=== PATIENT | female | born 1935 | race Caucasian/White ===

== ENCOUNTER 2018-10-04 07:49 | Inpatient (IN) | payer MEDICARE, BC ==
[2018-10-04] MEDS ORDERED: IPRATROPIUM-ALBUTEROL 3 ML NEB INHALATION STA (08:14)
[2018-10-04] MEDS ORDERED: ALBUTEROL NEBULIZED 2.5 MG/3 ML INHALATION STA (08:15)
--- NOTE | 2018-10-04 08:30 | ED ---
General Adult HPI - General Chief complaint: Shortness of Breath Stated complaint: AWAIS Time Seen by Provider: 10/04/18 07:50 Source: patient, RN notes reviewed Mode of arrival: EMS Limitations: no limitations - History of Present Illness Initial comments: This is an 83-year-old female who presents emergency Department complaining of difficult breathing over the last week. Patient states his been getting progressively worse. Patient denies any fever chills. Patient states she has dry cough. Patient denies any chest pain or palpitations. Patient denies headache patient denies numbness weakness. Patient denies abdominal pain patient denies nausea vomiting diarrhea. Patient denies any swelling to the legs or calf tenderness. Patient states she's on to half liters of oxygen home but it doesn't appear to be enough. Patient was in the low 80s on 2 and half liters when EMS arrived. - Related Data Home Medications Medication Instructions Recorded Confirmed Aspirin EC [Ecotrin Low Dose] 81 mg PO DAILY 10/04/18 10/04/18 Atorvastatin [Lipitor] 20 mg PO DAILY 10/04/18 10/04/18 Calcitriol [Rocaltrol] 0.25 mcg PO Q48H 10/04/18 10/04/18 Calcium Carbonate/Vitamin D3 1 tab PO DAILY 10/04/18 10/04/18 [Calcium 600-Vit D3 200 Tablet] Clopidogrel [Plavix] 75 mg PO DAILY 10/04/18 10/04/18 Cyanocobalamin (Vitamin B-12) 1,000 mcg PO DAILY 10/04/18 10/04/18 [Vitamin B-12] Ezetimibe [Zetia] 10 mg PO DAILY 10/04/18 10/04/18 Gabapentin [Neurontin] 400 mg PO TID 10/04/18 10/04/18 Isosorbide Mononitrate ER [Imdur] 30 mg PO DAILY 10/04/18 10/04/18 Levothyroxine Sodium [Synthroid] 50 mcg PO DAILY 10/04/18 10/04/18 Metoprolol Tartrate [Lopressor] 25 mg PO BID 10/04/18 10/04/18 amLODIPine [Norvasc] 10 mg PO DAILY 10/04/18 10/04/18 hydrALAZINE HCL [Apresoline] 50 mg PO TID 10/04/18 10/04/18 traMADol HCL [Ultram] 50 mg PO DAILY PRN 10/04/18 10/04/18 Allergies Allergy/AdvReac Type Severity Reaction Status Date / Time No Known Allergies Allergy Verified 10/04/18 07:59 Review of Systems ROS Statement: Those systems with pertinent positive or pertinent negative responses have been documented in the HPI. ROS Other: All systems not noted in ROS Statement are negative. Past Medical History Past Medical History: COPD, Hyperlipidemia, Hypertension History of Any Multi-Drug Resistant Organisms: None Reported Past Surgical History: Orthopedic Surgery Past Psychological History: No Psychological Hx Reported Smoking Status: Former smoker Past Alcohol Use History: None Reported Past Drug Use History: None Reported - Past Family History Father Family Medical History: Cancer, Coronary Artery Disease (CAD), Myocardial Infarction ([place]) Additional Family Medical History / Comment(s): Father had lymphoma. He lived to be 72 yrs old. Mother Family Medical History: Diabetes Mellitus Additional Family Medical History / Comment(s): Mother lived to be 82 yrs old. General Exam - General Exam Comments Initial Comments: GENERAL: Patient is well-developed and well-nourished. Patient is nontoxic and well- hydrated and is in mild distress. ENT: Neck is soft and supple. No significant lymphadenopathy is noted. Oropharynx is clear. Moist mucous membranes. Neck has full range of motion without eliciting any pain. EYES: The sclera were anicteric and conjunctiva were pink and moist. Extraocular movements were intact and pupils were equal round and reactive to light. Eyelids were unremarkable. PULMONARY: Expiratory wheezing CARDIOVASCULAR: There is a regular rate and rhythm without any murmurs gallops or rubs. ABDOMEN: Soft and nontender with normal bowel sounds. No palpable organomegaly was noted. There is no palpable pulsatile mass. SKIN: Skin is clear with no lesions or rashes and otherwise unremarkable. NEUROLOGIC: Patient is alert and oriented x3. Cranial nerves II through XII are grossly intact. Motor and sensory are also intact. Normal speech, volume and content. Symmetrical smile. MUSCULOSKELETAL: Normal extremities with adequate strength and full range of motion. No lower extremity swelling or edema. No calf tenderness. LYMPHATICS: No significant lymphadenopathy is noted PSYCHIATRIC: Normal psychiatric evaluation. Limitations: no limitations Course Vital Signs 10/04/18 10/04/18 10/04/18 07:49 07:54 07:58 Temperature 99.4 F Pulse Rate 120 H Respiratory 28 H 28 H Rate Blood Pressure 134/92 O2 Sat by Pulse 76 L 88 L Oximetry 10/04/18 10/04/18 10/04/18 08:00 08:06 08:21 Temperature Pulse Rate 118 H 116 H 122 H Respiratory 40 H 20 20 Rate Blood Pressure 134/92 O2 Sat by Pulse 88 L Oximetry 10/04/18 10/04/18 10/04/18 08:33 08:50 09:00 Temperature Pulse Rate 118 H 124 H Respiratory 18 18 Rate Blood Pressure 134/92 O2 Sat by Pulse 93 L 92 L Oximetry 10/04/18 10/04/18 10/04/18 09:30 10:00 11:00 Temperature Pulse Rate 122 H 118 H 120 H Respiratory 24 25 H 25 H Rate Blood Pressure 112/51 116/43 127/49 O2 Sat by Pulse 96 96 97 Oximetry Medical Decision Making - Medical Decision Making EKG shows sinus tachycardia at 123 bpm AR interval is on a 44 QRS is 80 QT interval is 266 QTC is 380. Patient's EKG shows ST segment depression in leads [address] segment depression in leads V2 V3 45 and 6. Patient does have some slight ST segment elevation in aVR. When patient initially arrived she was having wheezing so she received some breathing treatments and steroids. It only slightly improved her breathing and pulse ox. Chest x-ray shows severe scoliosis pulmonary edema and possible right lower lobe infiltrate. I started the patient on Rocephin. I started the patient heparin for the elevated troponin. I spoke with Dr. Stanton he wanted the patient admitted and wanted the patient in ICU. Patient is on BiPAP because she was only satting in the high 80s with [address] Uribe he agreed to accept the patient ICU admitted to the ICU. - Lab Data Result diagrams: 10/04/18 08:20 10/04/18 08:20 Lab Results 10/04/18 10/04/18 10/04/18 Range/Units 08:20 08:20 08:20 WBC 20.3 H (3.8-10.6) k/uL RBC 4.73 (3.80-5.40) m/uL Hgb 13.6 (11.4-16.0) gm/dL Hct 44.6 (34.0-46.0) % MCV 94.3 (80.0-100.0) fL MCH 28.7 (25.0-35.0) pg MCHC 30.5 L (31.0-37.0) g/dL RDW 14.6 (11.5-15.5) % Plt Count 287 (150-450) k/uL Neutrophils % 83 % Lymphocytes % 8 % Monocytes % 7 % Eosinophils % 1 % Basophils % 0 % Neutrophils # 16.9 H (1.3-7.7) k/uL Lymphocytes # 1.6 (1.0-4.8) k/uL Monocytes # 1.3 H (0-1.0) k/uL Eosinophils # 0.2 (0-0.7) k/uL Basophils # 0.1 (0-0.2) k/uL PT 9.8 (9.0-12.0) sec INR 0.9 (<1.2) APTT 22.1 (22.0-30.0) sec Sodium 139 (137-145) mmol/L Potassium 3.9 (3.5-5.1) mmol/L Chloride 103 (98-107) mmol/L Carbon Dioxide 26 (22-30) mmol/L Anion Gap 10 mmol/L BUN 25 H (7-17) mg/dL Creatinine 1.18 H (0.52-1.04) mg/dL Est GFR (CKD-EPI)AfAm 49 (>60 ml/min/1.73 sqM) Est GFR (CKD-EPI)NonAf 43 (>60 ml/min/1.73 sqM) Glucose 126 H (74-99) mg/dL Plasma Lactic Acid Gulshan (0.7-2.0) mmol/L Calcium 9.4 (8.4-10.2) mg/dL Total Bilirubin 2.2 H (0.2-1.3) mg/dL AST 20 (14-36) U/L ALT 17 (9-52) U/L Alkaline Phosphatase 117 (38-126) U/L Troponin I (0.000-0.034) ng/mL NT-Pro-B Natriuret Pep pg/mL Total Protein 6.7 (6.3-8.2) g/dL Albumin 3.7 (3.5-5.0) g/dL Influenza Type A RNA (Not Detectd) Influenza Type B (PCR) (Not Detectd) 10/04/18 10/04/18 10/04/18 Range/Units 08:20 08:20 08:20 WBC (3.8-10.6) k/uL RBC (3.80-5.40) m/uL Hgb (11.4-16.0) gm/dL Hct (34.0-46.0) % MCV (80.0-100.0) fL MCH (25.0-35.0) pg MCHC (31.0-37.0) g/dL RDW (11.5-15.5) % Plt Count (150-450) k/uL Neutrophils % % Lymphocytes % % Monocytes % % Eosinophils % % Basophils % % Neutrophils # (1.3-7.7) k/uL Lymphocytes # (1.0-4.8) k/uL Monocytes # (0-1.0) k/uL Eosinophils # (0-0.7) k/uL Basophils # (0-0.2) k/uL PT (9.0-12.0) sec INR (<1.2) APTT (22.0-30.0) sec Sodium (137-145) mmol/L Potassium (3.5-5.1) mmol/L Chloride (98-107) mmol/L Carbon Dioxide (22-30) mmol/L Anion Gap mmol/L BUN (7-17) mg/dL Creatinine (0.52-1.04) mg/dL Est GFR (CKD-EPI)AfAm (>60 ml/min/1.73 sqM) Est GFR (CKD-EPI)NonAf (>60 ml/min/1.73 sqM) Glucose (74-99) mg/dL Plasma Lactic Acid Gulshan 3.2 H* (0.7-2.0) mmol/L Calcium (8.4-10.2) mg/dL Total Bilirubin (0.2-1.3) mg/dL AST (14-36) U/L ALT (9-52) U/L Alkaline Phosphatase (38-126) U/L Troponin I 0.119 H* (0.000-0.034) ng/mL NT-Pro-B Natriuret Pep pg/mL Total Protein (6.3-8.2) g/dL Albumin (3.5-5.0) g/dL Influenza Type A RNA Not Detected (Not Detectd) Influenza Type B (PCR) Not Detected (Not Detectd) 10/04/18 Range/Units 08:20 WBC (3.8-10.6) k/uL RBC (3.80-5.40) m/uL Hgb (11.4-16.0) gm/dL Hct (34.0-46.0) % MCV (80.0-100.0) fL MCH (25.0-35.0) pg MCHC (31.0-37.0) g/dL RDW (11.5-15.5) % Plt Count (150-450) k/uL Neutrophils % % Lymphocytes % % Monocytes % % Eosinophils % % Basophils % % Neutrophils # (1.3-7.7) k/uL Lymphocytes # (1.0-4.8) k/uL Monocytes # (0-1.0) k/uL Eosinophils # (0-0.7) k/uL Basophils # (0-0.2) k/uL PT (9.0-12.0) sec INR (<1.2) APTT (22.0-30.0) sec Sodium (137-145) mmol/L Potassium (3.5-5.1) mmol/L Chloride (98-107) mmol/L Carbon Dioxide (22-30) mmol/L Anion Gap mmol/L BUN (7-17) mg/dL Creatinine (0.52-1.04) mg/dL Est GFR (CKD-EPI)AfAm (>60 ml/min/1.73 sqM) Est GFR (CKD-EPI)NonAf (>60 ml/min/1.73 sqM) Glucose (74-99) mg/dL Plasma Lactic Acid Gulshan (0.7-2.0) mmol/L Calcium (8.4-10.2) mg/dL Total Bilirubin (0.2-1.3) mg/dL AST (14-36) U/L ALT (9-52) U/L Alkaline Phosphatase (38-126) U/L Troponin I (0.000-0.034) ng/mL NT-Pro-B Natriuret Pep 8230 pg/mL Total Protein (6.3-8.2) g/dL Albumin (3.5-5.0) g/dL Influenza Type A RNA (Not Detectd) Influenza Type B (PCR) (Not Detectd) Critical Care Time Critical Care Time: Yes Total Critical Care Time: 35 Disposition Clinical Impression: Non-STEMI (non-ST elevated myocardial infarction), Pneumonia, Acute pulmonary edema, Acute exacerbation of chronic obstructive airways disease, Sepsis Disposition: ADMITTED IP TO THIS HOSP Time of Disposition: 10:33
[2018-10-04] MEDS ORDERED: methylPREDNISolone SOD SUCCI 125 MG/2 ML VIAL IV STA (08:34)
[2018-10-04 09:03] LABS: Basophils # (A) 0.1 k/uL (0-0.2); Basophils % (A) 0 %; Eosinophils # (A) 0.2 k/uL (0-0.7); Eosinophils % (A) 1 %; HCT 44.6 % (34.0-46.0); HGB 13.6 gm/dL (11.4-16.0); Lymphocytes # (A) 1.6 k/uL (1.0-4.8); Lymphocytes % (A) 8 %; MCH 28.7 pg (25.0-35.0); MCHC 30.5 g/dL (31.0-37.0); MCV 94.3 fL (80.0-100.0); Mean Platelet Volume 8.2; Monocytes # (A) 1.3 k/uL (0-1.0); Monocytes % (A) 7 %; Neutrophils # (A) 16.9 k/uL (1.3-7.7); Neutrophils % (A) 83 %; Platelet Count 287 k/uL (150-450); RBC 4.73 m/uL (3.80-5.40); RDW 14.6 % (11.5-15.5); WBC 20.3 k/uL (3.8-10.6)
[2018-10-04 09:11] LABS: Albumin 3.7 g/dL (3.5-5.0); Calcium 9.4 mg/dL (8.4-10.2); Potassium 3.9 mmol/L (3.5-5.1); Total Bilirubin 2.2 mg/dL (0.2-1.3); Total Protein 6.7 g/dL (6.3-8.2)
--- NOTE | 2018-10-04 09:31 | XR ---
EXAMINATION TYPE: XR chest 1V DATE OF EXAM: 10/04/2018 COMPARISON: NONE HISTORY: Difficulty breathing TECHNIQUE: Single frontal view of the chest is obtained. FINDINGS: Heart is enlarged. Interstitium is increased. Aorta is dense. Patient is rotated, suspect spinal curvature. No pneumothorax. Question right pleural effusion. There are cardiac leads. IMPRESSION: There is underlying scoliosis, rotation. Correlate for congestive heart failure. Follow- up recommended.
[2018-10-04 09:42] LABS: INR 0.9 (<1.2)
[2018-10-04 09:43] LABS: Partial Thromboplastin Time 22.1 sec (22.0-30.0); Prothrombin Time 9.8 sec (9.0-12.0)
[2018-10-04] MEDS ORDERED: HEPARIN SODIUM,PORCINE 5,000 UNIT/ML 1 ML VIAL IV ONE (09:48)
[2018-10-04] MEDS ORDERED: FUROSEMIDE 10 MG/ML 4 ML VIAL IV STA ×2 (10:00→14:04)
[2018-10-04] MEDS: HEPARIN SOD,PORK IN 0.45% NACL 25,000 UNIT in 0.45% NACL 1 250ML.BAG IV SCH (10:14)
[2018-10-04] MEDS ORDERED: NALOXONE 0.4 MG/ML 1 ML VIAL IV PRN (10:56)
--- NOTE | 2018-10-04 11:01 | ECHOF ---
Referral Reason:chest pain MEASUREMENTS -------- HEIGHT: 152.4 cm WEIGHT: 56.2 kg BP: 116/43 RVIDd: 2.6 cm (< 3.3) IVSd: 1.2 cm (0.6 - 1.1) LVIDd: 3.9 cm (3.9 - 5.3) LVPWd: 1.1 cm (0.6 - 1.1) IVSs: 1.3 cm LVIDs: 2.3 cm LVPWs: 1.4 cm LAESV Index (A-L): 53.61 ml/m Ao Diam: 2.7 cm (2.0 - 3.7) AV Cusp: 1.5 cm (1.5 - 2.6) MV E Clyde: 1.53 m/s MV DecT: 217 ms MV A Clyde: 1.12 m/s MV E/A Ratio: 1.36 AV maxP.83 mmHg AV meanP.64 mmHg RAP: 15.00 mmHg RVSP: 81.57 mmHg FINDINGS -------- Sinus rhythm. Resting tachycardia (HR>100bpm). This was a technically adequate study. The left ventricular size is normal. There is mild concentric left ventricular hypertrophy. Overa ll left ventricular systolic function is normal with, an EF between 60 - 65 %. The right ventricle is normal in size. LA is severely dilated >40 ml/m2 RA appears enlarged. There is mild aortic valve sclerosis. There is no evidence of aortic regurgitation. There is no e vidence of aortic stenosis. Mild mitral annular calcification present. Bibv-bv-yivqscql mitral regurgitation is present. The peak and mean MV gradients are 13.85mmHg 5.61mmHg as measured by doppler. Mild mitral stenosis. Vanq-ps-hqurgmrz tricuspid regurgitation present. There is severe pulmonary hypertension. The rig ht ventricular systolic pressure, as measured by Doppler, is 81.57mmHg. The pulmonic valve was not well visualized. Trace/mild (physiologic) pulmonic regurgitation. The aortic root size is normal. The inferior vena cava is dilated with poor inspiratory collapse which is consistent with estimated r ight atrial pressure of 20 mmHg. There is no pericardial effusion. CONCLUSIONS -------- 1. Sinus rhythm. 2. Resting tachycardia (HR>100bpm). 3. This was a technically adequate study. 4. The left ventricular size is normal. 5. There is mild concentric left ventricular hypertrophy. 6. Overall left ventricular systolic function is normal with, an EF between 60 - 65 %. 7. LA is severely dilated >40 ml/m2 8. RA appears enlarged. 9. There is mild aortic valve sclerosis. 10. Mild mitral annular calcification present. 11. Ywtt-zh-ysjzvokd mitral regurgitation is present. 12. The peak and mean MV gradients are 13.85mmHg 5.61mmHg as measured by doppler. 13. Mild mitral stenosis. 14. Pcoq-gi-fhjrhvdd tricuspid regurgitation present. 15. There is severe pulmonary hypertension. 16. Trace/mild (physiologic) pulmonic regurgitation. 17. The aortic root size is normal. 18. The inferior vena cava is dilated with poor inspiratory collapse which is consistent with estimat ed right atrial pressure of 20 mmHg. 19. There is no pericardial effusion. PROGRESS DEVELOPER: Darnell Trejo RDCS
[2018-10-04] MEDS ORDERED: AZITHROMYCIN 500 MG in SODIUM CHLORIDE 0.9% 250 ML IVPB STA (11:02)
--- NOTE | 2018-10-04 11:55 | P.CRDCN ---
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 Patient is brought in by her daughter with complaints of increasing shortness of breath and some cough. Apparently had an oxygen saturation were low on admission and patient was wheezing. Patient was given some updraft treatment. EKGs taken showed sinus tachycardia with a diffuse ST-T changes and ST depressions suggestive of possible ischemia. Patient denied any chest pain. Were called to see the patient because of abnormal EKG. At the time of my examination, patient was relatively comfortable. P-wave is on BiPAP. Lungs show some scattered rhonchi and wheezing. Chest x-ray is rotated. There is questionable CHF findings and possible pneumonia. Her blood work showed 20,000 white count. Her lactic acid is elevated. It appears that patient has possible sepsis. Bedside echo Cardigan showed normal LV function without any segmental wall motion defects. Her proBNP is elevated. She may have an element of diastolic CHF. Continue with IV diuretics, antibiotics and inhalers along with steroids. Patient is being admitted to intensive care unit. 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 History of Any Multi-Drug Resistant Organisms: None Reported Past Surgical History: Breast Surgery Additional Past Surgical History / Comment(s): R caratid endartectomy, L breast lumpectomy, bilateral cataract removals with lens implants, colonoscopy. Past Anesthesia/Blood Transfusion Reactions: No Reported Reaction Smoking Status: Former smoker - Past Family History Father Family Medical History: Cancer, Coronary Artery Disease (CAD), Myocardial Infarction ([place]) Additional Family Medical History / Comment(s): Father had lymphoma. He lived to be 72 yrs old. Mother Family Medical History: Diabetes Mellitus Additional Family Medical History / Comment(s): Mother lived to be 82 yrs old. Medications and Allergies Home Medications Medication Instructions Recorded Confirmed Type Aspirin EC [Ecotrin Low Dose] 81 mg PO DAILY 10/04/18 10/04/18 History Atorvastatin [Lipitor] 20 mg PO DAILY 10/04/18 10/04/18 History Calcitriol [Rocaltrol] 0.25 mcg PO Q48H 10/04/18 10/04/18 History Calcium Carbonate/Vitamin D3 1 tab PO DAILY 10/04/18 10/04/18 History [Calcium 600-Vit D3 200 Tablet] Clopidogrel [Plavix] 75 mg PO DAILY 10/04/18 10/04/18 History Cyanocobalamin (Vitamin B-12) 1,000 mcg PO DAILY 10/04/18 10/04/18 History [Vitamin B-12] Ezetimibe [Zetia] 10 mg PO DAILY 10/04/18 10/04/18 History Gabapentin [Neurontin] 400 mg PO TID 10/04/18 10/04/18 History Isosorbide Mononitrate ER [Imdur] 30 mg PO DAILY 10/04/18 10/04/18 History Levothyroxine Sodium [Synthroid] 50 mcg PO DAILY 10/04/18 10/04/18 History Metoprolol Tartrate [Lopressor] 25 mg PO BID 10/04/18 10/04/18 History amLODIPine [Norvasc] 10 mg PO DAILY 10/04/18 10/04/18 History hydrALAZINE HCL [Apresoline] 50 mg PO TID 10/04/18 10/04/18 History traMADol HCL [Ultram] 50 mg PO DAILY PRN 10/04/18 10/04/18 History Allergies Allergy/AdvReac Type Severity Reaction Status Date / Time No Known Allergies Allergy Verified 10/04/18 07:59 Physical Exam Vitals: Vital Signs Temp Pulse Resp BP Pulse Ox 10/04/18 11:00 120 H 25 H 127/49 97 10/04/18 10:00 118 H 25 H 116/43 96 10/04/18 09:30 122 H 24 112/51 96 10/04/18 09:00 124 H 18 134/92 92 L 10/04/18 08:50 93 L 10/04/18 08:33 118 H 18 10/04/18 08:21 122 H 20 10/04/18 08:06 116 H 20 10/04/18 08:00 118 H 40 H 134/92 88 L 10/04/18 07:58 28 H 10/04/18 07:54 88 L 10/04/18 07:49 99.4 F 120 H 28 H 134/92 76 L Intake and Output 10/03/18 10/04/18 10/04/18 22:59 06:59 14:59 Other: Weight 56.245 kg GENERAL EXAM: Patient is alert and oriented and doesn't appear to be in any acute distress HEENT: Normocephalic. Normal reaction of pupils, equal size, normal range of extraocular motion. No erythema or exudates in the throat. NECK: No masses, no nuchal rigidity. CHEST: No chest wall deformity. LUNGS: Expiratory wheezes and rhonchi HEART: S1 and S2 normal . Distant heart sounds ABDOMEN: Soft SKIN: No rashes CENTRAL NERVOUS SYSTEM: No focal deficits. EXTREMITIES: No cyanosis, clubbing or edema. Results 10/04/18 08:20 10/04/18 08:20 Cardiac Enzymes 10/04/18 10/04/18 Range/Units 08:20 08:20 AST 20 (14-36) U/L Troponin I 0.119 H* (0.000-0.034) ng/mL Coagulation 10/04/18 Range/Units 08:20 PT 9.8 (9.0-12.0) sec APTT 22.1 (22.0-30.0) sec CBC 10/04/18 Range/Units 08:20 WBC 20.3 H (3.8-10.6) k/uL RBC 4.73 (3.80-5.40) m/uL Hgb 13.6 (11.4-16.0) gm/dL Hct 44.6 (34.0-46.0) % Plt Count 287 (150-450) k/uL Comprehensive Metabolic Panel 10/04/18 Range/Units 08:20 Sodium 139 (137-145) mmol/L Potassium 3.9 (3.5-5.1) mmol/L Chloride 103 (98-107) mmol/L Carbon Dioxide 26 (22-30) mmol/L BUN 25 H (7-17) mg/dL Creatinine 1.18 H (0.52-1.04) mg/dL Glucose 126 H (74-99) mg/dL Calcium 9.4 (8.4-10.2) mg/dL AST 20 (14-36) U/L ALT 17 (9-52) U/L Alkaline Phosphatase 117 (38-126) U/L Total Protein 6.7 (6.3-8.2) g/dL Albumin 3.7 (3.5-5.0) g/dL Current Medications Generic Name Dose Route Start Last Admin Trade Name Freq PRN Reason Stop Dose Admin Clopidogrel Bisulfate 75 mg 10/05/18 09:00 Plavix PO DAILY MOLLY Furosemide 40 mg 10/04/18 21:00 Lasix IV Q12HR MOLLY Heparin Sodium/Sodium Chloride 250 mls @ 6.749 mls/hr 10/04/18 10:00 10/04/18 10:14 25,000 unit/ Sodium Chloride IV 12 units/kg/hr .Q24H MOLLY 6.749 mls/hr Administration Protocol 12 UNITS/KG/HR Azithromycin 500 mg/ Sodium 250 mls @ 250 mls/hr 10/04/18 11:02 Chloride IVPB 10/04/18 12:01 ONCE STA Azithromycin 500 mg/ Sodium 250 mls @ 250 mls/hr 10/05/18 09:00 Chloride IVPB DAILY [facility] Ceftriaxone Sodium 1 gm/ 50 mls @ 100 mls/hr 10/05/18 09:00 Sodium Chloride IVPB Q24HR [facility] Naloxone HCl 0.2 mg 10/04/18 10:56 Narcan IV Q2M PRN Opioid Reversal Intake and Output 10/03/18 10/04/18 10/04/18 22:59 06:59 14:59 Other: Weight 56.245 kg Patient Weight 10/05/18 06:59 Weight 56.245 kg 10/04/18 08:20 10/04/18 08:20 EKG Interpretations (text) Sinus rhythm with a diffuse ST-T changes and ST depressions Assessment and Plan (1) Diastolic CHF Current Visit: Yes Status: Acute Code(s): I50.30 - UNSPECIFIED DIASTOLIC (CONGESTIVE) HEART FAILURE SNOMED Code(s): 548347791 (2) Acute exacerbation of chronic obstructive airways disease Current Visit: Yes Status: Acute Code(s): J44.1 - CHRONIC OBSTRUCTIVE PULMONARY DISEASE W (ACUTE) EXACERBATION SNOMED Code(s): 207525747 (3) Pneumonia Current Visit: Yes Status: Acute Code(s): J18.9 - PNEUMONIA, UNSPECIFIED ORGANISM SNOMED Code(s): 250225121 (4) Sepsis Current Visit: Yes Status: Acute Code(s): A41.9 - SEPSIS, UNSPECIFIED ORGANISM SNOMED Code(s): 21509087 Plan: Continue current management. Follow troponins and also electoral lites closely. Further examination depend upon clinical course. Prognosis is guarded
[2018-10-04 13:36] LABS: Glucose,Whole Blood 220 mg/dL (75-99)
[2018-10-04] MEDS ORDERED: METOPROLOL TARTRATE 5 MG/5 ML VIAL IVP STA (13:48)
[2018-10-04] MEDS ORDERED: ACETAMINOPHEN TAB 500 MG TAB PO STA (13:51)
[2018-10-04] MEDS ORDERED: DEXTROSE 5% IN WATER 250 ML with AMIODARONE 300 MG IV ONE (15:00)
--- NOTE | 2018-10-04 15:10 | CONS ---
CONSULTATION PULMONARY/CRITICAL CARE CONSULTATION: DATE OF SERVICE: 10/04/2018 A very pleasant 83-year-old female who comes into the emergency room complaining of weakness, shortness of breath and pain in her chest and back. She apparently was evaluated in the emergency room. She states that she had not been feeling well for a couple days prior to admission. It has been getting progressively worse. Last night when she got out of bed, she felt very short of breath and her arms and legs felt very fatigued. In addition, she had chest and back tightness and pain. She denied any fever or chills. She was not coughing. Not producing any pain. Not producing any phlegm. She had no urinary complaints. She had no GI complaints including nausea, vomiting or diarrhea. She apparently was admitted in the emergency department and seen there by Dr. Kruse. He called me on the phone. He was concerned that she had a lot issues going on and wanted to know if she would be more appropriately managed in the intensive care unit. She was admitted here. While I was evaluating her, she developed a very rapid regular rhythm. It looks like sinus tachycardia, although could be atrial fibrillation. Anyway, the patient was not complaining of anything in particular that time. We tried a carotid massage that did not slow rate down. We will do a stat EKG. We will also put give her some metoprolol 5 mg IV. The patient denies other complaints. She did get some Solu-Medrol in the emergency room. We also gave her breathing treatment in the emergency room. She is thus she was a previous smoker. She smoked for about 40 years about a pack a day. She quit many years back. She has no known history of any lung disease. . HOME MEDICATIONS: Include aspirin, atorvastatin, Rocaltrol, calcium, Plavix, vitamin B12, Zetia, Neurontin, Imdur, Synthroid, Lopressor, Norvasc, Apresoline, and Ultram. ALLERGIES: Denied. MEDICAL HISTORY: Includes primarily hyperlipidemia and hypertension. She also has a history of hypothyroidism. She also has a history of vitamin D deficiency. SURGICAL HISTORY: Includes some orthopedic procedures. SOCIAL HISTORY: Is negative for tobacco or alcohol. She was a heavy smoker as mentioned. Does not smoke currently. FAMILY AND OCCUPATIONAL HISTORY: Noncontributory. REVIEW OF SYSTEMS: CONSTITUTIONAL: Weakness. NEUROLOGIC: Negative. HEENT: Negative. CARDIOVASCULAR: Chest pain and back pain and tightness/ PULMONARY: Shortness of breath particularly with exertion. GI: Negative. : Negative. RHEUMATOLOGIC: Negative. IMMUNOLOGIC: Negative. ENDOCRINOLOGIC: Negative. Current vital signs are reviewed her temperature is 99.4, heart rate is about 175 to 183 beats per minute, respiratory rate about 20, blood pressure 127/49 mean 75. Saturations are excellent at 97% on a partial rebreather. She appears in no acute distress. She does not appear to be in any respiratory distress. There is no audible wheezing or use of accessory muscles. There is no conversational dyspnea. She was also asymptomatic with her tachycardia. HEENT examination is grossly unremarkable. A partial rebreather mask in place. Neck is supple. Full range of motion. No adenopathy or thyromegaly. Neck veins are flat. Cardiovascular examination reveals regular rhythm and rate. Her rate about 175 to 180 beats per minute. No murmur noted. Lungs are relatively clear, breath sounds equal. Abdomen is soft. Bowel sounds are heard. Extremities are intact. No cyanosis, clubbing, or edema. Skin without rash. Neurologic examination is brief but nonfocal. LABORATORY STUDIES: White count 20.3, hemoglobin 13.6, hematocrit 44.6, platelet count 287,000. PT, INR, PTT normal. Sodium 139, potassium 3.9, chloride is 103, CO2 is 26, BUN and creatinine were 25 and 1.18. Anion gap is 10. Her lactic acid 3.2. Total bilirubin 2.2. Troponin 0.119. N terminal proBNP 8,230. Influenza studies were negative. Chest x-ray shows some kyphoscoliosis. In addition, chest x-ray is consistent with some fluid overload. There is bilateral pleural effusions. There is cephalization. EKG showed sinus tachycardia with some ST-T wave changes. ASSESSMENT: 1. Rule out acute myocardial ischemia with congestive heart failure and severe sinus tachycardia. 2. Mild lactic acidemia, likely related to fluid overload and poor peripheral tissue perfusion. 3. History of hypertension. 4. History of hypothyroidism. 5. History of hyperlipidemia. 6. Previous history of significant tobacco use, rule out chronic obstructive pulmonary disease. 7. Mild renal injury. 8. Possible pneumonia PLAN: Cardiology will be consulted. The patient is here in the ICU. It is okay for her to be off the BiPAP right now. Will continue with the partial rebreather. Will give her some metoprolol to slow her heart rate down. The patient will get an EKG. Additional recommendations and suggestions are forthcoming. Prognosis is guarded. Will hold off any updrafts for now as the short-acting beta agonist may actually worsen her tachycardia. Will follow closely. Prognosis is guarded. NEGAR / IJN: [id number] / MTDD
[2018-10-04] MEDS ORDERED: AMIODARONE 360 MG in DEXTROSE 5% IN WATER 200 ML IV ONE ×2 (17:00)
[2018-10-04 17:52] LABS: Glucose,Whole Blood 185 mg/dL (75-99)
[2018-10-04] MEDS: LEVOFLOXACIN 250 MG TAB PO SCH (18:30)
[2018-10-04] MEDS: FUROSEMIDE 10 MG/ML 4 ML VIAL IV SCH (20:53)
[2018-10-04] MEDS: INSULIN ASPART (NovoLOG) 100 UNIT/ML VIAL SQ SCH (21:00)
[2018-10-04] MEDS ORDERED: Potassium Replacement Protocol 1 EACH MISC MISCELLANE PRN (21:07)
[2018-10-04 21:11] LABS: Glucose,Whole Blood 160 mg/dL (75-99)
[2018-10-04] MEDS ORDERED: POTASSIUM CHLORIDE ER 20 MEQ TAB.ER PO SCH (22:00)
[2018-10-04] MEDS ORDERED: AMIODARONE 300 MG in DEXTROSE 5% IN WATER 250 ML IV SCH ×2 (23:00)
[2018-10-05 06:09] LABS: Basophils % (A) 0 %; Eosinophils % (A) 0 %; HCT 40.2 % (34.0-46.0); HGB 12.8 gm/dL (11.4-16.0); Lymphocytes # (A) 0.6 k/uL (1.0-4.8); Lymphocytes % (A) 3 %; MCH 29.4 pg (25.0-35.0); MCHC 31.8 g/dL (31.0-37.0); MCV 92.5 fL (80.0-100.0); Mean Platelet Volume 7.5; Monocytes # (A) 0.6 k/uL (0-1.0); Monocytes % (A) 4 %; Neutrophils # (A) 15.5 k/uL (1.3-7.7); Neutrophils % (A) 92 %; Platelet Count 207 k/uL (150-450); RBC 4.35 m/uL (3.80-5.40); RDW 14.3 % (11.5-15.5); WBC 16.8 k/uL (3.8-10.6)
[2018-10-05 06:30] LABS: Calcium 9.1 mg/dL (8.4-10.2); Potassium 4.1 mmol/L (3.5-5.1)
[2018-10-05] MEDS: INSULIN ASPART (NovoLOG) 100 UNIT/ML VIAL SQ SCH ×2 (07:03→12:29)
[2018-10-05 07:33] LABS: Glucose,Whole Blood 106 mg/dL (75-99)
[2018-10-05] MEDS: ATORVASTATIN 20 MG TAB PO SCH (08:27)
[2018-10-05] MEDS: METOPROLOL TARTRATE 25 MG TAB PO SCH ×2 (08:27→20:58)
[2018-10-05] MEDS: CLOPIDOGREL 75 MG TAB PO SCH (08:27)
[2018-10-05] MEDS ORDERED: AZITHROMYCIN 500 MG in SODIUM CHLORIDE 0.9% 250 ML IVPB SCH (09:00)
[2018-10-05] MEDS ORDERED: FUROSEMIDE 40 MG TAB PO SCH (10:00)
[2018-10-05] MEDS: FUROSEMIDE 10 MG/ML 4 ML VIAL IV SCH (11:39)
--- NOTE | 2018-10-05 11:59 | PN ---
PROGRESS NOTE DATE OF SERVICE: 10/05/2018 This is a very pleasant 83-year-old female that we saw yesterday in consultation. She came in with possible myocardial ischemia with heart failure and severe sinus tachycardia and eventual atrial fibrillation. The patient is doing much better now. She was seen by Cardiology yesterday and treated with amiodarone. That has been turned off. She also had mild lactic acidemia, thought to be related primarily to hypoperfusion of the peripheral tissues as opposed to actual infection. She does have a history of benign essential hypertension, hypothyroidism, hyperlipidemia, previous history of significant tobacco use and possible underlying COPD, mild renal injury, and possible pneumonia. I did leave her on Levaquin. Anyway, the patient is doing much better. She was sitting next to the bed. She was upright. She was not complaining of anything at all. She had a pretty uneventful night. The patient's heart rhythm settled down very, very nicely. Her N-terminal proBNP was 8,230. Her troponin was 0.119. Influenza studies were negative. Her chest x-ray is improved. Today, she does not complain of any pain or discomfort. No shortness of breath, cough. No wheezing. No phlegm production. No fever. No chills. No nausea, vomiting or diarrhea. Current vital signs are reviewed temperature is 98, heart rate 71, respiratory rate about 18, blood pressure 119/64 mean 82 and on 6 L nasal O2, her saturations are 94%- 96%. Appears in no acute distress. HEENT examination is grossly unremarkable. Nasal O2 noted. Neck is supple. Full range of motion. No adenopathy or thyromegaly. Neck veins are flat. Cardiovascular examination reveals regular rhythm and rate. Heart rate 71. No murmur noted. A few extra systoles or premature beats noted. S1, S2 normal. Lungs reveal mostly clear breath sounds. A few scattered rhonchi. No wheezes or crackles. Breath sounds equal. Abdomen is soft. Bowel sounds are heard. Extremities are intact. No cyanosis, clubbing, or edema. Skin without rash. Neurologic examination is nonfocal. She is on O2 at 6 L. She is getting IV heparin via weight based protocol and 0.9 IV at 20 mL an hour. She is a DNR. LABS: Reviewed. White count 16.8, hemoglobin 12.8, hematocrit 40.2, platelet count 207,000. PTT is 59.1. Sodium 137, potassium 4.1, chloride is 100, CO2 is 24, anion gap 13. BUN 34, creatinine 1.28. Troponin was 0.118 today. No chest x-rays to review. Medications are reviewed. ASSESSMENT: 1. Diastolic acute congestive heart failure, complicated by atrial fibrillation/sinus tachycardia. 2. Mild lactic acidemia, likely related to poor peripheral tissue perfusion as opposed to sepsis. 3. Possible underlying pneumonia. 4. Possible chronic obstructive pulmonary disease. 5. History of hypertension. 6. Hypothyroidism. 7. History of hyperlipidemia. 8. Previous history of tobacco use. 9. Mild renal injury. 10.Rule out acute coronary syndrome. PLAN: The patient seems to be doing a lot better. She remains on a 0.9 IV at KVO and heparin via weight-based protocol. Her oxygen has been weaned on the 6 L by nasal cannula. She is a DNR. Her rhythm is more stable. Blood pressure is more stable. Her respiratory status is doing well. She did not admit to any complaints including shortness of breath, chest tightness, wheezing, or cough. Never produce any phlegm. Her chest x-ray was reviewed from yesterday. Her microbiologic studies are negative. She remains on Levaquin as an antibiotic. Will continue to follow. Prognosis is guarded. The patient will likely move out of the unit. Additional recommendations and suggestions are forthcoming. MMODL / IJN: [id number] /
[2018-10-05 13:08] VITALS: BMI 24.0
[2018-10-05] MEDS: LEVOFLOXACIN 250 MG TAB PO SCH (14:54)
[2018-10-05] MEDS: HEPARIN SOD,PORK IN 0.45% NACL 25,000 UNIT in 0.45% NACL 1 250ML.BAG IV SCH (14:54)
--- NOTE | 2018-10-05 16:33 | P.HPIM ---
History of Present Illness H&P Date: 10/05/18 Chief Complaint: Shortness of breath Patient is a 83-year-old female with a known history of COPD on home oxygen, chronic hypoxic respiratory failure, hypertension, hyperlipidemia, history of TIA, left carotid stenosis, history of right carotid endarterectomy, left breast lumpectomy and radiation, hypothyroidism and chronic back pain and resistance smoking came to ER with the complaints of worsening shortness of breath for the past 1 week. Patient otherwise denied any fever or chills. Patient does have dry cough without sputum production. Denied any chest pain. No nausea vomiting or abdominal pain. Denied any leg swelling. Patient was hypoxic on admission with saturation low 80s on admission. Patient was on 2 and half liters of oxygen with another cannula. Patient was brought to the hospital where EMS. Patient was wheezing on admission. Patient was tachycardic and tachypneic. EKG showed sinus tachycardia with ST depression Chest x-ray showed there is underlying scoliosis, rotation. Correlate for CHF findings. Follow-up recommended. WBC 20,000 BN 23 and creatinine 1.18 Lactic acid 3.2 Troponin 0.118, BNP 8230 Influenza negative 2-D echocardiogram showed ejection fraction 60-65%, LVH is severely dilated and mild to moderate tricuspid regurgitation, [id number] mitral regurgitation, severe pulmonary hypertension. Review of Systems Constitutional: Patient denies any fever or chills . No generalized weakness or weight loss. Abdomen: Patient denied nausea vomiting and diarrhea and abdominal pain. Cardiovascular: Patient denies any chest pain or short of breath no palpitations. Respiratory: Patient does have cough without sputum production. Patient has shortness of breath Neurologic: Patient denied any numbness or tingling headache. Musculoskeletal: Patient denies any complaints of joint swelling or deformity. Skin: Negative Psychiatric: Negative Endocrine: No heat or cold intolerance. No recent weight gain. Genitourinary: No dysuria or hematuria. All other 14 point ROS negative except the above Past Medical History Past Medical History: COPD, Hyperlipidemia, Hypertension Additional Past Medical History / Comment(s): Chronic respiratory failure with home O2 at 2.5L/NC ATC, one kidney nonfunctioning and "they are watching my other kidney", TIA, 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 History of Any Multi-Drug Resistant Organisms: None Reported Past Surgical History: Orthopedic Surgery Additional Past Surgical History / Comment(s): R caratid endartectomy, L breast lumpectomy, bilateral cataract removals with lens implants, colonoscopy. Past Anesthesia/Blood Transfusion Reactions: No Reported Reaction Past Psychological History: No Psychological Hx Reported Smoking Status: Former smoker Past Alcohol Use History: None Reported Past Drug Use History: None Reported - Past Family History Father Family Medical History: Cancer, Coronary Artery Disease (CAD), Myocardial Infarction (PR) Additional Family Medical History / Comment(s): Father had lymphoma. He lived to be 72 yrs old. Mother Family Medical History: Diabetes Mellitus Additional Family Medical History / Comment(s): Mother lived to be 82 yrs old. Medications and Allergies Home Medications Medication Instructions Recorded Confirmed Type Aspirin EC [Ecotrin Low Dose] 81 mg PO DAILY 10/04/18 10/04/18 History Atorvastatin [Lipitor] 20 mg PO DAILY 10/04/18 10/04/18 History Calcitriol [Rocaltrol] 0.25 mcg PO Q48H 10/04/18 10/04/18 History Calcium Carbonate/Vitamin D3 1 tab PO DAILY 10/04/18 10/04/18 History [Calcium 600-Vit D3 200 Tablet] Clopidogrel [Plavix] 75 mg PO DAILY 10/04/18 10/04/18 History Cyanocobalamin (Vitamin B-12) 1,000 mcg PO DAILY 10/04/18 10/04/18 History [Vitamin B-12] Ezetimibe [Zetia] 10 mg PO DAILY 10/04/18 10/04/18 History Gabapentin [Neurontin] 400 mg PO TID 10/04/18 10/04/18 History Isosorbide Mononitrate ER [Imdur] 30 mg PO DAILY 10/04/18 10/04/18 History Levothyroxine Sodium [Synthroid] 50 mcg PO DAILY 10/04/18 10/04/18 History Metoprolol Tartrate [Lopressor] 25 mg PO BID 10/04/18 10/04/18 History amLODIPine [Norvasc] 10 mg PO DAILY 10/04/18 10/04/18 History hydrALAZINE HCL [Apresoline] 50 mg PO TID 10/04/18 10/04/18 History traMADol HCL [Ultram] 50 mg PO DAILY PRN 10/04/18 10/04/18 History Allergies Allergy/AdvReac Type Severity Reaction Status Date / Time No Known Allergies Allergy Verified 10/04/18 07:59 Physical Exam Vitals: Vital Signs Temp Pulse Resp BP Pulse Ox 10/05/18 10:00 71 22 119/64 94 L 10/05/18 09:30 69 24 145/60 96 10/05/18 09:00 73 14 140/85 99 10/05/18 08:30 87 17 140/64 97 10/05/18 08:00 98.0 F 84 12 136/63 96 10/05/18 07:30 82 21 144/65 90 L 10/05/18 07:05 95 10/05/18 07:00 85 10 L 142/63 95 10/05/18 06:30 80 25 H 137/64 96 10/05/18 06:00 75 9 L 146/73 98 10/05/18 05:30 82 21 143/64 87 L 10/05/18 05:00 80 22 127/64 95 10/05/18 04:30 80 18 125/52 94 L 10/05/18 04:00 98.2 F 79 19 147/59 97 10/05/18 03:30 86 15 134/54 10/05/18 03:00 76 131/70 98 10/05/18 02:30 82 22 145/62 94 L 10/05/18 02:00 79 0 L 135/63 97 10/05/18 01:30 79 18 145/66 96 10/05/18 01:00 81 15 144/63 95 10/05/18 00:30 78 4 L 129/62 96 10/05/18 00:17 82 15 129/62 95 10/05/18 00:00 98 F 78 12 132/60 97 10/04/18 23:30 78 27 H 136/65 99 10/04/18 23:00 81 12 116/59 99 10/04/18 22:30 78 18 126/55 100 10/04/18 22:00 80 29 H 111/59 96 10/04/18 21:30 78 23 123/59 97 10/04/18 21:00 81 22 122/62 91 L 10/04/18 20:30 79 19 117/58 97 10/04/18 20:00 98.2 F 78 19 118/54 93 L 10/04/18 19:30 82 19 119/63 91 L 10/04/18 19:00 79 16 138/63 96 10/04/18 18:30 81 15 119/56 90 L 10/04/18 18:00 81 23 124/56 92 L 10/04/18 17:30 81 17 121/51 96 10/04/18 17:00 80 20 113/59 97 10/04/18 16:30 80 24 100/59 99 10/04/18 16:00 98.3 F 84 19 109/60 99 10/04/18 15:30 137 H 21 91/55 97 10/04/18 15:00 144 H 15 92/60 94 L 10/04/18 14:30 156 H 28 H 98/54 92 L 10/04/18 14:00 100.1 F H 149 H 24 91/54 86 L 10/04/18 13:30 99.7 F H 109 H 26 H 132/84 92 L Intake and Output 10/04/18 10/05/18 10/05/18 22:59 06:59 14:59 Intake Total 270 180 60 Output Total 880 1520 385 Balance -610 1340 325 Intake: IV 120 180 60 .9 ns 120 180 60 Oral 150 Output: Urine 880 1520 385 Other: Voiding Method Indwelling Catheter Indwelling Catheter Indwelling Catheter Weight 56 kg PHYSICAL EXAMINATION: Patient is lying in the bed comfortably, no acute distress, awake alert and oriented.. HEENT: Normocephalic. Neck is supple. Pupils reactive. Nostrils clear. Oral cavity is moist. Ears reveal no drainage. Neck reveals no JVD, carotid bruits, or thyromegaly. CHEST EXAMINATION: Trachea is central. Symmetrical expansion. Scattered rhonchi. No wheezing nonlabored breathing. CARDIAC: Normal S1, S2 with no gallops. No murmurs ABDOMEN: Soft. Bowel sounds normal. No organomegaly. No abdominal bruits. Extremities: reveal no edema. No clubbing or cyanosis Neurologically awake, alert, oriented x3 with well-coordinated movements. No focal deficits noted Skin: No rash or skin lesions. Psychiatric: Coperative. Nonsuicidal Musculoskeletal: No joint swelling or deformity. Normal range of motion. Scoliosis. Results CBC & Chem 7: 10/05/18 05:00 10/05/18 05:00 Labs: Abnormal Lab Results - Last 24 Hours (Table) 10/04/18 10/04/18 10/04/18 Range/Units 13:00 13:21 17:50 WBC (3.8-10.6) k/uL Neutrophils # (1.3-7.7) k/uL Lymphocytes # (1.0-4.8) k/uL APTT (22.0-30.0) sec BUN (7-17) mg/dL Creatinine (0.52-1.04) mg/dL Glucose (74-99) mg/dL POC Glucose (mg/dL) 220 H 185 H (75-99) mg/dL Plasma Lactic Acid Gulshan 3.7 H* (0.7-2.0) mmol/L Troponin I (0.000-0.034) ng/mL 10/04/18 10/04/18 10/05/18 Range/Units 17:54 20:56 05:00 WBC 16.8 H (3.8-10.6) k/uL Neutrophils # 15.5 H (1.3-7.7) k/uL Lymphocytes # 0.6 L (1.0-4.8) k/uL APTT 67.3 H (22.0-30.0) sec BUN (7-17) mg/dL Creatinine (0.52-1.04) mg/dL Glucose (74-99) mg/dL POC Glucose (mg/dL) 160 H (75-99) mg/dL Plasma Lactic Acid Gulshan (0.7-2.0) mmol/L Troponin I (0.000-0.034) ng/mL 10/05/18 10/05/18 10/05/18 Range/Units 05:00 05:00 05:00 WBC (3.8-10.6) k/uL Neutrophils # (1.3-7.7) k/uL Lymphocytes # (1.0-4.8) k/uL APTT 59.1 H (22.0-30.0) sec BUN 34 H (7-17) mg/dL Creatinine 1.28 H (0.52-1.04) mg/dL Glucose 115 H (74-99) mg/dL POC Glucose (mg/dL) (75-99) mg/dL Plasma Lactic Acid Gulshan (0.7-2.0) mmol/L Troponin I 0.118 H* (0.000-0.034) ng/mL 10/05/18 Range/Units 07:07 WBC (3.8-10.6) k/uL Neutrophils # (1.3-7.7) k/uL Lymphocytes # (1.0-4.8) k/uL APTT (22.0-30.0) sec BUN (7-17) mg/dL Creatinine (0.52-1.04) mg/dL Glucose (74-99) mg/dL POC Glucose (mg/dL) 106 H (75-99) mg/dL Plasma Lactic Acid Gulshan (0.7-2.0) mmol/L Troponin I (0.000-0.034) ng/mL Thrombosis Risk Factor Assmnt - DVT/VTE Prophylaxis DVT/VTE Prophylaxis: Pharmacologic Prophylaxis ordered - Choose All That Apply Any of the Below Risk Factors Present?: Yes Each Factor Represents 1 point: Abnormal pulmonary function (COPD), Acute PR, Sepsis (< 1month), Serious lung disease incl. pneumonia (< 1month) Other Risk Factors: Yes Each Risk Factor Represents 3 Points: Age 75 years or older Other congenital or acquired thrombophilia - If yes, enter type in comment: No Thrombosis Risk Factor Assessment Total Risk Factor Score: 7 Thrombosis Risk Factor Assessment Level: High Risk Assessment and Plan Assessment: Shortness of breath likely secondary to acute CHF with diastolic dysfunction with valvular heart disease and possible pneumonia. Acute on chronic hypoxic respiratory failure. COPD on home oxygen with mild exacerbation. Lactic acidosis on admission likely to decreased tissue perfusion and volume depletion. Improved. Elevated troponin level. Likely due to demand ischemia. Mild to moderate mitral and tricuspid regurgitation Severe pulmonary hypertension Hypertension Hyperlipidemia History of TIA Left carotid artery stenosis and history of right carotid endarterectomy Left breast cancer with lumpectomy and radiation Hypothyroidism Chronic back pain and bilateral shoulder pain Bilateral feet neuropathy. Nondiabetic Osteopenia Previous history of smoking Scoliosis DVT prophylaxis Plan: Continue with Lasix by mouth and heparin drip currently. Patient was was given IV Lasix. Continue with Plavix, metoprolol and atorvastatin. Continue with antibiotics in the form of levofloxacin and breathing treatments. Pulmonary and cardiology is on board. Further recommendations based on the clinical course. Prognosis is guarded. Time with Patient: Greater than 30
--- NOTE | 2018-10-05 18:29 | PN ---
PROGRESS NOTE This is an 83-year-old lady who has been evaluated by Dr. Vazquez yesterday. She was in what seems to be SVT yesterday. I was called about her tachycardia, but on reviewing the rhythm strips and EKG, it appears that this was a SVT. However, she was initiated on a amiodarone drip and then she converted to sinus rhythm. This morning she is in sinus, resting comfortably. She has sepsis. Some diastolic heart failure and episodes of SVT. However, I have initiated her on metoprolol tartrate 25 mg b.i.d. She is resting comfortably today. She is not in any major distress. Her white count is elevated. There is a question of some sepsis as well. From a cardiac standpoint, she appears to be more stable today. She also has a history of hypertension and hyperlipidemia as well. I will initiate her on Lipitor 20 mg daily, which she was taking before and metoprolol tartrate 25 mg b.i.d. We will increase activity and she can possibly be moved to telemetry unit. Vital signs are stable. Blood pressure is 118/70, pulse rate is 70 per minute, sinus. HEENT: Unremarkable. Fundus was not examined by me. Neck is supple. There is JVD of 1 cm. No carotid bruit. S1-S2 heard normally. Short systolic murmur noted. Lungs are clear. Abdomen and lower extremity exam unchanged. Plan is to add a beta luann, Lipitor, increase activity and move her to telemetry. MMODL / IJN: [id number] /
[2018-10-06] MEDS: HEPARIN SODIUM,PORCINE 5,000 UNIT/ML 1 ML VIAL SQ SCH ×2 (09:09→22:23)
[2018-10-06] MEDS: METOPROLOL TARTRATE 25 MG TAB PO SCH ×2 (09:11→22:23)
[2018-10-06] MEDS: ATORVASTATIN 20 MG TAB PO SCH (09:11)
[2018-10-06] MEDS: CLOPIDOGREL 75 MG TAB PO SCH (09:11)
--- NOTE | 2018-10-06 11:30 | PN ---
PROGRESS NOTE This lady has COPD, past history of smoking. She came into the hospital with what seems to be some form of sepsis and infection. She had a SVT which has resolved. She is actually doing better. I am going to switch her from IV to subcu heparin. Resume her Synthroid. DC IV Lasix and initiate her on Norvasc for blood pressure control. We will continue beta blockers and Norvasc. Her vital signs are stable. S1-S2 heard normally. Short systolic murmur noted. Lungs are clear. Abdomen and lower extremity exam is unchanged. MMODL / IJN: [id number] /
[2018-10-06 13:07] LABS: Basophils % (A) 0 %; Eosinophils # (A) 0.1 k/uL (0-0.7); Eosinophils % (A) 1 %; HCT 41.4 % (34.0-46.0); Lymphocytes # (A) 0.8 k/uL (1.0-4.8); Lymphocytes % (A) 6 %; MCH 29.1 pg (25.0-35.0); MCHC 31.4 g/dL (31.0-37.0); MCV 92.5 fL (80.0-100.0); Mean Platelet Volume 9.5; Monocytes # (A) 0.8 k/uL (0-1.0); Monocytes % (A) 5 %; Neutrophils # (A) 12.4 k/uL (1.3-7.7); Neutrophils % (A) 87 %; Platelet Count 255 k/uL (150-450); RBC 4.48 m/uL (3.80-5.40); RDW 14.6 % (11.5-15.5); WBC 14.2 k/uL (3.8-10.6)
[2018-10-06 13:13] LABS: Calcium 9.2 mg/dL (8.4-10.2); Potassium 4.1 mmol/L (3.5-5.1)
[2018-10-06] MEDS: LEVOFLOXACIN 250 MG TAB PO SCH (15:06)
[2018-10-06] MEDS ORDERED: amLODIPine 5 MG TAB PO SCH (21:00)
[2018-10-07] MEDS ORDERED: LEVOTHYROXINE 50 MCG TAB PO SCH (06:30)
[2018-10-07 06:38] LABS: Basophils % (A) 0 %; Eosinophils # (A) 0.1 k/uL (0-0.7); Eosinophils % (A) 1 %; HGB 13.2 gm/dL (11.4-16.0); Lymphocytes # (A) 0.8 k/uL (1.0-4.8); Lymphocytes % (A) 9 %; MCHC 32.2 g/dL (31.0-37.0); MCV 90.1 fL (80.0-100.0); Mean Platelet Volume 8.2; Monocytes # (A) 0.7 k/uL (0-1.0); Monocytes % (A) 8 %; Neutrophils # (A) 6.8 k/uL (1.3-7.7); Neutrophils % (A) 81 %; Platelet Count 267 k/uL (150-450); RBC 4.54 m/uL (3.80-5.40); RDW 14.6 % (11.5-15.5); WBC 8.4 k/uL (3.8-10.6)
[2018-10-07 06:49] LABS: Calcium 9.4 mg/dL (8.4-10.2); Potassium 4.4 mmol/L (3.5-5.1)
[2018-10-07] MEDS: HEPARIN SODIUM,PORCINE 5,000 UNIT/ML 1 ML VIAL SQ SCH (09:24)
[2018-10-07] MEDS: ATORVASTATIN 20 MG TAB PO SCH (09:24)
[2018-10-07] MEDS: CLOPIDOGREL 75 MG TAB PO SCH (09:24)
[2018-10-07] MEDS: METOPROLOL TARTRATE 25 MG TAB PO SCH (09:24)
[2018-10-07] MEDS ORDERED: ASPIRIN 81 MG PO SCH (10:30)
[2018-10-07 11:51] VITALS: RESP 16
--- NOTE | 2018-10-07 12:46 | PN ---
PROGRESS NOTE Gerda Lara is a lady with a history of hypertension, also came in with paroxysmal SVT. She is on home oxygen, has significant pulmonary hypertension. She is in sinus rhythm, resting comfortably. Room air oxygen saturation is lower and on 2 L, which is her baseline and she has 2 L at home. Her oxygen saturation is 95%. Her blood pressure and heart rate are good today. She is in sinus rhythm. She is on Plavix for unclear reasons. I will switch her to aspirin 81 mg daily. Vital signs are stable. S1, S2 heard normally. Lungs reveal improved air entry. Abdomen and lower extremity exam unchanged. Plan is to increase activity and she can be discharged on the current medications which include verapamil and also on aspirin 81 mg daily and stop Plavix. Discussed my thoughts in detail with the patient. MMODL / IJN: [id number] /
[2018-10-07] MEDS: LEVOFLOXACIN 250 MG TAB PO SCH (14:37)
[2018-10-07 15:18] VITALS: BP 139/71; PULSE 62; TEMP 98.2
== END 2018-10-07 17:13 | disposition home or self-care (01) | DRG 291 ==
LOC: EC 07:49 → 2SICU 10:56 → 3SCARD 10-05 11:23
PROVIDERS: ADMIT Internal Medicine; ATTEND Internal Medicine
PROC: 5A09357 Assistance with Respiratory Ventilation, Less than 24 Consecutive Hours, Continuous Positive Airway Pressure (ICD-10-PCS; principal; 2018-10-04)
DX: I11.0 Hypertensive heart disease with heart failure (principal); J96.21 Acute and chronic respiratory failure with hypoxia; I50.31 Acute diastolic (congestive) heart failure; J18.9 Pneumonia, unspecified organism; J44.1 Chronic obstructive pulmonary disease with (acute) exacerbation; E87.2 Acidosis; I47.1 Supraventricular tachycardia; J44.0 Chronic obstructive pulmonary disease with (acute) lower respiratory infection; I24.8 Other forms of acute ischemic heart disease; Z66 Do not resuscitate; E86.9 Volume depletion, unspecified; G62.9 Polyneuropathy, unspecified; I08.1 Rheumatic disorders of both mitral and tricuspid valves; M41.9 Scoliosis, unspecified; I27.20 Pulmonary hypertension, unspecified; K21.9 Gastro-esophageal reflux disease without esophagitis; N28.9 Disorder of kidney and ureter, unspecified; M54.9 Dorsalgia, unspecified; G89.29 Other chronic pain; E03.9 Hypothyroidism, unspecified; E78.5 Hyperlipidemia, unspecified; M19.90 Unspecified osteoarthritis, unspecified site; E55.9 Vitamin D deficiency, unspecified; M25.511 Pain in right shoulder; M25.512 Pain in left shoulder; M85.80 Other specified disorders of bone density and structure, unspecified site; Z99.81 Dependence on supplemental oxygen; Z79.82 Long term (current) use of aspirin; Z79.02 Long term (current) use of antithrombotics/antiplatelets; Z79.890 Hormone replacement therapy; Z79.899 Other long term (current) drug therapy; Z87.891 Personal history of nicotine dependence; Z86.73 Personal history of transient ischemic attack (TIA), and cerebral infarction without residual deficits; Z86.79 Personal history of other diseases of the circulatory system; Z85.3 Personal history of malignant neoplasm of breast; Z92.3 Personal history of irradiation; Z98.42 Cataract extraction status, left eye; Z98.41 Cataract extraction status, right eye; Z96.1 Presence of intraocular lens; Z82.49 Family history of ischemic heart disease and other diseases of the circulatory system; Z80.7 Family history of other malignant neoplasms of lymphoid, hematopoietic and related tissues; Z83.3 Family history of diabetes mellitus
CPT/HCPCS: 36415; 71045; 80048; 80053; 83605; 83880; 84484; 85025; 85610; 85730; 87040; 87502; 93005; 93306; 94640; 94660; 94760; 96365; 96366; 96367; 96368; 96375; 96376; 99291

== ENCOUNTER 2021-01-07 10:55 | Observation (INO) | payer MEDICARE, BC ==
[2021-01-07 11:33] LABS: Basophils % (A) 0 %; Eosinophils # (A) 0.2 k/uL (0-0.7); Eosinophils % (A) 2 %; HCT 45.4 % (34.0-46.0); HGB 14.4 gm/dL (11.4-16.0); Lymphocytes # (A) 1.2 k/uL (1.0-4.8); Lymphocytes % (A) 15 %; MCH 29.3 pg (25.0-35.0); MCHC 31.6 g/dL (31.0-37.0); MCV 92.6 fL (80.0-100.0); Mean Platelet Volume 8.5; Monocytes # (A) 0.5 k/uL (0-1.0); Monocytes % (A) 7 %; Neutrophils % (A) 75 %; Platelet Count 281 k/uL (150-450); RDW 13.9 % (11.5-15.5)
[2021-01-07] MEDS ORDERED: hydrALAZINE HCL 20 MG/ML 1 ML VIAL IVP STA (11:38)
[2021-01-07 11:42] LABS: Albumin 4.3 g/dL (3.5-5.0); Calcium 10.1 mg/dL (8.4-10.2); Magnesium 1.8 mg/dL (1.6-2.3); Potassium 4.5 mmol/L (3.5-5.1); Total Bilirubin 0.9 mg/dL (0.2-1.3); Total Protein 7.5 g/dL (6.3-8.2)
--- NOTE | 2021-01-07 11:42 | XR ---
EXAMINATION TYPE: XR chest 2V DATE OF EXAM: 01/07/2021 COMPARISON: 10/04/2018 HISTORY: Chest pain TECHNIQUE: Frontal and lateral views of the chest are obtained. FINDINGS: The lungs are hyperinflated. There has been interval improvement in patchy airspace disease bilateral ly. Cardiac silhouette is unchanged in size. Scoliosis is again noted. IMPRESSION: Interval improvement in patchy airspace disease bilaterally.
[2021-01-07 11:44] LABS: INR 0.9 (<1.2); Partial Thromboplastin Time 25.6 sec (22.0-30.0); Prothrombin Time 10.2 sec (9.0-12.0)
--- NOTE | 2021-01-07 11:45 | ED ---
General Adult HPI - General Chief complaint: Chest Pain Stated complaint: Abnormal EKG Time Seen by Provider: 01/07/21 10:57 Source: patient, RN notes reviewed, old records reviewed Mode of arrival: ambulatory Limitations: no limitations - History of Present Illness Initial comments: 85-year-old female presenting for evaluation of abnormal EKG. Patient was seen at urgent care and instructed to present to the emergency department for evaluation of abnormal EKG and 3 days of chest discomfort. Patient has no previous history of coronary artery disease. She does have history of COPD and history of scoliosis. She states she has had some back pain for the past several years. Her chest discomfort is anterior chest, no associated diaphoresis, no vomiting, no fevers. No cough or dyspnea. No lower extremity pain or swelling. - Related Data Home Medications Medication Instructions Recorded Confirmed Aspirin EC [Ecotrin Low Dose] 81 mg PO DAILY 10/04/18 01/07/21 calcitrioL [Rocaltrol] 0.25 mcg PO DAILY 10/04/18 01/07/21 traMADol HCL [Ultram] 25 mg PO HS 10/04/18 01/07/21 Levothyroxine Sodium [Levoxyl] 50 mg PO DAILY 01/07/21 01/07/21 Metoprolol Succinate [Toprol XL] 25 mg PO DAILY 01/07/21 01/07/21 hydroCHLOROthiazide 25 mg PO DAILY 01/07/21 01/07/21 lisinopriL [Zestril] 5 mg PO DAILY 01/07/21 01/07/21 Allergies Allergy/AdvReac Type Severity Reaction Status Date / Time No Known Allergies Allergy Verified 01/07/21 11:53 Review of Systems ROS Statement: Those systems with pertinent positive or pertinent negative responses have been documented in the HPI. ROS Other: All systems not noted in ROS Statement are negative. 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 History of Any Multi-Drug Resistant Organisms: None Reported Past Surgical History: Orthopedic Surgery Additional Past Surgical History / Comment(s): R caratid endartectomy, L breast lumpectomy, bilateral cataract removals with lens implants, colonoscopy. Past Anesthesia/Blood Transfusion Reactions: No Reported Reaction Past Psychological History: No Psychological Hx Reported Smoking Status: Former smoker Past Alcohol Use History: None Reported Past Drug Use History: None Reported - Past Family History Father Family Medical History: Cancer, Coronary Artery Disease (CAD), Myocardial Infarction ([place]) Additional Family Medical History / Comment(s): Father had lymphoma. He lived to be 72 yrs old. Mother Family Medical History: Diabetes Mellitus Additional Family Medical History / Comment(s): Mother lived to be 82 yrs old. General Exam Limitations: no limitations General appearance: alert, in no apparent distress Head exam: Present: atraumatic, normocephalic Eye exam: Present: normal appearance, PERRL ENT exam: Present: normal exam Neck exam: Present: normal inspection. Absent: tenderness, meningismus Respiratory exam: Present: normal lung sounds bilaterally. Absent: respiratory distress Cardiovascular Exam: Present: regular rate, normal rhythm GI/Abdominal exam: Present: soft. Absent: distended, tenderness, guarding, rebound Extremities exam: Present: normal capillary refill. Absent: pedal edema Back exam: Present: other (Scoliosis) Neurological exam: Present: alert, oriented X3, CN II-XII intact. Absent: motor sensory deficit Psychiatric exam: Present: normal affect, normal mood Course Vital Signs 01/07/21 01/07/21 01/07/21 10:59 11:32 12:00 Temperature 97.6 F Pulse Rate 65 56 L Respiratory 20 18 Rate Blood Pressure 127/84 214/76 204/90 O2 Sat by Pulse 99 Oximetry EKG Findings - EKG Comments: EKG Findings:: EKG: Sinus bradycardia, T-wave inversion both inferiorly and in the precordial leads no ST segment elevation, rate of 59, OH interval 148, QRS duration 74, QTC 425 Medical Decision Making - Medical Decision Making 85-year-old female with chest discomfort for the past 3 days abnormal EKG. EKG does show T-wave inversion, this was seen on previous EKG. Patient has no associated symptoms. She denies a previous history of coronary artery disease. EKG is showing some scoliosis, no other acute findings. Normal CBC, normal CMP, negative initial troponin. She will be kept in observation for serial cardiac enzymes, telemetry, cardiology consultation. Case discussed with Dr. Helms who will admit. - Lab Data Result diagrams: 01/07/21 11:28 01/07/21 11:28 Lab Results 01/07/21 01/07/21 01/07/21 Range/Units 11:28 11:28 11:28 WBC 8.0 (3.8-10.6) k/uL RBC 4.90 (3.80-5.40) m/uL Hgb 14.4 (11.4-16.0) gm/dL Hct 45.4 (34.0-46.0) % MCV 92.6 (80.0-100.0) fL MCH 29.3 (25.0-35.0) pg MCHC 31.6 (31.0-37.0) g/dL RDW 13.9 (11.5-15.5) % Plt Count 281 (150-450) k/uL MPV 8.5 Neutrophils % 75 % Lymphocytes % 15 % Monocytes % 7 % Eosinophils % 2 % Basophils % 0 % Neutrophils # 6.0 (1.3-7.7) k/uL Lymphocytes # 1.2 (1.0-4.8) k/uL Monocytes # 0.5 (0-1.0) k/uL Eosinophils # 0.2 (0-0.7) k/uL Basophils # 0.0 (0-0.2) k/uL PT 10.2 (9.0-12.0) sec INR 0.9 (<1.2) APTT 25.6 (22.0-30.0) sec Sodium 137 (137-145) mmol/L Potassium 4.5 (3.5-5.1) mmol/L Chloride 100 (98-107) mmol/L Carbon Dioxide 28 (22-30) mmol/L Anion Gap 9 mmol/L BUN 21 H (7-17) mg/dL Creatinine 1.39 H (0.52-1.04) mg/dL Est GFR (CKD-EPI)AfAm 40 (>60 ml/min/1.73 sqM) Est GFR (CKD-EPI)NonAf 35 (>60 ml/min/1.73 sqM) Glucose 95 (74-99) mg/dL Calcium 10.1 (8.4-10.2) mg/dL Magnesium 1.8 (1.6-2.3) mg/dL Total Bilirubin 0.9 (0.2-1.3) mg/dL AST 24 (14-36) U/L ALT 11 (4-34) U/L Alkaline Phosphatase 119 (38-126) U/L Troponin I (0.000-0.034) ng/mL Total Protein 7.5 (6.3-8.2) g/dL Albumin 4.3 (3.5-5.0) g/dL Lipase 283 (23-300) U/L 01/07/21 Range/Units 11:28 WBC (3.8-10.6) k/uL RBC (3.80-5.40) m/uL Hgb (11.4-16.0) gm/dL Hct (34.0-46.0) % MCV (80.0-100.0) fL MCH (25.0-35.0) pg MCHC (31.0-37.0) g/dL RDW (11.5-15.5) % Plt Count (150-450) k/uL MPV Neutrophils % % Lymphocytes % % Monocytes % % Eosinophils % % Basophils % % Neutrophils # (1.3-7.7) k/uL Lymphocytes # (1.0-4.8) k/uL Monocytes # (0-1.0) k/uL Eosinophils # (0-0.7) k/uL Basophils # (0-0.2) k/uL PT (9.0-12.0) sec INR (<1.2) APTT (22.0-30.0) sec Sodium (137-145) mmol/L Potassium (3.5-5.1) mmol/L Chloride (98-107) mmol/L Carbon Dioxide (22-30) mmol/L Anion Gap mmol/L BUN (7-17) mg/dL Creatinine (0.52-1.04) mg/dL Est GFR (CKD-EPI)AfAm (>60 ml/min/1.73 sqM) Est GFR (CKD-EPI)NonAf (>60 ml/min/1.73 sqM) Glucose (74-99) mg/dL Calcium (8.4-10.2) mg/dL Magnesium (1.6-2.3) mg/dL Total Bilirubin (0.2-1.3) mg/dL AST (14-36) U/L ALT (4-34) U/L Alkaline Phosphatase (38-126) U/L Troponin I <0.012 (0.000-0.034) ng/mL Total Protein (6.3-8.2) g/dL Albumin (3.5-5.0) g/dL Lipase (23-300) U/L Disposition Clinical Impression: Chest pain Disposition: ADMITTED IP TO THIS HOSP Condition: Stable Is patient prescribed a controlled substance at d/c from ED?: No Referrals: Nikko Helms MD [Primary Care Provider] - 1-2 days Decision to Admit Reason: Admit from EC Decision Date: 01/07/21 Decision Time: 13:21
[2021-01-07] MEDS ORDERED: MORPHINE SULFATE 4 MG/ML SYRINGE IV PRN (13:18)
[2021-01-07] MEDS ORDERED: ACETAMINOPHEN TAB 325 MG TAB PO PRN (13:18)
[2021-01-07] MEDS ORDERED: NALOXONE 0.4 MG/ML 1 ML VIAL IV PRN (13:18)
--- NOTE | 2021-01-07 14:30 | P.CRDCN ---
History of Present Illness Consult date: 01/07/21 History of present illness: HISTORY OF PRESENT ILLNESS: This is a 85-year-old female with a past medical history significant for hypertension, hyperlipidemia, SVT, mitral regurgitation, pulmonary hypertension, and COPD with home oxygen use. Patient follows in the office with Dr. Vazquez. We have been asked to see the patient in consultation for chest pain. Patient examined at the bedside. Patient states she has been having chest pain for the past 3-4 days. Patient describes the pain as a heaviness. She states it has gotten worse over the past day. She denies any radiation of the pain. She denies nausea or vomiting. She states she has some occasional dizziness which is normal for her. She denies pain with chest wall palpation. She states that pain is worse when she takes a deep breath and states "it feels really tight when I deep breath". Patient also reports pain in between her shoulder blades. Patient states she has a large "hump" in her back which has been there for years and never caused her any pain. She states over the past couple years however she has been having some discomfort in that area. Patient went to urgent care and was sent to the ER after obtaining an abnormal EKG. EKG reveals sinus mechanism with T-wave inversions in inferior and anterior leads. EKG from 2019 reveals T-wave inversions in inferior leads and ST depression in precordial leads. Chest xray interval improvement in patchy airspace disease bilaterally Laboratory data: WBC 8.0. Hemoglobin 14.4. Platelet count 281. Sodium 137. Potassium 4.5. BUN 21. Creatinine 1.39. Magnesium 1.8. Troponin negative 1 Current home cardiac medications include lisinopril 5mg daily, hydrochlorothiazide 25 mg daily, metoprolol succinate 25 mg daily, and aspirin 81 mg daily Most recent echocardiogram obtained in 2019 revealed ejection fraction 60-65%, [id number] mitral regurgitation, and severe pulmonary hypertension REVIEW OF SYSTEMS: At the time of my exam: CONSTITUTIONAL: Denies fever or chills. HEENT: Denies blurred vision, vision changes, or eye pain. Denies hemoptysis CARDIOVASCULAR: + chest pain. Denies orthopnea. Denies PND. Denies palpitations RESPIRATORY: + shortness of breath. GASTROINTESTINAL: Denies abdominal pain. Denies nausea or vomiting. HEMATOLOGIC: Denies bleeding disorders. GENITOURINARY: Denies any blood in urine. SKIN: Denies pruitis. Denies rash. PHYSICAL EXAM: VITAL SIGNS: Reviewed. GENERAL: Well-developed in no acute distress. HEENT: Head is normocephalic. Pupils are equal, round. Sclerae anicteric. Mucous membranes of the mouth are moist. Neck supple. No JVD or thyromegaly LUNGS: Respirations even and unlabored. Lungs diminished bilaterally. HEART: Regular rate and rhythm. S1 and S2 heard. Systolic murmur. ABDOMEN: Soft. Nondistended. Nontender. EXTREMITIES: Normal range of motion. No clubbing or cyanosis. Peripheral pu lses intact. No lower extremity edema NEUROLOGIC: Awake and alert. Oriented x 3. 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 Increase lisinopril to 10mg daily. Continue to monitor kidney function. Further recommendations pending patient course Nurse practitioner note has been reviewed by physician. Signing provider agrees with the documented findings, assessment, and plan of care. 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 History of Any Multi-Drug Resistant Organisms: None Reported Past Surgical History: Orthopedic Surgery Additional Past Surgical History / Comment(s): R caratid endartectomy, L breast lumpectomy, bilateral cataract removals with lens implants, colonoscopy. Past Anesthesia/Blood Transfusion Reactions: No Reported Reaction Past Psychological History: No Psychological Hx Reported Smoking Status: Former smoker Past Alcohol Use History: None Reported Past Drug Use History: None Reported - Past Family History Father Family Medical History: Cancer, Coronary Artery Disease (CAD), Myocardial Infarction ([place]) Additional Family Medical History / Comment(s): Father had lymphoma. He lived to be 72 yrs old. Mother Family Medical History: Diabetes Mellitus Additional Family Medical History / Comment(s): Mother lived to be 82 yrs old. Medications and Allergies Home Medications Medication Instructions Recorded Confirmed Type Aspirin EC [Ecotrin Low Dose] 81 mg PO DAILY 10/04/18 01/07/21 History calcitrioL [Rocaltrol] 0.25 mcg PO DAILY 10/04/18 01/07/21 History traMADol HCL [Ultram] 25 mg PO HS 10/04/18 01/07/21 History Levothyroxine Sodium [Levoxyl] 50 mg PO DAILY 01/07/21 01/07/21 History Metoprolol Succinate [Toprol XL] 25 mg PO DAILY 01/07/21 01/07/21 History hydroCHLOROthiazide 25 mg PO DAILY 01/07/21 01/07/21 History lisinopriL [Zestril] 5 mg PO DAILY 01/07/21 01/07/21 History Allergies Allergy/AdvReac Type Severity Reaction Status Date / Time No Known Allergies Allergy Verified 01/07/21 11:53 Physical Exam Vitals: Vital Signs Temp Pulse Resp BP Pulse Ox 01/07/21 12:00 56 L 18 204/90 01/07/21 11:32 214/76 01/07/21 10:59 97.6 F 65 20 127/84 99 Intake and Output 01/06/21 01/07/21 01/07/21 22:59 06:59 14:59 Other: Weight 48.988 kg Results 01/07/21 11:28 01/07/21 11:28 Cardiac Enzymes 01/07/21 01/07/21 Range/Units 11:28 11:28 AST 24 (14-36) U/L Troponin I <0.012 (0.000-0.034) ng/mL Coagulation 01/07/21 Range/Units 11:28 PT 10.2 (9.0-12.0) sec APTT 25.6 (22.0-30.0) sec CBC 01/07/21 Range/Units 11:28 WBC 8.0 (3.8-10.6) k/uL RBC 4.90 (3.80-5.40) m/uL Hgb 14.4 (11.4-16.0) gm/dL Hct 45.4 (34.0-46.0) % Plt Count 281 (150-450) k/uL Comprehensive Metabolic Panel 01/07/21 Range/Units 11:28 Sodium 137 (137-145) mmol/L Potassium 4.5 (3.5-5.1) mmol/L Chloride 100 (98-107) mmol/L Carbon Dioxide 28 (22-30) mmol/L BUN 21 H (7-17) mg/dL Creatinine 1.39 H (0.52-1.04) mg/dL Glucose 95 (74-99) mg/dL Calcium 10.1 (8.4-10.2) mg/dL AST 24 (14-36) U/L ALT 11 (4-34) U/L Alkaline Phosphatase 119 (38-126) U/L Total Protein 7.5 (6.3-8.2) g/dL Albumin 4.3 (3.5-5.0) g/dL Current Medications Generic Name Dose Route Start Last Admin Trade Name Freq PRN Reason Stop Dose Admin Acetaminophen 650 mg 01/07/21 13:18 Acetaminophen Tab 325 Mg Tab PO Q6HR PRN Mild Pain or Fever > 100.5 Aspirin 81 mg 01/08/21 09:00 Aspirin 81 Mg PO DAILY [facility] Hydrochlorothiazide 25 mg 01/08/21 09:00 Hydrochlorothiazide 25 Mg Tab PO DAILY [facility] Levothyroxine Sodium 50 mcg 01/08/21 06:30 Levothyroxine 50 Mcg Tab PO DAILY@0630 [facility] Lisinopril 5 mg 01/08/21 09:00 Lisinopril 5 Mg Tab PO DAILY [facility] Metoprolol Succinate 25 mg 01/08/21 09:00 Metoprolol Succinate (Er) 25 Mg Tab.Er.24h PO DAILY [facility] Morphine Sulfate 4 mg 01/07/21 13:18 Morphine Sulfate 4 Mg/Ml Syringe IV Q4HR PRN Severe Pain Naloxone HCl 0.2 mg 01/07/21 13:18 Naloxone 0.4 Mg/Ml 1 Ml Vial IV Q2M PRN Opioid Reversal Intake and Output 01/06/21 01/07/21 01/07/21 22:59 06:59 14:59 Other: Weight 48.988 kg Patient Weight 01/08/21 06:59 Weight 48.988 kg 01/07/21 11:28 01/07/21 11:28
[2021-01-07] MEDS: lisinopriL 10 MG TAB PO SCH (20:04)
[2021-01-07 22:19] LABS: Chol/HDL Ratio 3.67; LDL Cholesterol,Calculated 165.8 mg/dL (0.0-131.0); VLDL Calculation 21.2 mg/dL (5.00-40.00)
[2021-01-08] MEDS ORDERED: LEVOTHYROXINE 50 MCG TAB PO SCH (06:30)
[2021-01-08 07:00] LABS: African American GFR (CKD) 44 (>60 ml/min/1.73 sqM); Anion Gap 4 mmol/L; Blood Urea Nitrogen 21 mg/dL (7-17); Calcium 9.6 mg/dL (8.4-10.2); Carbon Dioxide 31 mmol/L (22-30); Chloride 103 mmol/L (98-107); Glucose 83 mg/dL (74-99); Non-African American GFR(CKD) 38 (>60 ml/min/1.73 sqM); Sodium 138 mmol/L (137-145)
[2021-01-08 07:02] LABS: Potassium 5.1 mmol/L (3.5-5.1)
[2021-01-08 08:24] VITALS: RESP 14
[2021-01-08] MEDS ORDERED: lisinopriL 5 MG TAB PO SCH (09:00)
[2021-01-08] MEDS ORDERED: METOPROLOL SUCCINATE (ER) 25 MG TAB.ER.24H PO SCH (09:00)
[2021-01-08] MEDS ORDERED: hydroCHLOROthiazide 25 MG TAB PO SCH (09:00)
[2021-01-08] MEDS ORDERED: lisinopriL 10 MG TAB PO SCH (09:00)
[2021-01-08] MEDS ORDERED: ASPIRIN 81 MG PO SCH (09:00)
[2021-01-08] MEDS: lisinopriL 10 MG TAB PO SCH (10:44)
--- NOTE | 2021-01-08 15:12 | HP ---
HISTORY AND PHYSICAL ADMITTING CHIEF COMPLAINT: Chest pain. HISTORY OF PRESENT ILLNESS: This is the first known admission for this 85-year-old white female who has been having atypical pain in the right anterior chest for about a week. It started in the right sternal area and then moved to the left. It hurts a little bit when she takes a deep breath. There is no history of trauma. She has had no fever, chills, cough, hemoptysis, purulent sputum production, etc. She has felt a little bit of pain in her back but she has had no aching in the jaw, discomfort in either arm, diaphoresis, shortness of breath, etc. She has no history of heart disease. Troponin was normal in the emergency room and her EKG is slightly abnormal, but unchanged. REVIEW OF SYSTEMS: Otherwise unremarkable. She has had no headaches, neurologic problems, abdominal pain, indigestion, nausea, vomiting, hematemesis, melena, hematochezia, jaundice, hematuria, frequency, urgency, dysuria, incontinence, nocturia, renal failure, diabetes, etc. Past medical history, family history, and personal and social histories are all otherwise unremarkable except for a history of hypertension. MEDICATIONS: Include thyroid, metoprolol, lisinopril, hydrochlorothiazide, tramadol, and aspirin. She is not allergic to any medication. Surgically she has had a T and A, and a lumpectomy as well as bilateral shoulder procedures. She does not smoke or drink. PHYSICAL EXAMINATION: Blood pressure is 122/73 with a pulse of 69, respirations of 22, and she is afebrile. In general, she appeared to be well developed, well nourished, in no acute distress. Skin color is normal. Skin is warm, dry. Lymph nodes are not enlarged. Head, ears, eyes, nose, mouth and throat were normal. Neck veins are not distended. Carotids normal. She has a marked kyphosis with scoliosis. Chest is clear and cardiac exam demonstrates normal sinus rhythm with no murmurs or extra sounds. Abdomen is soft and nontender without any visceromegaly or masses. Bowel sounds present. Extremities are normal and neurologically she is intact. She is admitted to the hospital diagnoses: 1. Atypical chest pain. 2. History of hypertension. 3. Anxiety and stress related to issues with the daughter. PLAN: 1. Bedrest. 2. IV fluids. 3. Serial EKGs and enzymes. 4. Cardiology evaluation. NEGAR / KENNETH: [id number] /
--- NOTE | 2021-01-08 16:03 | DS ---
DISCHARGE SUMMARY CHIEF COMPLAINT: Chest pain. HISTORY OF PRESENT ILLNESS AND PHYSICAL EXAMINATION: Details of this lady's history and physical can be found in the initial workup. LABORATORY STUDIES: While she was in a hospital she had laboratory studies, details of which can be found in the laboratory section of her chart. COURSE IN THE HOSPITAL: After admission she was placed on bedrest and started on intravenous fluids. She had serial EKGs and troponins, which were negative. She was seen by Cardiology. They felt it was not necessary to do any further testing and that she could be discharged. She will go home on usual activity, diet and medication and she will have the addition of Pravachol because her LDL is quite high. She will be seen in the office in several days. FINAL DIAGNOSIS: 1. Atypical chest pain. 2. Hypertension. 3. Hypercholesterolemia. 4. Anxiety. OPERATIONS: None. CONSULTATIONS: Cardiology. She is improved. MMMARIAMA / KENNETH: [id number] /
--- NOTE | 2021-01-08 16:14 | P.PN ---
Subjective Progress Note Date: 01/08/21 This 85-year-old female with history of COPD and pulmonary hypertension was admitted to the hospital with chest pain and tightness with atypical features. Cardiac enzymes are negative. Echo Cardigan showed normal wall motion and function. Patient still complaining of chest discomfort on inspiration. We'll going to get d-dimer value. If that is elevated. We'll make consider computed tomography scan or VQ scan primary consult also to be constricted. The patient has severe scoliosis and kyphosis that could be causing some of the problem. Lungs appeared to be clear. Heart is regular. If the tests are normal. Patient could be discharged home Objective - Vital Signs Vital signs: Vital Signs Temp 98.4 F 01/08/21 08:23 Pulse 70 01/08/21 08:23 Resp 14 01/08/21 08:23 BP 107/73 01/08/21 08:23 Pulse Ox 98 01/08/21 08:23 Intake & Output 01/07/21 01/08/21 01/08/21 18:59 06:59 18:59 Weight 48.988 kg Other: # Voids 1 2 1 - Exam GENERAL EXAM: Patient is alert and oriented and doesn't appear to be in any acute distress HEENT: Normocephalic. Normal reaction of pupils, equal size, normal range of extraocular motion. No erythema or exudates in the throat. NECK: No masses, no nuchal rigidity. CHEST: No chest wall deformity. LUNGS: Equal air entry with no crackles or wheeze. HEART: S1 and S2 normal with no audible mumurs or gallops. Regular rhythm, f emorals equal on both sides.. ABDOMEN: No hepatosplenomegaly, normal bowel sounds, no guarding or rigidity. SKIN: No rashes CENTRAL NERVOUS SYSTEM: No focal deficits. EXTREMITIES: No cyanosis, clubbing or edema. - Labs CBC & Chem 7: 01/07/21 11:28 01/08/21 05:44 Labs: Abnormal Lab Results - Last 24 Hours (Table) 01/07/21 01/08/21 01/08/21 Range/Units 11:28 05:44 10:13 D-Dimer 0.89 H (<0.60) mg/L FEU Carbon Dioxide 31 H (22-30) mmol/L BUN 21 H (7-17) mg/dL Creatinine 1.28 H (0.52-1.04) mg/dL Cholesterol 257 H (0-200) mg/dL LDL Cholesterol, Calc 165.8 H (0.0-131.0) mg/dL HDL Cholesterol 70.0 H (40.0-60.0) mg/dL Assessment and Plan (1) Pulmonary hypertension Current Visit: Yes Status: Acute Code(s): I27.20 - PULMONARY HYPERTENSION, UNSPECIFIED SNOMED Code(s): 44442868 (2) Chest pain Current Visit: Yes Status: Acute Code(s): R07.9 - CHEST PAIN, UNSPECIFIED SNOMED Code(s): 34616260 (3) Acute exacerbation of chronic obstructive airways disease Current Visit: No Status: Acute Code(s): J44.1 - CHRONIC OBSTRUCTIVE PULMONARY DISEASE W (ACUTE) EXACERBATION SNOMED Code(s): 736559318 Plan: D-dimer value. If it is abnormal, consider VQ scan. A computed tomography scan. Consider pulmonary consult.
[2021-01-08 16:51] VITALS: BP 155/77; PULSE 77; TEMP 97.6
--- NOTE | 2021-01-08 18:04 | NM ---
EXAMINATION TYPE: NM pul vent and perfuse DATE OF EXAM: 01/08/2021 COMPARISON: Radiographs 01/07/2021. HISTORY: Shortness of breath and elevated d-dimer. TECHNIQUE: Utilizing inhalation of 67.7 mCi Tc 99m DTPA aerosol and intravenous injection of 5 mCi o f Tc 99m MAA, ventilation and perfusion images are acquired post injection in multiple projections. FINDINGS: Mild heterogeneous radiotracer distribution in the right lung and fairly homogenous in the left lung. There is no evidence of mismatched defects. IMPRESSION: Low probability for PE.
[2021-01-08] MEDS ORDERED: ATORVASTATIN 20 MG TAB PO SCH (21:00)
[2021-01-09] MEDS ORDERED: PRAVASTATIN SODIUM 20 MG TAB PO SCH (09:00)
== END 2021-01-08 18:23 | disposition home or self-care (01) ==
LOC: EC 10:55 → 6NMEDSUR 13:24
PROVIDERS: ADMIT Family Medicine; ATTEND Family Medicine
DX: R07.89 Other chest pain (principal); J44.1 Chronic obstructive pulmonary disease with (acute) exacerbation; J96.10 Chronic respiratory failure, unspecified whether with hypoxia or hypercapnia; I13.0 Hypertensive heart and chronic kidney disease with heart failure and stage 1 through stage 4 chronic kidney disease, or unspecified chronic kidney disease; N18.9 Chronic kidney disease, unspecified; I50.32 Chronic diastolic (congestive) heart failure; I34.0 Nonrheumatic mitral (valve) insufficiency; I47.1 Supraventricular tachycardia; I27.20 Pulmonary hypertension, unspecified; E03.9 Hypothyroidism, unspecified; M41.9 Scoliosis, unspecified; E78.5 Hyperlipidemia, unspecified; G62.9 Polyneuropathy, unspecified; G89.29 Other chronic pain; M54.9 Dorsalgia, unspecified; M25.511 Pain in right shoulder; M25.512 Pain in left shoulder; M85.80 Other specified disorders of bone density and structure, unspecified site; E78.00 Pure hypercholesterolemia, unspecified; F41.9 Anxiety disorder, unspecified; Z79.82 Long term (current) use of aspirin; Z79.891 Long term (current) use of opiate analgesic; Z79.899 Other long term (current) drug therapy; Z63.8 Other specified problems related to primary support group; Z87.891 Personal history of nicotine dependence; Z85.3 Personal history of malignant neoplasm of breast; Z86.73 Personal history of transient ischemic attack (TIA), and cerebral infarction without residual deficits; Z86.79 Personal history of other diseases of the circulatory system; Z98.42 Cataract extraction status, left eye; Z98.41 Cataract extraction status, right eye; Z96.1 Presence of intraocular lens; Z98.890 Other specified postprocedural states; Z82.49 Family history of ischemic heart disease and other diseases of the circulatory system; Z80.7 Family history of other malignant neoplasms of lymphoid, hematopoietic and related tissues; Z83.3 Family history of diabetes mellitus
CPT/HCPCS: 93005 ×2; 96374; 99285; 36415; 93306; 85379; 80061; 80053; 80048; 83690; 83735; 84484; 85025; 85610; 85730; 87635; 71046; 78582; G0378 ×2; A9540; A9567; J0360

== ENCOUNTER → 2021-03-16 | Outpatient (CLI) | payer MEDICARE, BC ==
--- NOTE | 2021-03-16 10:59 | XR ---
EXAMINATION TYPE: XR chest 2V DATE OF EXAM: 03/16/2021 COMPARISON: 01/07/21 HISTORY: Shortness of breath TECHNIQUE: Frontal and lateral views of the chest are obtained. FINDINGS: Scattered senescent parenchymal changes noted. Hyperinflation compatible with COPD. No evidence for infiltrate. No evidence for atelectasis. Heart size is stable. Mediastinal structures are stable and grossly unremarkable. No evidence for hilar prominence. Degenerative changes dorsal spine. IMPRESSION: 1. No evidence for acute pulmonary disease.
== END | disposition home or self-care (01) ==
LOC: RADXRMAIN 10:24
PROVIDERS: ATTEND Family Medicine
DX: R06.02 Shortness of breath (principal)
CPT/HCPCS: 71046

== ENCOUNTER → 2021-10-05 | Outpatient (CLI) | payer MEDICARE, BC ==
--- NOTE | 2021-10-05 12:46 | XR ---
EXAMINATION TYPE: XR cervical spine limited DATE OF EXAM: 10/05/2021 CLINICAL HISTORY: pain TECHNIQUE: 3 views of the cervical spine are submitted. COMPARISON: None. FINDINGS: There is satisfactory in alignment without evidence of acute fracture or dislocation. The pre-vertebral soft tissue appears within normal limits. Severe degenerative narrowing at C4-5. Mild narrowing at the remaining levels. Mild ventral and dorsal spondylosis. Degenerative changes of the c ervical apophyseal joints. The C1-C2 articulation is unremarkable on the open mouth view. IMPRESSION: No acute fracture or dislocation is seen in the cervical spine.
== END | disposition home or self-care (01) ==
LOC: RADXRMAIN 10:27
PROVIDERS: ATTEND Family Medicine
DX: M54.2 Cervicalgia (principal)
CPT/HCPCS: 72040

== ENCOUNTER → 2022-07-20 | Outpatient (CLI) | payer MEDICARE ==
--- NOTE | 2022-07-20 16:23 | XR ---
EXAMINATION TYPE: XR thoracic spine 2V DATE OF EXAM: 07/20/2022 COMPARISON: None HISTORY: Neck pain and upper back pain for couple of weeks TECHNIQUE: Upright AP and lateral views of the thoracic spine were obtained. FINDINGS: There is severe scoliosis present. The convexities to the right centered at approximately T 10. Degenerative disc changes are noted. Spondylosis within the lower thoracic spine. There is exagge ration of the upper thoracic kyphosis. IMPRESSION: 1. Scoliosis with convexity to the right. 2. Chronic scoliosis changes. No acute osseous abnormality is radiographically evident.
--- NOTE | 2022-07-20 16:26 | XR ---
EXAMINATION TYPE: XR cervical spine limited DATE OF EXAM: 07/20/2022 COMPARISON: 09/07/2021 HISTORY: Postural kyphosis, neck pain TECHNIQUE: 3 views cervical spine FINDINGS: Note is made of dense calcification through the right carotid bifurcation region. Facet degenerative changes are within the cervical spine. There is exaggeration of the thoracic kypho sis causing compensatory cervical lordosis. There is loss of disc height C4-5. Posterior spinal lamel lar line is intact. Vertebral body heights are preserved. Disc heights are otherwise preserved. Findi ngs are stable from 10/05/2021. IMPRESSION: 1. Degenerative disc changes C4-5
== END | disposition home or self-care (01) ==
LOC: RADXRMAIN 12:47
PROVIDERS: ATTEND Nurse Practitioner Family
DX: M50.321 Other cervical disc degeneration at C4-C5 level (principal); M40.03 Postural kyphosis, cervicothoracic region
CPT/HCPCS: 72040; 72070

== ENCOUNTER → 2023-03-23 | Outpatient (CLI) | payer MEDICARE, BC ==
--- NOTE | 2023-03-23 09:04 | US ---
EXAMINATION TYPE: US pelvic complete DATE OF EXAM: 03/23/2023 COMPARISON: NONE CLINICAL INDICATION: Female, 87 years old with history of R10.2 pelvic pain; Patient states she has n o idea why she is having this exam done. TECHNIQUE: . Transabdominal sonographic images of the pelvis were acquired. Transvaginal sonographi c images were medically necessary to better assess the following anatomy: uterus and ovaries Date of LMP: 30+ years ago EXAM MEASUREMENTS: Uterus: 4.5 x 2.3 x 3.0 cm Endometrial Stripe: 0.3 cm Right Ovary: not seen Left Ovary: not seen 1. Uterus: anteverted, heterogeneous with calcifications 2. Endometrium: appears wnl 3. Right Ovary: not seen 4. Left Ovary: not seen 5. Bilateral Adnexa: wnl 6. Posterior cul-de-sac: wnl Heterogenous anteverted uterus with multiple dystrophic calcifications. Nabothian cysts identified. E ndometrium is within normal limits. Both ovaries are not visualized due to overlying bowel gas. No fr ee fluid. IMPRESSION: 1. Heterogenous uterus with multiple calcifications consistent with fibroid changes. 2. Endometrium is within normal limits. 3. Both ovaries not visualized due to overlying bowel gas.
== END | disposition home or self-care (01) ==
LOC: RADUSWWP 06:55
PROVIDERS: ATTEND Family Medicine
DX: N85.8 Other specified noninflammatory disorders of uterus (principal)
CPT/HCPCS: 76830; 76856

== ENCOUNTER 2023-04-23 18:53 | Emergency (ER) | payer MEDICARE, BC ==
[2023-04-23 19:36] VITALS: RESP 18; TEMP 98
--- NOTE | 2023-04-23 19:48 | ED ---
General Adult HPI <Chaitanya Pope - Last Filed: 04/24/23 00:41> - General Source: patient, RN notes reviewed Mode of arrival: ambulatory Limitations: no limitations <Kelly Hutchinson - Last Filed: 04/25/23 16:43> <Chetna Beck - Last Filed: 04/26/23 07:49> - General Chief complaint: Nausea/Vomiting/Diarrhea Stated complaint: abd pain,diarrhea Time Seen by Provider: 04/23/23 19:45 - History of Present Illness Initial comments: 88-year-old female presenting with chief complaint of diarrhea. Patient states that she finished a course of ciprofloxacin last week for diarrhea which was prescribed by her PCP. States that today she started having diarrhea again. She admits to cramping abdominal pain. Recurrent diarrhea has been an issue for her over the last several weeks. No nausea, vomiting, fever, chills, chest pain, difficulty breathing, dysuria, hematuria, hematochezia, melena. (Chaitanya Pope) Patient is an 88 year old female who presents to the emergency department for abdominal pain and diarrhea. Patient finished ciprofloxacin last week for diarrhea prescribed by her primary care provider. States her symptoms improved until today she has had increased diarrhea. Currently patient has little abdominal pain. She denies fever, chills, nausea, vomiting. Denies history of C. diff. (Kelly Hutchinson) - Related Data Home Medications Medication Instructions Recorded Confirmed Aspirin EC [Ecotrin Low Dose] 81 mg PO DAILY 10/04/18 01/07/21 calcitrioL [Rocaltrol] 0.25 mcg PO DAILY 10/04/18 01/07/21 traMADol HCL [Ultram] 25 mg PO HS 10/04/18 01/07/21 Levothyroxine Sodium [Levoxyl] 50 mg PO DAILY 01/07/21 01/07/21 Metoprolol Succinate [Toprol XL] 25 mg PO DAILY 01/07/21 01/07/21 hydroCHLOROthiazide 25 mg PO DAILY 01/07/21 01/07/21 lisinopriL [Zestril] 5 mg PO DAILY 01/07/21 01/07/21 Previous Rx's Medication Instructions Recorded Pravastatin Sodium [Pravachol] 20 mg PO DAILY #30 tab 01/08/21 Allergies Allergy/AdvReac Type Severity Reaction Status Date / Time No Known Allergies Allergy Verified 04/23/23 19:27 Review of Systems ROS Other: All systems not noted in ROS Statement are negative. <Chaitanya Pope - Last Filed: 04/24/23 00:41> ROS Other: All systems not noted in ROS Statement are negative. <Kelly Hutchinson - Last Filed: 04/25/23 16:43> ROS Other: All systems not noted in ROS Statement are negative. <Chetna Beck - Last Filed: 04/26/23 07:49> ROS Statement: Those systems with pertinent positive or pertinent negative responses have been documented in the HPI. 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 History of Any Multi-Drug Resistant Organisms: None Reported Past Surgical History: Orthopedic Surgery Additional Past Surgical History / Comment(s): R caratid endartectomy, L breast lumpectomy, bilateral cataract removals with lens implants, colonoscopy. Past Anesthesia/Blood Transfusion Reactions: No Reported Reaction Past Psychological History: No Psychological Hx Reported Smoking Status: Former smoker Past Alcohol Use History: None Reported Past Drug Use History: None Reported - Past Family History Father Family Medical History: Cancer, Coronary Artery Disease (CAD), Myocardial Infa rction (AR) Additional Family Medical History / Comment(s): Father had lymphoma. He lived to be 72 yrs old. Mother Family Medical History: Diabetes Mellitus Additional Family Medical History / Comment(s): Mother lived to be 82 yrs old. <Kelly Hutchinson - Last Filed: 04/25/23 16:43> General Exam Limitations: no limitations General appearance: alert, in no apparent distress Head exam: Present: atraumatic, normocephalic, normal inspection Eye exam: Present: normal appearance, EOMI Neck exam: Present: normal inspection, full ROM Respiratory exam: Present: normal lung sounds bilaterally. Absent: respiratory distress, wheezes, rales, rhonchi, stridor Cardiovascular Exam: Present: regular rate, normal rhythm, normal heart sounds. Absent: systolic murmur, diastolic murmur, rubs, gallop, clicks GI/Abdominal exam: Present: soft, tenderness. Absent: distended, guarding, kerry ound, rigid Neurological exam: Present: alert, oriented X3 Psychiatric exam: Present: normal affect, normal mood Skin exam: Present: warm, dry, intact, normal color. Absent: rash <Chaitanya Pope - Last Filed: 04/24/23 00:41> Limitations: no limitations <Kelly Hutchinson - Last Filed: 04/25/23 16:43> - General Exam Comments Initial Comments: Visual Physical Exam Vital signs reviewed General: Well-appearing, nontoxic, no acute distress. Head: Normocephalic, atraumatic Eyes: PERRLA, EOMI ENT: Airway patent Chest: Nonlabored breathing Skin: No visual rash, normal skin tone Neuro: Alert and oriented 3 Musculoskeletal: No gross abnormalities (Kelly Hutchinson) Course Vital Signs 04/23/23 04/24/23 04/24/23 19:24 02:24 03:47 Temperature 98 F Pulse Rate 73 72 73 Respiratory 18 18 18 Rate Blood Pressure 99/54 212/72 202/87 O2 Sat by Pulse 94 L 89 L 93 L Oximetry 04/24/23 04/24/23 04:32 05:30 Temperature Pulse Rate 62 60 Respiratory 18 18 Rate Blood Pressure 217/86 152/60 O2 Sat by Pulse 90 L Oximetry Medical Decision Making - Lab Data Result diagrams: 04/23/23 21:48 04/23/23 21:48 <Chaitanya Pope - Last Filed: 04/24/23 00:41> - Lab Data Result diagrams: 04/23/23 21:48 04/23/23 21:48 <Kelly Hutchinson - Last Filed: 04/25/23 16:43> - Lab Data Result diagrams: 04/23/23 21:48 04/23/23 21:48 <Chetna Beck - Last Filed: 04/26/23 07:49> - Medical Decision Making Was pt. sent in by a medical professional or institution (, PA, ENROBING MACHINE OPERATOR, urgent care, hospital, or detention...) When possible be specific @ -No Did you speak to anyone other than the patient for history (EMS, parent, family, police, friend...)? What history was obtained from this source @ -Patient's daughter at bedside supplemented history Did you review nursing and triage notes (agree or disagree)? Why? @ -I reviewed and agree with nursing and triage notes Were old charts reviewed (outside hosp., previous admission, EMS record, old EKG, old radiological studies, urgent care reports/EKG's, detention records)? Report findings @ -No old charts were reviewed Differential Diagnosis (chest pain, altered mental status, abdominal pain women, abdominal pain men, vaginal bleeding, weakness, fever, dyspnea, syncope, headache, dizziness, GI bleed, back pain, seizure, CVA, palpatations, mental health, musculoskeletal)? @ -MDM Differential Abdominal Pain Women: Appendicitis, Cholecystitis, diverticulosis, ischemic bowel, pancreatitis, hepatitis, UTI, gastroenteritis, AAA, incarcerated hernia, bowel obstruction, constipation, inflammatory bowel, hepatitis, peptic ulcer disease, splenic infarction, perforated viscus, vulvitis, ovarian torsion, PID, kidney stone, placenta abruption... This is not meant to be an all-inclusive list EKG interpreted by me (3pts min.). @ -As above X-rays interpreted by me (1pt min.). @ -None done CT interpreted by me (1pt min.). @ -Report is pending U/S interpreted by me (1pt. min.). @ -None done What testing was considered but not performed or refused? (CT, X-rays, U/S, labs)? Why? @ -None What meds were considered but not given or refused? Why? @ -None Did you discuss the management of the patient with other professionals (professionals i.e. ., PA, ENROBING MACHINE OPERATOR, lab, RT, psych nurse, social worker aide, seamstress fitter, teacher, loans officer, business case analyst)? Give summary @ -No Was smoking cessation discussed for >3mins.? @ -No Was critical care preformed (if so, how long)? @ -No Were there social determinants of health that impacted care today? How? (Homelessness, low income, unemployed, alcoholism, drug addiction, transportation, low edu. Level, literacy, decrease access to med. care, halfway, rehab)? @ -No Was there de-escalation of care discussed even if they declined (Discuss DNR or withdrawal of care, Hospice)? DNR status @ -No What co-morbidities impacted this encounter? (DM, HTN, Smoking, COPD, CAD, Cancer, CVA, ARF, Chemo, Hep., AIDS, mental health diagnosis, sleep apnea, mor bid obesity)? @ -None Was patient admitted / discharged? Hospital course, mention meds given and route, prescriptions, significant lab abnormalities, going to OR and other pertinent info. @ -88-year-old female presenting with chief complaint of diarrhea and cramping abdominal pain. Physical examination was conducted. Lab work shows no ana maria kocytosis or anemia. BUN 28 and creatinine 1.56, slightly improved from patient's baseline. Lipase 549, patient is having no upper abdominal pain or vomiting. Computed tomography scan was ordered and report is still pending at this time. Patient signed out to Kelly Hutchinson PA-C (Chaitanya Pope) I performed the QuickNote portion of this chart - Kelly Hutchinson PA-C Patient was signed out to me. Patient resting comfortably. CT results did not come back patient requesting to leave. Blood pressure is elevated at 202/87. Patient does not have headache, chest pain, shortness of breath. She has history of hypertension. IV metoprolol given. Patient care given to Dr. Beck at 4:00. (Kelly Hutchinson) Was patient admitted / discharged? Hospital course, mention meds given and route, prescriptions, significant lab abnormalities, going to OR and other pertinent info. @ -Patient care was signed out to me. Computed tomography scan was pending the results with no acute findings. Patient's vital signs normalized patient was comfortable with plan for discharge home Undiagnosed new problem with uncertain prognosis? @ -No Drug Therapy requiring intensive monitoring for toxicity (Heparin, Nitro, Insulin, Cardizem)? @ -No Were any procedures done? @ -No Diagnosis/symptom? @ -Abdominal pain Acute, or Chronic, or Acute on Chronic? @ -Acute Uncomplicated (without systemic symptoms) or Complicated (systemic symptoms)? @ -default Side effects of treatment? @ -No Exacerbation, Progression, or Severe Exacerbation? @ -No Poses a threat to life or bodily function? How? (Chest pain, USA, AR, pneumonia, PE, COPD, DKA, ARF, appy, cholecystitis, CVA, Diverticulitis, Homicidal, Suicidal, threat to staff... and all critical care pts) @ -No (Chetna Beck) - Lab Data Lab Results 04/23/23 04/23/23 04/23/23 Range/Units 21:48 21:48 21:48 WBC 7.8 (3.8-10.6) k/uL RBC 4.46 (3.80-5.40) m/uL Hgb 13.8 (11.4-16.0) gm/dL Hct 42.7 (34.0-46.0) % MCV 95.7 (80.0-100.0) fL MCH 31.1 (25.0-35.0) pg MCHC 32.5 (31.0-37.0) g/dL RDW 13.0 (11.5-15.5) % Plt Count 181 (150-450) k/uL MPV 8.5 Neutrophils % 70 % Lymphocytes % 16 % Monocytes % 9 % Eosinophils % 3 % Basophils % 0 % Neutrophils # 5.4 (1.3-7.7) k/uL Lymphocytes # 1.2 (1.0-4.8) k/uL Monocytes # 0.7 (0-1.0) k/uL Eosinophils # 0.3 (0-0.7) k/uL Basophils # 0.0 (0-0.2) k/uL Sodium 138 (137-145) mmol/L Potassium 4.8 (3.5-5.1) mmol/L Chloride 104 (98-107) mmol/L Carbon Dioxide 26 (22-30) mmol/L Anion Gap 8 mmol/L BUN 28 H (7-17) mg/dL Creatinine 1.56 H (0.52-1.04) mg/dL Est GFR (CKD-EPI)AfAm 34 (>60 ml/min/1.73 sqM) Est GFR (CKD-EPI)NonAf 30 (>60 ml/min/1.73 sqM) Glucose 93 (74-99) mg/dL Plasma Lactic Acid Gulshan 0.8 (0.7-2.0) mmol/L Calcium 9.1 (8.4-10.2) mg/dL Magnesium 2.0 (1.6-2.3) mg/dL Total Bilirubin 0.7 (0.2-1.3) mg/dL AST 28 (14-36) U/L ALT 15 (4-34) U/L Alkaline Phosphatase 96 (38-126) U/L Total Protein 6.5 (6.3-8.2) g/dL Albumin 3.5 (3.5-5.0) g/dL Lipase 549 H (23-300) U/L Urine Color Urine Appearance (Clear) Urine pH (5.0-8.0) Ur Specific [place] (1.001-1.035) Urine Protein (Negative) Urine Glucose (UA) (Negative) Urine Ketones (Negative) Urine Blood (Negative) Urine Nitrite (Negative) Urine Bilirubin (Negative) Urine Urobilinogen (<2.0) mg/dL Ur Leukocyte Esterase (Negative) Urine WBC (0-5) /hpf Urine Bacteria (None) /hpf 04/24/23 Range/Units 00:08 WBC (3.8-10.6) k/uL RBC (3.80-5.40) m/uL Hgb (11.4-16.0) gm/dL Hct (34.0-46.0) % MCV (80.0-100.0) fL MCH (25.0-35.0) pg MCHC (31.0-37.0) g/dL RDW (11.5-15.5) % Plt Count (150-450) k/uL MPV Neutrophils % % Lymphocytes % % Monocytes % % Eosinophils % % Basophils % % Neutrophils # (1.3-7.7) k/uL Lymphocytes # (1.0-4.8) k/uL Monocytes # (0-1.0) k/uL Eosinophils # (0-0.7) k/uL Basophils # (0-0.2) k/uL Sodium (137-145) mmol/L Potassium (3.5-5.1) mmol/L Chloride (98-107) mmol/L Carbon Dioxide (22-30) mmol/L Anion Gap mmol/L BUN (7-17) mg/dL Creatinine (0.52-1.04) mg/dL Est GFR (CKD-EPI)AfAm (>60 ml/min/1.73 sqM) Est GFR (CKD-EPI)NonAf (>60 ml/min/1.73 sqM) Glucose (74-99) mg/dL Plasma Lactic Acid Gulsh[place] (0.7-2.0) mmol/L Calcium (8.4-10.2) mg/dL Magnesium (1.6-2.3) mg/dL Total Bilirubin (0.2-1.3) mg/dL AST (14-36) U/L ALT (4-34) U/L Alkaline Phosphatase (38-126) U/L Total Protein (6.3-8.2) g/dL Albumin (3.5-5.0) g/dL Lipase (23-300) U/L Urine Color Colorless Urine Appearance Clear (Clear) Urine pH 6.0 (5.0-8.0) Ur Specific [place] 1.011 (1.001-1.035) Urine Protein Negative (Negative) Urine Glucose (UA) Negative (Negative) Urine Ketones Negative (Negative) Urine Blood Negative (Negative) Urine Nitrite Negative (Negative) Urine Bilirubin Negative (Negative) Urine Urobilinogen <2.0 (<2.0) mg/dL Ur Leukocyte Esterase Large H (Negative) Urine WBC 7 H (0-5) /hpf Urine Bacteria Rare H (None) /hpf Disposition <Chaitanya Pope - Last Filed: 04/24/23 00:41> Is patient prescribed a controlled substance at d/c from ED?: No <Kelly Hutchinson - Last Filed: 04/25/23 16:43> Is patient prescribed a controlled substance at d/c from ED?: No <Chetna Beck - Last Filed: 04/26/23 07:49> Clinical Impression: Abdominal pain, Hypertensive urgency Disposition: HOME SELF-CARE Condition: Good Referrals: Richi Perez DO [Primary Care Provider] - 1-2 days
[2023-04-23] MEDS ORDERED: SODIUM CHLORIDE 0.9% 1,000 ML IV ONE (21:38)
[2023-04-23 22:07] LABS: Basophils % (A) 0 %; Eosinophils # (A) 0.3 k/uL (0-0.7); Eosinophils % (A) 3 %; HCT 42.7 % (34.0-46.0); HGB 13.8 gm/dL (11.4-16.0); Lymphocytes # (A) 1.2 k/uL (1.0-4.8); Lymphocytes % (A) 16 %; MCH 31.1 pg (25.0-35.0); MCHC 32.5 g/dL (31.0-37.0); MCV 95.7 fL (80.0-100.0); Mean Platelet Volume 8.5; Monocytes # (A) 0.7 k/uL (0-1.0); Monocytes % (A) 9 %; Neutrophils # (A) 5.4 k/uL (1.3-7.7); Neutrophils % (A) 70 %; Platelet Count 181 k/uL (150-450); RBC 4.46 m/uL (3.80-5.40); WBC 7.8 k/uL (3.8-10.6)
[2023-04-23 22:21] LABS: ALT 15 U/L (4-34); AST 28 U/L (14-36); African American GFR (CKD) 34 (>60 ml/min/1.73 sqM); Albumin 3.5 g/dL (3.5-5.0); Alkaline Phosphatase 96 U/L (38-126); Anion Gap 8 mmol/L; Blood Urea Nitrogen 28 mg/dL (7-17); Calcium 9.1 mg/dL (8.4-10.2); Carbon Dioxide 26 mmol/L (22-30); Chloride 104 mmol/L (98-107); Glucose 93 mg/dL (74-99); Lipase 549 U/L (23-300); Non-African American GFR(CKD) 30 (>60 ml/min/1.73 sqM); Potassium 4.8 mmol/L (3.5-5.1); Sodium 138 mmol/L (137-145); Total Bilirubin 0.7 mg/dL (0.2-1.3); Total Protein 6.5 g/dL (6.3-8.2)
[2023-04-24 01:04] LABS: Appearance,Urine Clear (Clear); Bacteria,Urine Rare /hpf; Bilirubin,Urine Negative (Negative); Blood,Urine Negative (Negative); Color,Urine Colorless; Glucose,Urine (UA) Negative (Negative); Ketones,Urine Negative (Negative); Leukocyte Esterase,Urine Large (Negative); Nitrite,Urine Negative (Negative); Protein,Urine Negative (Negative); Specific Gravity,Urine 1.011 (1.001-1.035); Urobilinogen,Urine <2.0 mg/dL (<2.0); WBC,Urine 7 /hpf (0-5)
[2023-04-24] MEDS ORDERED: METOPROLOL TARTRATE 5 MG/5 ML VIAL IVP STA (03:52)
--- NOTE | 2023-04-24 03:58 | CT ---
EXAM: CT Abdomen and Pelvis Without Intravenous Contrast CLINICAL HISTORY: ITS.REASON CT Reason: cramping lower abd pain and diarrhea TECHNIQUE: Axial computed tomography images of the abdomen and pelvis without intravenous contrast. CTDI is 5.50 mGy and DLP is 245.80 mGy-cm. This CT exam was performed using one or more of the following dose reduction techniques: automated exposure control, adjustment of the mA and/or kV according to patient size, and/or use of iterative reconstruction technique. COMPARISON: None FINDINGS: Lung bases: Lower lung atelectasis and chronic interstitial lung disease. Heart: Coronary artery, aortic valve, and mitral annular calcifications. Mild cardiomegaly. ABDOMEN: Liver: Unremarkable. Gallbladder and bile ducts: Unremarkable. No calcified stones. No ductal dilation. Pancreas: Mild atrophy of the pancreas. No ductal dilation. Spleen: Small splenule. Adrenals: Unremarkable. No mass. Kidneys and ureters: Atrophic right kidney. No hydronephrosis or stone. Stomach and bowel: Evaluation of the stomach is limited by underdistention. Diverticulosis without evidence of diverticulitis. No small bowel obstruction. PELVIS: Appendix: No findings to suggest acute appendicitis. Bladder: Unremarkable. No stones. Reproductive: Unremarkable as visualized. ABDOMEN and PELVIS: Intraperitoneal space: Unremarkable. No free air. No significant fluid collection. Bones/joints: Scoliosis. Degenerative changes of the spine. No acute fracture. No dislocation. Soft tissues: Moderate fat-containing umbilical hernia. Vasculature: Prominent atherosclerotic changes of the vasculature. No abdominal aortic aneurysm. Lymph nodes: Unremarkable. No enlarged lymph nodes. IMPRESSION: Moderate fat-containing umbilical hernia. Prominent colonic diverticulosis. No acute abnormality.
[2023-04-24] MEDS ORDERED: cloNIDine HCL 0.1 MG TAB PO STA (04:36)
[2023-04-24 05:38] VITALS: BP 152/60; PULSE 60
== END 2023-04-24 05:55 | disposition home or self-care (01) ==
LOC: EC 18:53
DX: R10.9 Unspecified abdominal pain (principal); I16.0 Hypertensive urgency; I10 Essential (primary) hypertension; J44.9 Chronic obstructive pulmonary disease, unspecified; E03.9 Hypothyroidism, unspecified; Z79.890 Hormone replacement therapy; Z79.899 Other long term (current) drug therapy; Z87.891 Personal history of nicotine dependence; Z86.73 Personal history of transient ischemic attack (TIA), and cerebral infarction without residual deficits
CPT/HCPCS: 36415; 74176; 80053; 81001; 83605; 83690; 83735; 85025; 96361; 96374; 99284

== ENCOUNTER 2023-10-12 09:33 | Emergency (ER) | payer MEDICARE, BC ==
[2023-10-12 10:08] VITALS: RESP 18
--- NOTE | 2023-10-12 10:12 | ED ---
Neck Injury/Pain HPI - General Chief Complaint: Neck Pain/Injury Stated Complaint: Neck Pain Time Seen by Provider: 10/12/23 09:55 Source: patient, family, RN notes reviewed Mode of arrival: ambulatory Limitations: no limitations - History of Present Illness Initial Comments: Patient is an 88-year-old female presented to the ER with a chief complaint of back pain. She states for the past 3 days she has been having increase in neck pain. She states he has been taking [id number] IcyHot without relief. She describes it as a tight feeling and increases with turning her neck to the left. She states she woke up this morning and was having difficulty getting out of bed due to the pain. Patient does have a past medical history significant of scoliosis. Denies any known injuries or traumas. Denies any double/blurry vision, headaches, weakness, paresthesias, chest pain, shortness of breath. - Related Data Home Medications Medication Instructions Recorded Confirmed Aspirin EC [Ecotrin Low Dose] 81 mg PO DAILY 10/04/18 01/07/21 calcitrioL [Rocaltrol] 0.25 mcg PO DAILY 10/04/18 01/07/21 traMADol HCL [Ultram] 25 mg PO HS 10/04/18 01/07/21 Levothyroxine Sodium [Levoxyl] 50 mg PO DAILY 01/07/21 01/07/21 Metoprolol Succinate [Toprol XL] 25 mg PO DAILY 01/07/21 01/07/21 hydroCHLOROthiazide 25 mg PO DAILY 01/07/21 01/07/21 lisinopriL [Zestril] 5 mg PO DAILY 01/07/21 01/07/21 Previous Rx's Medication Instructions Recorded Pravastatin Sodium [Pravachol] 20 mg PO DAILY #30 tab 01/08/21 Cyclobenzaprine [Flexeril] 5 mg PO BID 5 Days #10 tablet 10/12/23 Allergies Allergy/AdvReac Type Severity Reaction Status Date / Time No Known Allergies Allergy Verified 10/12/23 09:53 Review of Systems ROS Statement: Those systems with pertinent positive or pertinent negative responses have been documented in the HPI. ROS Other: All systems not noted in ROS Statement are negative. 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 History of Any Multi-Drug Resistant Organisms: None Reported Past Surgical History: Orthopedic Surgery Additional Past Surgical History / Comment(s): R caratid endartectomy, L breast lumpectomy, bilateral cataract removals with lens implants, colonoscopy. Past Anesthesia/Blood Transfusion Reactions: No Reported Reaction Past Psychological History: No Psychological Hx Reported Smoking Status: Former smoker Past Alcohol Use History: None Reported Past Drug Use History: None Reported - Past Family History Father Family Medical History: Cancer, Coronary Artery Disease (CAD), Myocardial Infarction ([place]) Additional Family Medical History / Comment(s): Father had lymphoma. He lived to be 72 yrs old. Mother Family Medical History: Diabetes Mellitus Additional Family Medical History / Comment(s): Mother lived to be 82 yrs old. General Exam General appearance: alert, in no apparent distress Head exam: Present: atraumatic, normocephalic, normal inspection Eye exam: Present: normal appearance, PERRL, EOMI. Absent: scleral icterus, conjunctival injection, periorbital swelling Pupils: Present: normal accommodation ENT exam: Present: normal exam, normal oropharynx, mucous membranes moist Neck exam: Present: normal inspection, tenderness (left trapezius. no focal bony tenderness). Absent: meningismus, lymphadenopathy Respiratory exam: Present: normal lung sounds bilaterally. Absent: respiratory distress, wheezes, rales, rhonchi, stridor Cardiovascular Exam: Present: regular rate, normal rhythm, normal heart sounds. Absent: systolic murmur, diastolic murmur, rubs, gallop, clicks Extremities exam: Present: normal inspection, full ROM, normal capillary refill, other (bilateral UE 2+ radial pulse. senasation intact. equaly UE strengths bilaterlly). Absent: tenderness, pedal edema, joint swelling, calf tenderness Back exam: Present: normal inspection Neurological exam: Present: alert, oriented X3, CN II-XII intact Psychiatric exam: Present: normal affect, normal mood Skin exam: Present: warm, dry, intact, normal color. Absent: rash Course Vital Signs 10/12/23 10/12/23 09:48 11:56 Temperature 97.6 F 97.9 F Pulse Rate 53 L 65 Respiratory 18 18 Rate Blood Pressure 152/66 150/76 O2 Sat by Pulse 95 99 Oximetry Medical Decision Making - Medical Decision Making Was pt. sent in by a medical professional or institution (ROYCE Murphy, [employer], urgent care, hospital, or retirement...) When possible be specific @ -No Did you speak to anyone other than the patient for history (EMS, parent, family, police, friend...)? What history was obtained from this source @ -Family, at bedside, aiding in PMHx. Did you review nursing and triage notes (agree or disagree)? Why? @ -I reviewed and agree with nursing and triage notes Were old charts reviewed (outside hosp., previous admission, EMS record, old EKG, old radiological studies, urgent care reports/EKG's, retirement records)? Report findings @ -No old charts were reviewed Differential Diagnosis (chest pain, altered mental status, abdominal pain women, abdominal pain men, vaginal bleeding, weakness, fever, dyspnea, syncope, headache, dizziness, GI bleed, back pain, seizure, CVA, palpatations, mental health, musculoskeletal)? @ -Differential Musculoskeletal: Muscular strain, contusion, ligament sprain, fracture, arthritis, septic arthritis, bursitis, cellulitis, muscle spasm, nerve compression, DVT, arterial occlusion, herpes zoster, electrolyte abnormality, tumor.... This is not meant to be in all inclusive list EKG interpreted by me (3pts min.). @ -None X-rays interpreted by me (1pt min.). @ -Cervical spine x-ray negative for acute fractures or dislocations. Moderate degenerative disc disease changes at cervical spine at C4-C5. CT interpreted by me (1pt min.). @ -None done U/S interpreted by me (1pt. min.). @ -None done What testing was considered but not performed or refused? (CT, X-rays, U/S, labs)? Why? @ -None What meds were considered but not given or refused? Why? @ -Analgesic medication refused Did you discuss the management of the patient with other professionals (professionals i.e. ROYCE Murphy, [employer]ING [employer] MACHINE TENDER, lab, RT, psych nurse, manager social services, dry folder cloth, teacher, privacy officer, pillowcase turner)? Give summary @ -No Was smoking cessation discussed for >3mins.? @ -No Was critical care preformed (if so, how long)? @ -No Were there social determinants of health that impacted care today? How? (Homelessness, low income, unemployed, alcoholism, drug addiction, transportation, low edu. Level, literacy, decrease access to med. care, retirement, rehab)? @ -No Was there de-escalation of care discussed even if they declined (Discuss DNR or withdrawal of care, Hospice)? DNR status @ -No What co-morbidities impacted this encounter? (DM, HTN, Smoking, COPD, CAD, Cancer, CVA, ARF, Chemo, Hep., AIDS, mental health diagnosis, sleep apnea, morbid obesity)? @ -Advanced age Was patient admitted / discharged? Hospital course, mention meds given and route, prescriptions, significant lab abnormalities, going to OR and other pertinent info. @ -Discharge. Patient is an 88-year-old female presenting to the ER with a chief complaint of neck pain. History and physical exam completed. Vitals stable. Patient in no signs of acute distress and nontoxic-appearing. No acute neurological findings on exam. No focal bony tenderness. Tenderness to left trapezius muscle. Pative had active ROM of neck with pain to left side. Patient refused analgesic medication. Imaging obtained negative for acute process. Results discussed with patient, all questions answered. Flexeril prescribed. Conservative measures discussed. Return parameters discussed. Patient discharged stable condition with follow-up to PCP. Patient verbally expressed understanding and agreement with care plan. Case discussed with ED attending, Dr. Murphy. Undiagnosed new problem with uncertain prognosis? @ -No Drug Therapy requiring intensive monitoring for toxicity (Heparin, Nitro, Insulin, Cardizem)? @ -No Were any procedures done? @ -No Diagnosis/symptom? @ -Muscle spasm Acute, or Chronic, or Acute on Chronic? @ -Acute Uncomplicated (without systemic symptoms) or Complicated (systemic symptoms)? @ -Uncomplicated Side effects of treatment? @ -No Exacerbation, Progression, or Severe Exacerbation? @ -No Poses a threat to life or bodily function? How? (Chest pain, [place], [place], pneumonia, PE, COPD, DKA, ARF, appy, cholecystitis, CVA, Diverticulitis, Homicidal, Suicidal, threat to staff... and all critical care pts) @ -No - Radiology Data Radiology results: report reviewed, image reviewed Disposition Clinical Impression: Muscle spasm, Disc degeneration Disposition: HOME SELF-CARE Condition: Stable Instructions (If sedation given, give patient instructions): Muscle Spasm (ED), Acute Neck Pain (ED) Additional Instructions: You may take Flexeril up to 2 times daily. Be aware this medication may make you feel drowsy or tired. Continue with Tylenol and IcyHot. Massage may also help. Follow-up with PCP. Return to the ER for any new or worsening concerns. Prescriptions: Cyclobenzaprine [Flexeril] 5 mg PO BID 5 Days #10 tablet Is patient prescribed a controlled substance at d/c from ED?: No Referrals: Richi Perez DO [Primary Care Provider] - 1-2 days Time of Disposition: 11:51
--- NOTE | 2023-10-12 11:41 | XR ---
EXAMINATION TYPE: XR cervical spine comp DATE OF EXAM: 10/12/2023 10:41 AM CLINICAL INDICATION:Female, 88 years old with history of left sided neck pain; [facility] COMPARISON: 07/20/2022 TECHNIQUE: The cervical spine was imaged in frontal, lateral, odontoid and bilateral oblique. FINDINGS: The osseous structures show normal alignment without evidence of an acute fracture. There are osteoph ytes noted throughout the cervical spine on the anterior and lateral aspects of the vertebral bodies. The intervertebral disk spaces are narrowed at multiple levels worse at C4-C5. Pedicles are intact. Soft tissues are within normal limits. The odontoid appears intact. IMPRESSION: 1. No fracture or dislocation. 2. Moderate degenerative disc disease changes of the cervical spine at C4-C5.
[2023-10-12 12:31] VITALS: BP 150/76; PULSE 65; TEMP 97.9
== END 2023-10-12 11:57 | disposition home or self-care (01) ==
LOC: EC 09:33
DX: M51.36 Other intervertebral disc degeneration, lumbar region (principal); Z87.891 Personal history of nicotine dependence; Z86.73 Personal history of transient ischemic attack (TIA), and cerebral infarction without residual deficits
CPT/HCPCS: 72050; 99283

== ENCOUNTER → 2024-01-10 | Outpatient (CLI) | payer MEDICARE, BC ==
--- NOTE | 2024-01-10 14:37 | US ---
EXAMINATION TYPE: US kidneys/renal and bladder DATE OF EXAM: 01/10/2024 COMPARISON: CT 04/23/2023 CLINICAL INDICATION: Female, 88 years old with history of CKD N18.32; CKD Stage 3B. Atrophic right ki dney seen on CT. EXAM MEASUREMENTS: Right Kidney: 5.9 x 2.9 x 2.3 cm Left Kidney: 10.2 x 4.3 x 4.8 cm Right Kidney: Appears small in size. Cortex appears thin. Left Kidney: Renal pelvis appears dilated. Multiple small hyperechoic foci seen within without shad owing. Largest measures 0.4 x 0.4 x 0.2 cm. Bladder: Anechoic. Bilateral Jets seen: No, only left jet was seen. IMPRESSION: 1. Markedly atrophic right kidney. 2. No left hydronephrosis, calcification or solid renal mass.
== END | disposition home or self-care (01) ==
LOC: RADUSWWP 13:21
PROVIDERS: ATTEND Internal Medicine Nephrology
DX: N18.32 Chronic kidney disease, stage 3b (principal); N26.1 Atrophy of kidney (terminal)
CPT/HCPCS: 76770

== ENCOUNTER 2024-02-27 10:45 | Emergency (ER) | payer MEDICARE, BC ==
[2024-02-27] MEDS ORDERED: KETOROLAC 15 MG/ML 1 ML VIAL ONE (11:32)
[2024-02-27] MEDS ORDERED: MORPHINE SULFATE 2 MG/ML SYRINGE ONE (11:32)
--- NOTE | 2024-04-03 18:18 | XR ---
Patient Gerda Lara ID [id number] Order # EXAMINATION TYPE: XR hand complete RT DATE OF EXAM: 03/09/2024 COMPARISON: No comparison available on downtime PACS. HISTORY: Right hand swelling TECHNIQUE: 3 view right hand FINDINGS: No acute displaced fractures evident. There is currently advanced degenerative joint change s of proximal and distal interphalangeal joint spaces. Some degenerative changes of the first metacar pal carpal junction. Follow-up exams can be performed 710 days from acute trauma and pain. IMPRESSION: 1. 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 Consider psoriatic arthritis in addition to osteoarthritis.
== END 2024-02-27 14:04 | disposition home or self-care (01) ==
LOC: EC 10:45
DX: L03.113 Cellulitis of right upper limb (principal)
CPT/HCPCS: 36415; 80053; 85652; 83605; 84550; 85025; 73130; 99283; 96372 ×2; J2270; J1885

== ENCOUNTER 2024-05-26 11:15 | Emergency (ER) | payer MEDICARE, BC ==
[2024-05-26 11:23] VITALS: TEMP 97.5
--- NOTE | 2024-05-26 13:19 | ED ---
Chest Pain HPI - General Chief Complaint: Chest Pain Stated Complaint: chest,back pain Time Seen by Provider: 05/26/24 12:51 Source: patient, RN notes reviewed, old records reviewed Mode of arrival: ambulatory Limitations: no limitations - History of Present Illness Initial Comments: 89-year-old female presenting with cough, congestion, sore throat. Patient had reported to urgent care that she had some chest discomfort and was sent to the emergency department for laboratory testing. Her symptoms are predominantly infectious in nature. No radiating chest pain. No diaphoresis. - Related Data Home Medications Medication Instructions Recorded Confirmed Aspirin EC [Ecotrin Low Dose] 81 mg PO DAILY 10/04/18 05/26/24 traMADol HCL [Ultram] 25 mg PO BID 10/04/18 05/26/24 Metoprolol Succinate [Toprol XL] 25 mg PO DAILY 01/07/21 05/26/24 hydroCHLOROthiazide 25 mg PO DAILY 01/07/21 05/26/24 lisinopriL [Zestril] 5 mg PO DAILY 01/07/21 05/26/24 Calcium Acetate [Phoslo] 667 mg PO DAILY 05/26/24 05/26/24 Cholecalciferol (Vitamin D3) 50 mcg PO DAILY 05/26/24 05/26/24 [Vitamin D3 (50 Mcg = 2000 Iu)] Donepezil [Aricept] 5 mg PO HS 05/26/24 05/26/24 Gabapentin [Neurontin] 400 mg PO BID 05/26/24 05/26/24 Levothyroxine Sodium [Levoxyl] 75 mcg PO DAILY 05/26/24 05/26/24 Multivit-Min/Folic Acid/Biotin 133.3 mcg PO DAILY 05/26/24 05/26/24 [Hair, Skin and Nails Softgel] Pravastatin Sodium [Pravachol] 40 mg PO HS 05/26/24 05/26/24 amLODIPine [Norvasc] 5 mg PO DAILY 05/26/24 05/26/24 hydrALAZINE HCL [Apresoline] 25 mg PO DAILY 05/26/24 05/26/24 Previous Rx's Medication Instructions Recorded Azithromycin [Zithromax Z Pack] 1 tab PO DIRECTED #6 tab 05/26/24 Allergies Allergy/AdvReac Type Severity Reaction Status Date / Time No Known Allergies Allergy Verified 05/26/24 13:26 Review of Systems ROS Statement: Those systems with pertinent positive or pertinent negative responses have been documented in the HPI. ROS Other: All systems not noted in ROS Statement are negative. 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 History of Any Multi-Drug Resistant Organisms: None Reported Past Surgical History: Orthopedic Surgery Additional Past Surgical History / Comment(s): R caratid endartectomy, L breast lumpectomy, bilateral cataract removals with lens implants, colonoscopy. Past Anesthesia/Blood Transfusion Reactions: No Reported Reaction Past Psychological History: No Psychological Hx Reported Smoking Status: Former smoker Past Alcohol Use History: None Reported Past Drug Use History: None Reported - Past Family History Father Family Medical History: Cancer, Coronary Artery Disease (CAD), Myocardial Infa rction ([place]) Additional Family Medical History / Comment(s): Father had lymphoma. He lived to be 72 yrs old. Mother Family Medical History: Diabetes Mellitus Additional Family Medical History / Comment(s): Mother lived to be 82 yrs old. General Exam Limitations: no limitations General appearance: alert, in no apparent distress Head exam: Present: atraumatic, normocephalic Eye exam: Present: normal appearance, PERRL ENT exam: Present: normal exam Neck exam: Present: normal inspection. Absent: tenderness, meningismus Respiratory exam: Present: normal lung sounds bilaterally. Absent: respiratory distress, wheezes Cardiovascular Exam: Present: regular rate, normal rhythm GI/Abdominal exam: Present: soft. Absent: distended, tenderness, guarding Extremities exam: Present: normal inspection, normal capillary refill. Absent: pedal edema Course Vital Signs 05/26/24 05/26/24 11:18 14:46 Temperature 97.5 F L Pulse Rate 74 67 Respiratory 18 16 Rate Blood Pressure 161/77 99/77 O2 Sat by Pulse 92 L 95 Oximetry Chest Pain MDM - MDM Was pt. sent in by a medical professional or institution (, [place], [employer]ICAL MALPR[employer], urgent care, hospital, or skilled nursing...) When possible be specific @ -No Did you speak to anyone other than the patient for history (EMS, parent, family, police, friend...)? What history was obtained from this source @ -No Did you review nursing and triage notes (agree or disagree)? Why? @ -I reviewed and agree with nursing and triage notes Were old charts reviewed (outside hosp., previous admission, EMS record, old EKG, old radiological studies, urgent care reports/EKG's, skilled nursing records)? Report findings @ -No old charts were reviewed Differential Dyspnea: Coronary syndrome, arrhythmia, tamponade, asthma, COPD, pulmonary embolism, pneumonia, pneumothorax, pulmonary effusion, anaphylaxis, diabetic ketoacidosis, flailed chest, pulmonary contusion, diaphragmatic rupture, anemia, neuromuscular, this is not meant to be an all-inclusive list. EKG interpreted by me (3pts min.). @ -Sinus rhythm rate of 69, IA interval 161, QRS duration 81, QTc 422 T wave inversion in V3 and ST segment depression with T wave inversion in lead III and aVF. X-rays interpreted by me (1pt min.). @Chest x-ray shows significant scoliosis without definitive acute cardiopulmonary findings, no pneumothorax or consolidative pneumonia. CT interpreted by me (1pt min.). @ -None done U/S interpreted by me (1pt. min.). @ -None done What testing was considered but not performed or refused? (CT, X-rays, U/S, labs)? Why? @ -None What meds were considered but not given or refused? Why? @ -None Did you discuss the management of the patient with other professionals (professionals i.e. , PA, MEDICAL MALPR[employer]ICE [employer], lab, RT, psych nurse, social media sr strategy manager, woodworker helper, teacher, signals officer, case operator)? Give summary @ -No Was smoking cessation discussed for >3mins.? @ -No Was critical care preformed (if so, how long)? @ -No Were there social determinants of health that impacted care today? How? (Homelessness, low income, unemployed, alcoholism, drug addiction, transportation, low edu. Level, literacy, decrease access to med. care, detention, rehab)? @ -No Was there de-escalation of care discussed even if they declined (Discuss DNR or withdrawal of care, Hospice)? DNR status @ -No What co-morbidities impacted this encounter? (DM, HTN, Smoking, COPD, CAD, Cancer, CVA, ARF, Chemo, Hep., AIDS, mental health diagnosis, sleep apnea, morbid obesity)? @ -None Was patient admitted / discharged? Hospital course, mention meds given and route, prescriptions, significant lab abnormalities, going to OR and other pertinent info. @ -89-year-old female presents from urgent care with cough, upper respiratory symptoms including sore throat and congestion. Patient well-appearing with stable vitals. EKG does show nonspecific T wave inversion. Chest x-ray is clear although difficult to interpret secondary to significant scoliosis. She has a mild leukocytosis, stable hemoglobin, normal electrolytes, viral testing is negative, troponin is negative. She has a mild elevation in BUN and creatinine. Patient very eager for discharge. Likely viral infection. Given the patient's age we did discuss antibiotics and patient states that she has been dealing with chronic diarrhea and would prefer to avoid antibiotics at this time. She will monitor her symptoms closely and has been prescribed azithromycin if her symptoms were to worsen. She will follow closely with her primary care provider. Undiagnosed new problem with uncertain prognosis? @ -No Drug Therapy requiring intensive monitoring for toxicity (Heparin, Nitro, Insulin, Cardizem)? @ -No Were any procedures done? @ -No Diagnosis/symptom? @ -[Upper respiratory infection Acute, or Chronic, or Acute on Chronic? @ -Acute Uncomplicated (without systemic symptoms) or Complicated (systemic symptoms)? @ -Default Side effects of treatment? @ -No Exacerbation, Progression, or Severe Exacerbation? @ -No Poses a threat to life or bodily function? How? (Chest pain, [place], [place], pneumonia, PE, COPD, DKA, ARF, appy, cholecystitis, CVA, Diverticulitis, Homicidal, Suicidal, threat to staff... and all critical care pts) @ -Low risk at this time Disposition Clinical Impression: Upper respiratory infection, Acute exacerbation of chronic obstructive airways disease Disposition: HOME SELF-CARE Condition: Fair Instructions (If sedation given, give patient instructions): Upper Respiratory Infection (ED) Prescriptions: Azithromycin [Zithromax Z Pack] 1 tab PO DIRECTED #6 tab Is patient prescribed a controlled substance at d/c from ED?: No Referrals: Richi Perez DO [Primary Care Provider] - 1-2 days Time of Disposition: 14:39
--- NOTE | 2024-05-26 13:20 | XR ---
EXAMINATION TYPE: XR chest 2V DATE OF EXAM: 05/26/2024 12:56 PM COMPARISON: 03/16/2021 CLINICAL INDICATION: Female, 89 years old with history of Chest Pain, TECHNIQUE: XR chest 2V view(s) obtained. FINDINGS: The heart size is prominent. The pulmonary vasculature is somewhat prominent. The lungs are clear. There is an increased AP diameter and some flattening of the diaphragms. Correl ate for senile emphysematous changes IMPRESSION: 1. No acute pulmonary process. 2. Correlate for senile emphysematous change. [facility], , 05/26/2024 1:18 PM
[2024-05-26 13:47] LABS: Basophils % (A) 0 %; Eosinophils # (A) 0.2 k/uL (0-0.7); Eosinophils % (A) 1 %; HCT 47.1 % (34.0-46.0); Lymphocytes # (A) 1.3 k/uL (1.0-4.8); Lymphocytes % (A) 10 %; MCH 29.8 pg (25.0-35.0); MCHC 31.8 g/dL (31.0-37.0); MCV 93.8 fL (80.0-100.0); Mean Platelet Volume 8.8; Monocytes # (A) 0.8 k/uL (0-1.0); Monocytes % (A) 6 %; Neutrophils % (A) 81 %; Platelet Count 268 k/uL (150-450); RBC 5.02 m/uL (3.80-5.40); RDW 13.1 % (11.5-15.5); WBC 12.4 k/uL (3.8-10.6)
[2024-05-26 13:57] LABS: ALT 17 U/L (4-34); AST 29 U/L (14-36); African American GFR (CKD) 38 (>60 ml/min/1.73 sqM); Albumin 4.3 g/dL (3.5-5.0); Alkaline Phosphatase 180 U/L (38-126); Anion Gap 9 mmol/L; Blood Urea Nitrogen 27 mg/dL (7-17); Calcium 9.6 mg/dL (8.4-10.2); Carbon Dioxide 30 mmol/L (22-30); Chloride 96 mmol/L (98-107); Glucose 95 mg/dL (74-99); INR 0.9 (<1.2); Magnesium 1.8 mg/dL (1.6-2.3); Non-African American GFR(CKD) 33 (>60 ml/min/1.73 sqM); Partial Thromboplastin Time 29.8 sec (22.0-30.0); Potassium 4.2 mmol/L (3.5-5.1); Prothrombin Time 10.4 sec (10.0-12.5); Sodium 135 mmol/L (137-145); Total Bilirubin 1.1 mg/dL (0.2-1.3); Total Protein 8.1 g/dL (6.3-8.2)
[2024-05-26 14:55] VITALS: BP 99/77; PULSE 67; RESP 16
== END 2024-05-26 14:55 | disposition home or self-care (01) ==
LOC: EC 11:15
DX: J06.9 Acute upper respiratory infection, unspecified (principal); J44.1 Chronic obstructive pulmonary disease with (acute) exacerbation; Z87.891 Personal history of nicotine dependence; Z86.73 Personal history of transient ischemic attack (TIA), and cerebral infarction without residual deficits
CPT/HCPCS: 36415; 71046; 80053; 83735; 84484; 85025; 85610; 85730; 87636; 93005; 99285

== ENCOUNTER 2024-07-06 10:03 | Inpatient (IN) | payer MEDICARE, BC ==
--- NOTE | 2024-07-06 11:03 | ED ---
General Adult HPI - General Chief complaint: Shortness of Breath Stated complaint: leaky valve Time Seen by Provider: 07/06/24 10:09 Source: patient, EMS Mode of arrival: EMS Limitations: no limitations - History of Present Illness Initial comments: Dictation was produced using [employer] dictation software. please excuse any grammatical, word or spelling errors. Chief Complaint: 89-year-old female with history of COPD presents with shortness of breath since yesterday History of Present Illness: Patient is 89-year-old female she has history of COPD dyslipidemia hypertension. She is prescribed home O2 however only uses it as needed. States that yesterday she started to feel short of breath and has been using her oxygen. Denies any cough. She did have a mild sore throat. Denies any fever, chills or night sweats. Patient feels like this is her COPD acting up. Patient has severe kyphoscoliosis. Patient denies any history of DVT or PE. Does not take any anticoagulation medications. The ROS documented in this emergency department record has been reviewed and confirmed by me. Those systems with pertinent positive or negative responses have been documented in the HPI. All other systems are other negative and/or noncontributory. - Related Data Home Medications Medication Instructions Recorded Confirmed Aspirin EC [Ecotrin Low Dose] 81 mg PO DAILY 10/04/18 05/26/24 traMADol HCL [Ultram] 25 mg PO BID 10/04/18 05/26/24 Metoprolol Succinate [Toprol XL] 25 mg PO DAILY 01/07/21 05/26/24 hydroCHLOROthiazide 25 mg PO DAILY 01/07/21 05/26/24 lisinopriL [Zestril] 5 mg PO DAILY 01/07/21 05/26/24 Calcium Acetate [Phoslo] 667 mg PO DAILY 05/26/24 05/26/24 Cholecalciferol (Vitamin D3) 50 mcg PO DAILY 05/26/24 05/26/24 [Vitamin D3 (50 Mcg = 2000 Iu)] Donepezil [Aricept] 5 mg PO HS 05/26/24 05/26/24 Gabapentin [Neurontin] 400 mg PO BID 05/26/24 05/26/24 Levothyroxine Sodium [Levoxyl] 75 mcg PO DAILY 05/26/24 05/26/24 Multivit-Min/Folic Acid/Biotin 133.3 mcg PO DAILY 05/26/24 05/26/24 [Hair, Skin and Nails Softgel] Pravastatin Sodium [Pravachol] 40 mg PO HS 05/26/24 05/26/24 amLODIPine [Norvasc] 5 mg PO DAILY 05/26/24 05/26/24 hydrALAZINE HCL [Apresoline] 25 mg PO DAILY 05/26/24 05/26/24 Allergies Allergy/AdvReac Type Severity Reaction Status Date / Time No Known Allergies Allergy Verified 07/06/24 13:40 Review of Systems ROS Statement: Those systems with pertinent positive or pertinent negative responses have been documented in the HPI. ROS Other: All systems not noted in ROS Statement are negative. 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 History of Any Multi-Drug Resistant Organisms: None Reported Past Surgical History: Orthopedic Surgery Additional Past Surgical History / Comment(s): R caratid endartectomy, L breast lumpectomy, bilateral cataract removals with lens implants, colonoscopy. Past Anesthesia/Blood Transfusion Reactions: No Reported Reaction Past Psychological History: No Psychological Hx Reported Smoking Status: Former smoker Past Alcohol Use History: None Reported Past Drug Use History: None Reported - Past Family History Father Family Medical History: Cancer, Coronary Artery Disease (CAD), Myocardial Infarction (OR) Additional Family Medical History / Comment(s): Father had lymphoma. He lived to be 72 yrs old. Mother Family Medical History: Diabetes Mellitus Additional Family Medical History / Comment(s): Mother lived to be 82 yrs old. General Exam - General Exam Comments Initial Comments: PHYSICAL EXAM: General Impression: Alert and oriented x3, not in acute distress HEENT: Normocephalic atraumatic, extra-ocular movements intact, pupils equal and reactive to light bilaterally, mucous membranes moist. Cardiovascular: Heart regular rate and rhythm Chest: Able to complete full sentences, clear to auscultation bilaterally Abdomen: abdomen soft, non-tender, non-distended, no organomegaly Musculoskeletal: Pulses present and equal in all extremities, no peripheral edema, severe kyphoscoliosis Motor: no focal deficits noted Neurological: CN II-XII grossly intact, no focal motor or sensory deficits noted Skin: Intact with no visualized rashes Psych: Normal affect and mood Limitations: no limitations Course Vital Signs 07/06/24 07/06/24 07/06/24 10:11 11:21 12:54 Temperature 98.6 F Pulse Rate 86 86 93 Respiratory 22 21 20 Rate Blood Pressure 178/81 167/81 178/108 O2 Sat by Pulse 90 L 94 L 93 L Oximetry EKG Findings - EKG Comments: EKG Findings:: My EKG interpretation: Ventricular rate 91, A-fib, QRS 90, QTc 322. Compared to EKG from May 26, 2024 showing new onset A-fib Medical Decision Making - Medical Decision Making Was pt. sent in by a medical professional or institution (, PA, HOSPITAL ADMITTING CLERK, urgent care, hospital, or retirement...) When possible be specific @ -No Did you speak to anyone other than the patient for history (EMS, parent, family, police, friend...)? What history was obtained from this source @ -No Did you review nursing and triage notes (agree or disagree)? Why? @ -I reviewed and agree with nursing and triage notes Were old charts reviewed (outside hosp., previous admission, EMS record, old EKG, old radiological studies, urgent care reports/EKG's, retirement records)? Report findings @ -No old charts were reviewed Differential Diagnosis (chest pain, altered mental status, abdominal pain women, abdominal pain men, vaginal bleeding, musculoskeletal, weakness, fever, dyspnea, syncope, headache, dizziness, GI bleed, back pain, seizure, CVA, palpatations, mental health)? @ -Differential Dyspnea: Coronary syndrome, arrhythmia, tamponade, asthma, COPD, pulmonary embolism, pneumonia, pneumothorax, pulmonary effusion, anaphylaxis, diabetic ketoacidosis, flailed chest, pulmonary contusion, diaphragmatic rupture, anemia, neuromuscular, this is not meant to be an all-inclusive list. EKG interpreted by me (3pts min.). @ -See above X-rays interpreted by me (1pt min.). @ -Chest x-ray shows heart failure CT interpreted by me (1pt min.). @ -CT angiography shows no pulmonary embolism U/S interpreted by me (1pt. min.). @ -None done What testing was considered but not performed or refused? (CT, X-rays, U/S, labs)? Why? @ -None What meds were considered but not given or refused? Why? @ -None Was smoking cessation discussed for >3mins.? @ -No Were there social determinants of health that impacted care today? How? (Homelessness, low income, unemployed, alcoholism, drug addiction, transportation, low edu. Level, literacy, decrease access to med. care, long-term, rehab)? @ -No Was there de-escalation of care discussed even if they declined (Discuss DNR or withdrawal of care, Hospice)? DNR status @ -No What co-morbidities impacted this encounter? (DM, HTN, Smoking, COPD, CAD, Cancer, CVA, ARF, Chemo, Hep., AIDS, mental health diagnosis, sleep apnea, morbid obesity)? @ -Kyphoscoliosis Was patient admitted / discharged? Hospital course, mention meds given and route, prescriptions, significant lab abnormalities, going to OR and other pertinent info. @ -89-year-old female presents emergency department dyspnea. Patient has multiple comorbidities. Hypoxic at the bedside 90% on 3 L nasal cannula. Patient would go as low as mid 80s without any supplemental O2. States at home she uses O2 as needed. Laboratory evaluation obtained. CBC unremarkable. Metabolic panel shows findings within acceptable limits. D-dimer is 2.3. CT angiography shows no blood clot. Troponin 0.027 with a BNP of 9000. Patient has history of elevated troponin. C imaging studies shows heart failure. Patient Juan will be admitted consultation cardiology. Did you discuss the management of the patient with other professionals (professionals i.e. , PA, HOSPITAL ADMITTING CLERK, lab, RT, psych nurse, social science analyst, business process engineer, teacher, senior loan officer, human services case manager)? Give summary @ -Case discussed with hospitalist for admission Was critical care preformed (if so, how long)? @ -No Undiagnosed new problem with uncertain prognosis? @ -No Drug Therapy requiring intensive monitoring for toxicity (Heparin, Nitro, Insulin, Cardizem)? @ -No Were any procedures done? @ -No Diagnosis/symptom? Acute, or Chronic, or Acute on Chronic? Uncomplicated (without systemic symptoms) or Complicated (systemic symptoms)? @ -Heart failure, complicated by hypoxic respiratory failure Side effects of treatment? @ -No Exacerbation, Progression, or Severe Exacerbation? @ -No Poses a threat to life or bodily function? How? (Chest pain, USA, OR, pneumonia, PE, COPD, DKA, ARF, appy, cholecystitis, CVA, Diverticulitis, Homicidal, Suicidal, threat to staff... and all critical care pts) @ -yes - Lab Data Result diagrams: 07/06/24 10:58 07/06/24 10:58 Lab Results 07/06/24 07/06/24 07/06/24 Range/Units 10:58 10:58 10:58 WBC 11.4 H (3.8-10.6) k/uL RBC 4.72 (3.80-5.40) m/uL Hgb 14.0 (11.4-16.0) gm/dL Hct 44.6 (34.0-46.0) % MCV 94.4 (80.0-100.0) fL MCH 29.7 (25.0-35.0) pg MCHC 31.4 (31.0-37.0) g/dL RDW 13.7 (11.5-15.5) % Plt Count 255 (150-450) k/uL MPV 8.6 Neutrophils % 85 % Lymphocytes % 6 % Monocytes % 6 % Eosinophils % 1 % Basophils % 0 % Neutrophils # 9.7 H (1.3-7.7) k/uL Lymphocytes # 0.7 L (1.0-4.8) k/uL Monocytes # 0.7 (0-1.0) k/uL Eosinophils # 0.1 (0-0.7) k/uL Basophils # 0.0 (0-0.2) k/uL Hypochromasia Slight PT (10.0-12.5) sec INR (<1.2) APTT (22.0-30.0) sec D-Dimer (<0.60) mg/L FEU Sodium 137 (137-145) mmol/L Potassium 3.6 (3.5-5.1) mmol/L Chloride 99 (98-107) mmol/L Carbon Dioxide 31 H (22-30) mmol/L Anion Gap 7 mmol/L BUN 36 H (7-17) mg/dL Creatinine 1.31 H (0.52-1.04) mg/dL Est GFR (CKD-EPI)AfAm 42 (>60 ml/min/1.73 sqM) Est GFR (CKD-EPI)NonAf 36 (>60 ml/min/1.73 sqM) Glucose 101 H (74-99) mg/dL Plasma Lactic Acid Gulshan (0.7-2.0) mmol/L Calcium 9.3 (8.4-10.2) mg/dL Magnesium 1.9 (1.6-2.3) mg/dL Total Bilirubin 1.3 (0.2-1.3) mg/dL AST 29 (14-36) U/L ALT 17 (4-34) U/L Alkaline Phosphatase 201 H (38-126) U/L Troponin I (0.000-0.034) ng/mL NT-Pro-B Natriuret Pep 9110 pg/mL Total Protein 6.7 (6.3-8.2) g/dL Albumin 3.4 L (3.5-5.0) g/dL Influenza Type A (PCR) Not Detected (Not Detectd) Influenza Type B (PCR) Not Detected (Not Detectd) RSV (PCR) Not Detected (Not Detectd) SARS-CoV-2 (PCR) Not Detected (Not Detectd) 07/06/24 07/06/24 07/06/24 Range/Units 10:58 10:58 10:58 WBC (3.8-10.6) k/uL RBC (3.80-5.40) m/uL Hgb (11.4-16.0) gm/dL Hct (34.0-46.0) % MCV (80.0-100.0) fL MCH (25.0-35.0) pg MCHC (31.0-37.0) g/dL RDW (11.5-15.5) % Plt Count (150-450) k/uL MPV Neutrophils % % Lymphocytes % % Monocytes % % Eosinophils % % Basophils % % Neutrophils # (1.3-7.7) k/uL Lymphocytes # (1.0-4.8) k/uL Monocytes # (0-1.0) k/uL Eosinophils # (0-0.7) k/uL Basophils # (0-0.2) k/uL Hypochromasia PT 10.9 (10.0-12.5) sec INR 1.0 (<1.2) APTT 21.3 L (22.0-30.0) sec D-Dimer 2.30 H (<0.60) mg/L FEU Sodium (137-145) mmol/L Potassium (3.5-5.1) mmol/L Chloride (98-107) mmol/L Carbon Dioxide (22-30) mmol/L Anion Gap mmol/L BUN (7-17) mg/dL Creatinine (0.52-1.04) mg/dL Est GFR (CKD-EPI)AfAm (>60 ml/min/1.73 sqM) Est GFR (CKD-EPI)NonAf (>60 ml/min/1.73 sqM) Glucose (74-99) mg/dL Plasma Lactic Acid [place] 1.8 (0.7-2.0) mmol/L Calcium (8.4-10.2) mg/dL Magnesium (1.6-2.3) mg/dL Total Bilirubin (0.2-1.3) mg/dL AST (14-36) U/L ALT (4-34) U/L Alkaline Phosphatase (38-126) U/L Troponin I 0.027 (0.000-0.034) ng/mL NT-Pro-B Natriuret Pep pg/mL Total Protein (6.3-8.2) g/dL Albumin (3.5-5.0) g/dL Influenza Type A (PCR) (Not Detectd) Influenza Type B (PCR) (Not Detectd) RSV (PCR) (Not Detectd) SARS-CoV-2 (PCR) (Not Detectd) Disposition Clinical Impression: Heart failure Disposition: ADMITTED IP TO THIS HOSP Condition: Fair Referrals: Richi Perez DO [Primary Care Provider] - 1-2 days Decision Time: 13:45
[2024-07-06 11:19] LABS: Basophils % (A) 0 %; Eosinophils # (A) 0.1 k/uL (0-0.7); Eosinophils % (A) 1 %; HCT 44.6 % (34.0-46.0); Hypochromasia Slight; Lymphocytes # (A) 0.7 k/uL (1.0-4.8); Lymphocytes % (A) 6 %; MCH 29.7 pg (25.0-35.0); MCHC 31.4 g/dL (31.0-37.0); MCV 94.4 fL (80.0-100.0); Mean Platelet Volume 8.6; Monocytes # (A) 0.7 k/uL (0-1.0); Monocytes % (A) 6 %; Neutrophils # (A) 9.7 k/uL (1.3-7.7); Neutrophils % (A) 85 %; Platelet Count 255 k/uL (150-450); RBC 4.72 m/uL (3.80-5.40); RDW 13.7 % (11.5-15.5); WBC 11.4 k/uL (3.8-10.6)
[2024-07-06 11:30] LABS: ALT 17 U/L (4-34); AST 29 U/L (14-36); African American GFR (CKD) 42 (>60 ml/min/1.73 sqM); Albumin 3.4 g/dL (3.5-5.0); Alkaline Phosphatase 201 U/L (38-126); Anion Gap 7 mmol/L; Blood Urea Nitrogen 36 mg/dL (7-17); Calcium 9.3 mg/dL (8.4-10.2); Carbon Dioxide 31 mmol/L (22-30); Chloride 99 mmol/L (98-107); Glucose 101 mg/dL (74-99); Magnesium 1.9 mg/dL (1.6-2.3); Non-African American GFR(CKD) 36 (>60 ml/min/1.73 sqM); Potassium 3.6 mmol/L (3.5-5.1); Sodium 137 mmol/L (137-145); Total Bilirubin 1.3 mg/dL (0.2-1.3); Total Protein 6.7 g/dL (6.3-8.2)
--- NOTE | 2024-07-06 11:33 | XR ---
EXAMINATION TYPE: XR chest 2V DATE OF EXAM: 07/06/2024 11:17 AM COMPARISON: Chest radiographs from 05/26/2024. CLINICAL INDICATION: Female, 89 years old with history of dyspnea; TECHNIQUE: XR chest 2V Frontal and lateral views of the chest. FINDINGS: Lungs/Pleura: Prominent interstitial lung markings are seen scattered throughout the lungs with karol ening of the diaphragm and increased lucency of the lung apices. No evidence of focal consolidation, pneumothorax or pleural effusion. Pulmonary vascularity: Pulmonary vascular congestion. Heart/mediastinum: Cardiomediastinal silhouette is enlarged and stable. Musculoskeletal: No acute osseous pathology. IMPRESSION: Cardiomegaly, pulmonary vascular congestion and bilateral pleural effusions. Correlate with BNP for c ongestive heart failure. [facility], , 07/06/2024 11:31 AM
[2024-07-06 11:38] LABS: NT-Pro-B-Type Natriuretic Pept 9110 pg/mL
[2024-07-06 11:57] LABS: Partial Thromboplastin Time 21.3 sec (22.0-30.0); Prothrombin Time 10.9 sec (10.0-12.5)
--- NOTE | 2024-07-06 13:00 | CT ---
EXAMINATION TYPE: CT angio chest DATE OF EXAM: 07/06/2024 12:37 PM COMPARISON: None CLINICAL INDICATION: Female, 89 years old with history of positive D-dimer; AWAIS/COPD TECHNIQUE/CONTRAST: CTA scan of the thorax is performed with IV Contrast, patient injected with 80ML mL of Isovue 370, AL P images are created and reviewed these are created on a separate workstation.. CT DLP: 214 mGycm, Automated exposure control for dose reduction was used. FINDINGS: Lungs/Pleura: No evidence of focal consolidation, pleural effusion or pneumothorax. Atelectasis reynolds es bilaterally secondary to moderate pleural effusions. Anterior lobular septal thickening with apica l scarring. Scattered centrilobular and paraseptal emphysema. Airway: Large airways are patent. Heart: The heart is mildly enlarged for size. Atherosclerosis of the arterial vasculature. 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 There is no evidence for a filling defect within the pulmonary vasculature to suggest acute pulmonary embolism. The pulmonary artery is of normal size. Mediastinum: No gross evidence of adenopathy. Musculoskeletal: Moderate degenerative disc disease changes are present throughout the thoracolumbar spine. Scoliosis changes of the spine. Severe degeneration changes of the shoulders with joint space narrowing and osteophyte formation. Soft Tissues/lymph nodes: Unremarkable. Lower neck: No significant findings. Upper Abdomen: Scattered colonic diverticula. IMPRESSION: 1. No evidence of pulmonary embolism. 2. 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 3. Cardiomegaly with pulmonary vascular congestion Moderate bilateral pleural effusions with associat ed atelectasis. Correlate with serum BNP for congestive heart failure. Follow up recommendations for incidental pulmonary nodules, if there are any, are per [employer] [employer] or [place] [employer]. https://radiopaedia.org/articles/emfvsxuwbo-akufpoz-vpdsqhzcw-bhqrfw-[email or web address]-[email or web address]?lang=us [facility], , 07/06/2024 12:57 PM
[2024-07-06] MEDS: FUROSEMIDE 10 MG/ML 4 ML VIAL IV STA (13:46)
[2024-07-06] MEDS: METOPROLOL SUCCINATE (ER) 25 MG TAB.ER.24H PO SCH (18:21)
[2024-07-06] MEDS: amLODIPine 5 MG TAB PO STA (18:22)
[2024-07-06] MEDS: GABAPENTIN 400 MG CAP PO SCH (20:46)
[2024-07-06] MEDS: PRAVASTATIN SODIUM 40 MG TAB PO SCH (20:47)
[2024-07-06] MEDS: traMADol 50 MG TAB PO SCH (20:47)
[2024-07-06] MEDS: DONEPEZIL 5 MG TAB PO SCH (20:48)
[2024-07-07] MEDS: FUROSEMIDE 10 MG/ML 4 ML VIAL IV SCH (01:17)
[2024-07-07] MEDS: CALCIUM ACETATE 667 MG TAB PO SCH (07:34)
[2024-07-07] MEDS: LEVOTHYROXINE 75 MCG TAB PO SCH (07:34)
[2024-07-07] MEDS ORDERED: HEPARIN SODIUM 1,000 UN/ML (10ML VL) IV PRN (08:38)
[2024-07-07 09:04] LABS: Basophils % (A) 0 %; Eosinophils # (A) 0.2 k/uL (0-0.7); Eosinophils % (A) 2 %; HCT 44.2 % (34.0-46.0); HGB 13.9 gm/dL (11.4-16.0); Hypochromasia Slight; Lymphocytes # (A) 0.7 k/uL (1.0-4.8); Lymphocytes % (A) 6 %; MCH 29.7 pg (25.0-35.0); MCHC 31.5 g/dL (31.0-37.0); MCV 94.2 fL (80.0-100.0); Mean Platelet Volume 7.7; Monocytes # (A) 0.7 k/uL (0-1.0); Monocytes % (A) 6 %; Neutrophils # (A) 10.2 k/uL (1.3-7.7); Neutrophils % (A) 86 %; Platelet Count 289 k/uL (150-450); RBC 4.69 m/uL (3.80-5.40); RDW 13.5 % (11.5-15.5); WBC 11.8 k/uL (3.8-10.6)
[2024-07-07 09:27] LABS: INR 1.1 (<1.2); Partial Thromboplastin Time 25.8 sec (22.0-30.0); Prothrombin Time 12.2 sec (10.0-12.5)
[2024-07-07] MEDS: ASPIRIN 81 MG PO SCH (10:09)
[2024-07-07] MEDS: hydrALAZINE HCL 25 MG TAB PO SCH (10:10)
[2024-07-07] MEDS: lisinopriL 5 MG TAB PO SCH (10:11)
[2024-07-07] MEDS: amLODIPine 5 MG TAB PO SCH (10:12)
[2024-07-07] MEDS: hydroCHLOROthiazide 25 MG TAB PO SCH (10:12)
[2024-07-07] MEDS: CHOLECALCIFEROL 25 MCG (1000 IU) TABLET PO SCH (10:12)
[2024-07-07] MEDS: HEPARIN SODIUM 1,000 UN/ML (10ML VL) IV ONE (10:23)
[2024-07-07] MEDS: HEPARIN SOD,PORK IN 0.45% NACL 25,000 UNIT in 0.45% NACL 1 250ML.BAG IV SCH (10:24)
--- NOTE | 2024-07-07 10:57 | P.CRDCN ---
History of Present Illness Consult date: 07/07/24 Consult reason: congestive heart failure History of present illness: This is an 89-year-old female patient of Dr. Upton with past medical history of hypertension, SVT, chronic kidney disease stage V, moderate mitral regurgitation, severe right ICA disease. We have been asked to evaluate the patient for heart failure. Patient gives history that for the past 3 to 4 days she was having trouble getting to the bathroom due to significant shortness of breath. She states he is had a little bit of edema in her lower extremities. She denies any weight gain. She does have chest pain with exertion. She states she is always full of phlegm. She denies any previous cardiac history. Patient does not have history of atrial fibrillation. Blood pressure 145/71, heart rate in the 60s, pulse ox 98% on high flow nasal cannula 10 L. Patient has been started on IV Lasix 40 mg every 12 hours. Patient is seen today in the emergency center waiting for a bed on the cardiac stepdown unit. -EKG: Atrial fibrillation with ventricular rate of 91. -Chest x-ray: Cardiomegaly, pulmonary vascular congestion and bilateral pleural effusions -CTA of the chest revealed no evidence of pulmonary embolism. 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 Cardiomegaly with pulmonary vascular congestion and moderate bilateral pleural effusions with associated atelectasis. -Laboratory studies: WBC 11.4, hemoglobin 14, D-dimer 2.3. Sodium 137, potassium 3.6, BUN 36 and creatinine 1.31, magnesium 1.9. Troponin negative x 1. proBNP 9110. Influenza A, influenza B, RSV, COVID-19 not detected. -Home cardiac medications: Amlodipine 5 mg daily, aspirin 81 mg daily, hydralazine 25 mg daily, hydrochlorothiazide 25 mg daily, lisinopril 5 mg daily, metoprolol succinate 25 mg daily, pravastatin 40 mg at bedtime, also on levothyroxine. -Echocardiogram performed 05/03/2023 in the office revealed EF 60%, grade 2 diastolic dysfunction, mild concentric LVH. Mild mitral regurgitation, trace tricuspid regurgitation. -Event monitor 30 days performed 02/2023 revealed no atrial fibrillation, NSVT Review Of Systems: At the time of my exam: CONSTITUTIONAL: Denies fever or chills. HEENT: Denies blurred vision, vision changes, or eye pain. Denies hemoptysis CARDIOVASCULAR: Denies chest pain. Denies orthopnea. Denies PND. Denies palpitations RESPIRATORY: Denies shortness of breath. Reports chest pain with exertion GASTROINTESTINAL: Denies abdominal pain. Denies nausea or vomiting. HEMATOLOGIC: Denies bleeding disorders. GENITOURINARY: Denies any blood in urine. SKIN: Denies puritis. Denies rash. Physical examination: Gen: This is an 89-year-old female appears to be in no acute distress VS: reviewed HEENT: Head is atraumatic, normocephalic. Pupils equal, round. Sclerae is anicteric. NECK: Supple. No JVD. LUNGS: Clear to auscultation. No wheezes or rhonchi. No intercostal retract ions. HEART: Irregular rate and rhythm. Systolic murmur. ABDOMEN: Soft No tenderness. EXTREMITIES: 1+ pedal edema. No calf tenderness. NEUROLOGICAL: Patient is awake, alert and oriented x3. Assessment: New onset A-fib with controlled rate, paroxysmal Acute diastolic heart failure Hypertension History of SVT Chronic kidney disease Moderate mitral regurgitation Severe right ICA disease Plan: Resume patient's home cardiac medications Start patient on heparin drip Continue IV Lasix 40 mg every 12 hours Monitor VÍCTOR, daily weights, electrolytes and renal function Obtain 2-D echocardiogram and Doppler study to assess cardiac structure and function Further recommendations to follow based upon clinical course Thank you kindly for this consultation. Nurse practitioner note has been reviewed, I agree with documented findings and plan of care. Patient was seen and examined. 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 History of Any Multi-Drug Resistant Organisms: None Reported Past Surgical History: Orthopedic Surgery Additional Past Surgical History / Comment(s): R caratid endartectomy, L breast lumpectomy, bilateral cataract removals with lens implants, colonoscopy. Past Anesthesia/Blood Transfusion Reactions: No Reported Reaction Past Psychological History: No Psychological Hx Reported Smoking Status: Former smoker Past Alcohol Use History: None Reported Past Drug Use History: None Reported - Past Family History Father Family Medical History: Cancer, Coronary Artery Disease (CAD), Myocardial Infarction ([place]) Additional Family Medical History / Comment(s): Father had lymphoma. He lived to be 72 yrs old. Mother Family Medical History: Diabetes Mellitus Additional Family Medical History / Comment(s): Mother lived to be 82 yrs old. Medications and Allergies Home Medications Medication Instructions Recorded Confirmed Type Aspirin EC [Ecotrin Low Dose] 81 mg PO DAILY 10/04/18 07/06/24 History traMADol HCL [Ultram] 25 mg PO BID 10/04/18 07/06/24 History Metoprolol Succinate [Toprol XL] 25 mg PO DAILY 01/07/21 07/06/24 History hydroCHLOROthiazide 25 mg PO DAILY 01/07/21 07/06/24 History lisinopriL [Zestril] 5 mg PO DAILY 01/07/21 07/06/24 History Calcium Acetate [Phoslo] 667 mg PO DAILY 05/26/24 07/06/24 History Cholecalciferol (Vitamin D3) 50 mcg PO DAILY 05/26/24 07/06/24 History [Vitamin D3 (50 Mcg = 2000 Iu)] Donepezil [Aricept] 5 mg PO HS 05/26/24 07/06/24 History Gabapentin [Neurontin] 400 mg PO BID 05/26/24 07/06/24 History Levothyroxine Sodium [Levoxyl] 75 mcg PO DAILY 05/26/24 07/06/24 History Multivit-Min/Folic Acid/Biotin 133.3 mcg PO DAILY 05/26/24 07/06/24 History [Hair, Skin and Nails Softgel] Pravastatin Sodium [Pravachol] 40 mg PO HS 05/26/24 07/06/24 History amLODIPine [Norvasc] 5 mg PO DAILY 05/26/24 07/06/24 History hydrALAZINE HCL [Apresoline] 25 mg PO DAILY 05/26/24 07/06/24 History Allergies Allergy/AdvReac Type Severity Reaction Status Date / Time No Known Allergies Allergy Verified 07/06/24 13:40 Physical Exam Vitals: Vital Signs Temp Pulse Resp BP Pulse Ox 07/07/24 03:00 64 16 145/71 98 07/07/24 02:00 65 18 158/71 98 07/07/24 01:00 65 16 164/71 97 07/07/24 00:17 74 18 163/72 98 07/07/24 00:00 76 16 159/72 97 07/06/24 23:00 74 18 145/62 96 07/06/24 22:00 76 18 155/61 97 07/06/24 20:30 76 18 163/64 95 07/06/24 18:35 96 18 179/82 96 07/06/24 18:00 88 20 181/77 96 07/06/24 17:00 82 15 182/99 98 07/06/24 16:00 23 168/76 90 L 07/06/24 15:00 89 28 H 186/79 90 L 07/06/24 14:11 96 07/06/24 14:00 168/84 86 L 07/06/24 13:00 90 19 178/108 89 L 07/06/24 12:54 93 20 178/108 93 L 07/06/24 12:00 82 20 186/80 95 07/06/24 11:21 86 21 167/81 94 L 07/06/24 11:00 87 19 168/79 92 L 07/06/24 10:11 98.6 F 86 22 178/81 90 L 07/06/24 10:07 82 L Results 07/07/24 08:53 07/06/24 10:58 Cardiac Enzymes 07/06/24 07/06/24 Range/Units 10:58 10:58 AST 29 (14-36) U/L Troponin I 0.027 (0.000-0.034) ng/mL Coagulation 07/06/24 Range/Units 10:58 PT 10.9 (10.0-12.5) sec APTT 21.3 L (22.0-30.0) sec CBC 07/06/24 Range/Units 10:58 WBC 11.4 H (3.8-10.6) k/uL RBC 4.72 (3.80-5.40) m/uL Hgb 14.0 (11.4-16.0) gm/dL Hct 44.6 (34.0-46.0) % Plt Count 255 (150-450) k/uL Comprehensive Metabolic Panel 07/06/24 Range/Units 10:58 Sodium 137 (137-145) mmol/L Potassium 3.6 (3.5-5.1) mmol/L Chloride 99 (98-107) mmol/L Carbon Dioxide 31 H (22-30) mmol/L BUN 36 H (7-17) mg/dL Creatinine 1.31 H (0.52-1.04) mg/dL Glucose 101 H (74-99) mg/dL Calcium 9.3 (8.4-10.2) mg/dL AST 29 (14-36) U/L ALT 17 (4-34) U/L Alkaline Phosphatase 201 H (38-126) U/L Total Protein 6.7 (6.3-8.2) g/dL Albumin 3.4 L (3.5-5.0) g/dL Current Medications Generic Name Dose Route Start Last Admin Trade Name Freq PRN Reason Stop Dose Admin Amlodipine Besylate 5 mg 07/07/24 09:00 Amlodipine 5 Mg Tab PO DAILY [facility] Aspirin 81 mg 07/07/24 09:00 Aspirin 81 Mg PO DAILY [facility] Calcium Acetate 667 mg 07/07/24 07:30 07/07/24 07:34 Calcium Acetate 667 Mg Tab PO 667 mg [id number] [facility] Administration Cholecalciferol 50 mcg 07/07/24 09:00 Cholecalciferol 25 Mcg (1000 Iu) Tablet PO DAILY [facility] Donepezil HCl 5 mg 07/06/24 21:00 07/06/24 20:48 Donepezil 5 Mg Tab PO 5 mg HS [facility] Administration Furosemide 40 mg 07/07/24 01:00 07/07/24 01:17 Furosemide 10 Mg/Ml 4 Ml Vial IV 40 mg Q12H [facility] Administration Gabapentin 400 mg 07/06/24 21:00 07/06/24 20:46 Gabapentin 400 Mg Cap PO 400 mg BID [facility] Administration Hydralazine HCl 25 mg 07/07/24 09:00 Hydralazine Hcl 25 Mg Tab PO DAILY [facility] Hydrochlorothiazide 25 mg 07/07/24 09:00 Hydrochlorothiazide 25 Mg Tab PO DAILY [facility] Levothyroxine Sodium 75 mcg 07/07/24 06:30 07/07/24 07:34 Levothyroxine 75 Mcg Tab PO 75 mcg DAILY@0630 [facility] Administration Lisinopril 5 mg 07/07/24 09:00 Lisinopril 5 Mg Tab PO DAILY [facility] Metoprolol Succinate 25 mg 07/06/24 17:15 07/06/24 18:21 Metoprolol Succinate (Er) 25 Mg Tab.Er.24h PO 25 mg DAILY [facility] Administration Pravastatin Sodium 40 mg 07/06/24 21:00 07/06/24 20:47 Pravastatin Sodium 40 Mg Tab PO 40 mg HS [facility] Administration Tramadol HCl 25 mg 07/06/24 21:00 07/06/24 20:47 Tramadol 50 Mg Tab PO 25 mg BID [facility] Administration 07/06/24 10:58 07/06/24 10:58
[2024-07-07] MEDS: ACETAMINOPHEN TAB 500 MG TAB PO PRN (16:09)
[2024-07-07] MEDS: ONDANSETRON 4 MG/2 ML VIAL IVP PRN (16:10)
[2024-07-08 07:09] LABS: Partial Thromboplastin Time 40.2 sec (22.0-30.0); Prothrombin Time 11.4 sec (10.0-12.5)
[2024-07-08 07:16] LABS: African American GFR (CKD) 18 (>60 ml/min/1.73 sqM); Anion Gap 10 mmol/L; Blood Urea Nitrogen 59 mg/dL (7-17); Calcium 8.5 mg/dL (8.4-10.2); Carbon Dioxide 34 mmol/L (22-30); Chloride 91 mmol/L (98-107); Glucose 65 mg/dL (74-99); Non-African American GFR(CKD) 15 (>60 ml/min/1.73 sqM); Sodium 135 mmol/L (137-145)
[2024-07-08 07:22] LABS: Potassium 3.6 mmol/L (3.5-5.1)
[2024-07-08 07:27] LABS: Basophils % (A) 0 %; Eosinophils % (A) 0 %; HCT 44.1 % (34.0-46.0); HGB 13.7 gm/dL (11.4-16.0); Hypochromasia Slight; Lymphocytes # (A) 0.8 k/uL (1.0-4.8); Lymphocytes % (A) 5 %; MCH 29.2 pg (25.0-35.0); MCV 94.3 fL (80.0-100.0); Mean Platelet Volume 8.2; Monocytes # (A) 0.9 k/uL (0-1.0); Monocytes % (A) 7 %; Neutrophils # (A) 12.1 k/uL (1.3-7.7); Neutrophils % (A) 86 %; Platelet Count 234 k/uL (150-450); RBC 4.67 m/uL (3.80-5.40); RDW 13.6 % (11.5-15.5); WBC 14.1 k/uL (3.8-10.6)
[2024-07-08] MEDS: FUROSEMIDE 10 MG/ML 4 ML VIAL IV SCH (08:48)
[2024-07-08] MEDS: APIXABAN 2.5 MG TABLET PO SCH (08:52)
--- NOTE | 2024-07-08 09:41 | P.HPIM ---
History of Present Illness H&P Date: 07/07/24 Chief Complaint: Dyspnea, shortness of breath This is an 89-year-old female with past medical history significant for COPD, chronic respiratory failure on home O2.5 L nasal cannula prn, dyslipidemia, hypertension, moderate mitral regurgitation, SVT, TIA , possible previous ca rotid disease-patient does not recall ,hypothyroidism, chronic kidney disease stage 4, scoliosis, chronic back pain multiple other medical issues, presented to the ER with significant shortness of breath. Patient reports she has been having progressive shortness of breath over the last 3 days, affecting her performing ADLs,, walking to the bathroom. Reports increased coughing up thick phlegm. Denies any fever chills or sweats. Denies any chest pain, palpitations. On admission hypertensive with systolic blood pressures in the high 170s, EKG reported atrial fibrillation, ventricular rate controlled, O2 sat of 82% on room air, placed on 3 L nasal cannula O2 sat increased to 90%, eventually placed on 15 L nonrebreather, currently requiring 10 L high flow nasal cannula. Chest x-ray reported cardiomegaly, pulmonary vascular congestion and bilateral pleural effusions.elevated D-dimer, CTA of the chest reported no PE.Left subclavian vein artery occlusion caudally for subclavian steal phe nomenon within the left vertebral artery. Cardiomegaly with pulmonary vascular congestion and moderate bilateral pleural effusions with associated atelectasis. proBNP 9110. afebrile, WBC 11.8, hemoglobin 13.9, platelets 289. Bicarb 31, BUN 36, creatinine 1.31-baseline creat appears to be 1.3-1.5. Sodium 137, potassium 3.6, magnesium 1.9. Albumin 3.4. All studies negative. Diuresing with Lasix IV push initiated in the ER. Anticoagulated on heparin drip. Echo pending. Review of Systems ROS Statement: Those systems with pertinent positive or pertinent negative responses have been documented in the HPI. ROS Other: All systems not noted in ROS Statement are negative. 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 History of Any Multi-Drug Resistant Organisms: None Reported Past Surgical History: Orthopedic Surgery Additional Past Surgical History / Comment(s): R caratid endartectomy, L breast lumpectomy, bilateral cataract removals with lens implants, colonoscopy. Past Anesthesia/Blood Transfusion Reactions: No Reported Reaction Past Psychological History: No Psychological Hx Reported Smoking Status: Former smoker Past Alcohol Use History: None Reported Past Drug Use History: None Reported - Past Family History Father Family Medical History: Cancer, Coronary Artery Disease (CAD), Myocardial Infarction ([place]) Additional Family Medical History / Comment(s): Father had lymphoma. He lived to be 72 yrs old. Mother Family Medical History: Diabetes Mellitus Additional Family Medical History / Comment(s): Mother lived to be 82 yrs old. Medications and Allergies Home Medications Medication Instructions Recorded Confirmed Type Aspirin EC [Ecotrin Low Dose] 81 mg PO DAILY 10/04/18 07/06/24 History traMADol HCL [Ultram] 25 mg PO BID 10/04/18 07/06/24 History Metoprolol Succinate [Toprol XL] 25 mg PO DAILY 01/07/21 07/06/24 History hydroCHLOROthiazide 25 mg PO DAILY 01/07/21 07/06/24 History lisinopriL [Zestril] 5 mg PO DAILY 01/07/21 07/06/24 History Calcium Acetate [Phoslo] 667 mg PO DAILY 05/26/24 07/06/24 History Cholecalciferol (Vitamin D3) 50 mcg PO DAILY 05/26/24 07/06/24 History [Vitamin D3 (50 Mcg = 2000 Iu)] Donepezil [Aricept] 5 mg PO HS 05/26/24 07/06/24 History Gabapentin [Neurontin] 400 mg PO BID 05/26/24 07/06/24 History Levothyroxine Sodium [Levoxyl] 75 mcg PO DAILY 05/26/24 07/06/24 History Multivit-Min/Folic Acid/Biotin 133.3 mcg PO DAILY 05/26/24 07/06/24 History [Hair, Skin and Nails Softgel] Pravastatin Sodium [Pravachol] 40 mg PO HS 05/26/24 07/06/24 History amLODIPine [Norvasc] 5 mg PO DAILY 05/26/24 07/06/24 History hydrALAZINE HCL [Apresoline] 25 mg PO DAILY 05/26/24 07/06/24 History Allergies Allergy/AdvReac Type Severity Reaction Status Date / Time No Known Allergies Allergy Verified 07/06/24 13:40 Physical Exam Vitals: Vital Signs Temp Pulse Resp BP Pulse Ox 07/07/24 17:23 51 L 18 92/39 97 07/07/24 15:39 65 18 90/47 97 07/07/24 13:52 87 18 118/53 99 07/07/24 12:38 64 18 92/46 97 07/07/24 10:07 18 07/07/24 10:03 98 F 66 18 118/65 100 07/07/24 09:00 80 13 125/64 100 07/07/24 08:00 77 16 146/58 100 07/07/24 07:00 58 L 18 160/82 100 07/07/24 06:00 63 17 148/67 100 07/07/24 05:00 62 16 152/81 97 07/07/24 04:00 62 16 154/62 100 07/07/24 03:00 64 16 145/71 98 07/07/24 02:00 65 18 158/71 98 07/07/24 01:00 65 16 164/71 97 07/07/24 00:17 74 18 163/72 98 07/07/24 00:00 76 16 159/72 97 07/06/24 23:00 74 18 145/62 96 07/06/24 22:00 76 18 155/61 97 07/06/24 20:30 76 18 163/64 95 PHYSICAL EXAMINATION: GENERAL: Alert and oriented x 3, sitting up on stretcher, no acute distress. HEENT: Atraumatic, normocephalic. pupils equal and reactive. Conjunctiva normal. Neck: Supple, no JVD, carotid bruits, or thyromegaly. CHEST EXAMINATION: Unlabored, equal air entry, clear to auscultation. Scoliosis. CARDIAC: S1, S2. Irregular rate and rhythm ,systolic murmur. ABDOMEN: Soft, nondistended, nontender, no guarding, no rigidity, no organomegaly. Positive bowel sounds Extremities: Positive edema, no calf tenderness, positive DP pulses Neurological: Cranial nerves II through XII grossly intact, no focal deficits noted. Skin: Warm and dry, no rash. 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 Chronic renal failure, stage IV Moderate mitral regurgitation Severe pulmonary hypertension COPD Hyperlipidemia History of TIA Possible previous carotid disease, patient does not recall Left breast cancer with lumpectomy and radiation Hypothyroidism Chronic back pain and bilateral shoulder pain Bilateral feet neuropathy. Nondiabetic Osteopenia Former nicotine dependence Moderate protein calorie malnutrition, BMI 19 Plan: Continue on current medication regimen ,monitoring and symptomatic treatment. Anticoagulation, diuretics. Cardiology consult in place. Echo pending close monitoring of renal function with repeat labs ordered for a.m. vascular surgery consult regarding CTA findings. The impression and plan of care has been dictated as directed. : I performed a history and examination of this patient, discussed the same with the dictator. I agree with the dictator's note ,documented as a scribe. Any additional findings or plans will be noted.
--- NOTE | 2024-07-08 09:57 | P.PN ---
Subjective Progress Note Date: 07/08/24 Consult reason: congestive heart failure History of present illness: This is an 89-year-old female patient of Dr. Upton with past medical history of hypertension, SVT, chronic kidney disease stage V, moderate mitral regurgitation, severe right ICA disease. We have been asked to evaluate the patient for heart failure. Patient gives history that for the past 3 to 4 days she was having trouble getting to the bathroom due to significant shortness of breath. She states he is had a little bit of edema in her lower extremities. She denies any weight gain. She does have chest pain with exertion. She states she is always full of phlegm. She denies any previous cardiac history. Patient does not have history of atrial fibrillation. Blood pressure 145/71, heart rate in the 60s, pulse ox 98% on high flow nasal cannula 10 L. Patient has been started on IV Lasix 40 mg every 12 hours. Patient is seen today in the emergency center waiting for a bed on the cardiac stepdown unit. -EKG: Atrial fibrillation with ventricular rate of 91. -Chest x-ray: Cardiomegaly, pulmonary vascular congestion and bilateral pleural effusions -CTA of the chest revealed no evidence of pulmonary embolism. 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 Cardiomegaly with pulmonary vascular congestion and moderate bilateral pleural effusions with associated atelectasis. -Laboratory studies: WBC 11.4, hemoglobin 14, D-dimer 2.3. Sodium 137, potassium 3.6, BUN 36 and creatinine 1.31, magnesium 1.9. Troponin negative x 1. proBNP 9110. Influenza A, influenza B, RSV, COVID-19 not detected. -Home cardiac medications: Amlodipine 5 mg daily, aspirin 81 mg daily, hydralazine 25 mg daily, hydrochlorothiazide 25 mg daily, lisinopril 5 mg daily, metoprolol succinate 25 mg daily, pravastatin 40 mg at bedtime, also on levothyroxine. -Echocardiogram performed 05/03/2023 in the office revealed EF 60%, grade 2 diastolic dysfunction, mild concentric LVH. Mild mitral regurgitation, trace tricuspid regurgitation. -Event monitor 30 days performed 02/2023 revealed no atrial fibrillation, NSVT 07/08/2024 Patient seen and examined in the emergency center. Patient has converted to sinus rhythm, heart rate in the 50s. Patient has been continued on heparin drip. Blood pressure is on the low side at 95/40, pulse ox 96% on 9 L nasal cannula. Patient is also maintained on IV Lasix 40 mg every 12 hours. Repeat blood work reveals BUN 59 creatinine 2.65 and potassium 3.6. Patient denies any new complaints. She is anxious to be discharged home but due to high oxygen need this is doubtful. Nursing to start weaning oxygen down. Echocardiogram is pending. Physical examination: Gen: This is an 89-year-old female appears to be in no acute distress VS: reviewed HEENT: Head is atraumatic, normocephalic. Pupils equal, round. Sclerae is anicteric. NECK: Supple. No JVD. LUNGS: Clear to auscultation. No wheezes or rhonchi. No intercostal retractions. HEART: Irregular rate and rhythm. Systolic murmur. ABDOMEN: Soft No tenderness. EXTREMITIES: 1+ pedal edema. No calf tenderness. NEUROLOGICAL: Patient is awake, alert and oriented x3. Assessment: New onset A-fib with controlled rate, paroxysmal, converted to sinus rhythm Acute diastolic heart failure Hypertension History of SVT Chronic kidney disease Moderate mitral regurgitation Severe right ICA disease Plan: Continue patient's home cardiac medications Discontinue amlodipine, lisinopril and hydrochlorothiazide due to hypotension and worsening renal function Discontinue heparin drip and start patient on Eliquis 2.5 mg twice daily Continue IV Lasix 40 mg and decrease frequency to daily Monitor VÍCTOR, daily weights, electrolytes and renal function Obtain 2-D echocardiogram and Doppler study to assess cardiac structure and function Further recommendations to follow based upon clinical course Thank you kindly for this consultation. Nurse practitioner note has been reviewed, I agree with documented findings and plan of care. Patient was seen and examined. Objective - Vital Signs Vital signs: Vital Signs Temp 98 F 07/07/24 10:03 Pulse 54 L 07/08/24 08:02 Resp 16 07/08/24 08:02 BP 95/40 07/08/24 08:02 Pulse Ox 96 07/08/24 08:02 FiO2 Intake & Output 07/07/24 07/08/24 07/08/24 18:59 06:59 18:59 Intake Total 46.939 Balance 46.939 Intake: Intake, IV Titration 46.939 Amount Heparin Sod,Pork in 0.45% 46.939 NaCl 25,000 unit In 0.45 % NaCl 1 250ml.bag @ 12 UNITS/KG/HR 5.334 mls/hr IV .Q24H [facility] Rx#: [id number] - Labs CBC & Chem 7: 07/08/24 05:18 07/08/24 05:18 Labs: Abnormal Lab Results - Last 24 Hours (Table) 07/07/24 07/07/24 07/08/24 Range/Units 08:53 17:25 05:18 WBC 11.8 H (3.8-10.6) k/uL Neutrophils # 10.2 H (1.3-7.7) k/uL Lymphocytes # 0.7 L (1.0-4.8) k/uL APTT 45.8 H (22.0-30.0) sec Sodium 135 L (137-145) mmol/L Chloride 91 L (98-107) mmol/L Carbon Dioxide 34 H (22-30) mmol/L BUN 59 H (7-17) mg/dL Creatinine 2.65 H (0.52-1.04) mg/dL Glucose 65 L (74-99) mg/dL 07/08/24 07/08/24 Range/Units 05:18 05:18 WBC 14.1 H (3.8-10.6) k/uL Neutrophils # 12.1 H (1.3-7.7) k/uL Lymphocytes # 0.8 L (1.0-4.8) k/uL APTT 40.2 H (22.0-30.0) sec Sodium (137-145) mmol/L Chloride (98-107) mmol/L Carbon Dioxide (22-30) mmol/L BUN (7-17) mg/dL Creatinine (0.52-1.04) mg/dL Glucose (74-99) mg/dL
--- NOTE | 2024-07-08 11:20 | P.NPCON ---
History of Present Illness - Reason for Consult acute renal failure, chronic renal failure - History of Present Illness Reason for consultation: Acute kidney injury on chronic kidney disease History of present illness: Patient is a 89-year-old female seen in renal consultation for acute kidney injury on chronic kidney disease. Patient has chronic kidney disease stage IIIb with baseline creatinine 1.4-1.5. Creatinine was 1.31 on July 06, 2024 and is up to 2.65 today. Patient came to the hospital on July 06, 2024 with shortness of breath. Patient does wear oxygen at home but only if needed. According to the family she does not wear oxygen very often. She denies fever or chills. She has been receiving IV Lasix and the frequency was decreased to once daily today. She has been voiding. No gross hematuria or dysuria. Denies use of nonsteroidals. No history of diabetes. No history of coronary artery disease. She did receive IV contrast for CTA on July 06, 2024. Patient brooke s have history of diastolic CHF with moderate mitral regurgitation. Vital signs are stable. Blood pressure on the lower end. General: No acute distress. HEENT: Head exam is unremarkable. On 6 L nasal cannula. LUNGS: No audible rhonchi or wheezes. HEART: Rate and Rhythm are regular. ABDOMEN: Nontender. EXTREMITITES: No edema. 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 History of Any Multi-Drug Resistant Organisms: None Reported Past Surgical History: Orthopedic Surgery Additional Past Surgical History / Comment(s): R caratid endartectomy, L breast lumpectomy, bilateral cataract removals with lens implants, colonoscopy. Past Anesthesia/Blood Transfusion Reactions: No Reported Reaction Past Psychological History: No Psychological Hx Reported Smoking Status: Former smoker Past Alcohol Use History: None Reported Past Drug Use History: None Reported - Past Family History Father Family Medical History: Cancer, Coronary Artery Disease (CAD), Myocardial Infarction ([place]) Additional Family Medical History / Comment(s): Father had lymphoma. He lived to be 72 yrs old. Mother Family Medical History: Diabetes Mellitus Additional Family Medical History / Comment(s): Mother lived to be 82 yrs old. Medications and Allergies Home Medications Medication Instructions Recorded Confirmed Type Aspirin EC [Ecotrin Low Dose] 81 mg PO DAILY 10/04/18 07/06/24 History traMADol HCL [Ultram] 25 mg PO BID 10/04/18 07/06/24 History Metoprolol Succinate [Toprol XL] 25 mg PO DAILY 01/07/21 07/06/24 History hydroCHLOROthiazide 25 mg PO DAILY 01/07/21 07/06/24 History lisinopriL [Zestril] 5 mg PO DAILY 01/07/21 07/06/24 History Calcium Acetate [Phoslo] 667 mg PO DAILY 05/26/24 07/06/24 History Cholecalciferol (Vitamin D3) 50 mcg PO DAILY 05/26/24 07/06/24 History [Vitamin D3 (50 Mcg = 2000 Iu)] Donepezil [Aricept] 5 mg PO HS 05/26/24 07/06/24 History Gabapentin [Neurontin] 400 mg PO BID 05/26/24 07/06/24 History Levothyroxine Sodium [Levoxyl] 75 mcg PO DAILY 05/26/24 07/06/24 History Multivit-Min/Folic Acid/Biotin 133.3 mcg PO DAILY 05/26/24 07/06/24 History [Hair, Skin and Nails Softgel] Pravastatin Sodium [Pravachol] 40 mg PO HS 05/26/24 07/06/24 History amLODIPine [Norvasc] 5 mg PO DAILY 05/26/24 07/06/24 History hydrALAZINE HCL [Apresoline] 25 mg PO DAILY 05/26/24 07/06/24 History Allergies Allergy/AdvReac Type Severity Reaction Status Date / Time No Known Allergies Allergy Verified 07/06/24 13:40 Physical Exam Vitals: Vital Signs Pulse Resp BP Pulse Ox 07/08/24 10:05 53 L 16 88/52 99 07/08/24 08:22 56 L 99 07/08/24 08:02 54 L 16 95/40 96 07/08/24 05:31 119/50 07/08/24 04:57 95/46 07/08/24 04:39 99/47 100 07/08/24 04:37 106/40 100 07/08/24 03:30 93/48 100 07/08/24 01:30 90/47 100 07/08/24 01:00 56 L 18 95/46 99 07/07/24 21:00 61 18 137/68 100 07/07/24 17:23 51 L 18 92/39 97 07/07/24 15:39 65 18 90/47 97 07/07/24 13:52 87 18 118/53 99 07/07/24 12:38 64 18 92/46 97 Intake and Output 07/07/24 07/08/24 07/08/24 22:59 06:59 14:59 Intake Total 46.939 Balance 46.939 Intake: Intake, IV Titration 46.939 Amount Heparin Sod,Pork in 0.45% 46.939 NaCl 25,000 unit In 0.45 % NaCl 1 250ml.bag @ 12 UNITS/KG/HR 5.334 mls/hr IV .Q24H [facility] Rx#: [id number] Results - Lab Results Most recent lab results Calcium 8.5 mg/dL (8.4-10.2) 07/08/24 05:18 Magnesium 1.9 mg/dL (1.6-2.3) 07/06/24 10:58 07/08/24 05:18 07/08/24 05:18 Assessment and Plan Plan: Assessment: 1. Acute kidney injury secondary to ATN secondary to cardiorenal syndrome, hypotension and also component of contrast associated acute kidney injury. Creatinine 1.3 dated July 06, 2024 and is 2.65 today. 2. Acute hypoxic respiratory failure. 3. Chronic kidney disease stage IIIb with baseline creatinine near 1.5 secondary to nephrosclerosis. 4. Acute on chronic diastolic CHF with moderate mitral regurgitation. 5. Volume overload. 6. Chronic kidney disease mineral bone disease maintained on PhosLo. 7. New onset A-fib being followed by cardiology. Status post heparin drip. Plan: Maintain IV Lasix. Frequency decreased to once daily today. Check bladder scan to rule out urinary retention. Check renal ultrasound. Repeat chest x-ray. Avoid nephrotoxins. Continue to monitor renal function and urine output. Antihypertensives held as blood pressure is on the lower side. Follow-up echocardiogram. Thank you for the consultation. I will continue to follow the patient with you during her hospital stay.
--- NOTE | 2024-07-08 11:27 | CA ---
Transthoracic Echo Report Name: Gerda Lara Age: 89 Gender: F : 1935 Exam Date: 07/08/2024 09:12 Exam Location: [place] [facility] Ht (in): 60 Wt (lb): 98 Ordering Physician: Belkys Hunt Attending/Referring Phys: [id number], Gilbert [employer] Kiki Castaneda RDCS Procedure CPT: Indications: LVF Cardiac Hx: Technical Quality: Fair Contrast 1: Total Dose (mL): Contrast 2: Total Dose (mL): MEASUREMENTS (Male / Female) Normal Values 2D ECHO LV Diastolic Diameter PLAX 3.4 cm 4.2 - 5.9 / 3.9 - 5.3 cm LV Systolic Diameter PLAX 2.2 cm IVS Diastolic Thickness 0.8 cm 0.6 - 1.0 / 0.6 - 0.9 cm LVPW Diastolic Thickness 0.9 cm 0.6 - 1.0 / 0.6 - 0.9 cm LV Relative Wall Thickness 0.5 LVOT Diameter 2.1 cm LV Diastolic Volume MOD BP 57.0 cm??? 67 - 155 / 56 - 104 cm??? LV Systolic Volume MOD BP 24.4 cm??? 22 - 58 / 19 - 49 cm??? LV Ejection Fraction MOD BP 57.3 % >= 55 % LV Cardiac Index MOD BP 1741.8 cm???/min???m??? LV Diastolic Volume MOD 4C 51.4 cm??? LV Systolic Volume MOD 4C 23.9 cm??? LV Ejection Fraction MOD 4C 53.5 % LV Cardiac Index MOD 4C 1464.7 cm???/min???m??? LV Diastolic Length 4C 6.3 cm LV Systolic Length 4C 5.3 cm LV Diastolic Volume MOD 2C 63.1 cm??? LV Systolic Volume MOD 2C 25.1 cm??? LV Ejection Fraction MOD 2C 60.2 % LV Cardiac Index MOD 2C 2024.4 cm???/min???m??? LV Diastolic Length 2C 6.3 cm LV Systolic Length 2C 5.4 cm LA Volume 114.0 cm??? 18 - 58 / 22 - 52 cm??? LA Volume Index 83.3 cm???/m??? 16 - 28 cm???/m??? Ascending Aorta Diameter 2.9 cm DOPPLER AV Peak Velocity 148.4 cm/s AV Peak Gradient 8.8 mmHg AV Mean Velocity 96.4 cm/s AV Mean Gradient 4.3 mmHg AV Velocity Time Integral 34.2 cm LVOT Peak Velocity 93.1 cm/s LVOT Peak Gradient 3.5 mmHg LVOT Velocity Time Integral 23.0 cm LVOT Stroke Volume 76.8 cm??? LVOT Stroke Volume Index 55.7 ml/m??? LVOT Cardiac Index 4096.0 cm???/min???m??? AV Area Cont Eq vti 2.2 cm??? AV Area Cont Eq pk 2.1 cm??? MV Peak Velocity 123.1 cm/s MV Peak Gradient 6.1 mmHg MV Mean Velocity 57.2 cm/s MV Mean Gradient 1.7 mmHg MV Velocity Time Integral 35.5 cm MV Area PHT 4.1 cm??? Mitral E Point Velocity 95.5 cm/s Mitral A Point Velocity 55.1 cm/s Mitral E to A Ratio 1.7 MV Deceleration Time 183.7 ms FINDINGS Left Ventricle Left ventricular ejection fraction is estimated at 55-60 %. Left ventricular cavity size normal. Left ventricular wall thickness normal. No obvious regional wall motion abnormalities. Right Ventricle Normal right ventricular size and function. Unable to estimate the right ventricular systolic pressure. Right Atrium Severe right atrial dilatation. Left Atrium Severely increased left atrial volume. Mildly increased left atrial area. Mitral Valve Mitral valve thickened. Mitral annular calcification. No evidence for mitral valve prolapse. No mitral stenosis. Trace mitral regurgitation. Aortic Valve Trileaflet aortic valve. Aortic valve sclerosis. No aortic stenosis. No aortic regurgitation. Tricuspid Valve Structurally normal tricuspid valve. No tricuspid stenosis. No tricuspid regurgitation. Pulmonic Valve Structurally normal pulmonic valve. No pulmonic stenosis. No pulmonic regurgitation. Pericardium No pericardial effusion. Aorta Normal size aortic root and proximal ascending aorta. CONCLUSIONS Normal LV systolic function Biatrial enlargement Previewed by: Dr. Cristofer Durant MD (Electronically Signed) Final Date: 08 July 2024 11:26
--- NOTE | 2024-07-08 11:28 | P.GSCN ---
History of Present Illness Consult date: 07/08/24 Reason for Consult: Left subclavian steal, abnormal chest CT Requesting physician: Leigh Mahan History of present illness: This a pleasant 89-year-old female who presented yesterday to the hospital with complaints of shortness of breath and dyspnea with exertion as well as lower extremity swelling. She has a past medical history including COPD, chronic respiratory failure on home oxygen, dyslipidemia, hypertension, mitral regurgitation, SVT, TIA hypothyroidism, chronic kidney disease and chronic back pain. As part of her workup she had a CT angiogram of the chest that had reported left subclavian artery occlusion correlate for possible subclavian steal phenomenon and vascular surgery was consulted for further evaluation. Patient denies any left upper extremity pain or weakness, denies any numbness or tingling in her fingers. Denies any history of known subclavian artery stenosis or occlusion. Patient reports pain in her right shoulder and right hip again no pain in her left upper extremity. States she has full range of motion of left upper extremity. Review of Systems A 14 point review systems was completed all pertinent positives and negatives as stated in the HPI. 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 History of Any Multi-Drug Resistant Organisms: None Reported Past Surgical History: Orthopedic Surgery Additional Past Surgical History / Comment(s): R caratid endartectomy, L breast lumpectomy, bilateral cataract removals with lens implants, colonoscopy. Past Anesthesia/Blood Transfusion Reactions: No Reported Reaction Past Psychological History: No Psychological Hx Reported Smoking Status: Former smoker Past Alcohol Use History: None Reported Past Drug Use History: None Reported - Past Family History Father Family Medical History: Cancer, Coronary Artery Disease (CAD), Myocardial Infarction ([place]) Additional Family Medical History / Comment(s): Father had lymphoma. He lived to be 72 yrs old. Mother Family Medical History: Diabetes Mellitus Additional Family Medical History / Comment(s): Mother lived to be 82 yrs old. Medications and Allergies Home Medications Medication Instructions Recorded Confirmed Type Aspirin EC [Ecotrin Low Dose] 81 mg PO DAILY 10/04/18 07/06/24 History traMADol HCL [Ultram] 25 mg PO BID 10/04/18 07/06/24 History Metoprolol Succinate [Toprol XL] 25 mg PO DAILY 01/07/21 07/06/24 History hydroCHLOROthiazide 25 mg PO DAILY 01/07/21 07/06/24 History lisinopriL [Zestril] 5 mg PO DAILY 01/07/21 07/06/24 History Calcium Acetate [Phoslo] 667 mg PO DAILY 05/26/24 07/06/24 History Cholecalciferol (Vitamin D3) 50 mcg PO DAILY 05/26/24 07/06/24 History [Vitamin D3 (50 Mcg = 2000 Iu)] Donepezil [Aricept] 5 mg PO HS 05/26/24 07/06/24 History Gabapentin [Neurontin] 400 mg PO BID 05/26/24 07/06/24 History Levothyroxine Sodium [Levoxyl] 75 mcg PO DAILY 05/26/24 07/06/24 History Multivit-Min/Folic Acid/Biotin 133.3 mcg PO DAILY 05/26/24 07/06/24 History [Hair, Skin and Nails Softgel] Pravastatin Sodium [Pravachol] 40 mg PO HS 05/26/24 07/06/24 History amLODIPine [Norvasc] 5 mg PO DAILY 05/26/24 07/06/24 History hydrALAZINE HCL [Apresoline] 25 mg PO DAILY 05/26/24 07/06/24 History Allergies Allergy/AdvReac Type Severity Reaction Status Date / Time No Known Allergies Allergy Verified 07/06/24 13:40 Surgical - Exam Vital Signs Pulse Ox 82 L 07/06/24 10:07 General appearance: The patient is alert, oriented, appears in no acute di stress. HET: Head is normocephalic and atraumatic. Pupils are equal and reactive. Neck: Irregular. Heart: Regular. Lungs: Equal expansion, normal respiratory effort. Abdomen: Soft, nontender, nondistended. Extremities: Normal skin color and turgor. Bounding palpable right radial pulse, faint palpable left radial puls with heart Doppler signal present. Neurological: No focal deficits. Results - Labs 07/08/24 05:18 12/17/24 05:18 Abnormal Lab Results - Last 24 Hours (Table) 07/07/24 07/08/24 07/08/24 Range/Units 17:25 05:18 05:18 WBC (3.8-10.6) k/uL Neutrophils # (1.3-7.7) k/uL Lymphocytes # (1.0-4.8) k/uL APTT 45.8 H 40.2 H (22.0-30.0) sec Sodium 135 L (137-145) mmol/L Chloride 91 L (98-107) mmol/L Carbon Dioxide 34 H (22-30) mmol/L BUN 59 H (7-17) mg/dL Creatinine 2.65 H (0.52-1.04) mg/dL Glucose 65 L (74-99) mg/dL 07/08/24 Range/Units 05:18 WBC 14.1 H (3.8-10.6) k/uL Neutrophils # 12.1 H (1.3-7.7) k/uL Lymphocytes # 0.8 L (1.0-4.8) k/uL APTT (22.0-30.0) sec Sodium (137-145) mmol/L Chloride (98-107) mmol/L Carbon Dioxide (22-30) mmol/L BUN (7-17) mg/dL Creatinine (0.52-1.04) mg/dL Glucose (74-99) mg/dL Diabetes panel 07/08/24 Range/Units 05:18 Sodium 135 L (137-145) mmol/L Potassium 3.6 (3.5-5.1) mmol/L Chloride 91 L (98-107) mmol/L Carbon Dioxide 34 H (22-30) mmol/L BUN 59 H (7-17) mg/dL Creatinine 2.65 H (0.52-1.04) mg/dL Glucose 65 L (74-99) mg/dL Calcium 8.5 (8.4-10.2) mg/dL Calcium panel 07/08/24 Range/Units 05:18 Calcium 8.5 (8.4-10.2) mg/dL Pituitary panel 07/08/24 Range/Units 05:18 Sodium 135 L (137-145) mmol/L Potassium 3.6 (3.5-5.1) mmol/L Chloride 91 L (98-107) mmol/L Carbon Dioxide 34 H (22-30) mmol/L BUN 59 H (7-17) mg/dL Creatinine 2.65 H (0.52-1.04) mg/dL Glucose 65 L (74-99) mg/dL Calcium 8.5 (8.4-10.2) mg/dL Adrenal panel 07/08/24 Range/Units 05:18 Sodium 135 L (137-145) mmol/L Potassium 3.6 (3.5-5.1) mmol/L Chloride 91 L (98-107) mmol/L Carbon Dioxide 34 H (22-30) mmol/L BUN 59 H (7-17) mg/dL Creatinine 2.65 H (0.52-1.04) mg/dL Glucose 65 L (74-99) mg/dL Calcium 8.5 (8.4-10.2) mg/dL - Imaging Comments: Chest CT angiogram impression reports no evidence of pulmonary embolism. 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 Cardiomegaly with pulmonary vascular congestion moderate bilateral pleural effusions with associated atelectasis. Correlate with serum BNP for congestive heart failure. Assessment and Plan Assessment: 1. 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 Shortness of breath 3. New onset atrial fibrillation 4. Heart failure Plan: 1. CTA reviewed. No indication for any vascular surgical intervention at this time. Patient is asymptomatic. 2. Continue with recommendations from cardiology 3. Recommend outpatient follow-up with vascular surgery, will obtain arterial ultrasound at that time. Thank you for this consultation, vascular surgery will sign off at this time. The impression and plan of care has been dictated as directed. I performed a history and examination of this patient, discussed the same with the dictator. I agree with the dictator's note ,documented as a scribe. Any additional findings or plans will be noted.
--- NOTE | 2024-07-08 14:16 | US ---
EXAMINATION TYPE: US kidneys/renal and bladder DATE OF EXAM: 07/08/2024 COMPARISON: US 2023, CT 2022 CLINICAL INDICATION: Female, 89 years old with history of gonzález; GONZÁLEZ TECHNIQUE: Grayscale imaging of the bilateral kidneys and urinary bladder: FINDINGS: EXAM MEASUREMENTS: Right Kidney: Unable to visualize Left Kidney: 10.5 x 4.6 x 5.1 cm Right Kidney: Unable to visualize, great amount of gas seen within area Left Kidney: Hypoechoic area seen lower pole: 0.9 x 0.8 x 0.7 cm. Multiple hyperechoic foci without shadowing seen within the kidney. Largest laterally: 0.2 x 0.2 x 0. 3 cm. Bladder: No abnormalities seen. Bilateral Jets seen: No IMPRESSION: 1. Nephrolithiasis. 2. Hypoechoic area lower pole left kidney could reflect a too small to characterize cyst. Continued f ollow-up advised. [facility] Jordy Jauregui, , 07/08/2024 2:13 PM
--- NOTE | 2024-07-08 15:51 | P.PN ---
Subjective Progress Note Date: 07/08/24 H&P Date: 07/07/24 Chief Complaint: Dyspnea, shortness of breath This is an 89-year-old female with past medical history significant for COPD, chronic respiratory failure on home O2.5 L nasal cannula prn, dyslipidemia, hypertension, moderate mitral regurgitation, SVT, TIA , possible previous carotid disease-patient does not recall ,hypothyroidism, chronic kidney disease stage 4, scoliosis, chronic back pain multiple other medical issues, presented to the ER with significant shortness of breath. Patient reports she has been having progressive shortness of breath over the last 3 days, affecting her performing ADLs,, walking to the bathroom. Reports increased coughing up thick phlegm. Denies any fever chills or sweats. Denies any chest pain, palp itations. On admission hypertensive with systolic blood pressures in the high 170s, EKG reported atrial fibrillation, ventricular rate controlled, O2 sat of 82% on room air, placed on 3 L nasal cannula O2 sat increased to 90%, eventually placed on 15 L nonrebreather, currently requiring 10 L high flow nasal cannula. 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 Cardiomegaly with pulmonary vascular congestion and moderate bilateral pleural effusions with associated atelectasis. proBNP 9110. afebrile, WBC 11.8, hemoglobin 13.9, platelets 289. Bicarb 31, BUN 36, creatinine 1.31-baseline creat appears to be 1.3-1.5. Sodium 137, potassium 3.6, magnesium 1.9. Albumin 3.4. All studies negative. Diuresing with Lasix IV push initiated in the ER. Anticoagulated on heparin drip. Echo pending. 07/08/2024 anticoagulated on heparin drip, converted to sinus rhythm. Blood pressures soft. Diuresing on Lasix IV push. Worsened renal function, bicarb 34, BUN 59, creatinine 2.65. Currently requiring 6 L high flow nasal cannula to maintain O2 sats in the 90s. Echo reported normal LV function, biatrial enlargement. Vascular surgery consult in place regarding CT findings of left subclavian occlusion-remains asymptomatic. Objective - Vital Signs Vital signs: Vital Signs Temp 97.4 F L 07/08/24 14:06 Pulse 57 L 07/08/24 14:06 Resp 19 07/08/24 14:06 BP 103/61 07/08/24 14:06 Pulse Ox 100 07/08/24 14:06 FiO2 Intake & Output 07/07/24 07/08/24 07/08/24 18:59 06:59 18:59 Intake Total 46.939 10 Balance 46.939 10 Weight 44.452 kg Intake: IV 10 Invasive Line 2 10 Intake, IV Titration 46.939 Amount Heparin Sod,Pork in 0.45% 46.939 NaCl 25,000 unit In 0.45 % NaCl 1 250ml.bag @ 12 UNITS/KG/HR 5.334 mls/hr IV .Q24H [facility] Rx#: [id number] - Exam PHYSICAL EXAMINATION: GENERAL: Alert and oriented x 3, sitting up on stretcher, no acute distress. HEENT: Atraumatic, normocephalic. pupils equal and reactive. Conjunctiva normal.MMM. Neck: Supple, no JVD CHEST EXAMINATION: Unlabored, equal air entry, clear to auscultation. Kyphoscoliosis. CARDIAC: S1, S2. Irregular rate and rhythm ,systolic murmur. ABDOMEN: Soft, nondistended, nontender, no guarding,+BS. Extremities: Positive edema, no calf tenderness, positive DP pulses Neurological: Cranial nerves II through XII grossly intact, no focal deficits noted. Skin: Warm and dry, no rash. - Labs CBC & Chem 7: 07/08/24 05:18 07/08/24 05:18 Labs: Abnormal Lab Results - Last 24 Hours (Table) 07/07/24 07/08/24 07/08/24 Range/Units 17:25 05:18 05:18 WBC (3.8-10.6) k/uL Neutrophils # (1.3-7.7) k/uL Lymphocytes # (1.0-4.8) k/uL APTT 45.8 H 40.2 H (22.0-30.0) sec Sodium 135 L (137-145) mmol/L Chloride 91 L (98-107) mmol/L Carbon Dioxide 34 H (22-30) mmol/L BUN 59 H (7-17) mg/dL Creatinine 2.65 H (0.52-1.04) mg/dL Glucose 65 L (74-99) mg/dL 07/08/24 Range/Units 05:18 WBC 14.1 H (3.8-10.6) k/uL Neutrophils # 12.1 H (1.3-7.7) k/uL Lymphocytes # 0.8 L (1.0-4.8) k/uL APTT (22.0-30.0) sec Sodium (137-145) mmol/L Chloride (98-107) mmol/L Carbon Dioxide (22-30) mmol/L BUN (7-17) mg/dL Creatinine (0.52-1.04) mg/dL Glucose (74-99) mg/dL Assessment and Plan Assessment: Acute CHF exacerbation, diastolic dysfunction New onset paroxysmal atrial fibrillation, rate controlled Acute on Chronic hypoxic respiratory failure, on home oxygen 2.5 L, secondary to the above Leukocytosis Hypertension Elevated D-dimer, CTA reported negative for PE,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 Acute on chronic renal failure, stage IIIb, baseline 1.5. Acute secondary to ATN related to cardiorenal syndrome, hypotension. Moderate mitral regurgitation Severe pulmonary hypertension COPD Hyperlipidemia History of TIA Possible previous carotid disease, patient does not recall Left breast cancer with lumpectomy and radiation Hypothyroidism Chronic back pain and bilateral shoulder pain Bilateral feet neuropathy. Nondiabetic Osteopenia Former nicotine dependence Moderate protein calorie malnutrition, BMI 19 Plan: Continue on current medication regimen ,monitoring and symptomatic treatment. Antihypertensives DC'd secondary to worsening renal function, soft BPs. Norvasc discontinued secondary to soft blood pressures. nephrology consulted. anticoagulation transitioned to Eliquis per cardiology, diuretics.close monitoring of renal function with repeat labs ordered for a.m. evaluated by vascular surgery with recommendations noted and appreciated- recommending outpatient follow-up. The impression and plan of care has been dictated as directed. : I performed a history and examination of this patient, discussed the same with the dictator. I agree with the dictator's note ,documented as a scribe. Any additional findings or plans will be noted.
[2024-07-09 07:45] LABS: African American GFR (CKD) 11 (>60 ml/min/1.73 sqM); Anion Gap 10 mmol/L; Blood Urea Nitrogen 73 mg/dL (7-17); Calcium 8.2 mg/dL (8.4-10.2); Carbon Dioxide 31 mmol/L (22-30); Chloride 91 mmol/L (98-107); Glucose 87 mg/dL (74-99); Magnesium 1.9 mg/dL (1.6-2.3); Non-African American GFR(CKD) 10 (>60 ml/min/1.73 sqM); Phosphorus 8.1 mg/dL (2.5-4.5); Potassium 3.8 mmol/L (3.5-5.1); Sodium 132 mmol/L (137-145)
--- NOTE | 2024-07-09 11:28 | P.PN ---
Subjective Patient is seen in follow-up for acute kidney injury on chronic kidney disease. Renal function worsening. Feels nauseated. Has been voiding but small amount. Blood pressure running on the lower side. Vital signs are stable. General: No acute distress. HEENT: Head exam is unremarkable. On nasal cannula. LUNGS: No audible rhonchi or wheezes. HEART: Rate and Rhythm are regular. ABDOMEN: Nontender. EXTREMITITES: No edema. Objective - Vital Signs Vital signs: Vital Signs Temp 97.8 F 07/09/24 10:45 Pulse 59 L 07/09/24 10:45 Resp 18 07/09/24 10:45 BP 94/53 07/09/24 10:45 Pulse Ox 94 L 07/09/24 10:45 FiO2 Intake & Output 07/08/24 07/09/24 07/09/24 18:59 06:59 18:59 Intake Total 10 10 20 Output Total 150 Balance 10 -140 20 Weight 44.452 kg 44.5 kg Intake: IV 10 10 20 0.9 NS FLUSH\ 10 Invasive Line 2 10 10 Invasive Line 3 10 Output: Urine 150 Other: Voiding Method Bedside Commode Bedside Commode Bedside Commode # Voids 1 # Bowel Movements 1 - Labs CBC & Chem 7: 07/08/24 05:18 07/09/24 06:28 Labs: Abnormal Lab Results - Last 24 Hours (Table) 07/09/24 Range/Units 06:28 Sodium 132 L (137-145) mmol/L Chloride 91 L (98-107) mmol/L Carbon Dioxide 31 H (22-30) mmol/L BUN 73 H (7-17) mg/dL Creatinine 3.83 H (0.52-1.04) mg/dL Calcium 8.2 L (8.4-10.2) mg/dL Phosphorus 8.1 H (2.5-4.5) mg/dL Assessment and Plan Plan: Assessment: 1. Acute kidney injury secondary to ATN secondary to cardiorenal syndrome, hypotension and also component of contrast associated acute kidney injury. No hydronephrosis noted on left kidney. Right kidney was not visualized. Creatinine 1.3 dated July 06, 2024 and is up to 3.83 today. 2. Acute hypoxic respiratory failure. 3. Chronic kidney disease stage IIIb with baseline creatinine near 1.5 secondary to nephrosclerosis. 4. Acute on chronic diastolic CHF. 5. Volume overload. Status post diuresis. 6. Chronic kidney disease mineral bone disease maintained on PhosLo. Phosphorus level 8.1 dated July 09, 2024. 7. New onset A-fib being followed by cardiology. Status post heparin drip. Plan: Stop Lasix. Stop hydralazine. Decrease dose of gabapentin. Repeat chest x-ray. Avoid nephrotoxins. Continue to monitor renal function and urine output. Insert Sharpe catheter. Strict I's and O's. Increase PhosLo 2 3 times daily with meals. Continue to assess daily for need for renal replacement therapy.
--- NOTE | 2024-07-09 12:23 | XR ---
EXAMINATION TYPE: XR chest 1V portable DATE OF EXAM: 07/09/2024 12:15 PM COMPARISON: Chest radiographs from07/06/2024 CLINICAL INDICATION: Female, 89 years old with history of oxygen level/ chest pain; TECHNIQUE: XR chest 1V portable Frontal view of the chest. FINDINGS: Lungs/Pleura: There is no evidence of pleural effusion, focal consolidation, or pneumothorax. Pulmonary vascularity: Pulmonary vascular congestion. Heart/mediastinum: Cardiomediastinal silhouette is enlarged. Atherosclerotic calcifications are seen in the aorta. Musculoskeletal: No acute osseous pathology. IMPRESSION: Cardiomegaly and mild pulmonary vascular congestion. Correlate with BNP for congestive heart failure. [facility], , 07/09/2024 12:21 PM
[2024-07-09] MEDS ORDERED: ACETAMINOPHEN IV (For NPO) 675 MG in EMPTY BAG 1 BAG IVPB PRN (13:11)
[2024-07-09] MEDS: METOCLOPRAMIDE 5 MG/ML 2 ML VIAL IVP STA (13:14)
[2024-07-09] MEDS: CALCIUM ACETATE 667 MG TAB PO SCH (13:24)
--- NOTE | 2024-07-09 13:33 | P.PN ---
Subjective Progress Note Date: 07/09/24 Consult reason: congestive heart failure History of present illness: This is an 89-year-old female patient of Dr. Upton with past medical history of hypertension, SVT, chronic kidney disease stage V, moderate mitral regurgitation, severe right ICA disease. We have been asked to evaluate the patient for heart failure. Patient gives history that for the past 3 to 4 days she was having trouble getting to the bathroom due to significant shortness of breath. She states he is had a little bit of edema in her lower extremities. She denies any weight gain. She does have chest pain with exertion. She states she is always full of phlegm. She denies any previous cardiac history. Patient does not have history of atrial fibrillation. Blood pressure 145/71, heart rate in the 60s, pulse ox 98% on high flow nasal cannula 10 L. Patient has been started on IV Lasix 40 mg every 12 hours. Patient is seen today in the emergency center waiting for a bed on the cardiac stepdown unit. -EKG: Atrial fibrillation with ventricular rate of 91. -Chest x-ray: Cardiomegaly, pulmonary vascular congestion and bilateral pleural effusions -CTA of the chest revealed no evidence of pulmonary embolism. 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 Cardiomegaly with pulmonary vascular congestion and moderate bilateral pleural effusions with associated atelectasis. -Laboratory studies: WBC 11.4, hemoglobin 14, D-dimer 2.3. Sodium 137, potassium 3.6, BUN 36 and creatinine 1.31, magnesium 1.9. Troponin negative x 1. proBNP 9110. Influenza A, influenza B, RSV, COVID-19 not detected. -Home cardiac medications: Amlodipine 5 mg daily, aspirin 81 mg daily, hydralazine 25 mg daily, hydrochlorothiazide 25 mg daily, lisinopril 5 mg daily, metoprolol succinate 25 mg daily, pravastatin 40 mg at bedtime, also on levothyroxine. -Echocardiogram performed 05/03/2023 in the office revealed EF 60%, grade 2 diastolic dysfunction, mild concentric LVH. Mild mitral regurgitation, trace tricuspid regurgitation. -Event monitor 30 days performed 02/2023 revealed no atrial fibrillation, NSVT 07/08/2024 Patient seen and examined in the emergency center. Patient has converted to sinus rhythm, heart rate in the 50s. Patient has been continued on heparin drip. Blood pressure is on the low side at 95/40, pulse ox 96% on 9 L nasal cannula. Patient is also maintained on IV Lasix 40 mg every 12 hours. Repeat blood work reveals BUN 59 creatinine 2.65 and potassium 3.6. Patient denies any new complaints. She is anxious to be discharged home but due to high oxygen need this is doubtful. Nursing to start weaning oxygen down. Echocardiogram is pending. 07/09/2024 Patient is seen and examined. Patient has has had low blood pressure readings and heart rate in the 70s. Nephrology has stopped Lasix and hydralazine and decreased dose of gabapentin. Sharpe catheter has been inserted. Patient is being considered for renal replacement therapy. Repeat blood work reveals BUN 73 and creatinine 3.83. Echocardiogram reveals normal LV systolic function, biatrial enlargement. Chest x-ray reveals cardiomegaly and mild pulmonary vascular congestion. Physical examination: Gen: This is an 89-year-old female appears to be in no acute distress VS: reviewed HEENT: Head is atraumatic, normocephalic. Pupils equal, round. Sclerae is anicteric. NECK: Supple. No JVD. LUNGS: Clear to auscultation. No wheezes or rhonchi. No intercostal retractions. HEART: Irregular rate and rhythm. Systolic murmur. ABDOMEN: Soft No tenderness. EXTREMITIES: 1+ pedal edema. No calf tenderness. NEUROLOGICAL: Patient is awake, alert and oriented x3. Assessment: New onset A-fib with controlled rate, paroxysmal, converted to sinus rhythm Acute diastolic heart failure Acute kidney injury Hypertension History of SVT Chronic kidney disease Moderate mitral regurgitation Severe right ICA disease Plan: Continue patient's home cardiac medications Discontinue amlodipine, lisinopril and hydrochlorothiazide due to hypotension and worsening renal function Lasix and hydralazine discontinued by nephrology Decrease Toprol-XL to 12.5 mg daily Monitor VÍCTOR, daily weights, electrolytes and renal function Further recommendations to follow based upon clinical course Nurse practitioner note has been reviewed, I agree with documented findings and plan of care. Patient was seen and examined. Objective - Vital Signs Vital signs: Vital Signs Temp 97.8 F 07/09/24 10:45 Pulse 59 L 07/09/24 10:45 Resp 18 07/09/24 10:45 BP 94/53 07/09/24 10:45 Pulse Ox 94 L 07/09/24 10:45 FiO2 Intake & Output 07/08/24 07/09/24 07/09/24 18:59 06:59 18:59 Intake Total 10 10 20 Output Total 150 Balance 10 -140 20 Weight 44.452 kg 44.5 kg Intake: IV 10 10 20 0.9 NS FLUSH\ 10 Invasive Line 2 10 10 Invasive Line 3 10 Output: Urine 150 Other: Voiding Method Bedside Commode Bedside Commode Bedside Commode # Voids 1 # Bowel Movements 1 - Labs CBC & Chem 7: 07/08/24 05:18 07/09/24 06:28 Labs: Abnormal Lab Results - Last 24 Hours (Table) 07/09/24 Range/Units 06:28 Sodium 132 L (137-145) mmol/L Chloride 91 L (98-107) mmol/L Carbon Dioxide 31 H (22-30) mmol/L BUN 73 H (7-17) mg/dL Creatinine 3.83 H (0.52-1.04) mg/dL Calcium 8.2 L (8.4-10.2) mg/dL Phosphorus 8.1 H (2.5-4.5) mg/dL
--- NOTE | 2024-07-09 13:54 | XR ---
EXAMINATION TYPE: XR KUB portable DATE OF EXAM: 07/09/2024 1:36 PM COMPARISON: None. CLINICAL INDICATION: Female, 89 years old with history of distended,tender, TECHNIQUE: Single view of the abdomen. FINDINGS: Small bowel demonstrates no evidence for dilatation or air fluid levels. Gas and fecal material is seen in non-distended colon. No convincing evidence for pneumoperitoneum. No unusual calcifications. The lung bases are clear. The osseous structures are intact. IMPRESSION: 1. Overall nonobstructive bowel gas pattern. [facility], , 07/09/2024 1:52 PM
[2024-07-09 14:02] LABS: Amorphous Sediment,Urine Moderate /hpf; Appearance,Urine Turbid (Clear); Bacteria,Urine Rare /hpf; Bilirubin,Urine Negative (Negative); Blood,Urine Large (Negative); Color,Urine Yellow; Glucose,Urine (UA) Negative (Negative); Hyaline Casts,Urine 3 /lpf (0-2); Ketones,Urine Negative (Negative); Leukocyte Esterase,Urine Large (Negative); Mucus,Urine Rare /hpf; Nitrite,Urine Negative (Negative); Protein,Urine 2+ (Negative); RBC,Urine >182 /hpf (0-5); Specific Gravity,Urine 1.018 (1.001-1.035); Squamous Epithelial Cell,Urine 11 /hpf (0-4); Urobilinogen,Urine <2.0 mg/dL (<2.0); WBC,Urine 104 /hpf (0-5)
[2024-07-09] MEDS: ZINC OXIDE PASTE (Z-GUARD) 1 APPLIC TOPICAL PRN (15:22)
[2024-07-09 15:44] LABS: HCT 42.5 % (34.0-46.0); HGB 13.5 gm/dL (11.4-16.0); Hypochromasia Moderate; MCH 30.2 pg (25.0-35.0); MCHC 31.8 g/dL (31.0-37.0); MCV 94.9 fL (80.0-100.0); Mean Platelet Volume 8.4; Platelet Count 308 k/uL (150-450); RBC 4.48 m/uL (3.80-5.40); RDW 13.3 % (11.5-15.5); WBC 16.6 k/uL (3.8-10.6)
[2024-07-09] MEDS: METOCLOPRAMIDE 5 MG/ML 2 ML VIAL IVP SCH (18:10)
[2024-07-09] MEDS: FUROSEMIDE 10 MG/ML 10 ML VIAL IV STA (20:04)
[2024-07-09] MEDS: GABAPENTIN 100 MG CAP PO SCH (20:05)
[2024-07-10] MEDS: METOPROLOL SUCCINATE (ER) 25 MG TAB.ER.24H PO SCH (08:02)
[2024-07-10 08:40] LABS: African American GFR (CKD) 9 (>60 ml/min/1.73 sqM); Anion Gap 9 mmol/L; Blood Urea Nitrogen 91 mg/dL (7-17); Calcium 8.1 mg/dL (8.4-10.2); Carbon Dioxide 30 mmol/L (22-30); Chloride 92 mmol/L (98-107); Glucose 90 mg/dL (74-99); Non-African American GFR(CKD) 8 (>60 ml/min/1.73 sqM); Potassium 3.9 mmol/L (3.5-5.1); Sodium 131 mmol/L (137-145)
[2024-07-10 09:08] LABS: Appearance,Urine Cloudy (Clear); Bacteria,Urine Rare /hpf; Bilirubin,Urine Negative (Negative); Blood,Urine Large (Negative); Color,Urine Light Red; Glucose,Urine (UA) Negative (Negative); Ketones,Urine Negative (Negative); Leukocyte Esterase,Urine Large (Negative); Nitrite,Urine Negative (Negative); Protein,Urine 2+ (Negative); RBC,Urine >182 /hpf (0-5); Specific Gravity,Urine 1.018 (1.001-1.035); Squamous Epithelial Cell,Urine 1 /hpf (0-4); Urobilinogen,Urine <2.0 mg/dL (<2.0); WBC,Urine 134 /hpf (0-5)
--- NOTE | 2024-07-10 11:46 | P.PN ---
Subjective Patient is seen in follow-up for acute kidney injury on chronic kidney disease. Renal function worsening. Oliguric despite IV Lasix. Hemodynamically stable. Vital signs are stable. General: No acute distress. HEENT: Head exam is unremarkable. On nasal cannula. LUNGS: No audible rhonchi or wheezes. HEART: Rate and Rhythm are regular. ABDOMEN: Nontender. EXTREMITITES: No edema. Objective - Vital Signs Vital signs: Vital Signs Temp 98.0 F 07/10/24 08:00 Pulse 81 07/10/24 08:00 Resp 20 07/10/24 08:00 BP 118/58 07/10/24 08:00 Pulse Ox 94 L 07/10/24 08:00 FiO2 Intake & Output 07/09/24 07/10/24 07/10/24 18:59 06:59 18:59 Intake Total 266 Output Total 250 215 Balance 16 -215 Weight 44.5 kg Intake: IV 30 Invasive Line 2 10 Invasive Line 3 20 Oral 236 Output: Urine 250 215 Other: Voiding Method Bedside Commode Indwelling Catheter # Bowel Movements 7 1 - Labs CBC & Chem 7: 07/09/24 14:44 07/10/24 07:58 Labs: Abnormal Lab Results - Last 24 Hours (Table) 07/09/24 07/09/24 07/10/24 Range/Units 13:16 14:44 07:58 WBC 16.6 H (3.8-10.6) k/uL Sodium 131 L (137-145) mmol/L Chloride 92 L (98-107) mmol/L BUN 91 H (7-17) mg/dL Creatinine 4.78 H (0.52-1.04) mg/dL Calcium 8.1 L (8.4-10.2) mg/dL Urine Appearance Turbid H (Clear) Urine Protein 2+ H (Negative) Urine Blood Large H (Negative) Ur Leukocyte Esterase Large H (Negative) Urine RBC >182 H (0-5) /hpf Urine WBC 104 H (0-5) /hpf Urine WBC Clumps (None) /hpf Ur Squamous Epith Cells 11 H (0-4) /hpf Amorphous Sediment Moderate H (None) /hpf Urine Bacteria Rare H (None) /hpf Hyaline Casts 3 H (0-2) /lpf Urine Mucus Rare H (None) /hpf 07/10/24 Range/Units 08:40 WBC (3.8-10.6) k/uL Sodium (137-145) mmol/L Chloride (98-107) mmol/L BUN (7-17) mg/dL Creatinine (0.52-1.04) mg/dL Calcium (8.4-10.2) mg/dL Urine Appearance Cloudy H (Clear) Urine Protein 2+ H (Negative) Urine Blood Large H (Negative) Ur Leukocyte Esterase Large H (Negative) Urine RBC >182 H (0-5) /hpf Urine WBC 134 H (0-5) /hpf Urine WBC Clumps Few H (None) /hpf Ur Squamous Epith Cells (0-4) /hpf Amorphous Sediment (None) /hpf Urine Bacteria Rare H (None) /hpf Hyaline Casts (0-2) /lpf Urine Mucus (None) /hpf Assessment and Plan Plan: Assessment: 1. Acute kidney injury secondary to ATN secondary to cardiorenal syndrome, hypotension and also component of contrast associated acute kidney injury. No hydronephrosis noted on left kidney. Right kidney was not visualized. Creatin ine 1.3 dated July 06, 2024 and is up to 4.78 today. 2. Acute hypoxic respiratory failure. 3. Chronic kidney disease stage IIIb with baseline creatinine near 1.5 secondary to nephrosclerosis. 4. Acute on chronic diastolic CHF. 5. Volume overload. Status post diuresis on admission. 6. Chronic kidney disease mineral bone disease maintained on PhosLo. Phosphorus level 8.1 dated July 09, 2024. On PhosLo. 7. New onset A-fib being followed by cardiology. Status post heparin drip. On metoprolol and Eliquis. Plan: Status post 80 mg IV Lasix given last night with urine output of 150 cc overnight. With worsening renal function, oliguria, discussed with patient initiating renal placement therapy. She is in agreement. Consult vascular surgery for temporary dialysis catheter placement. Plan for first treatment of hemodialysis today and second treatment tomorrow. Avoid nephrotoxins. Continue to monitor renal function and urine output. Maintain Sharpe catheter. Strict I's and O's. Check urine eosinophils. Check serologies. Follow-up urine culture. Add Rocephin.
--- NOTE | 2024-07-10 12:00 | P.GSCN ---
History of Present Illness Consult date: 07/10/24 Reason for Consult: Need for hemodialysis catheter Requesting physician: Prasanth Galan History of present illness: This a pleasant 89-year-old female who we had seen earlier in the week for asymptomatic left occluded subclavian artery. Patient had presented with acute kidney injury. BUN and creatinine remain elevated and nephrology has consulted vascular surgery to place a temporary hemodialysis catheter. Review of Systems A 14 point review systems was completed all pertinent positives and negatives as stated in the HPI. 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 History of Any Multi-Drug Resistant Organisms: None Reported Past Surgical History: Orthopedic Surgery Additional Past Surgical History / Comment(s): R caratid endartectomy, L breast lumpectomy, bilateral cataract removals with lens implants, colonoscopy. Past Anesthesia/Blood Transfusion Reactions: No Reported Reaction Past Psychological History: No Psychological Hx Reported Additional Psychological History / Comment(s): Pt resides with her [employer]. She has home oxygen. She uses no assistive device to ambulate. She drives. Smoking Status: Former smoker Past Alcohol Use History: None Reported Additional Past Alcohol Use History / Comment(s): Pt started smoking in 1945 and quit in 1992. Past Drug Use History: None Reported - Past Family History Father History Unknown: Yes Family Medical History: Cancer, Coronary Artery Disease (CAD), Myocardial Infarction (MS) Additional Family Medical History / Comment(s): Father had lymphoma. He lived to be 72 yrs old. Mother History Unknown: Yes Family Medical History: Diabetes Mellitus Additional Family Medical History / Comment(s): Mother lived to be 82 yrs old. Medications and Allergies Home Medications Medication Instructions Recorded Confirmed Type Aspirin EC [Ecotrin Low Dose] 81 mg PO DAILY 10/04/18 07/06/24 History traMADol HCL [Ultram] 25 mg PO BID 10/04/18 07/06/24 History Metoprolol Succinate [Toprol XL] 25 mg PO DAILY 01/07/21 07/06/24 History hydroCHLOROthiazide 25 mg PO DAILY 01/07/21 07/06/24 History lisinopriL [Zestril] 5 mg PO DAILY 01/07/21 07/06/24 History Calcium Acetate [Phoslo] 667 mg PO DAILY 05/26/24 07/06/24 History Cholecalciferol (Vitamin D3) 50 mcg PO DAILY 05/26/24 07/06/24 History [Vitamin D3 (50 Mcg = 2000 Iu)] Donepezil [Aricept] 5 mg PO HS 05/26/24 07/06/24 History Gabapentin [Neurontin] 400 mg PO BID 05/26/24 07/06/24 History Levothyroxine Sodium [Levoxyl] 75 mcg PO DAILY 05/26/24 07/06/24 History Multivit-Min/Folic Acid/Biotin 133.3 mcg PO DAILY 05/26/24 07/06/24 History [Hair, Skin and Nails Softgel] Pravastatin Sodium [Pravachol] 40 mg PO HS 05/26/24 07/06/24 History amLODIPine [Norvasc] 5 mg PO DAILY 05/26/24 07/06/24 History hydrALAZINE HCL [Apresoline] 25 mg PO DAILY 05/26/24 07/06/24 History Allergies Allergy/AdvReac Type Severity Reaction Status Date / Time No Known Allergies Allergy Verified 07/06/24 13:40 Surgical - Exam Vital Signs Pulse Ox 82 L 07/06/24 10:07 General appearance: The patient is alert, oriented, appears in no acute distress. HET: Head is normocephalic and atraumatic. Pupils are equal and reactive. Neck: Supple. Heart: Regular. Lungs: Equal expansion, normal respiratory effort. Abdomen: Soft, nontender, nondistended. Extremities: Normal skin color and turgor. Palpable bilateral radial pulses, right greater than left. Neurological: No focal deficits. Results - Labs 07/09/24 14:44 07/10/24 07:58 Abnormal Lab Results - Last 24 Hours (Table) 07/09/24 07/09/24 07/10/24 Range/Units 13:16 14:44 07:58 WBC 16.6 H (3.8-10.6) k/uL Sodium 131 L (137-145) mmol/L Chloride 92 L (98-107) mmol/L BUN 91 H (7-17) mg/dL Creatinine 4.78 H (0.52-1.04) mg/dL Calcium 8.1 L (8.4-10.2) mg/dL Urine Appearance Turbid H (Clear) Urine Protein 2+ H (Negative) Urine Blood Large H (Negative) Ur Leukocyte Esterase Large H (Negative) Urine RBC >182 H (0-5) /hpf Urine WBC 104 H (0-5) /hpf Urine WBC Clumps (None) /hpf Ur Squamous Epith Cells 11 H (0-4) /hpf Amorphous Sediment Moderate H (None) /hpf Urine Bacteria Rare H (None) /hpf Hyaline Casts 3 H (0-2) /lpf Urine Mucus Rare H (None) /hpf 07/10/24 Range/Units 08:40 WBC (3.8-10.6) k/uL Sodium (137-145) mmol/L Chloride (98-107) mmol/L BUN (7-17) mg/dL Creatinine (0.52-1.04) mg/dL Calcium (8.4-10.2) mg/dL Urine Appearance Cloudy H (Clear) Urine Protein 2+ H (Negative) Urine Blood Large H (Negative) Ur Leukocyte Esterase Large H (Negative) Urine RBC >182 H (0-5) /hpf Urine WBC 134 H (0-5) /hpf Urine WBC Clumps Few H (None) /hpf Ur Squamous Epith Cells (0-4) /hpf Amorphous Sediment (None) /hpf Urine Bacteria Rare H (None) /hpf Hyaline Casts (0-2) /lpf Urine Mucus (None) /hpf Diabetes panel 07/10/24 Range/Units 07:58 Sodium 131 L (137-145) mmol/L Potassium 3.9 (3.5-5.1) mmol/L Chloride 92 L (98-107) mmol/L Carbon Dioxide 30 (22-30) mmol/L BUN 91 H (7-17) mg/dL Creatinine 4.78 H (0.52-1.04) mg/dL Glucose 90 (74-99) mg/dL Calcium 8.1 L (8.4-10.2) mg/dL Calcium panel 07/10/24 Range/Units 07:58 Calcium 8.1 L (8.4-10.2) mg/dL Pituitary panel 07/10/24 Range/Units 07:58 Sodium 131 L (137-145) mmol/L Potassium 3.9 (3.5-5.1) mmol/L Chloride 92 L (98-107) mmol/L Carbon Dioxide 30 (22-30) mmol/L BUN 91 H (7-17) mg/dL Creatinine 4.78 H (0.52-1.04) mg/dL Glucose 90 (74-99) mg/dL Calcium 8.1 L (8.4-10.2) mg/dL Adrenal panel 07/10/24 Range/Units 07:58 Sodium 131 L (137-145) mmol/L Potassium 3.9 (3.5-5.1) mmol/L Chloride 92 L (98-107) mmol/L Carbon Dioxide 30 (22-30) mmol/L BUN 91 H (7-17) mg/dL Creatinine 4.78 H (0.52-1.04) mg/dL Glucose 90 (74-99) mg/dL Calcium 8.1 L (8.4-10.2) mg/dL Assessment and Plan Assessment: 1. Acute kidney injury requiring hemodialysis 2. 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 New onset atrial fibrillation on Eliquis 2.5 mg twice daily 4. Heart failure Plan: 1. Will plan for temporary HD catheter placement at the bedside 2. Hemodialysis per recommendations from nephrology 3. CTA reviewed. No indication for any vascular surgical intervention at this time. Patient is asymptomatic. 4. Recommend outpatient follow-up with vascular surgery, will obtain arterial ultrasound at that time. Thank you for this consultation, we will continue to follow. The impression and plan of care has been dictated as directed. Dr. Sharpe I performed a history and examination of this patient, discussed the same with the dictator. I agree with the dictator's note ,documented as a scribe. Any additional findings or plans will be noted.
--- NOTE | 2024-07-10 12:11 | P.PN ---
Subjective Progress Note Date: 07/09/24 H&P Date: 07/07/24 Chief Complaint: Dyspnea, shortness of breath This is an 89-year-old female with past medical history significant for COPD, chronic respiratory failure on home O2.5 L nasal cannula prn, dyslipidemia, hypertension, moderate mitral regurgitation, SVT, TIA , possible previous carotid disease-patient does not recall ,hypothyroidism, chronic kidney disease stage 4, scoliosis, chronic back pain multiple other medical issues, presented to the ER with significant shortness of breath. Patient reports she has been having progressive shortness of breath over the last 3 days, affecting her performing ADLs,, walking to the bathroom. Reports increased coughing up thick phlegm. Denies any fever chills or sweats. Denies any chest pain, palp itations. On admission hypertensive with systolic blood pressures in the high 170s, EKG reported atrial fibrillation, ventricular rate controlled, O2 sat of 82% on room air, placed on 3 L nasal cannula O2 sat increased to 90%, eventually placed on 15 L nonrebreather, currently requiring 10 L high flow nasal cannula. 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 Cardiomegaly with pulmonary vascular congestion and moderate bilateral pleural effusions with associated atelectasis. proBNP 9110. afebrile, WBC 11.8, hemoglobin 13.9, platelets 289. Bicarb 31, BUN 36, creatinine 1.31-baseline creat appears to be 1.3-1.5. Sodium 137, potassium 3.6, magnesium 1.9. Albumin 3.4. All studies negative. Diuresing with Lasix IV push initiated in the ER. Anticoagulated on heparin drip. Echo pending. 07/08/2024 anticoagulated on heparin drip, converted to sinus rhythm. Blood pressures soft. Diuresing on Lasix IV push. Worsened renal function, bicarb 34, BUN 59, creatinine 2.65. Currently requiring 6 L high flow nasal cannula to maintain O2 sats in the 90s. Echo reported normal LV function, biatrial enlargement. Vascular surgery consult in place regarding CT findings of left subclavian occlusion-remains asymptomatic. 07/09/2024 hypotensive, renal function worsening, complains of nausea, vomiting and diarrhea. KUB ordered .chest x-ray reporting cardiomegaly and mild pulmonary vascular congestion. Viral studies negative. Nephrology discussing renal replacement. Objective - Vital Signs Vital signs: Vital Signs Temp 97.8 F 07/09/24 10:45 Pulse 59 L 07/09/24 10:45 Resp 18 07/09/24 10:45 BP 94/53 07/09/24 10:45 Pulse Ox 94 L 07/09/24 10:45 FiO2 Intake & Output 07/08/24 07/09/24 07/09/24 18:59 06:59 18:59 Intake Total 10 10 20 Output Total 150 Balance 10 -140 20 Weight 44.452 kg 44.5 kg Intake: IV 10 10 20 0.9 NS FLUSH\ 10 Invasive Line 2 10 10 Invasive Line 3 10 Output: Urine 150 Other: Voiding Method Bedside Commode Bedside Commode Bedside Commode # Voids 1 # Bowel Movements 1 - Exam PHYSICAL EXAMINATION: GENERAL: Alert and oriented x 3, sitting up on bed, no acute distress. HEENT: Atraumatic, normocephalic. pupils equal and reactive. Sclera anicteric Neck: Supple, no JVD CHEST EXAMINATION: Kyphoscoliosis ,unlabored, equal air entry, clear to auscultation. CARDIAC: S1, S2. Irregular rate and rhythm ,systolic murmur. ABDOMEN: Soft, nondistended, nontender, no guarding,+BS. Extremities: Positive edema, no calf tenderness, positive DP pulses Neurological: Cranial nerves II through XII grossly intact, no focal deficits noted. Skin: Warm and dry, no rash. - Labs CBC & Chem 7: 07/09/24 14:44 07/10/24 07:58 Labs: Abnormal Lab Results - Last 24 Hours (Table) 07/09/24 07/09/24 Range/Units 06:28 13:16 Sodium 132 L (137-145) mmol/L Chloride 91 L (98-107) mmol/L Carbon Dioxide 31 H (22-30) mmol/L BUN 73 H (7-17) mg/dL Creatinine 3.83 H (0.52-1.04) mg/dL Calcium 8.2 L (8.4-10.2) mg/dL Phosphorus 8.1 H (2.5-4.5) mg/dL Urine Appearance Turbid H (Clear) Urine Protein 2+ H (Negative) Urine Blood Large H (Negative) Ur Leukocyte Esterase Large H (Negative) Urine RBC >182 H (0-5) /hpf Urine WBC 104 H (0-5) /hpf Ur Squamous Epith Cells 11 H (0-4) /hpf Amorphous Sediment Moderate H (None) /hpf Urine Bacteria Rare H (None) /hpf Hyaline Casts 3 H (0-2) /lpf Urine Mucus Rare H (None) /hpf Assessment and Plan Assessment: Acute CHF exacerbation, diastolic dysfunction New onset paroxysmal atrial fibrillation, rate controlled Acute on Chronic hypoxic respiratory failure, on home oxygen 2.5 L, secondary to the above Leukocytosis Hypertension Elevated D-dimer, CTA reported negative for PE,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 Acute on chronic renal failure, stage IIIb, baseline 1.5. Acute secondary to ATN related to cardiorenal syndrome, hypotension, contrast. Moderate mitral regurgitation Severe pulmonary hypertension COPD Hyperlipidemia History of TIA Possible previous carotid disease, patient does not recall Left breast cancer with lumpectomy and radiation Hypothyroidism Chronic back pain and bilateral shoulder pain Bilateral feet neuropathy. Nondiabetic Osteopenia Former nicotine dependence Moderate protein calorie malnutrition, BMI 19 Plan: Continue on current medication regimen ,monitoring and symptomatic treatment. Antihypertensives, Lasix DC'd secondary to worsening renal function, hypotension soft BPs. Nephrology discussing potential renal replacement therapy. Prognosis guarded given multiple complex medical issues. The impression and plan of care has been dictated as directed. : I performed a history and examination of this patient, discussed the same with the dictator. I agree with the dictator's note ,documented as a scribe. Any additional findings or plans will be noted.
--- NOTE | 2024-07-10 12:20 | P.PN ---
Subjective Progress Note Date: 07/10/24 Consult reason: congestive heart failure History of present illness: This is an 89-year-old female patient of Dr. Upton with past medical history of hypertension, SVT, chronic kidney disease stage V, moderate mitral regurgitation, severe right ICA disease. We have been asked to evaluate the patient for heart failure. Patient gives history that for the past 3 to 4 days she was having trouble getting to the bathroom due to significant shortness of breath. She states he is had a little bit of edema in her lower extremities. She denies any weight gain. She does have chest pain with exertion. She states she is always full of phlegm. She denies any previous cardiac history. Patient does not have history of atrial fibrillation. Blood pressure 145/71, heart rate in the 60s, pulse ox 98% on high flow nasal cannula 10 L. Patient has been started on IV Lasix 40 mg every 12 hours. Patient is seen today in the emergency center waiting for a bed on the cardiac stepdown unit. -EKG: Atrial fibrillation with ventricular rate of 91. -Chest x-ray: Cardiomegaly, pulmonary vascular congestion and bilateral pleural effusions -CTA of the chest revealed no evidence of pulmonary embolism. 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 Cardiomegaly with pulmonary vascular congestion and moderate bilateral pleural effusions with associated atelectasis. -Laboratory studies: WBC 11.4, hemoglobin 14, D-dimer 2.3. Sodium 137, potassium 3.6, BUN 36 and creatinine 1.31, magnesium 1.9. Troponin negative x 1. proBNP 9110. Influenza A, influenza B, RSV, COVID-19 not detected. -Home cardiac medications: Amlodipine 5 mg daily, aspirin 81 mg daily, hydralazine 25 mg daily, hydrochlorothiazide 25 mg daily, lisinopril 5 mg daily, metoprolol succinate 25 mg daily, pravastatin 40 mg at bedtime, also on levothyroxine. -Echocardiogram performed 05/03/2023 in the office revealed EF 60%, grade 2 diastolic dysfunction, mild concentric LVH. Mild mitral regurgitation, trace tricuspid regurgitation. -Event monitor 30 days performed 02/2023 revealed no atrial fibrillation, NSVT 07/08/2024 Patient seen and examined in the emergency center. Patient has converted to sinus rhythm, heart rate in the 50s. Patient has been continued on heparin drip. Blood pressure is on the low side at 95/40, pulse ox 96% on 9 L nasal cannula. Patient is also maintained on IV Lasix 40 mg every 12 hours. Repeat blood work reveals BUN 59 creatinine 2.65 and potassium 3.6. Patient denies any new complaints. She is anxious to be discharged home but due to high oxygen need this is doubtful. Nursing to start weaning oxygen down. Echocardiogram is pending. 07/09/2024 Patient is seen and examined. Patient has has had low blood pressure readings and heart rate in the 70s. Nephrology has stopped Lasix and hydralazine and decreased dose of gabapentin. Sharpe catheter has been inserted. Patient is being considered for renal replacement therapy. Repeat blood work reveals BUN 73 and creatinine 3.83. Echocardiogram reveals normal LV systolic function, biatrial enlargement. Chest x-ray reveals cardiomegaly and mild pulmonary vascular congestion. 07/10/2024 Patient seen and examined. Patient denies having chest pain, shortness of breath. She has noted to have worsening of her renal function and nephrology is planning to start patient on dialysis. Patient remains in sinus rhythm. Blood pressure 114/55, heart rate 75, pulse ox 92% on 2 L nasal cannula. BUN 91 creatinine 4.78. Sodium 131, potassium 3.9. Physical examination: Gen: This is an 89-year-old female appears to be in no acute distress VS: reviewed HEENT: Head is atraumatic, normocephalic. Pupils equal, round. Sclerae is anicteric. NECK: Supple. No JVD. LUNGS: Clear to auscultation. No wheezes or rhonchi. No intercostal retractions. HEART: Irregular rate and rhythm. Systolic murmur. ABDOMEN: Soft No tenderness. EXTREMITIES: 1+ pedal edema. No calf tenderness. NEUROLOGICAL: Patient is awake, alert and oriented x3. Assessment: New onset A-fib with controlled rate, paroxysmal, converted to sinus rhythm Acute diastolic heart failure Acute kidney injury, patient to start on hemodialysis Hypertension History of SVT Chronic kidney disease Moderate mitral regurgitation Severe right ICA disease Plan: Continue current cardiac medications: Eliquis 2.5 mg twice daily, aspirin 81 mg daily, Toprol XL 12.5 mg daily, pravastatin 40 mg at bedtime. Monitor VÍCTOR, daily weights, electrolytes and renal function Further recommendations to follow based upon clinical course Nurse practitioner note has been reviewed, I agree with documented findings and plan of care. Patient was seen and examined. Objective - Vital Signs Vital signs: Vital Signs Temp 98.0 F 07/10/24 08:00 Pulse 75 07/10/24 11:06 Resp 20 07/10/24 11:06 BP 114/55 07/10/24 11:06 Pulse Ox 92 L 07/10/24 11:06 FiO2 Intake & Output 07/09/24 07/10/24 07/10/24 18:59 06:59 18:59 Intake Total 266 Output Total 250 215 Balance 16 -215 Weight 44.5 kg Intake: IV 30 Invasive Line 2 10 Invasive Line 3 20 Oral 236 Output: Urine 250 215 Other: Voiding Method Bedside Commode Indwelling Catheter # Bowel Movements 7 1 - Labs CBC & Chem 7: 07/09/24 14:44 07/10/24 07:58 Labs: Abnormal Lab Results - Last 24 Hours (Table) 07/09/24 07/09/24 07/10/24 Range/Units 13:16 14:44 07:58 WBC 16.6 H (3.8-10.6) k/uL Sodium 131 L (137-145) mmol/L Chloride 92 L (98-107) mmol/L BUN 91 H (7-17) mg/dL Creatinine 4.78 H (0.52-1.04) mg/dL Calcium 8.1 L (8.4-10.2) mg/dL Urine Appearance Turbid H (Clear) Urine Protein 2+ H (Negative) Urine Blood Large H (Negative) Ur Leukocyte Esterase Large H (Negative) Urine RBC >182 H (0-5) /hpf Urine WBC 104 H (0-5) /hpf Urine WBC Clumps (None) /hpf Ur Squamous Epith Cells 11 H (0-4) /hpf Amorphous Sediment Moderate H (None) /hpf Urine Bacteria Rare H (None) /hpf Hyaline Casts 3 H (0-2) /lpf Urine Mucus Rare H (None) /hpf 07/10/24 Range/Units 08:40 WBC (3.8-10.6) k/uL Sodium (137-145) mmol/L Chloride (98-107) mmol/L BUN (7-17) mg/dL Creatinine (0.52-1.04) mg/dL Calcium (8.4-10.2) mg/dL Urine Appearance Cloudy H (Clear) Urine Protein 2+ H (Negative) Urine Blood Large H (Negative) Ur Leukocyte Esterase Large H (Negative) Urine RBC >182 H (0-5) /hpf Urine WBC 134 H (0-5) /hpf Urine WBC Clumps Few H (None) /hpf Ur Squamous Epith Cells (0-4) /hpf Amorphous Sediment (None) /hpf Urine Bacteria Rare H (None) /hpf Hyaline Casts (0-2) /lpf Urine Mucus (None) /hpf
--- NOTE | 2024-07-10 12:29 | P.PN ---
Subjective Progress Note Date: 07/10/24 H&P Date: 07/07/24 Chief Complaint: Dyspnea, shortness of breath This is an 89-year-old female with past medical history significant for COPD, chronic respiratory failure on home O2.5 L nasal cannula prn, dyslipidemia, hypertension, moderate mitral regurgitation, SVT, TIA , possible previous carotid disease-patient does not recall ,hypothyroidism, chronic kidney disease stage 4, scoliosis, chronic back pain multiple other medical issues, presented to the ER with significant shortness of breath. Patient reports she has been having progressive shortness of breath over the last 3 days, affecting her performing ADLs,, walking to the bathroom. Reports increased coughing up thick phlegm. Denies any fever chills or sweats. Denies any chest pain, palp itations. On admission hypertensive with systolic blood pressures in the high 170s, EKG reported atrial fibrillation, ventricular rate controlled, O2 sat of 82% on room air, placed on 3 L nasal cannula O2 sat increased to 90%, eventually placed on 15 L nonrebreather, currently requiring 10 L high flow nasal cannula. 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 Cardiomegaly with pulmonary vascular congestion and moderate bilateral pleural effusions with associated atelectasis. proBNP 9110. afebrile, WBC 11.8, hemoglobin 13.9, platelets 289. Bicarb 31, BUN 36, creatinine 1.31-baseline creat appears to be 1.3-1.5. Sodium 137, potassium 3.6, magnesium 1.9. Albumin 3.4. All studies negative. Diuresing with Lasix IV push initiated in the ER. Anticoagulated on heparin drip. Echo pending. 07/08/2024 anticoagulated on heparin drip, converted to sinus rhythm. Blood pressures soft. Diuresing on Lasix IV push. Worsened renal function, bicarb 34, BUN 59, creatinine 2.65. Currently requiring 6 L high flow nasal cannula to maintain O2 sats in the 90s. Echo reported normal LV function, biatrial enlargement. Vascular surgery consult in place regarding CT findings of left subclavian occlusion-remains asymptomatic. 07/09/2024 hypotensive, renal function worsening, complains of nausea, vomiting and diarrhea. KUB ordered .chest x-ray reporting cardiomegaly and mild pulmonary vascular congestion. Viral studies negative. Nephrology discussing renal replacement. 07/10/2024 Reglan added to med regimen yesterday along with diet decreased to clear liquids,nausea vomiting and diarrhea subsided. Denies abdominal pain. Received Lasix last night with minimal urine output, reported overnight. Renal function continues to worsen, bicarb 30, BUN 91, creatinine 4.78. Afebrile, urine extremely cloudy. UA negative nitrates, large leukocytes, high urine WBCs rare bacteria, ceftriaxone initiated. Objective - Vital Signs Vital signs: Vital Signs Temp 98.0 F 07/10/24 08:00 Pulse 75 07/10/24 11:06 Resp 20 07/10/24 11:06 BP 114/55 07/10/24 11:06 Pulse Ox 92 L 07/10/24 11:06 FiO2 Intake & Output 07/09/24 07/10/24 07/10/24 18:59 06:59 18:59 Intake Total 266 Output Total 250 215 Balance 16 -215 Weight 44.5 kg Intake: IV 30 Invasive Line 2 10 Invasive Line 3 20 Oral 236 Output: Urine 250 215 Other: Voiding Method Bedside Commode Indwelling Catheter # Bowel Movements 7 1 - Exam PHYSICAL EXAMINATION: GENERAL: Alert and oriented x 3, sitting up on bed, no acute distress. HEENT: Atraumatic, normocephalic. pupils equal and reactive. Sclera anicteric Neck: Supple, no JVD CHEST EXAMINATION: Kyphoscoliosis ,unlabored, equal air entry, clear to auscultation. CARDIAC: S1, S2. Irregular rate and rhythm ,systolic murmur. ABDOMEN: Soft, nondistended, nontender, no guarding,+BS. Extremities: Positive edema, no calf tenderness, positive DP pulses Neurological: Cranial nerves II through XII grossly intact, no focal deficits noted. Skin: Warm and dry, no rash. - Labs CBC & Chem 7: 07/09/24 14:44 07/10/24 07:58 Labs: Abnormal Lab Results - Last 24 Hours (Table) 07/09/24 07/09/24 07/10/24 Range/Units 13:16 14:44 07:58 WBC 16.6 H (3.8-10.6) k/uL Sodium 131 L (137-145) mmol/L Chloride 92 L (98-107) mmol/L BUN 91 H (7-17) mg/dL Creatinine 4.78 H (0.52-1.04) mg/dL Calcium 8.1 L (8.4-10.2) mg/dL Urine Appearance Turbid H (Clear) Urine Protein 2+ H (Negative) Urine Blood Large H (Negative) Ur Leukocyte Esterase Large H (Negative) Urine RBC >182 H (0-5) /hpf Urine WBC 104 H (0-5) /hpf Urine WBC Clumps (None) /hpf Ur Squamous Epith Cells 11 H (0-4) /hpf Amorphous Sediment Moderate H (None) /hpf Urine Bacteria Rare H (None) /hpf Hyaline Casts 3 H (0-2) /lpf Urine Mucus Rare H (None) /hpf 07/10/24 Range/Units 08:40 WBC (3.8-10.6) k/uL Sodium (137-145) mmol/L Chloride (98-107) mmol/L BUN (7-17) mg/dL Creatinine (0.52-1.04) mg/dL Calcium (8.4-10.2) mg/dL Urine Appearance Cloudy H (Clear) Urine Protein 2+ H (Negative) Urine Blood Large H (Negative) Ur Leukocyte Esterase Large H (Negative) Urine RBC >182 H (0-5) /hpf Urine WBC 134 H (0-5) /hpf Urine WBC Clumps Few H (None) /hpf Ur Squamous Epith Cells (0-4) /hpf Amorphous Sediment (None) /hpf Urine Bacteria Rare H (None) /hpf Hyaline Casts (0-2) /lpf Urine Mucus (None) /hpf Assessment and Plan Assessment: Acute CHF exacerbation, diastolic dysfunction New onset paroxysmal atrial fibrillation, rate controlled Acute on Chronic hypoxic respiratory failure, on home oxygen 2.5 L, secondary to the above Acute UTI Leukocytosis Hypertension Elevated D-dimer, CTA reported negative for PE,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 Acute on chronic renal failure, stage IIIb, baseline 1.5. Acute secondary to ATN related to cardiorenal syndrome, hypotension, contrast. Moderate mitral regurgitation Severe pulmonary hypertension COPD Hyperlipidemia History of TIA Possible previous carotid disease, patient does not recall Left breast cancer with lumpectomy and radiation Hypothyroidism Chronic back pain and bilateral shoulder pain Bilateral feet neuropathy. Nondiabetic Osteopenia Former nicotine dependence Moderate protein calorie malnutrition, BMI 19 Plan: Continue on current medication regimen ,monitoring and symptomatic treatment.maintain antibiotics for UTI , culture pending .nephrology consulted vascular surgery for temporary dialysis catheter placement.Renal replacement therapy pending. Close monitoring of renal function with repeat labs ordered for a.m. Prognosis guarded given multiple complex medical issues. The impression and plan of care has been dictated as directed. : I performed a history and examination of this patient, discussed the same with the dictator. I agree with the dictator's note ,documented as a scribe. Any additional findings or plans will be noted.
--- NOTE | 2024-07-10 16:02 | P.OP ---
Date of Procedure: 07/10/24 Description of Procedure: SURGEON: Hiwot Sharpe DO MIME ARTIST: None PREOPERATIVE DIAGNOSIS: Need for dialysis POSTOPERATIVE DIAGNOSIS: Same OPERATION: Ultrasound-guided right common femoral vein access, placement of temporary dialysis catheter DESCRIPTION OF PROCEDURE: The groin was prepped and draped in usual sterile fashion. A preprocedure timeout was performed, all parties were in agreement. An ultrasound was utilized and the right common femoral vein was identified. It was patent and compressible. The skin overlying the vein was anesthetized with 1% lidocaine plain. A multipurpose needle was utilized and the femoral vein was accessed under ultrasound guidance on first attempt with return of dark venous, nonpulsatile blood. The guidewire was passed easily. Serial dilation was performed of the subcutaneous tissues. The catheter was placed and secured with suture. It aspirated and flushed freely. A dressing was applied. The patient tolerated the procedure well.
[2024-07-10 20:24] LABS: Hepatitis A Antibody IgM Nonreactive (Nonreactive); Hepatitis B Core IgM Nonreactive (Nonreactive); Hepatitis B Surface Antigen Nonreactive (Nonreactive); Hepatitis C IgG Antibody Nonreactive (Nonreactive)
[2024-07-10 21:07] LABS: Anti-DNA, DS unit <1.0 IU/mL; DNA Double-Stranded Negative (Negative)
[2024-07-11] MEDS: SODIUM CHLORIDE 0.9% 500 ML 500 ML IV ONE (08:25)
[2024-07-11 08:26] LABS: Glucose,Whole Blood 87 mg/dL (70-110)
--- NOTE | 2024-07-11 08:28 | P.PN ---
Subjective Progress Note Date: 07/11/24 Principal diagnosis: Acute kidney injury requiring hemodialysis Patient is seen and examined today as a follow-up. She had a temporary hemodialysis catheter placed yesterday in her right femoral vein. Patient states that she did undergo dialysis yesterday she believes without any complications. She denies any pain in her groin,, bleeding or swelling. Objective - Vital Signs Vital signs: Vital Signs Temp 97.9 F 07/11/24 03:40 Pulse 66 07/11/24 03:40 Resp 16 07/11/24 03:40 BP 114/56 07/11/24 03:40 Pulse Ox 96 07/11/24 03:40 FiO2 Intake & Output 07/10/24 07/11/24 07/11/24 18:59 06:59 18:59 Intake Total 1500 Output Total 125 1700 Balance -125 -200 Weight 44.5 kg 34 kg Intake: Hemodialysis 1500 Output: Urine 125 200 Hemodialysis 500 Hemodialysis Net Amount 1000 Other: Voiding Method Indwelling Catheter Indwelling Catheter # Bowel Movements 1 1 - Exam General appearance: The patient is alert, oriented, appears in no acute distress. HET: Head is normocephalic and atraumatic. Pupils are equal and reactive. Neck: Supple. Heart: Regular. Lungs: Equal expansion, normal respiratory effort. Abdomen: Soft, nontender, nondistended. Extremities: Normal skin color and turgor. Right groin wound with temporary dialysis catheter with dressing clean dry and intact. No bleeding, surrounding ecchymosis or hematoma noted. Neurological: No focal deficits. Strength and sensation are grossly intact. - Labs CBC & Chem 7: 07/09/24 14:44 07/10/24 07:58 Labs: Abnormal Lab Results - Last 24 Hours (Table) 07/10/24 07/10/24 07/10/24 Range/Units 07:58 08:40 12:08 Sodium 131 L (137-145) mmol/L Chloride 92 L (98-107) mmol/L BUN 91 H (7-17) mg/dL Creatinine 4.78 H (0.52-1.04) mg/dL Calcium 8.1 L (8.4-10.2) mg/dL Urine Appearance Cloudy H (Clear) Urine Protein 2+ H (Negative) Urine Blood Large H (Negative) Ur Leukocyte Esterase Large H (Negative) Urine RBC >182 H (0-5) /hpf Urine WBC 134 H (0-5) /hpf Urine WBC Clumps Few H (None) /hpf Urine Bacteria Rare H (None) /hpf Tot Complement (CH50) >103 H (42 - 95) U/mL Assessment and Plan Assessment: 1. Acute kidney injury requiring hemodialysis status post temporary HD catheter placement 2. 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 New onset atrial fibrillation on Eliquis 2.5 mg twice daily 4. Heart failure Plan: 1. Hemodialysis per recommendations from nephrology 2. CTA reviewed. No indication for any vascular surgical intervention at this time. Patient is asymptomatic. 3. Recommend outpatient follow-up with vascular surgery, will obtain arterial ultrasound at that time. Thank you for this consultation, we will be on standby. If further needed please do not hesitate to call us back. The impression and plan of care has been dictated as directed. Dr. Sharpe I performed a history and examination of this patient, discussed the same with the dictator. I agree with the dictator's note ,documented as a scribe. Any additional findings or plans will be noted.
--- NOTE | 2024-07-11 09:15 | P.PN ---
Subjective Progress Note Date: 07/11/24 H&P Date: 07/07/24 Chief Complaint: Dyspnea, shortness of breath This is an 89-year-old female with past medical history significant for COPD, chronic respiratory failure on home O2.5 L nasal cannula prn, dyslipidemia, hypertension, moderate mitral regurgitation, SVT, TIA , possible previous carotid disease-patient does not recall ,hypothyroidism, chronic kidney disease stage 4, scoliosis, chronic back pain multiple other medical issues, presented to the ER with significant shortness of breath. Patient reports she has been having progressive shortness of breath over the last 3 days, affecting her performing ADLs,, walking to the bathroom. Reports increased coughing up thick phlegm. Denies any fever chills or sweats. Denies any chest pain, palp itations. On admission hypertensive with systolic blood pressures in the high 170s, EKG reported atrial fibrillation, ventricular rate controlled, O2 sat of 82% on room air, placed on 3 L nasal cannula O2 sat increased to 90%, eventually placed on 15 L nonrebreather, currently requiring 10 L high flow nasal cannula. 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 Cardiomegaly with pulmonary vascular congestion and moderate bilateral pleural effusions with associated atelectasis. proBNP 9110. afebrile, WBC 11.8, hemoglobin 13.9, platelets 289. Bicarb 31, BUN 36, creatinine 1.31-baseline creat appears to be 1.3-1.5. Sodium 137, potassium 3.6, magnesium 1.9. Albumin 3.4. All studies negative. Diuresing with Lasix IV push initiated in the ER. Anticoagulated on heparin drip. Echo pending. 07/08/2024 anticoagulated on heparin drip, converted to sinus rhythm. Blood pressures soft. Diuresing on Lasix IV push. Worsened renal function, bicarb 34, BUN 59, creatinine 2.65. Currently requiring 6 L high flow nasal cannula to maintain O2 sats in the 90s. Echo reported normal LV function, biatrial enlargement. Vascular surgery consult in place regarding CT findings of left subclavian occlusion-remains asymptomatic. 07/09/2024 hypotensive, renal function worsening, complains of nausea, vomiting and diarrhea. KUB ordered .chest x-ray reporting cardiomegaly and mild pulmonary vascular congestion. Viral studies negative. Nephrology discussing renal replacement. 07/10/2024 Reglan added to med regimen yesterday along with diet decreased to clear liquids,nausea vomiting and diarrhea subsided. Denies abdominal pain. Received Lasix last night with minimal urine output, reported overnight. Renal function continues to worsen, bicarb 30, BUN 91, creatinine 4.78. Afebrile, urine extremely cloudy. UA negative nitrates, large leukocytes, high urine WBCs rare bacteria, ceftriaxone initiated. 07/20/2024 temporary dialysis catheter placed yesterday with initiation of hemodialysis. Tolerated well, reports fatigue. Scheduled for hemodialysis ag ain today. Labs pending. Objective - Vital Signs Vital signs: Vital Signs Temp 97.9 F 07/11/24 03:40 Pulse 66 07/11/24 03:40 Resp 16 07/11/24 03:40 BP 114/56 07/11/24 03:40 Pulse Ox 90 L 07/11/24 08:14 FiO2 Intake & Output 07/10/24 07/11/24 07/11/24 18:59 06:59 18:59 Intake Total 1500 Output Total 125 1700 Balance -125 -200 Weight 44.5 kg 34 kg Intake: Hemodialysis 1500 Output: Urine 125 200 Hemodialysis 500 Hemodialysis Net Amount 1000 Other: Voiding Method Indwelling Catheter Indwelling Catheter # Bowel Movements 1 1 - Exam PHYSICAL EXAMINATION: GENERAL: Alert and oriented x 3, sitting up on bed, no acute distress, fatigued. HEENT: Atraumatic, normocephalic. pupils equal and reactive. Sclera anicteric Neck: Supple, no JVD CHEST EXAMINATION: Kyphoscoliosis ,unlabored, equal air entry, clear to auscultation. CARDIAC: S1, S2. Regular,systolic murmur. ABDOMEN: Soft, nondistended, nontender, no guarding,+BS. Extremities: Right groin temporary dialysis catheter dressing clean dry and intact -nontender ,positive edema, no calf tenderness, positive DP pulses. Neurological: Cranial nerves II through XII grossly intact, no focal deficits noted. Skin: Warm and dry, no rash. - Labs CBC & Chem 7: 07/09/24 14:44 07/10/24 07:58 Labs: Abnormal Lab Results - Last 24 Hours (Table) 07/10/24 07/10/24 Range/Units 08:40 12:08 Urine Appearance Cloudy H (Clear) Urine Protein 2+ H (Negative) Urine Blood Large H (Negative) Ur Leukocyte Esterase Large H (Negative) Urine RBC >182 H (0-5) /hpf Urine WBC 134 H (0-5) /hpf Urine WBC Clumps Few H (None) /hpf Urine Bacteria Rare H (None) /hpf Tot Complement (CH50) >103 H (42 - 95) U/mL Assessment and Plan Assessment: Acute CHF exacerbation, diastolic dysfunction New onset paroxysmal atrial fibrillation, rate controlled Acute on Chronic hypoxic respiratory failure, on home oxygen 2.5 L, secondary to the above Acute UTI Leukocytosis Hypertension Elevated D-dimer, CTA reported negative for PE,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 Acute on chronic renal failure, stage IIIb, baseline 1.5. Acute secondary to ATN related to cardiorenal syndrome, hypotension, contrast. Temporary HD catheter placed 07/10/2024 with initiation of HD. Moderate mitral regurgitation Severe pulmonary hypertension COPD Hyperlipidemia History of TIA Possible previous carotid disease, patient does not recall Left breast cancer with lumpectomy and radiation Hypothyroidism Chronic back pain and bilateral shoulder pain Bilateral feet neuropathy. Nondiabetic Osteopenia Former nicotine dependence Moderate protein calorie malnutrition, BMI 19 Plan: Continue on current medication regimen ,monitoring and symptomatic treatment.labs pending .hemodialysis as per nephrology .continue antibiotics fo r UTI, culture pending. The impression and plan of care has been dictated as directed. : I performed a history and examination of this patient, discussed the same with the dictator. I agree with the dictator's note ,documented as a scribe. Any additional findings or plans will be noted.
[2024-07-11 09:21] LABS: Basophils % (A) 0 %; Eosinophils % (A) 0 %; HCT 42.2 % (34.0-46.0); HGB 12.9 gm/dL (11.4-16.0); Hypochromasia Moderate; Lymphocytes # (A) 0.5 k/uL (1.0-4.8); Lymphocytes % (A) 4 %; MCH 29.1 pg (25.0-35.0); MCHC 30.5 g/dL (31.0-37.0); MCV 95.5 fL (80.0-100.0); Mean Platelet Volume 8.5; Monocytes % (A) 7 %; Neutrophils # (A) 12.6 k/uL (1.3-7.7); Neutrophils % (A) 88 %; Platelet Count 281 k/uL (150-450); RBC 4.42 m/uL (3.80-5.40); RDW 13.3 % (11.5-15.5); WBC 14.3 k/uL (3.8-10.6)
[2024-07-11 09:33] LABS: African American GFR (CKD) 13 (>60 ml/min/1.73 sqM); Anion Gap 4 mmol/L; Blood Urea Nitrogen 51 mg/dL (7-17); Calcium 8.2 mg/dL (8.4-10.2); Carbon Dioxide 36 mmol/L (22-30); Chloride 92 mmol/L (98-107); Glucose 82 mg/dL (74-99); Magnesium 1.9 mg/dL (1.6-2.3); Non-African American GFR(CKD) 11 (>60 ml/min/1.73 sqM); Potassium 4.1 mmol/L (3.5-5.1); Sodium 132 mmol/L (137-145)
[2024-07-11 10:43] LABS: Hepatitis B Surface AB- Quant 3.5 mIU/mL
--- NOTE | 2024-07-11 11:33 | P.PN ---
Subjective Patient is seen in follow-up for acute kidney injury on chronic kidney disease. Started on hemodialysis July 10, 2024. Urine output 200 cc overnight. Vital signs are stable. General: No acute distress. HEENT: Head exam is unremarkable. On nasal cannula. LUNGS: No audible rhonchi or wheezes. HEART: Rate and Rhythm are regular. ABDOMEN: Nontender. EXTREMITITES: No edema. Objective - Vital Signs Vital signs: Vital Signs Temp 97.5 F L 07/11/24 08:15 Pulse 66 07/11/24 08:15 Resp 18 07/11/24 08:15 BP 128/54 07/11/24 09:00 Pulse Ox 90 L 07/11/24 08:15 FiO2 Intake & Output 07/10/24 07/11/24 07/11/24 18:59 06:59 18:59 Intake Total 1500 Output Total 125 1700 Balance -125 -200 Weight 44.5 kg 34 kg Intake: Hemodialysis 1500 Output: Urine 125 200 Hemodialysis 500 Hemodialysis Net Amount 1000 Other: Voiding Method Indwelling Catheter Indwelling Catheter # Bowel Movements 1 1 - Labs CBC & Chem 7: 07/11/24 07:44 07/11/24 07:44 Labs: Abnormal Lab Results - Last 24 Hours (Table) 07/10/24 07/11/24 07/11/24 Range/Units 12:08 07:44 07:44 WBC 14.3 H (3.8-10.6) k/uL MCHC 30.5 L (31.0-37.0) g/dL Neutrophils # 12.6 H (1.3-7.7) k/uL Lymphocytes # 0.5 L (1.0-4.8) k/uL Sodium 132 L (137-145) mmol/L Chloride 92 L (98-107) mmol/L Carbon Dioxide 36 H (22-30) mmol/L BUN 51 H (7-17) mg/dL Creatinine 3.53 H (0.52-1.04) mg/dL Calcium 8.2 L (8.4-10.2) mg/dL Tot Complement (CH50) >103 H (42 - 95) U/mL Assessment and Plan Plan: Assessment: 1. Acute kidney injury secondary to ATN secondary to cardiorenal syndrome, hypotension and also component of contrast associated acute kidney injury. No hydronephrosis noted on left kidney. Right kidney was not visualized. Creatinine 1.3 dated July 06, 2024 and is up to 4.78 dated July 10, 2024. Oliguric. Started on hemodialysis July 10, 2024 via femoral catheter. 2. Acute hypoxic respiratory failure. 3. Chronic kidney disease stage IIIb with baseline creatinine near 1.5 secondary to nephrosclerosis. 4. Acute on chronic diastolic CHF. 5. Volume overload. Status post diuresis on admission. 6. Chronic kidney disease mineral bone disease maintained on PhosLo. Phosphorus level 8.1 dated July 09, 2024. On PhosLo. 7. New onset A-fib being followed by cardiology. Status post heparin drip. On metoprolol and Eliquis. Plan: Secondary min of hemodialysis today and third treatment tomorrow. Add IV Lasix 80 mg once daily. Avoid nephrotoxins. Continue to monitor renal function and urine output. Maintain Sharpe catheter. Strict I's and O's. Urine eosinophils negative. Follow-up serologies. Negative so far. Follow-up urine culture. Check chest x-ray in the morning.
[2024-07-11 13:04] LABS: Protein, Total 5.8 g/dL (6.2-8.2)
[2024-07-11 13:12] LABS: C-ANCA <1:20 Titer (<1:20)
--- NOTE | 2024-07-11 13:27 | P.PN ---
Subjective Progress Note Date: 07/11/24 Consult reason: congestive heart failure History of present illness: This is an 89-year-old female patient of Dr. Upton with past medical history of hypertension, SVT, chronic kidney disease stage V, moderate mitral regurgitation, severe right ICA disease. We have been asked to evaluate the patient for heart failure. Patient gives history that for the past 3 to 4 days she was having trouble getting to the bathroom due to significant shortness of breath. She states he is had a little bit of edema in her lower extremities. She denies any weight gain. She does have chest pain with exertion. She states she is always full of phlegm. She denies any previous cardiac history. Patient does not have history of atrial fibrillation. Blood pressure 145/71, heart rate in the 60s, pulse ox 98% on high flow nasal cannula 10 L. Patient has been started on IV Lasix 40 mg every 12 hours. Patient is seen today in the emergency center waiting for a bed on the cardiac stepdown unit. -EKG: Atrial fibrillation with ventricular rate of 91. -Chest x-ray: Cardiomegaly, pulmonary vascular congestion and bilateral pleural effusions -CTA of the chest revealed no evidence of pulmonary embolism. 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 Cardiomegaly with pulmonary vascular congestion and moderate bilateral pleural effusions with associated atelectasis. -Laboratory studies: WBC 11.4, hemoglobin 14, D-dimer 2.3. Sodium 137, potassium 3.6, BUN 36 and creatinine 1.31, magnesium 1.9. Troponin negative x 1. proBNP 9110. Influenza A, influenza B, RSV, COVID-19 not detected. -Home cardiac medications: Amlodipine 5 mg daily, aspirin 81 mg daily, hydralazine 25 mg daily, hydrochlorothiazide 25 mg daily, lisinopril 5 mg daily, metoprolol succinate 25 mg daily, pravastatin 40 mg at bedtime, also on levothyroxine. -Echocardiogram performed 05/03/2023 in the office revealed EF 60%, grade 2 diastolic dysfunction, mild concentric LVH. Mild mitral regurgitation, trace tricuspid regurgitation. -Event monitor 30 days performed 02/2023 revealed no atrial fibrillation, NSVT 07/08/2024 Patient seen and examined in the emergency center. Patient has converted to sinus rhythm, heart rate in the 50s. Patient has been continued on heparin drip. Blood pressure is on the low side at 95/40, pulse ox 96% on 9 L nasal cannula. Patient is also maintained on IV Lasix 40 mg every 12 hours. Repeat blood work reveals BUN 59 creatinine 2.65 and potassium 3.6. Patient denies any new complaints. She is anxious to be discharged home but due to high oxygen need this is doubtful. Nursing to start weaning oxygen down. Echocardiogram is pending. 07/09/2024 Patient is seen and examined. Patient has has had low blood pressure readings and heart rate in the 70s. Nephrology has stopped Lasix and hydralazine and decreased dose of gabapentin. Sharpe catheter has been inserted. Patient is being considered for renal replacement therapy. Repeat blood work reveals BUN 73 and creatinine 3.83. Echocardiogram reveals normal LV systolic function, biatrial enlargement. Chest x-ray reveals cardiomegaly and mild pulmonary vascular congestion. 07/10/2024 Patient seen and examined. Patient denies having chest pain, shortness of breath. She has noted to have worsening of her renal function and nephrology is planning to start patient on dialysis. Patient remains in sinus rhythm. Blood pressure 114/55, heart rate 75, pulse ox 92% on 2 L nasal cannula. BUN 91 creatinine 4.78. Sodium 131, potassium 3.9. 07/11/2024 Patient seen and examined. This morning her blood pressure was 63/41 and on the other side 62/38. 500 cc bolus was ordered and repeat blood pressure on the right was 128/54 with plan to only use the right arm for blood pressure readings. Patient had a total of 200 cc of urine out overnight. She did start hemodialysis yesterday and a repeat hemodialysis is scheduled for today. She states she is feeling sleepy. No chest pain no palpitations. She is currently in sinus rhythm. Repeat blood work reveals WBC 14.3, hemoglobin 12.9. BUN 51 creatinine 3.53. Potassium 4.1. Physical examination: Gen: This is an 89-year-old female appears to be in no acute distress VS: reviewed HEENT: Head is atraumatic, normocephalic. Pupils equal, round. Sclerae is anic teric. NECK: Supple. No JVD. LUNGS: Clear to auscultation. No wheezes or rhonchi. No intercostal retractions. HEART: Irregular rate and rhythm. Systolic murmur. ABDOMEN: Soft No tenderness. EXTREMITIES: 1+ pedal edema. No calf tenderness. NEUROLOGICAL: Patient is awake, alert and oriented x3. Assessment: New onset A-fib with controlled rate, paroxysmal, maintaining sinus rhythm Acute diastolic heart failure Acute kidney injury, patient started hemodialysis 07/10 Hypertension History of SVT Chronic kidney disease Moderate mitral regurgitation Severe right ICA disease Plan: Continue current cardiac medications: Eliquis 2.5 mg twice daily, aspirin 81 mg daily, Toprol XL 12.5 mg daily, pravastatin 40 mg at bedtime. Monitor VÍCTOR, daily weights, electrolytes and renal function Further recommendations to follow based upon clinical course Nurse practitioner note has been reviewed, I agree with documented findings and plan of care. Patient was seen and examined. Objective - Vital Signs Vital signs: Vital Signs Temp 97.9 F 07/11/24 03:40 Pulse 66 07/11/24 03:40 Resp 16 07/11/24 03:40 BP 114/56 07/11/24 03:40 Pulse Ox 90 L 07/11/24 08:14 FiO2 Intake & Output 07/10/24 07/11/24 07/11/24 18:59 06:59 18:59 Intake Total 1500 Output Total 125 1700 Balance -125 -200 Weight 44.5 kg 34 kg Intake: Hemodialysis 1500 Output: Urine 125 200 Hemodialysis 500 Hemodialysis Net Amount 1000 Other: Voiding Method Indwelling Catheter Indwelling Catheter # Bowel Movements 1 1 - Labs CBC & Chem 7: 07/11/24 07:44 07/11/24 07:44 Labs: Abnormal Lab Results - Last 24 Hours (Table) 07/10/24 07/10/24 07/10/24 Range/Units 07:58 08:40 12:08 Sodium 131 L (137-145) mmol/L Chloride 92 L (98-107) mmol/L BUN 91 H (7-17) mg/dL Creatinine 4.78 H (0.52-1.04) mg/dL Calcium 8.1 L (8.4-10.2) mg/dL Urine Appearance Cloudy H (Clear) Urine Protein 2+ H (Negative) Urine Blood Large H (Negative) Ur Leukocyte Esterase Large H (Negative) Urine RBC >182 H (0-5) /hpf Urine WBC 134 H (0-5) /hpf Urine WBC Clumps Few H (None) /hpf Urine Bacteria Rare H (None) /hpf Tot Complement (CH50) >103 H (42 - 95) U/mL
[2024-07-11] MEDS: FUROSEMIDE 10 MG/ML 10 ML VIAL IV SCH (17:55)
--- NOTE | 2024-07-12 08:06 | XR ---
EXAMINATION TYPE: XR chest 1V DATE OF EXAM: 07/12/2024 4:35 AM COMPARISON: Chest radiographs from 07/09/2024 CLINICAL INDICATION: Female, 89 years old with history of sob; TECHNIQUE: XR chest 1V Frontal view of the chest. FINDINGS: Lungs/Pleura: Prominent interstitial lung markings are seen scattered throughout the lungs. No eviden ce of focal consolidation, pneumothorax or pleural effusion. Pulmonary vascularity: Pulmonary vascular congestion. Heart/mediastinum: Cardiomediastinal silhouette is enlarged. Musculoskeletal: No acute osseous pathology. IMPRESSION: Cardiomegaly and mild pulmonary vascular congestion. Correlate with BNP for congestive heart failure. [facility], , 07/12/2024 8:04 AM
--- NOTE | 2024-07-12 09:46 | P.PN ---
Subjective Patient is seen in follow-up for acute kidney injury on chronic kidney disease. Started on hemodialysis July 10, 2024. Urine output remains low. Tolerating dialysis well. Vital signs are stable. General: No acute distress. HEENT: Head exam is unremarkable. On nasal cannula. LUNGS: No audible rhonchi or wheezes. HEART: Rate and Rhythm are regular. ABDOMEN: Nontender. EXTREMITITES: No edema. Objective - Vital Signs Vital signs: Vital Signs Temp 98.2 F 07/12/24 08:00 Pulse 53 L 07/12/24 08:00 Resp 16 07/12/24 08:00 BP 137/58 07/12/24 08:00 Pulse Ox 97 07/12/24 08:00 FiO2 Intake & Output 07/11/24 07/12/24 07/12/24 18:59 06:59 18:59 Intake Total 600 Output Total 2500 125 Balance -1900 -125 Weight 42.9 kg Intake: Oral 100 Hemodialysis 500 Output: Urine 125 Hemodialysis 1500 Hemodialysis Net Amount 1000 Other: Voiding Method Indwelling Catheter Indwelling Catheter - Labs CBC & Chem 7: 07/11/24 07:44 07/11/24 07:44 Labs: Abnormal Lab Results - Last 24 Hours (Table) 07/10/24 Range/Units 12:08 Total Protein (PEP) 5.8 L (6.2-8.2) g/dL Microbiology - Last 24 Hours (Table) 07/10/24 08:40 Urine Culture - Preliminary Urine,Voided Gram Neg Bacilli Assessment and Plan Plan: Assessment: 1. Acute kidney injury secondary to ATN secondary to cardiorenal syndrome, hypotension and also component of contrast associated acute kidney injury. No hydronephrosis noted on left kidney. Right kidney was not visualized. Creatinine 1.3 dated July 06, 2024 and is up to 4.78 dated July 10, 2024 . Oliguric. Started on hemodialysis July 10, 2024 via femoral catheter. 2. Acute hypoxic respiratory failure. On 2 L nasal cannula. 3. Chronic kidney disease stage IIIb with baseline creatinine near 1.5 secondary to nephrosclerosis. 4. Acute on chronic diastolic CHF. 5. Volume overload. Status post diuresis on admission. 6. Chronic kidney disease mineral bone disease maintained on PhosLo. Phosphorus level 8.1 dated July 09, 2024. On PhosLo. 7. New onset A-fib being followed by cardiology. Status post heparin drip. On metoprolol and Eliquis. 8. Gram-negative UTI on antibiotics. Plan: Currently seen while undergoing hemodialysis. Next treatment Sunday. Maintain IV Lasix. Avoid nephrotoxins. Continue to monitor renal function and urine output. Maintain Sharpe catheter. Strict I's and O's. Urine eosinophils negative. Follow-up serologies. Negative so far.
--- NOTE | 2024-07-12 12:02 | P.PN ---
Subjective Progress Note Date: 07/12/24 This is an 89-year-old female patient of Dr. Upton with past medical history of hypertension, SVT, chronic kidney disease stage V, moderate mitral regurgitation, severe right ICA disease. We have been asked to evaluate the patient for heart failure. Patient gives history that for the past 3 to 4 days she was having trouble getting to the bathroom due to significant shortness of breath. She states he is had a little bit of edema in her lower extremities. She denies any weight gain. She does have chest pain with exertion. She states she is always full of phlegm. She denies any previous cardiac history. Patient does not have history of atrial fibrillation. Blood pressure 145/71, heart rate in the 60s, pulse ox 98% on high flow nasal cannula 10 L. Patient has been started on IV Lasix 40 mg every 12 hours. Patient is seen today in the emergency center waiting for a bed on the cardiac stepdown unit. -EKG: Atrial fibrillation with ventricular rate of 91. -Chest x-ray: Cardiomegaly, pulmonary vascular congestion and bilateral pleural effusions -CTA of the chest revealed no evidence of pulmonary embolism. 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 Cardiomegaly with pulmonary vascular congestion and moderate bilateral pleural effusions with associated atelectasis. -Laboratory studies: WBC 11.4, hemoglobin 14, D-dimer 2.3. Sodium 137, potassium 3.6, BUN 36 and creatinine 1.31, magnesium 1.9. Troponin negative x 1. proBNP 9110. Influenza A, influenza B, RSV, COVID-19 not detected. -Home cardiac medications: Amlodipine 5 mg daily, aspirin 81 mg daily, hydralazine 25 mg daily, hydrochlorothiazide 25 mg daily, lisinopril 5 mg daily, metoprolol succinate 25 mg daily, pravastatin 40 mg at bedtime, also on le vothyroxine. -Echocardiogram performed 05/03/2023 in the office revealed EF 60%, grade 2 diastolic dysfunction, mild concentric LVH. Mild mitral regurgitation, trace tricuspid regurgitation. -Event monitor 30 days performed 02/2023 revealed no atrial fibrillation, NSVT 07/08/2024 Patient seen and examined in the emergency center. Patient has converted to sinus rhythm, heart rate in the 50s. Patient has been continued on heparin drip. Blood pressure is on the low side at 95/40, pulse ox 96% on 9 L nasal cannula. Patient is also maintained on IV Lasix 40 mg every 12 hours. Repeat blood work reveals BUN 59 creatinine 2.65 and potassium 3.6. Patient denies any new complaints. She is anxious to be discharged home but due to high oxygen need this is doubtful. Nursing to start weaning oxygen down. Echocardiogram is pending. 07/09/2024 Patient is seen and examined. Patient has has had low blood pressure readings and heart rate in the 70s. Nephrology has stopped Lasix and hydralazine and decreased dose of gabapentin. Sharpe catheter has been inserted. Patient is being considered for renal replacement therapy. Repeat blood work reveals BUN 73 and creatinine 3.83. Echocardiogram reveals normal LV systolic function, biatrial enlargement. Chest x-ray reveals cardiomegaly and mild pulmonary vascular congestion. 07/10/2024 Patient seen and examined. Patient denies having chest pain, shortness of breath. She has noted to have worsening of her renal function and nephrology is planning to start patient on dialysis. Patient remains in sinus rhythm. Blood pressure 114/55, heart rate 75, pulse ox 92% on 2 L nasal cannula. BUN 91 creatinine 4.78. Sodium 131, potassium 3.9. 07/11/2024 Patient seen and examined. This morning her blood pressure was 63/41 and on the other side 62/38. 500 cc bolus was ordered and repeat blood pressure on the right was 128/54 with plan to only use the right arm for blood pressure readings. Patient had a total of 200 cc of urine out overnight. She did start hemodialysis yesterday and a repeat hemodialysis is scheduled for today. She states she is feeling sleepy. No chest pain no palpitations. She is currently in sinus rhythm. Danni is an 89-year-old female patient of Dr. Upton with past medical history of hypertension, SVT, chronic kidney disease stage V, moderate mitral regurgitation, severe right ICA disease. We have been asked to evaluate the patient for heart failure. Patient gives history that for the past 3 to 4 days she was having trouble getting to the bathroom due to significant shortness of breath. She states he is had a little bit of edema in her lower extremities. She denies any weight gain. She does have chest pain with exertion. She states she is always full of phlegm. She denies any previous cardiac history. Patient does not have history of atrial fibrillation. Blood pressure 145/71, heart rate in the 60s, pulse ox 98% on high flow nasal cannula 10 L. Patient has been started on IV Lasix 40 mg every 12 hours. Patient is seen today in the emergency center waiting for a bed on the cardiac stepdown unit. -EKG: Atrial fibrillation with ventricular rate of 91. -Chest x-ray: Cardiomegaly, pulmonary vascular congestion and bilateral pleural effusions -CTA of the chest revealed no evidence of pulmonary embolism. 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 Cardiomegaly with pulmonary vascular congestion and moderate bilateral pleural effusions with associated atelectasis. -Laboratory studies: WBC 11.4, hemoglobin 14, D-dimer 2.3. Sodium 137, potassium 3.6, BUN 36 and creatinine 1.31, magnesium 1.9. Troponin negative x 1. proBNP 9110. Influenza A, influenza B, RSV, COVID-19 not detected. -Home cardiac medications: Amlodipine 5 mg daily, aspirin 81 mg daily, hydralazine 25 mg daily, hydrochlorothiazide 25 mg daily, lisinopril 5 mg daily, metoprolol succinate 25 mg daily, pravastatin 40 mg at bedtime, also on levothyroxine. -Echocardiogram performed 05/03/2023 in the office revealed EF 60%, grade 2 d iastolic dysfunction, mild concentric LVH. Mild mitral regurgitation, trace tricuspid regurgitation. -Event monitor 30 days performed 02/2023 revealed no atrial fibrillation, NSVT 07/08/2024 Patient seen and examined in the emergency center. Patient has converted to sinus rhythm, heart rate in the 50s. Patient has been continued on heparin drip. Blood pressure is on the low side at 95/40, pulse ox 96% on 9 L nasal cannula. Patient is also maintained on IV Lasix 40 mg every 12 hours. Repeat blood work reveals BUN 59 creatinine 2.65 and potassium 3.6. Patient denies any new complaints. She is anxious to be discharged home but due to high oxygen need this is doubtful. Nursing to start weaning oxygen down. Echocardiogram is pending. 07/09/2024 Patient is seen and examined. Patient has has had low blood pressure readings and heart rate in the 70s. Nephrology has stopped Lasix and hydralazine and decreased dose of gabapentin. Sharpe catheter has been inserted. Patient is being considered for renal replacement therapy. Repeat blood work reveals BUN 73 and creatinine 3.83. Echocardiogram reveals normal LV systolic function, biatrial enlargement. Chest x-ray reveals cardiomegaly and mild pulmonary vascular congestion. 07/10/2024 Patient seen and examined. Patient denies having chest pain, shortness of breath. She has noted to have worsening of her renal function and nephrology is planning to start patient on dialysis. Patient remains in sinus rhythm. Blood pressure 114/55, heart rate 75, pulse ox 92% on 2 L nasal cannula. BUN 91 creatinine 4.78. Sodium 131, potassium 3.9. 07/11/2024 Patient seen and examined. This morning her blood pressure was 63/41 and on the other side 62/38. 500 cc bolus was ordered and repeat blood pressure on the right was 128/54 with plan to only use the right arm for blood pressure readings. Patient had a total of 200 cc of urine out overnight. She did start hemodialysis yesterday and a repeat hemodialysis is scheduled for today. She states she is feeling sleepy. No chest pain no palpitations. She is currently in sinus rhythm. Repeat blood work reveals WBC 14.3, hemoglobin 12.9. BUN 51 creatinine 3.53. Potassium 4.1. 07/12/2024 Patient had hemodialysis today. Post to dialysis she became nauseous. Hemoglobin yesterday 12.9, creatinine 3.5 yesterday. BP 158/64, heart rate 87, Physical examination: Gen: This is an 89-year-old female appears to be in no acute distress VS: reviewed HEENT: Head is atraumatic, normocephalic. Pupils equal, round. Sclerae is anicteric. NECK: Supple. No JVD. LUNGS: Clear to auscultation. No wheezes or rhonchi. No intercostal retractions. HEART: Irregular rate and rhythm. Systolic murmur. ABDOMEN: Soft No tenderness. EXTREMITIES: 1+ pedal edema. No calf tenderness. NEUROLOGICAL: Patient is awake, alert and oriented x3. Assessment: New onset A-fib with controlled rate, paroxysmal, maintaining sinus rhythm Acute diastolic heart failure Acute kidney injury, patient started hemodialysis 07/10 Hypertension History of SVT Chronic kidney disease Moderate mitral regurgitation Severe right ICA disease Plan: Continue current cardiac medications: Eliquis 2.5 mg twice daily, aspirin 81 mg daily, Increase Toprol-XL from 12.5 mg daily to daily as heart rate is better and is averaging around 80 bpm while resting. Continue pravastatin 40 mg at bedtime. Monitor VÍCTOR, daily weights, electrolytes and renal function Further recommendations to follow based upon clinical courseeat blood work reveals WBC 14.3, hemoglobin 12.9. BUN 51 creatinine 3.53. Potassium 4.1. 07/12/2024 Patient had hemodialysis today. Post to dialysis she became nauseous. Hemoglobin yesterday 12.9, creatinine 3.5 yesterday. BP 158/64, heart rate 87, Physical examination: Gen: This is an 89-year-old female appears to be in no acute distress VS: reviewed HEENT: Head is atraumatic, normocephalic. Pupils equal, round. Sclerae is anicteric. NECK: Supple. No JVD. LUNGS: Clear to auscultation. No wheezes or rhonchi. No intercostal retractions. HEART: Irregular rate and rhythm. Systolic murmur. ABDOMEN: Soft No tenderness. EXTREMITIES: 1+ pedal edema. No calf tenderness. NEUROLOGICAL: Patient is awake, alert and oriented x3. Assessment: New onset A-fib with controlled rate, paroxysmal, maintaining sinus rhythm Acute diastolic heart failure Acute kidney injury, patient started hemodialysis 07/10 Hypertension History of SVT Chronic kidney disease Moderate mitral regurgitation Severe right ICA disease Plan: Continue current cardiac medications: Eliquis 2.5 mg twice daily, aspirin 81 mg daily, Increase Toprol-XL from 12.5 mg daily to daily as heart rate is better and is averaging around 80 bpm while resting. Continue pravastatin 40 mg at bedtime. Monitor VÍCTOR, daily weights, electrolytes and renal function Further recommendations to follow based upon clinical course Objective - Vital Signs Vital signs: Vital Signs Temp 97.2 F L 07/12/24 11:46 Pulse 87 07/12/24 11:46 Resp 16 07/12/24 11:46 BP 158/64 07/12/24 11:46 Pulse Ox 98 07/12/24 11:46 FiO2 Intake & Output 07/11/24 07/12/24 07/12/24 18:59 06:59 18:59 Intake Total 600 Output Total 2500 125 Balance -1900 -125 Weight 42.9 kg Intake: Oral 100 Hemodialysis 500 Output: Urine 125 Hemodialysis 1500 Hemodialysis Net Amount 1000 Other: Voiding Method Indwelling Catheter Indwelling Catheter - Labs CBC & Chem 7: 07/11/24 07:44 07/11/24 07:44 Labs: Abnormal Lab Results - Last 24 Hours (Table) 07/10/24 Range/Units 12:08 Total Protein (PEP) 5.8 L (6.2-8.2) g/dL Microbiology - Last 24 Hours (Table) 07/10/24 08:40 Urine Culture - Final Urine,Voided Escherichia coli
--- NOTE | 2024-07-12 13:07 | P.PN ---
Subjective Progress Note Date: 07/12/24 This is an 89-year-old female with past medical history significant for COPD, chronic respiratory failure on home O2.5 L nasal cannula prn, dyslipidemia, hypertension, moderate mitral regurgitation, SVT, TIA , possible previous carotid disease-patient does not recall ,hypothyroidism, chronic kidney disease stage 4, scoliosis, chronic back pain multiple other medical issues, presented to the ER with significant shortness of breath. Patient reports she has been having progressive shortness of breath over the last 3 days, affecting her performing ADLs,, walking to the bathroom. Reports increased coughing up thick phlegm. Denies any fever chills or sweats. Denies any chest pain, palpitations. On admission hypertensive with systolic blood pressures in the high 170s, EKG reported atrial fibrillation, ventricular rate controlled, O2 sat of 82% on room air, placed on 3 L nasal cannula O2 sat increased to 90%, eventually placed on 15 L nonrebreather, currently requiring 10 L high flow nasal cannula. 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 Cardiomegaly with pulm onary vascular congestion and moderate bilateral pleural effusions with associated atelectasis. proBNP 9110. afebrile, WBC 11.8, hemoglobin 13.9, platelets 289. Bicarb 31, BUN 36, creatinine 1.31-baseline creat appears to be 1.3-1.5. Sodium 137, potassium 3.6, magnesium 1.9. Albumin 3.4. All studies negative. Diuresing with Lasix IV push initiated in the ER. Anticoagulated on heparin drip. Echo pending. 07/08/2024 anticoagulated on heparin drip, converted to sinus rhythm. Blood pressures soft. Diuresing on Lasix IV push. Worsened renal function, bicarb 34, BUN 59, creatinine 2.65. Currently requiring 6 L high flow nasal cannula to maintain O2 sats in the 90s. Echo reported normal LV function, biatrial enlargement. Vascular surgery consult in place regarding CT findings of left subclavian occlusion-remains asymptomatic. 07/09/2024 hypotensive, renal function worsening, complains of nausea, vomiting and diarrhea. KUB ordered .chest x-ray reporting cardiomegaly and mild pulmonary vascular congestion. Viral studies negative. Nephrology discussing renal replacement. 07/10/2024 Reglan added to med regimen yesterday along with diet decreased to clear liquids,nausea vomiting and diarrhea subsided. Denies abdominal pain. Received Lasix last night with minimal urine output, reported overnight. Renal function continues to worsen, bicarb 30, BUN 91, creatinine 4.78. Afebrile, urine extremely cloudy. UA negative nitrates, large leukocytes, high urine WBCs rare bacteria, ceftriaxone initiated. 07/11/2024 temporary dialysis catheter placed yesterday with initiation of hemodialysis. Tolerated well, reports fatigue. Scheduled for hemodialysis again today. Labs pending. 07/12. Patient seen and examined. Blood work this morning showed WBC 14.3, hemoglobin 12.9, platelet count 281, sodium 132, potassium 4.1, BUN 51, creatinine 3.53. Still states she feels tired and lethargic. REVIEW OF SYSTEMS: CONSTITUTIONAL: No fever, no malaise,. CARDIOVASCULAR: No chest pain, no palpitations, no syncope. PULMONARY: No shortness of breath, no cough, GASTROINTESTINAL: No diarrhea, no nausea, no vomiting, no abdominal pain. NEUROLOGICAL: No headaches, no weakness, PHYSICAL EXAMINATION: GENERAL: The patient is alert and oriented x3, frail, ill looking HEENT: Pupils are round and equally reacting to light. EOMI. No scleral icterus. No conjunctival pallor. Normocephalic, atraumatic. No pharyngeal erythema. No thyromegaly. CARDIOVASCULAR: S1 and S2 present. No murmurs, rubs, or gallops. PULMONARY: Diminished breath sounds at bases bilaterally, no wheezing or crackles. ABDOMEN: Soft, nontender, nondistended, normoactive bowel sounds. No palpable organomegaly. MUSCULOSKELETAL: No joint swelling or deformity. EXTREMITIES: No cyanosis, clubbing, or pedal edema. NEUROLOGICAL: Gross neurological examination did not reveal any focal deficits. SKIN: No rashes. 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 Acute on chronic renal failure, stage IIIb, baseline 1.5. Acute secondary to ATN related to cardiorenal syndrome, hypotension, contrast. Temporary HD cathet er placed 07/10/2024 with initiation of HD. Moderate mitral regurgitation Severe pulmonary hypertension COPD Hyperlipidemia History of TIA Possible previous carotid disease, patient does not recall Left breast cancer with lumpectomy and radiation Hypothyroidism Chronic back pain and bilateral shoulder pain Bilateral feet neuropathy. Nondiabetic Osteopenia Former nicotine dependence Moderate protein calorie malnutrition, BMI 19 Monitor vital signs Monitor CBC Monitor CMP Continue telemetry monitoring Encourage use of incentive spirometer Continue IV Rocephin Continue Eliquis Continue Synthroid Continue IV Lasix Nephrology following Cardiology following Consulted Labs and medication were reviewed.. Continue same treatment. Continue with symptomatic treatment. Resume home medication. Monitor labs and vitals. DVT and GI prophylaxis. Further recommendations as per clinical course of the patient Dictation was produced using [employer] dictation software. please excuse any grammatical, word or spelling errors. Objective - Vital Signs Vital signs: Vital Signs Temp 98.2 F 07/12/24 08:00 Pulse 53 L 07/12/24 08:00 Resp 16 07/12/24 08:00 BP 137/58 07/12/24 08:00 Pulse Ox 97 07/12/24 08:00 FiO2 Intake & Output 07/11/24 07/12/24 07/12/24 18:59 06:59 18:59 Intake Total 600 Output Total 2500 125 Balance -1900 -125 Weight 42.9 kg Intake: Oral 100 Hemodialysis 500 Output: Urine 125 Hemodialysis 1500 Hemodialysis Net Amount 1000 Other: Voiding Method Indwelling Catheter Indwelling Catheter - Labs CBC & Chem 7: 07/11/24 07:44 07/11/24 07:44 Labs: Abnormal Lab Results - Last 24 Hours (Table) 07/10/24 07/11/24 07/11/24 Range/Units 12:08 07:44 07:44 WBC 14.3 H (3.8-10.6) k/uL MCHC 30.5 L (31.0-37.0) g/dL Neutrophils # 12.6 H (1.3-7.7) k/uL Lymphocytes # 0.5 L (1.0-4.8) k/uL Sodium 132 L (137-145) mmol/L Chloride 92 L (98-107) mmol/L Carbon Dioxide 36 H (22-30) mmol/L BUN 51 H (7-17) mg/dL Creatinine 3.53 H (0.52-1.04) mg/dL Calcium 8.2 L (8.4-10.2) mg/dL Total Protein (PEP) 5.8 L (6.2-8.2) g/dL Microbiology - Last 24 Hours (Table) 07/10/24 08:40 Urine Culture - Preliminary Urine,Voided Gram Neg Bacilli
[2024-07-13 00:29] LABS: HCT 36.1 % (34.0-46.0); HGB 11.6 gm/dL (11.4-16.0); Hypochromasia Moderate; MCH 30.5 pg (25.0-35.0); MCV 95.3 fL (80.0-100.0); Platelet Count 224 k/uL (150-450); RBC 3.79 m/uL (3.80-5.40); RDW 13.2 % (11.5-15.5); WBC 12.9 k/uL (3.8-10.6)
[2024-07-13 07:28] LABS: HCT 35.7 % (34.0-46.0); HGB 11.2 gm/dL (11.4-16.0); Hypochromasia Marked; MCH 30.2 pg (25.0-35.0); MCHC 31.4 g/dL (31.0-37.0); MCV 96.2 fL (80.0-100.0); Mean Platelet Volume 9.1; Platelet Count 222 k/uL (150-450); RBC 3.71 m/uL (3.80-5.40); RDW 13.3 % (11.5-15.5); WBC 12.7 k/uL (3.8-10.6)
[2024-07-13 07:41] LABS: African American GFR (CKD) 21 (>60 ml/min/1.73 sqM); Anion Gap 9 mmol/L; Blood Urea Nitrogen 83 mg/dL (7-17); Calcium 9.1 mg/dL (8.4-10.2); Carbon Dioxide 25 mmol/L (22-30); Chloride 98 mmol/L (98-107); Glucose 97 mg/dL (74-99); Non-African American GFR(CKD) 18 (>60 ml/min/1.73 sqM); Potassium 4.4 mmol/L (3.5-5.1); Sodium 132 mmol/L (137-145)
--- NOTE | 2024-07-13 07:55 | P.CONS ---
History of Present Illness - Reason for Consult Consult date: 07/12/24 Complicated UTI Requesting physician: Scot Parr - Chief Complaint Shortness of breath and difficulty urination x days - History of Present Illness Patient is a 89-year-old female with a past medical history significant for COPD hypertension hyperlipidemia presenting to the hospital about a week ago for evaluation of increasing shortness of breath symptom has be en getting worse for the last few days before the patient was brought into the hospital patient subsequently has been evaluated by cardiology vascular nephrology team and the patient noticed to have a worsening of the kidney function for the patient did have dialysis catheter placement patient on pr esentation to the hospital was afebrile and no fever have been called subsequently patient did have difficulty urination and some suprapubic discomfort also have elevated white count of 11.8 which went up to 16.6 and is currently down to 12.9 patient did have a 2 UAs on 07/09/2024 as well as 024 that has been significantly positive and urine culture have been positive for E. coli that is sensitive to ceftriaxone did have abdominal bladder ultrasound with evidence of nephrolithiasis infectious disease was consulted today concerning for complicated UTI patient making some improvement in her symptoms with antibiotic therapy Review of Systems Positive point and negatives has been mentioned in the HPI, complete review of systems was performed and all other systems are negative Past Medical History Past Medical History: COPD, Hyperlipidemia, Hypertension Additional Past Medical History / Comment(s): Chronic respiratory failure with home O2 at 2.5L/NC ATC, one kidney nonfunctioning and "they are watching my other kidney", TIA, 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 History of Any Multi-Drug Resistant Organisms: None Reported Past Surgical History: Orthopedic Surgery Additional Past Surgical History / Comment(s): R caratid endartectomy, L breast lumpectomy, bilateral cataract removals with lens implants, colonoscopy. Past Anesthesia/Blood Transfusion Reactions: No Reported Reaction Past Psychological History: No Psychological Hx Reported Additional Psychological History / Comment(s): Pt resides with her [facility]. She has home oxygen. She uses no assistive device to ambulate. She drives. Smoking Status: Former smoker Past Alcohol Use History: None Reported Additional Past Alcohol Use History / Comment(s): Pt started smoking in 1945 and quit in 1992. Past Drug Use History: None Reported - Past Family History Father History Unknown: Yes Family Medical History: Cancer, Coronary Artery Disease (CAD), Myocardial Infarction ([place]) Additional Family Medical History / Comment(s): Father had lymphoma. He lived to be 72 yrs old. Mother History Unknown: Yes Family Medical History: Diabetes Mellitus Additional Family Medical History / Comment(s): Mother lived to be 82 yrs old. Medications and Allergies Home Medications Medication Instructions Recorded Confirmed Type Aspirin EC [Ecotrin Low Dose] 81 mg PO DAILY 10/04/18 07/06/24 History traMADol HCL [Ultram] 25 mg PO BID 10/04/18 07/06/24 History Metoprolol Succinate [Toprol XL] 25 mg PO DAILY 01/07/21 07/06/24 History hydroCHLOROthiazide 25 mg PO DAILY 01/07/21 07/06/24 History lisinopriL [Zestril] 5 mg PO DAILY 01/07/21 07/06/24 History Calcium Acetate [Phoslo] 667 mg PO DAILY 05/26/24 07/06/24 History Cholecalciferol (Vitamin D3) 50 mcg PO DAILY 05/26/24 07/06/24 History [Vitamin D3 (50 Mcg = 2000 Iu)] Donepezil [Aricept] 5 mg PO HS 05/26/24 07/06/24 History Gabapentin [Neurontin] 400 mg PO BID 05/26/24 07/06/24 History Levothyroxine Sodium [Levoxyl] 75 mcg PO DAILY 05/26/24 07/06/24 History Multivit-Min/Folic Acid/Biotin 133.3 mcg PO DAILY 05/26/24 07/06/24 History [Hair, Skin and Nails Softgel] Pravastatin Sodium [Pravachol] 40 mg PO HS 05/26/24 07/06/24 History amLODIPine [Norvasc] 5 mg PO DAILY 05/26/24 07/06/24 History hydrALAZINE HCL [Apresoline] 25 mg PO DAILY 05/26/24 07/06/24 History Allergies Allergy/AdvReac Type Severity Reaction Status Date / Time No Known Allergies Allergy Verified 07/06/24 13:40 Physical Exam Vitals: Vital Signs Temp Pulse Resp BP BP Pulse Ox 07/12/24 14:00 87 18 07/12/24 12:55 98.2 F 18 154/78 07/12/24 11:46 97.2 F L 87 16 158/64 98 07/12/24 08:00 98.2 F 87 18 137/58 97 07/12/24 04:00 98 F 73 15 147/76 97 07/11/24 23:58 97.7 F 69 16 153/58 98 07/11/24 20:00 98.2 F 83 18 141/52 92 L 07/11/24 16:53 97.4 F L 67 18 153/69 Intake and Output 07/12/24 07/12/24 07/12/24 06:59 14:59 22:59 Intake Total 2020 Output Total 125 1900 Balance -125 120 Intake: Oral 120 Hemodialysis 1900 Output: Urine 125 Hemodialysis 400 Hemodialysis Net Amount 1500 Other: Voiding Method Indwelling Catheter Indwelling Catheter Weight 42.9 kg GENERAL DESCRIPTION: Elderly female lying in bed, no distress. No tachypnea or accessory muscle of respiration use. HEENT: Shows Pallor , no scleral icterus. Oral mucous membrane is dry. NECK: Trachea central, no thyromegaly. LUNGS: Unlabored breathing. Clear to auscultation anteriorly. No wheeze or crackle. HEART: S1, S2, regular rate and rhythm. No loud murmur ABDOMEN: Soft, no tenderness , EXTREMITIES: No edema of feet. SKIN: No rash, no masses palpable. NEUROLOGICAL: The patient is awake, mood and affect normal. Results CBC & Chem 7: 07/13/24 20:23 07/13/24 20:23 Labs: Microbiology - Last 24 Hours (Table) 07/10/24 08:40 Urine Culture - Final Urine,Voided Escherichia coli Assessment and Plan (1) Leukocytosis Current Visit: Yes Status: Acute Code(s): D72.829 - ELEVATED WHITE BLOOD CELL COUNT, UNSPECIFIED SNOMED Code(s): 547341303 (2) UTI (urinary tract infection) Current Visit: Yes Status: Acute Code(s): N39.0 - URINARY TRACT INFECTION, SITE NOT SPECIFIED SNOMED Code(s): 45509756 Plan: 1patient did have difficulty urination and some suprapubic discomfort positive UA elevated white count with urine culture positive for E. coli that is sensitive to ceftriaxone concerning for a component of symptomatic UTI, ultras ound shows nephrolithiasis but no evidence of any hydronephrosis 2-patient will be continued on Rocephin 1 g daily and white count will monitor closely Family at the bedside questions answered We will follow on clinical condition and cultures to further adjust medication if needed Thank you for this consultation we will follow the patient along with you Dictation was produced using [employer] dictation software. please excuse any grammatical, word or spelling errors. Time with Patient: Greater than 30
[2024-07-13] MEDS: METOPROLOL SUCCINATE (ER) 25 MG TAB.ER.24H PO SCH (08:56)
[2024-07-13] MEDS: PANTOPRAZOLE 40 MG/10 ML VIAL IVP SCH ×2 (09:06→21:49)
--- NOTE | 2024-07-13 09:33 | P.PN ---
Subjective Patient is seen in follow-up for acute kidney injury on chronic kidney disease. Started on hemodialysis July 10, 2024. Urine output remains low. Tolerated 1.5 L ultrafiltration yesterday. Vital signs are stable. General: No acute distress. HEENT: Head exam is unremarkable. On nasal cannula. LUNGS: No audible rhonchi or wheezes. HEART: Rate and Rhythm are regular. ABDOMEN: Nontender. EXTREMITITES: No edema. Objective - Vital Signs Vital signs: Vital Signs Temp 98.3 F 07/13/24 07:44 Pulse 74 07/13/24 09:20 Resp 16 07/13/24 09:20 BP 127/59 07/13/24 07:44 Pulse Ox 98 07/13/24 07:44 FiO2 Intake & Output 07/12/24 07/13/24 07/13/24 18:59 06:59 18:59 Intake Total 2020 Output Total 2000 Balance 20 Weight 40.6 kg Intake: Oral 120 Hemodialysis 1900 Output: Urine 100 Hemodialysis 400 Hemodialysis Net Amount 1500 Other: Voiding Method Indwelling Catheter Indwelling Catheter Indwelling Catheter # Bowel Movements 1 - Labs CBC & Chem 7: 07/13/24 06:38 07/13/24 06:38 Labs: Abnormal Lab Results - Last 24 Hours (Table) 07/12/24 07/12/24 07/13/24 Range/Units 23:06 23:42 06:38 WBC 12.9 H (3.8-10.6) k/uL RBC 3.79 L (3.80-5.40) m/uL Hgb (11.4-16.0) gm/dL Sodium 132 L (137-145) mmol/L BUN 83 H (7-17) mg/dL Creatinine 2.31 H (0.52-1.04) mg/dL Stool Occult Blood Positive H (Negative) 07/13/24 Range/Units 06:38 WBC 12.7 H (3.8-10.6) k/uL RBC 3.71 L (3.80-5.40) m/uL Hgb 11.2 L (11.4-16.0) gm/dL Sodium (137-145) mmol/L BUN (7-17) mg/dL Creatinine (0.52-1.04) mg/dL Stool Occult Blood (Negative) Microbiology - Last 24 Hours (Table) 07/10/24 08:40 Urine Culture - Final Urine,Voided Escherichia coli Assessment and Plan Plan: Assessment: 1. Acute kidney injury secondary to ATN secondary to cardiorenal syndrome, hypotension and also component of contrast associated acute kidney injury. No hydronephrosis noted on left kidney. Right kidney was not visualized. Creatinine 1.3 dated July 06, 2024 and is up to 4.78 dated July 10, 2024. Oliguric. Started on hemodialysis July 10, 2024 via femoral catheter. 2. Acute hypoxic respiratory failure. On 3 L nasal cannula. 3. Chronic kidney disease stage IIIb with baseline creatinine near 1.5 secondary to nephrosclerosis. 4. Acute on chronic diastolic CHF. 5. Volume overload. Status post diuresis on admission. 6. Chronic kidney disease mineral bone disease maintained on PhosLo. Phosphorus level 8.1 dated July 09, 2024. On PhosLo. 7. New onset A-fib being followed by cardiology. Status post heparin drip. On metoprolol and Eliquis. 8. E. coli UTI on antibiotics. Plan: Hemodialysis tomorrow. Maintain IV Lasix. Avoid nephrotoxins. Continue to monitor renal function and urine output. Maintain Sharpe catheter. Strict I's and O's. Urine eosinophils negative. Follow-up serologies. Negative so far. Outpatient dialysis being set up by case checker. She will be maintained on Sunday schedule outpatient. Will need permacath placed this week and temporary dialysis catheter removed.
--- NOTE | 2024-07-13 12:50 | P.PN ---
Subjective Progress Note Date: 07/13/24 This is an 89-year-old female with past medical history significant for COPD, chronic respiratory failure on home O2.5 L nasal cannula prn, dyslipidemia, hypertension, moderate mitral regurgitation, SVT, TIA , possible previous carotid disease-patient does not recall ,hypothyroidism, chronic kidney disease stage 4, scoliosis, chronic back pain multiple other medical issues, presented to the ER with significant shortness of breath. Patient reports she has been having progressive shortness of breath over the last 3 days, affecting her performing ADLs,, walking to the bathroom. Reports increased coughing up thick phlegm. Denies any fever chills or sweats. Denies any chest pain, palpitations. On admission hypertensive with systolic blood pressures in the high 170s, EKG reported atrial fibrillation, ventricular rate controlled, O2 sat of 82% on room air, placed on 3 L nasal cannula O2 sat increased to 90%, eventually placed on 15 L nonrebreather, currently requiring 10 L high flow nasal cannula. 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 Cardiomegaly with pulm onary vascular congestion and moderate bilateral pleural effusions with associated atelectasis. proBNP 9110. afebrile, WBC 11.8, hemoglobin 13.9, platelets 289. Bicarb 31, BUN 36, creatinine 1.31-baseline creat appears to be 1.3-1.5. Sodium 137, potassium 3.6, magnesium 1.9. Albumin 3.4. All studies negative. Diuresing with Lasix IV push initiated in the ER. Anticoagulated on heparin drip. Echo pending. 07/08/2024 anticoagulated on heparin drip, converted to sinus rhythm. Blood pressures soft. Diuresing on Lasix IV push. Worsened renal function, bicarb 34, BUN 59, creatinine 2.65. Currently requiring 6 L high flow nasal cannula to maintain O2 sats in the 90s. Echo reported normal LV function, biatrial enlargement. Vascular surgery consult in place regarding CT findings of left subclavian occlusion-remains asymptomatic. 07/09/2024 hypotensive, renal function worsening, complains of nausea, vomiting and diarrhea. KUB ordered .chest x-ray reporting cardiomegaly and mild pulmonary vascular congestion. Viral studies negative. Nephrology discussing renal replacement. 07/10/2024 Reglan added to med regimen yesterday along with diet decreased to clear liquids,nausea vomiting and diarrhea subsided. Denies abdominal pain. Received Lasix last night with minimal urine output, reported overnight. Renal function continues to worsen, bicarb 30, BUN 91, creatinine 4.78. Afebrile, urine extremely cloudy. UA negative nitrates, large leukocytes, high urine WBCs rare bacteria, ceftriaxone initiated. 07/11/2024 temporary dialysis catheter placed yesterday with initiation of hemodialysis. Tolerated well, reports fatigue. Scheduled for hemodialysis again today. Labs pending. 07/12. Patient seen and examined. Blood work this morning showed WBC 14.3, hemoglobin 12.9, platelet count 281, sodium 132, potassium 4.1, BUN 51, creatinine 3.53. Still states she feels tired and lethargic. 07/13. Patient seen and examined. Blood work done showed WBC 12.7, hemoglobin 11.2, sodium 132, potassium 4.4, BUN 83, creatinine 2.31. Patient had dark- colored stool overnight and this morning. Patient went to A-fib this morning as well, Eliquis has been discontinued. FOBT was positive we will get surgery evaluation REVIEW OF SYSTEMS: CONSTITUTIONAL: No fever, no malaise,. CARDIOVASCULAR: No chest pain, no palpitations, no syncope. PULMONARY: No shortness of breath, no cough, GASTROINTESTINAL: No diarrhea, no nausea, no vomiting, no abdominal pain. NEUROLOGICAL: No headaches, no weakness, PHYSICAL EXAMINATION: GENERAL: The patient is alert and oriented x3, frail, ill looking HEENT: Pupils are round and equally reacting to light. EOMI. No scleral icterus. No conjunctival pallor. Normocephalic, atraumatic. No pharyngeal erythema. No thyromegaly. CARDIOVASCULAR: S1 and S2 present. No murmurs, rubs, or gallops. PULMONARY: Diminished breath sounds at bases bilaterally, no wheezing or crackles. ABDOMEN: Soft, nontender, nondistended, normoactive bowel sounds. No palpable organomegaly. MUSCULOSKELETAL: No joint swelling or deformity. EXTREMITIES: No cyanosis, clubbing, or pedal edema. NEUROLOGICAL: Gross neurological examination did not reveal any focal deficits. SKIN: No rashes. 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 Acute on chronic renal failure, stage IIIb, baseline 1.5. Acute secondary to ATN related to cardiorenal syndrome, hypotension, contrast. Temporary HD catheter placed 07/10/2024 with initiation of HD. Moderate mitral regurgitation Severe pulmonary hypertension COPD Hyperlipidemia History of TIA Possible previous carotid disease, patient does not recall Left breast cancer with lumpectomy and radiation Hypothyroidism Chronic back pain and bilateral shoulder pain Bilateral feet neuropathy. Nondiabetic Osteopenia Former nicotine dependence Moderate protein calorie malnutrition, BMI 19 Monitor vital signs Monitor CBC Monitor CMP Continue telemetry monitoring Encourage use of incentive spirometer Continue IV Rocephin Hold Eliquis FOBT positive Continue Synthroid Continue IV Lasix Continue Protonix 40-mg twice a day Nephrology following Cardiology following ID following General Surgery consulted, no GI coverage at this time Labs and medication were reviewed.. Continue same treatment. Continue with symptomatic treatment. Resume home medication. Monitor labs and vitals. DVT and GI prophylaxis. Further recommendations as per clinical course of the patient Dictation was produced using [employer] dictation software. please excuse any grammatical, word or spelling errors. Objective - Vital Signs Vital signs: Vital Signs Temp 98.3 F 07/13/24 07:44 Pulse 74 07/13/24 07:44 Resp 16 07/13/24 07:44 BP 127/59 07/13/24 07:44 Pulse Ox 98 07/13/24 07:44 FiO2 Intake & Output 07/12/24 07/13/24 07/13/24 18:59 06:59 18:59 Intake Total 2019 Output Total 1999 Balance 20 Weight 40.6 kg Intake: Oral 120 Hemodialysis 1900 Output: Urine 100 Hemodialysis 400 Hemodialysis Net Amount 1500 Other: Voiding Method Indwelling Catheter Indwelling Catheter # Bowel Movements 1 - Labs CBC & Chem 7: 07/13/24 06:38 07/13/24 06:38 Labs: Abnormal Lab Results - Last 24 Hours (Table) 07/12/24 07/12/24 07/13/24 Range/Units 23:06 23:42 06:38 WBC 12.9 H (3.8-10.6) k/uL RBC 3.79 L (3.80-5.40) m/uL Hgb (11.4-16.0) gm/dL Sodium 132 L (137-145) mmol/L BUN 83 H (7-17) mg/dL Creatinine 2.31 H (0.52-1.04) mg/dL Stool Occult Blood Positive H (Negative) 07/13/24 Range/Units 06:38 WBC 12.7 H (3.8-10.6) k/uL RBC 3.71 L (3.80-5.40) m/uL Hgb 11.2 L (11.4-16.0) gm/dL Sodium (137-145) mmol/L BUN (7-17) mg/dL Creatinine (0.52-1.04) mg/dL Stool Occult Blood (Negative) Microbiology - Last 24 Hours (Table) 07/10/24 08:40 Urine Culture - Final Urine,Voided Escherichia coli
--- NOTE | 2024-07-13 15:56 | P.GSCN ---
History of Present Illness Consult date: 07/13/24 History of present illness: CHIEF COMPLAINT: GI bleed HISTORY OF PRESENT ILLNESS: The patient is a 89-year-old female admitted for congestive heart failure. During admission, patient noted to have black tarry stools. She was on blood thinners. She is resting in bed. Most history is obtained via chart including nurse. No recent colonoscopy noted within charting. Family is at bedside which is her daughter gives additional history that her mother has not had recent colonoscopy. During hospitalization, patient had been started on hemodialysis due to acute renal failure which is now improving. PAST MEDICAL HISTORY: See list and reviewed PAST SURGICAL HISTORY: See list and reviewed MEDICATIONS: See list and reviewed ALLERGIES: See list and reviewed SOCIAL HISTORY: See list and reviewed FAMILY HISTORY: See list and reviewed REVIEW OF ORGAN SYSTEMS: CONSTITUTIONAL: No fevers or chills. Underweight, BMI 17.5 EYES: Denies any trouble with vision. No glasses. HEENT: No difficulties with hearing. No nosebleeds. No difficulty swallowing. RESPIRATORY: Has chronic obstructive pulmonary disease. CARDIOVASCULAR: Hypertensive heart disease. Hyperlipidemia. GASTROINTESTINAL: As above, recent bloody stools, melanotic. GENITOURINARY: Denies any blood in urine or increased urinary frequency. NEUROLOGICAL: History of transient ischemic attack. Has neuropathy. MUSCULOSKELETAL: Has chronic back pain, stiffness or joint arthritis. SKIN: No current skin cancer. No rash. PSYCHIATRIC: Dementia. ENDOCRINE: Hypothyroidism. HEME/LYMPHATIC: Denies any lumps and bumps around the neck. No recent deep venous thrombosis. ALLERGY/IMMUNOLOGY: No immunoglobulin therapy. No immune deficiencies. BREAST: History of breast cancer. PHYSICAL EXAM: VITALS: Reviewed CONSTITUTIONAL: Well developed and in no acute distress. EYES: Conjuctivae without sclera icterus. Extraocular movements grossly intact. HEAD, EARS, NOSE, THROAT: Moist buccal mucosa. Head is atraumatic, normocephalic. Hears conversational speech. No nasal drainage. NECK: Supple. No JV distention. No thyroidomegaly. RESPIRATORY: Non-labored respirations and equal bilateral excursions. No gross wheezes. CARDIOVASCULAR: Palpable 2+ radial pulses. ABDOMEN: Nontender. LYMPH: No neck lymphadenopathy. MUSCULOSKELETAL: No clubbing cyanosis or edema SKIN: Warm and well perfused with good skin turgor. NEUROLOGIC: Cranial nerves II through XII grossly intact. No focal or l ateralizing signs. PSYCH: Somnolent. CLINCAL LABS: Reviewed. Hemoglobin down 14.0-11.2. Creatinine during hospitalization over 4.0 now less than 2.5. Positive stool occult. IMAGING: Independently reviewed. Chest x-ray demonstrates no acute findings or pneumothorax. This my independent interpretation. ECHO: Demonstrates biatrial enlargement. Normal left ventricular function. RECORDS: previous old records reviewed with prior hospitalizations for chronic struct of pulmonary disease. ASSESSMENT: 1. Acute GI bleed 2. Acute renal failure 3. Underweight, BMI 17.5 PLAN: 1. Per discussion with cardiology, patient is cleared to undergo both upper and lower endoscopy. Due to her recent acute renal failure, will proceed with upper endoscopy first for any significant pathology. 2. If upper endoscopy is unremarkable, then we we will need lower endoscopy for clearance per nephrology 3. Patient is elevated risk due to generalized debility and renal failure ADVANCE DIRECTIVE: CODE STATUS in chart Thank you for this kind consultation. 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 History of Any Multi-Drug Resistant Organisms: None Reported Past Surgical History: Orthopedic Surgery Additional Past Surgical History / Comment(s): R caratid endartectomy, L breast lumpectomy, bilateral cataract removals with lens implants, colonoscopy. Past Anesthesia/Blood Transfusion Reactions: No Reported Reaction Past Psychological History: No Psychological Hx Reported Additional Psychological History / Comment(s): Pt resides with her [facility]. She has home oxygen. She uses no assistive device to ambulate. She drives. Smoking Status: Former smoker Past Alcohol Use History: None Reported Additional Past Alcohol Use History / Comment(s): Pt started smoking in 1945 and quit in 1992. Past Drug Use History: None Reported - Past Family History Father History Unknown: Yes Family Medical History: Cancer, Coronary Artery Disease (CAD), Myocardial Infarction (DE) Additional Family Medical History / Comment(s): Father had lymphoma. He lived to be 72 yrs old. Mother History Unknown: Yes Family Medical History: Diabetes Mellitus Additional Family Medical History / Comment(s): Mother lived to be 82 yrs old. Medications and Allergies Home Medications Medication Instructions Recorded Confirmed Type Aspirin EC [Ecotrin Low Dose] 81 mg PO DAILY 10/04/18 07/06/24 History traMADol HCL [Ultram] 25 mg PO BID 10/04/18 07/06/24 History Metoprolol Succinate [Toprol XL] 25 mg PO DAILY 01/07/21 07/06/24 History hydroCHLOROthiazide 25 mg PO DAILY 01/07/21 07/06/24 History lisinopriL [Zestril] 5 mg PO DAILY 01/07/21 07/06/24 History Calcium Acetate [Phoslo] 667 mg PO DAILY 05/26/24 07/06/24 History Cholecalciferol (Vitamin D3) 50 mcg PO DAILY 05/26/24 07/06/24 History [Vitamin D3 (50 Mcg = 2000 Iu)] Donepezil [Aricept] 5 mg PO HS 05/26/24 07/06/24 History Gabapentin [Neurontin] 400 mg PO BID 05/26/24 07/06/24 History Levothyroxine Sodium [Levoxyl] 75 mcg PO DAILY 05/26/24 07/06/24 History Multivit-Min/Folic Acid/Biotin 133.3 mcg PO DAILY 05/26/24 07/06/24 History [Hair, Skin and Nails Softgel] Pravastatin Sodium [Pravachol] 40 mg PO HS 05/26/24 07/06/24 History amLODIPine [Norvasc] 5 mg PO DAILY 05/26/24 07/06/24 History hydrALAZINE HCL [Apresoline] 25 mg PO DAILY 05/26/24 07/06/24 History Allergies Allergy/AdvReac Type Severity Reaction Status Date / Time No Known Allergies Allergy Verified 07/06/24 13:40 Surgical - Exam Vital Signs Pulse Ox 82 L 07/06/24 10:07 Results - Labs 07/13/24 06:38 07/13/24 06:38 Abnormal Lab Results - Last 24 Hours (Table) 07/12/24 07/12/24 07/13/24 Range/Units 23:06 23:42 06:38 WBC 12.9 H (3.8-10.6) k/uL RBC 3.79 L (3.80-5.40) m/uL Hgb (11.4-16.0) gm/dL Sodium 132 L (137-145) mmol/L BUN 83 H (7-17) mg/dL Creatinine 2.31 H (0.52-1.04) mg/dL Stool Occult Blood Positive H (Negative) 07/13/24 Range/Units 06:38 WBC 12.7 H (3.8-10.6) k/uL RBC 3.71 L (3.80-5.40) m/uL Hgb 11.2 L (11.4-16.0) gm/dL Sodium (137-145) mmol/L BUN (7-17) mg/dL Creatinine (0.52-1.04) mg/dL Stool Occult Blood (Negative) Microbiology - Last 24 Hours (Table) 07/10/24 08:40 Urine Culture - Final Urine,Voided Escherichia coli Diabetes panel 07/13/24 Range/Units 06:38 Sodium 132 L (137-145) mmol/L Potassium 4.4 (3.5-5.1) mmol/L Chloride 98 (98-107) mmol/L Carbon Dioxide 25 (22-30) mmol/L BUN 83 H (7-17) mg/dL Creatinine 2.31 H (0.52-1.04) mg/dL Glucose 97 (74-99) mg/dL Calcium 9.1 (8.4-10.2) mg/dL Calcium panel 07/13/24 Range/Units 06:38 Calcium 9.1 (8.4-10.2) mg/dL Pituitary panel 07/13/24 Range/Units 06:38 Sodium 132 L (137-145) mmol/L Potassium 4.4 (3.5-5.1) mmol/L Chloride 98 (98-107) mmol/L Carbon Dioxide 25 (22-30) mmol/L BUN 83 H (7-17) mg/dL Creatinine 2.31 H (0.52-1.04) mg/dL Glucose 97 (74-99) mg/dL Calcium 9.1 (8.4-10.2) mg/dL Adrenal panel 07/13/24 Range/Units 06:38 Sodium 132 L (137-145) mmol/L Potassium 4.4 (3.5-5.1) mmol/L Chloride 98 (98-107) mmol/L Carbon Dioxide 25 (22-30) mmol/L BUN 83 H (7-17) mg/dL Creatinine 2.31 H (0.52-1.04) mg/dL Glucose 97 (74-99) mg/dL Calcium 9.1 (8.4-10.2) mg/dL
[2024-07-13 20:06] LABS: Glucose,Whole Blood 125 mg/dL (70-110)
[2024-07-13] MEDS: SODIUM CHLORIDE 0.9% 500 ML 500 ML IV ONE ×2 (20:16→21:00)
[2024-07-13 21:03] LABS: Basophils % (A) 0 %; Eosinophils % (A) 0 %; HCT 34.6 % (34.0-46.0); HGB 11.1 gm/dL (11.4-16.0); Hypochromasia Moderate; Lymphocytes # (A) 0.7 k/uL (1.0-4.8); Lymphocytes % (A) 6 %; MCH 30.6 pg (25.0-35.0); MCV 95.5 fL (80.0-100.0); Mean Platelet Volume 8.7; Monocytes # (A) 0.9 k/uL (0-1.0); Monocytes % (A) 7 %; Neutrophils # (A) 10.5 k/uL (1.3-7.7); Neutrophils % (A) 84 %; Platelet Count 244 k/uL (150-450); RBC 3.62 m/uL (3.80-5.40); RDW 13.4 % (11.5-15.5); WBC 12.4 k/uL (3.8-10.6)
[2024-07-13 21:12] LABS: African American GFR (CKD) 15 (>60 ml/min/1.73 sqM); Anion Gap 7 mmol/L; Blood Urea Nitrogen 96 mg/dL (7-17); Calcium 9.4 mg/dL (8.4-10.2); Carbon Dioxide 24 mmol/L (22-30); Chloride 102 mmol/L (98-107); Glucose 113 mg/dL (74-99); Non-African American GFR(CKD) 13 (>60 ml/min/1.73 sqM); Potassium 4.4 mmol/L (3.5-5.1); Sodium 133 mmol/L (137-145)
--- NOTE | 2024-07-13 23:46 | P.PN ---
Subjective Progress Note Date: 07/13/24 This is an 89-year-old female patient of Dr. Upton with past medical history of hypertension, SVT, chronic kidney disease stage V, moderate mitral regurgitation, severe right ICA disease. We have been asked to evaluate the patient for heart failure. Patient gives history that for the past 3 to 4 days she was having trouble getting to the bathroom due to significant shortness of breath. She states he is had a little bit of edema in her lower extremities. She denies any weight gain. She does have chest pain with exertion. She states she is always full of phlegm. She denies any previous cardiac history. Patient does not have history of atrial fibrillation. Blood pressure 145/71, heart rate in the 60s, pulse ox 98% on high flow nasal cannula 10 L. Patient has been started on IV Lasix 40 mg every 12 hours. Patient is seen today in the emergency center waiting for a bed on the cardiac stepdown unit. -EKG: Atrial fibrillation with ventricular rate of 91. -Chest x-ray: Cardiomegaly, pulmonary vascular congestion and bilateral pleural effusions -CTA of the chest revealed no evidence of pulmonary embolism. 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 Cardiomegaly with pulmonary vascular congestion and moderate bilateral pleural effusions with associated atelectasis. -Laboratory studies: WBC 11.4, hemoglobin 14, D-dimer 2.3. Sodium 137, potassium 3.6, BUN 36 and creatinine 1.31, magnesium 1.9. Troponin negative x 1. proBNP 9110. Influenza A, influenza B, RSV, COVID-19 not detected. -Home cardiac medications: Amlodipine 5 mg daily, aspirin 81 mg daily, hydralazine 25 mg daily, hydrochlorothiazide 25 mg daily, lisinopril 5 mg daily, metoprolol succinate 25 mg daily, pravastatin 40 mg at bedtime, also on le vothyroxine. -Echocardiogram performed 05/03/2023 in the office revealed EF 60%, grade 2 diastolic dysfunction, mild concentric LVH. Mild mitral regurgitation, trace tricuspid regurgitation. -Event monitor 30 days performed 02/2023 revealed no atrial fibrillation, NSVT 07/08/2024 Patient seen and examined in the emergency center. Patient has converted to sinus rhythm, heart rate in the 50s. Patient has been continued on heparin drip. Blood pressure is on the low side at 95/40, pulse ox 96% on 9 L nasal cannula. Patient is also maintained on IV Lasix 40 mg every 12 hours. Repeat blood work reveals BUN 59 creatinine 2.65 and potassium 3.6. Patient denies any new complaints. She is anxious to be discharged home but due to high oxygen need this is doubtful. Nursing to start weaning oxygen down. Echocardiogram is pending. 07/09/2024 Patient is seen and examined. Patient has has had low blood pressure readings and heart rate in the 70s. Nephrology has stopped Lasix and hydralazine and decreased dose of gabapentin. Sharpe catheter has been inserted. Patient is being considered for renal replacement therapy. Repeat blood work reveals BUN 73 and creatinine 3.83. Echocardiogram reveals normal LV systolic function, biatrial enlargement. Chest x-ray reveals cardiomegaly and mild pulmonary vascular congestion. 07/10/2024 Patient seen and examined. Patient denies having chest pain, shortness of breath. She has noted to have worsening of her renal function and nephrology is planning to start patient on dialysis. Patient remains in sinus rhythm. Blood pressure 114/55, heart rate 75, pulse ox 92% on 2 L nasal cannula. BUN 91 creatinine 4.78. Sodium 131, potassium 3.9. 07/11/2024 Patient seen and examined. This morning her blood pressure was 63/41 and on the other side 62/38. 500 cc bolus was ordered and repeat blood pressure on the right was 128/54 with plan to only use the right arm for blood pressure readings. Patient had a total of 200 cc of urine out overnight. She did start hemodialysis yesterday and a repeat hemodialysis is scheduled for today. She states she is feeling sleepy. No chest pain no palpitations. She is currently in sinus rhythm. Danni is an 89-year-old female patient of Dr. Upton with past medical history of hypertension, SVT, chronic kidney disease stage V, moderate mitral regurgitation, severe right ICA disease. We have been asked to evaluate the patient for heart failure. Patient gives history that for the past 3 to 4 days she was having trouble getting to the bathroom due to significant shortness of breath. She states he is had a little bit of edema in her lower extremities. She denies any weight gain. She does have chest pain with exertion. She states she is always full of phlegm. She denies any previous cardiac history. Patient does not have history of atrial fibrillation. Blood pressure 145/71, heart rate in the 60s, pulse ox 98% on high flow nasal cannula 10 L. Patient has been started on IV Lasix 40 mg every 12 hours. Patient is seen today in the emergency center waiting for a bed on the cardiac stepdown unit. -EKG: Atrial fibrillation with ventricular rate of 91. -Chest x-ray: Cardiomegaly, pulmonary vascular congestion and bilateral pleural effusions -CTA of the chest revealed no evidence of pulmonary embolism. 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 Cardiomegaly with pulmonary vascular congestion and moderate bilateral pleural effusions with associated atelectasis. -Laboratory studies: WBC 11.4, hemoglobin 14, D-dimer 2.3. Sodium 137, potassium 3.6, BUN 36 and creatinine 1.31, magnesium 1.9. Troponin negative x 1. proBNP 9110. Influenza A, influenza B, RSV, COVID-19 not detected. -Home cardiac medications: Amlodipine 5 mg daily, aspirin 81 mg daily, hydralazine 25 mg daily, hydrochlorothiazide 25 mg daily, lisinopril 5 mg daily, metoprolol succinate 25 mg daily, pravastatin 40 mg at bedtime, also on levothyroxine. -Echocardiogram performed 05/03/2023 in the office revealed EF 60%, grade 2 d iastolic dysfunction, mild concentric LVH. Mild mitral regurgitation, trace tricuspid regurgitation. -Event monitor 30 days performed 02/2023 revealed no atrial fibrillation, NSVT 07/08/2024 Patient seen and examined in the emergency center. Patient has converted to sinus rhythm, heart rate in the 50s. Patient has been continued on heparin drip. Blood pressure is on the low side at 95/40, pulse ox 96% on 9 L nasal cannula. Patient is also maintained on IV Lasix 40 mg every 12 hours. Repeat blood work reveals BUN 59 creatinine 2.65 and potassium 3.6. Patient denies any new complaints. She is anxious to be discharged home but due to high oxygen need this is doubtful. Nursing to start weaning oxygen down. Echocardiogram is pending. 07/09/2024 Patient is seen and examined. Patient has has had low blood pressure readings and heart rate in the 70s. Nephrology has stopped Lasix and hydralazine and decreased dose of gabapentin. Sharpe catheter has been inserted. Patient is being considered for renal replacement therapy. Repeat blood work reveals BUN 73 and creatinine 3.83. Echocardiogram reveals normal LV systolic function, biatrial enlargement. Chest x-ray reveals cardiomegaly and mild pulmonary vascular congestion. 07/10/2024 Patient seen and examined. Patient denies having chest pain, shortness of breath. She has noted to have worsening of her renal function and nephrology is planning to start patient on dialysis. Patient remains in sinus rhythm. Blood pressure 114/55, heart rate 75, pulse ox 92% on 2 L nasal cannula. BUN 91 creatinine 4.78. Sodium 131, potassium 3.9. 07/11/2024 Patient seen and examined. This morning her blood pressure was 63/41 and on the other side 62/38. 500 cc bolus was ordered and repeat blood pressure on the right was 128/54 with plan to only use the right arm for blood pressure readings. Patient had a total of 200 cc of urine out overnight. She did start hemodialysis yesterday and a repeat hemodialysis is scheduled for today. She states she is feeling sleepy. No chest pain no palpitations. She is currently in sinus rhythm. Repeat blood work reveals WBC 14.3, hemoglobin 12.9. BUN 51 creatinine 3.53. Potassium 4.1. 07/12/2024 Patient had hemodialysis today. Post to dialysis she became nauseous. Hemoglobin yesterday 12.9, creatinine 3.5 yesterday. BP 158/64, heart rate 87, 07/13/2024 Hemoglobin 11.1 today. Yesterday it was 12.9. Patient had black tarry stools. Patient had a team called tonight because of hypotension. She received 1 L of normal saline fluid however her heart rate has stayed high and blood pressure has not improved much. She is sustaining in heart rate of 130 bpm. Physical examination: Gen: This is an 89-year-old female appears to be in no acute distress VS: reviewed HEENT: Head is atraumatic, normocephalic. Pupils equal, round. Sclerae is anicteric. NECK: Supple. No JVD. LUNGS: Clear to auscultation. No wheezes or rhonchi. No intercostal retractions. HEART: Irregular rate and rhythm. Systolic murmur. ABDOMEN: Soft No tenderness. EXTREMITIES: 1+ pedal edema. No calf tenderness. NEUROLOGICAL: Patient is awake, alert and oriented x3. Assessment: New onset A-fib with controlled rate, currently A-fib RVR Acute diastolic heart failure Acute kidney injury, patient started hemodialysis 07/10 Hypertension History of SVT Chronic kidney disease Moderate mitral regurgitation Severe right ICA disease Plan: Due to concerns of GI bleeding. Hold Eliquis. Continue aspirin Continue Toprol-XL 25 mg daily. Continue pravastatin 40 mg at bedtime. Hemodialysis for fluid removal per nephrology recommendation Start IV amiodarone drip to achieve rate control as patient has been hypotensive. For concerns of GI bleeding, patient might need GI evaluation with endoscopies. Patient is at moderate to high risk for endoscopy. Because of her A-fib RVR, will defer endoscopy to once her heart rate is better controlled. Objective - Vital Signs Vital signs: Vital Signs Temp 97.8 F 07/13/24 16:00 Pulse 135 H 07/13/24 20:46 Resp 16 07/13/24 16:00 BP 95/50 07/13/24 20:46 Pulse Ox 96 07/13/24 16:00 FiO2 Intake & Output 07/13/24 07/13/24 07/14/24 06:59 18:59 06:59 Output Total 200 300 Balance -200 -300 Weight 40.6 kg Output: Urine 200 300 Uretheral (Sharpe) 300 Other: Voiding Method Indwelling Catheter Indwelling Catheter Indwelling Catheter # Bowel Movements 1 2 - Labs CBC & Chem 7: 07/13/24 20:23 07/13/24 20:23 Labs: Abnormal Lab Results - Last 24 Hours (Table) 07/12/24 07/13/24 07/13/24 Range/Units 23:42 06:38 06:38 WBC 12.9 H 12.7 H (3.8-10.6) k/uL RBC 3.79 L 3.71 L (3.80-5.40) m/uL Hgb 11.2 L (11.4-16.0) gm/dL Neutrophils # (1.3-7.7) k/uL Lymphocytes # (1.0-4.8) k/uL Sodium 132 L (137-145) mmol/L BUN 83 H (7-17) mg/dL Creatinine 2.31 H (0.52-1.04) mg/dL Glucose (74-99) mg/dL POC Glucose (mg/dL) (70-110) mg/dL 07/13/24 07/13/24 07/13/24 Range/Units 20:04 20:23 20:23 WBC 12.4 H (3.8-10.6) k/uL RBC 3.62 L (3.80-5.40) m/uL Hgb 11.1 L (11.4-16.0) gm/dL Neutrophils # 10.5 H (1.3-7.7) k/uL Lymphocytes # 0.7 L (1.0-4.8) k/uL Sodium 133 L (137-145) mmol/L BUN 96 H (7-17) mg/dL Creatinine 3.03 H (0.52-1.04) mg/dL Glucose 113 H (74-99) mg/dL POC Glucose (mg/dL) 125 H (70-110) mg/dL
[2024-07-14] MEDS: DEXTROSE 5% IN WATER 100 ML with AMIODARONE 150 MG IV ONE (00:09)
[2024-07-14] MEDS: AMIODARONE 360 MG in DEXTROSE 5% IN WATER 200 ML IV ONE (00:27)
[2024-07-14] MEDS: AMIODARONE 450 MG in DEXTROSE 5% IN WATER 250 ML IV SCH (05:45)
--- NOTE | 2024-07-14 05:52 | P.PN ---
Subjective Progress Note Date: 07/13/24 Principal diagnosis: Reason for follow-up is E. coli UTI Patient is a 89-year-old female with a past medical history significant for COPD hypertension hyperlipidemia presenting to the hospital about a week ago for evaluation of increasing shortness of breath symptom, d uring this admission patient did have some urinary symptoms with repeat white concerning for UTI and also have worsening kidney function requiring dialysis. On today's evaluation that is 07/13/2024, Patient is afebrile patient is currently on room air, the patient is slightly sleepy lethargic this morning I did not provide any history no vomiting or diarrhea reported by the daughter at the bedside patient white count is 12.4 creatinine 3.03 Objective - Vital Signs Vital signs: Vital Signs Temp 97.8 F 07/13/24 16:00 Pulse 130 H 07/13/24 20:23 Resp 16 07/13/24 16:00 BP 93/54 07/13/24 20:23 Pulse Ox 96 07/13/24 16:00 FiO2 Intake & Output 07/13/24 07/13/24 07/14/24 06:59 18:59 06:59 Output Total 200 Balance -200 Weight 40.6 kg Output: Urine 200 Other: Voiding Method Indwelling Catheter Indwelling Catheter # Bowel Movements 1 2 - Exam GENERAL DESCRIPTION: An elderly female lying in bed in no distress RESPIRATORY SYSTEM: Unlabored breathing , decreased breath sounds at bases HEART: S1 S2 regular rate and rhythm , ABDOMEN: Soft , no tenderness EXTREMITIES: No edema feet - Labs CBC & Chem 7: 07/13/24 20:23 07/13/24 20:23 Labs: Abnormal Lab Results - Last 24 Hours (Table) 07/12/24 07/12/24 07/13/24 Range/Units 23:06 23:42 06:38 WBC 12.9 H (3.8-10.6) k/uL RBC 3.79 L (3.80-5.40) m/uL Hgb (11.4-16.0) gm/dL Sodium 132 L (137-145) mmol/L BUN 83 H (7-17) mg/dL Creatinine 2.31 H (0.52-1.04) mg/dL POC Glucose (mg/dL) (70-110) mg/dL Stool Occult Blood Positive H (Negative) 07/13/24 07/13/24 Range/Units 06:38 20:04 WBC 12.7 H (3.8-10.6) k/uL RBC 3.71 L (3.80-5.40) m/uL Hgb 11.2 L (11.4-16.0) gm/dL Sodium (137-145) mmol/L BUN (7-17) mg/dL Creatinine (0.52-1.04) mg/dL POC Glucose (mg/dL) 125 H (70-110) mg/dL Stool Occult Blood (Negative) Assessment and Plan (1) Leukocytosis Current Visit: Yes Status: Acute Code(s): D72.829 - ELEVATED WHITE BLOOD CELL COUNT, UNSPECIFIED SNOMED Code(s): 022697342 (2) UTI (urinary tract infection) Current Visit: Yes Status: Acute Code(s): N39.0 - URINARY TRACT INFECTION, SITE NOT SPECIFIED SNOMED Code(s): 67485931 Plan: 1patient did have difficulty urination and some suprapubic discomfort positive UA elevated white count with urine culture positive for E. coli that is sensitive to ceftriaxone concerning for a component of symptomatic UTI, ultrasound shows nephrolithiasis but no evidence of any hydronephrosis 2-patient is afebrile white count is trending down, will be treated Rocephin 1 g daily and white count will monitor closely Daughter at the bedside questions answered Dictation was produced using [employer] software. please excuse any grammatical, word or spelling errors.
[2024-07-14 08:27] LABS: ALT 15 U/L (4-34); AST 29 U/L (14-36); African American GFR (CKD) 16 (>60 ml/min/1.73 sqM); Albumin 2.5 g/dL (3.5-5.0); Alkaline Phosphatase 100 U/L (38-126); Anion Gap 10 mmol/L; Blood Urea Nitrogen 100 mg/dL (7-17); Calcium 9.1 mg/dL (8.4-10.2); Carbon Dioxide 22 mmol/L (22-30); Chloride 101 mmol/L (98-107); Glucose 100 mg/dL (74-99); Magnesium 1.9 mg/dL (1.6-2.3); Non-African American GFR(CKD) 14 (>60 ml/min/1.73 sqM); Potassium 4.4 mmol/L (3.5-5.1); Sodium 133 mmol/L (137-145); Total Bilirubin 0.3 mg/dL (0.2-1.3); Total Protein 5.3 g/dL (6.3-8.2)
[2024-07-14 08:53] LABS: Basophils % (A) 0 %; Eosinophils % (A) 0 %; HCT 33.4 % (34.0-46.0); HGB 10.5 gm/dL (11.4-16.0); Hypochromasia Marked; Lymphocytes # (A) 0.7 k/uL (1.0-4.8); Lymphocytes % (A) 6 %; MCH 30.7 pg (25.0-35.0); MCHC 31.4 g/dL (31.0-37.0); MCV 97.7 fL (80.0-100.0); Mean Platelet Volume 9.4; Monocytes # (A) 0.7 k/uL (0-1.0); Monocytes % (A) 5 %; Neutrophils # (A) 11.3 k/uL (1.3-7.7); Neutrophils % (A) 87 %; Platelet Count 211 k/uL (150-450); RBC 3.42 m/uL (3.80-5.40); RDW 13.7 % (11.5-15.5)
[2024-07-14] MEDS: AMIODARONE 200 MG TAB PO SCH (09:30)
--- NOTE | 2024-07-14 09:33 | P.PN ---
Subjective Progress Note Date: 07/14/24 Principal diagnosis: Acute kidney injury requiring hemodialysis Patient is seen and examined today as a follow-up. She has a right temporary HD catheter in place. Patient is very lethargic. Apparently yesterday evening patient had a an event where she was in atrial fibrillation with RVR and hypotensive. She was fluid bolus. Patient remains lethargic today. Last hemodialysis was on Sunday. No reported complications. Patient is still making urine. BUN 100 creatinine 2.83. Objective - Vital Signs Vital signs: Vital Signs Temp 98.0 F 07/14/24 04:00 Pulse 102 H 07/14/24 04:00 Resp 16 07/14/24 04:00 BP 97/59 07/14/24 04:00 Pulse Ox 100 07/14/24 04:00 FiO2 Intake & Output 07/13/24 07/14/24 07/14/24 18:59 06:59 18:59 Output Total 200 475 Balance -200 -475 Weight 41 kg Output: Urine 200 475 Uretheral (Sharpe) 475 Other: Voiding Method Indwelling Catheter Indwelling Catheter # Bowel Movements 2 - Exam General appearance: The patient is lethargic, arousable. HET: Head is normocephalic and atraumatic. Pupils are equal and reactive. Neck: Supple. Abdomen: Soft, nondistended. Extremities: Normal skin color and turgor. Right groin wound with temporary dialysis catheter with dressing clean dry and intact. No bleeding, surrounding ecchymosis or hematoma noted. Neurological: patient is lethargic. - Labs CBC & Chem 7: 07/14/24 07:04 07/14/24 07:04 Labs: Abnormal Lab Results - Last 24 Hours (Table) 07/13/24 07/13/24 07/13/24 Range/Units 20:04 20:23 20:23 WBC 12.4 H (3.8-10.6) k/uL RBC 3.62 L (3.80-5.40) m/uL Hgb 11.1 L (11.4-16.0) gm/dL Hct (34.0-46.0) % Neutrophils # 10.5 H (1.3-7.7) k/uL Lymphocytes # 0.7 L (1.0-4.8) k/uL Sodium 133 L (137-145) mmol/L BUN 96 H (7-17) mg/dL Creatinine 3.03 H (0.52-1.04) mg/dL Glucose 113 H (74-99) mg/dL POC Glucose (mg/dL) 125 H (70-110) mg/dL Total Protein (6.3-8.2) g/dL Albumin (3.5-5.0) g/dL 07/14/24 07/14/24 Range/Units 07:04 07:04 WBC 13.0 H (3.8-10.6) k/uL RBC 3.42 L (3.80-5.40) m/uL Hgb 10.5 L (11.4-16.0) gm/dL Hct 33.4 L (34.0-46.0) % Neutrophils # 11.3 H (1.3-7.7) k/uL Lymphocytes # 0.7 L (1.0-4.8) k/uL Sodium 133 L (137-145) mmol/L BUN 100 H (7-17) mg/dL Creatinine 2.83 H (0.52-1.04) mg/dL Glucose 100 H (74-99) mg/dL POC Glucose (mg/dL) (70-110) mg/dL Total Protein 5.3 L (6.3-8.2) g/dL Albumin 2.5 L (3.5-5.0) g/dL Assessment and Plan Assessment: 1. Acute kidney injury requiring hemodialysis status post temporary HD catheter placement 2. 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 New onset atrial fibrillation on Eliquis 2.5 mg twice daily 4. Heart failure Plan: 1. Hemodialysis per recommendations from nephrology 2. CTA reviewed. No indication for any vascular surgical intervention at this time. Patient is asymptomatic. 3. Recommend outpatient follow-up with vascular surgery for subclavian occlusion, will obtain arterial ultrasound at that time. 4. Will tentatively plan for permacath placement sometime this week, likely on . The impression and plan of care has been dictated as directed. Dr. Sharpe I performed a history and examination of this patient, discussed the same with the dictator. I agree with the dictator's note ,documented as a scribe. Any additional findings or plans will be noted.
--- NOTE | 2024-07-14 09:59 | P.PN ---
Subjective Patient is seen in follow-up for acute kidney injury on chronic kidney disease. Started on hemodialysis July 10, 2024. Urine output documented as 675 cc in the last 24 hours. Went into A-fib with RVR last night and also received a liter bolus. Currently lethargic. Vital signs are stable. General: No acute distress. Lethargic. HEENT: Head exam is unremarkable. On nasal cannula. LUNGS: No audible rhonchi or wheezes. HEART: Rate and Rhythm are regular. ABDOMEN: Nontender. EXTREMITITES: No edema. Objective - Vital Signs Vital signs: Vital Signs Temp 98.0 F 07/14/24 04:00 Pulse 102 H 07/14/24 04:00 Resp 16 07/14/24 04:00 BP 97/59 07/14/24 04:00 Pulse Ox 100 07/14/24 04:00 FiO2 Intake & Output 07/13/24 07/14/24 07/14/24 18:59 06:59 18:59 Output Total 200 475 0 Balance -200 -475 0 Weight 41 kg Output: Urine 200 475 0 Uretheral (Sharpe) 475 Other: Voiding Method Indwelling Catheter Indwelling Catheter # Bowel Movements 2 - Labs CBC & Chem 7: 07/14/24 07:04 07/14/24 07:04 Labs: Abnormal Lab Results - Last 24 Hours (Table) 07/13/24 07/13/24 07/13/24 Range/Units 20:04 20:23 20:23 WBC 12.4 H (3.8-10.6) k/uL RBC 3.62 L (3.80-5.40) m/uL Hgb 11.1 L (11.4-16.0) gm/dL Hct (34.0-46.0) % Neutrophils # 10.5 H (1.3-7.7) k/uL Lymphocytes # 0.7 L (1.0-4.8) k/uL Sodium 133 L (137-145) mmol/L BUN 96 H (7-17) mg/dL Creatinine 3.03 H (0.52-1.04) mg/dL Glucose 113 H (74-99) mg/dL POC Glucose (mg/dL) 125 H (70-110) mg/dL Total Protein (6.3-8.2) g/dL Albumin (3.5-5.0) g/dL 07/14/24 07/14/24 Range/Units 07:04 07:04 WBC 13.0 H (3.8-10.6) k/uL RBC 3.42 L (3.80-5.40) m/uL Hgb 10.5 L (11.4-16.0) gm/dL Hct 33.4 L (34.0-46.0) % Neutrophils # 11.3 H (1.3-7.7) k/uL Lymphocytes # 0.7 L (1.0-4.8) k/uL Sodium 133 L (137-145) mmol/L BUN 100 H (7-17) mg/dL Creatinine 2.83 H (0.52-1.04) mg/dL Glucose 100 H (74-99) mg/dL POC Glucose (mg/dL) (70-110) mg/dL Total Protein 5.3 L (6.3-8.2) g/dL Albumin 2.5 L (3.5-5.0) g/dL Assessment and Plan Plan: Assessment: 1. Acute kidney injury secondary to ATN secondary to cardiorenal syndrome, hypotension and also component of contrast associated acute kidney injury. No hydronephrosis noted on left kidney. Right kidney was not visualized. Creatinine 1.3 dated July 06, 2024 and is up to 4.78 dated July 10, 2024. Started on hemodialysis July 10, 2024 via femoral catheter. 2. Acute hypoxic respiratory failure. On 3 L nasal cannula. 3. Chronic kidney disease stage IIIb with baseline creatinine near 1.5 secondary to nephrosclerosis. 4. Acute on chronic diastolic CHF. 5. Volume overload. On IV Lasix and also getting ultrafiltration with dialysis. 6. Chronic kidney disease mineral bone disease maintained on PhosLo. Phosphorus level 8.1 dated July 09, 2024. On PhosLo. 7. A-fib with RVR maintained on amiodarone drip. 8. E. coli UTI on antibiotics. Plan: Hold off on hemodialysis today. Assess again tomorrow. Maintain IV Lasix. Repeat labs in the morning. Avoid nephrotoxins. Continue to monitor renal function and urine output. Maintain Sharpe catheter. Strict I's and O's. Urine eosinophils negative. Follow-up serologies. Negative so far. Outpatient dialysis being set up by hospice case manager. She will be maintained on Sunday schedule outpatient. Will need permacath placed this week and temporary dialysis catheter removed. Scheduled to undergo EGD today.
--- NOTE | 2024-07-14 12:02 | P.PN ---
Progress Note - Text Progress Note Date: 07/14/24 Per discussion with nursing, daughter canceled the procedures.
--- NOTE | 2024-07-14 12:16 | P.PN ---
Subjective HISTORY OF PRESENT ILLNESS: This is an 89-year-old female patient of Dr. Upton with past medical history of hypertension, SVT, chronic kidney disease stage V, moderate mitral regurgitation, severe right ICA disease. We have been asked to evaluate the patient for heart failure. Patient gives history that for the past 3 to 4 days she was having trouble getting to the bathroom due to significant shortness of breath. She states he is had a little bit of edema in her lower extremities. She denies any weight gain. She does have chest pain with exertion. She states she is always full of phlegm. She denies any previous cardiac history. Patient does not have history of atrial fibrillation. Blood pressure 145/71, heart rate in the 60s, pulse ox 98% on high flow nasal cannula 10 L. Patient has been started on IV Lasix 40 mg every 12 hours. Patient is seen today in the emergency center waiting for a bed on the cardiac stepdown unit. -EKG: Atrial fibrillation with ventricular rate of 91. -Chest x-ray: Cardiomegaly, pulmonary vascular congestion and bilateral pleural effusions -CTA of the chest revealed no evidence of pulmonary embolism. 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 Cardiomegaly with pulmonary vascular congestion and moderate bilateral pleural effusions with associated atelectasis. -Laboratory studies: WBC 11.4, hemoglobin 14, D-dimer 2.3. Sodium 137, potassium 3.6, BUN 36 and creatinine 1.31, magnesium 1.9. Troponin negative x 1. proBNP 9110. Influenza A, influenza B, RSV, COVID-19 not detected. -Home cardiac medications: Amlodipine 5 mg daily, aspirin 81 mg daily, hydralazine 25 mg daily, hydrochlorothiazide 25 mg daily, lisinopril 5 mg daily, metoprolol succinate 25 mg daily, pravastatin 40 mg at bedtime, also on levothyroxine. -Echocardiogram performed 05/03/2023 in the office revealed EF 60%, grade 2 diastolic dysfunction, mild concentric LVH. Mild mitral regurgitation, trace tricuspid regurgitation. -Event monitor 30 days performed 02/2023 revealed no atrial fibrillation, NSVT 07/08/2024 Patient seen and examined in the emergency center. Patient has converted to sinus rhythm, heart rate in the 50s. Patient has been continued on heparin drip. Blood pressure is on the low side at 95/40, pulse ox 96% on 9 L nasal cannula. Patient is also maintained on IV Lasix 40 mg every 12 hours. Repeat blood work reveals BUN 59 creatinine 2.65 and potassium 3.6. Patient denies any new complaints. She is anxious to be discharged home but due to high oxygen need this is doubtful. Nursing to start weaning oxygen down. Echocardiogram is pending. 07/09/2024 Patient is seen and examined. Patient has has had low blood pressure readings and heart rate in the 70s. Nephrology has stopped Lasix and hydralazine and decreased dose of gabapentin. Sharpe catheter has been inserted. Patient is being considered for renal replacement therapy. Repeat blood work reveals BUN 73 and creatinine 3.83. Echocardiogram reveals normal LV systolic function, biatrial enlargement. Chest x-ray reveals cardiomegaly and mild pulmonary vascular congestion. 07/10/2024 Patient seen and examined. Patient denies having chest pain, shortness of breath. She has noted to have worsening of her renal function and nephrology is planning to start patient on dialysis. Patient remains in sinus rhythm. Blood pressure 114/55, heart rate 75, pulse ox 92% on 2 L nasal cannula. BUN 91 creatinine 4.78. Sodium 131, potassium 3.9. 07/11/2024 Patient seen and examined. This morning her blood pressure was 63/41 and on the other side 62/38. 500 cc bolus was ordered and repeat blood pressure on the right was 128/54 with plan to only use the right arm for blood pressure readings. Patient had a total of 200 cc of urine out overnight. She did start hemodialysis yesterday and a repeat hemodialysis is scheduled for today. She states she is feeling sleepy. No chest pain no palpitations. She is currently in sinus rhythm. Repeat blood work reveals WBC 14.3, hemoglobin 12.9. BUN 51 creatinine 3.53. Potassium 4.1. 07/12/2024 Patient had hemodialysis today. Post to dialysis she became nauseous. Hemoglobin yesterday 12.9, creatinine 3.5 yesterday. BP 158/64, heart rate 87, 07/13/2024 Hemoglobin 11.1 today. Yesterday it was 12.9. Patient had black tarry stools. Patient had a team called tonight because of hypotension. She received 1 L of normal saline fluid however her heart rate has stayed high and blood pressure has not improved much. She is sustaining in heart rate of 130 bpm. 07/14/2024 Patient examined this morning at the bedside. Patient currently is lethargic. Per nursing, a team was called this morning due to hypotension and tachycardia. Blood pressure this morning 113/63. Patient's heart rate is currently in the 80s. Telemetry reveals atrial fibrillation. PHYSICAL EXAM: VITAL SIGNS: Reviewed. GENERAL: Well-developed in no acute distress. NECK: Supple. No JVD or thyromegaly LUNGS: Respirations even and unlabored. Lungs essentially clear to auscultation bilaterally. HEART: Irregular rate and rhythm. S1 and S2 heard. EXTREMITIES: Normal range of motion. No clubbing or cyanosis. Peripheral pulses intact. No lower extremity edema ASSESSMENT: New onset A-fib with controlled rate, currently A-fib RVR Acute diastolic heart failure Acute kidney injury, patient started hemodialysis 07/10 Acute GI bleed Hypertension History of SVT Chronic kidney disease Moderate mitral regurgitation Severe right ICA disease PLAN: General Surgery following for endoscopy. However patient's daughter stating she does not want to go through with EGD per documentation. Eliquis remains on hold. Continue aspirin. Discontinue IV amiodarone. Begin oral amiodarone 400 mg twice a day Continue current dose of metoprolol Continue telemetry monitoring Continue hemodialysis per nephrology. Defer need for diuretics to nephrology. Further recommendations pending patient course Nurse practitioner note has been reviewed by physician. Signing provider agrees with the documented findings, assessment, and plan of care documented by RENEWALS MANAGER as a scribe. Objective - Vital Signs Vital signs: Vital Signs Temp 97.7 F 07/14/24 08:00 Pulse 115 H 07/14/24 08:00 Resp 17 07/14/24 08:00 BP 96/57 07/14/24 10:21 Pulse Ox 100 07/14/24 08:00 FiO2 Intake & Output 07/13/24 07/14/24 07/14/24 18:59 06:59 18:59 Output Total 200 475 0 Balance -200 -475 0 Weight 41 kg Output: Urine 200 475 0 Uretheral (Sharpe) 475 Other: Voiding Method Indwelling Catheter Indwelling Catheter Indwelling Catheter # Bowel Movements 2 - Labs CBC & Chem 7: 07/14/24 07:04 07/14/24 07:04 Labs: Abnormal Lab Results - Last 24 Hours (Table) 07/13/24 07/13/24 07/13/24 Range/Units 20:04 20:23 20:23 WBC 12.4 H (3.8-10.6) k/uL RBC 3.62 L (3.80-5.40) m/uL Hgb 11.1 L (11.4-16.0) gm/dL Hct (34.0-46.0) % Neutrophils # 10.5 H (1.3-7.7) k/uL Lymphocytes # 0.7 L (1.0-4.8) k/uL Sodium 133 L (137-145) mmol/L BUN 96 H (7-17) mg/dL Creatinine 3.03 H (0.52-1.04) mg/dL Glucose 113 H (74-99) mg/dL POC Glucose (mg/dL) 125 H (70-110) mg/dL Total Protein (6.3-8.2) g/dL Albumin (3.5-5.0) g/dL 07/14/24 07/14/24 Range/Units 07:04 07:04 WBC 13.0 H (3.8-10.6) k/uL RBC 3.42 L (3.80-5.40) m/uL Hgb 10.5 L (11.4-16.0) gm/dL Hct 33.4 L (34.0-46.0) % Neutrophils # 11.3 H (1.3-7.7) k/uL Lymphocytes # 0.7 L (1.0-4.8) k/uL Sodium 133 L (137-145) mmol/L BUN 100 H (7-17) mg/dL Creatinine 2.83 H (0.52-1.04) mg/dL Glucose 100 H (74-99) mg/dL POC Glucose (mg/dL) (70-110) mg/dL Total Protein 5.3 L (6.3-8.2) g/dL Albumin 2.5 L (3.5-5.0) g/dL
[2024-07-14 12:21] LABS: Albumin 2.55 g/dL (3.80-4.90); Gamma Globulin 1.07 g/dL (0.70-1.50)
[2024-07-14 12:48] VITALS: BMI 17.6
--- NOTE | 2024-07-14 13:33 | P.PN ---
Subjective Progress Note Date: 07/14/24 This is an 89-year-old female with past medical history significant for COPD, chronic respiratory failure on home O2.5 L nasal cannula prn, dyslipidemia, hypertension, moderate mitral regurgitation, SVT, TIA , possible previous carotid disease-patient does not recall ,hypothyroidism, chronic kidney disease stage 4, scoliosis, chronic back pain multiple other medical issues, presented to the ER with significant shortness of breath. Patient reports she has been having progressive shortness of breath over the last 3 days, affecting her performing ADLs,, walking to the bathroom. Reports increased coughing up thick phlegm. Denies any fever chills or sweats. Denies any chest pain, palpitations. On admission hypertensive with systolic blood pressures in the high 170s, EKG reported atrial fibrillation, ventricular rate controlled, O2 sat of 82% on room air, placed on 3 L nasal cannula O2 sat increased to 90%, eventually placed on 15 L nonrebreather, currently requiring 10 L high flow nasal cannula. 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 Cardiomegaly with pulm onary vascular congestion and moderate bilateral pleural effusions with associated atelectasis. proBNP 9110. afebrile, WBC 11.8, hemoglobin 13.9, platelets 289. Bicarb 31, BUN 36, creatinine 1.31-baseline creat appears to be 1.3-1.5. Sodium 137, potassium 3.6, magnesium 1.9. Albumin 3.4. All studies negative. Diuresing with Lasix IV push initiated in the ER. Anticoagulated on heparin drip. Echo pending. 07/08/2024 anticoagulated on heparin drip, converted to sinus rhythm. Blood pressures soft. Diuresing on Lasix IV push. Worsened renal function, bicarb 34, BUN 59, creatinine 2.65. Currently requiring 6 L high flow nasal cannula to maintain O2 sats in the 90s. Echo reported normal LV function, biatrial enlargement. Vascular surgery consult in place regarding CT findings of left subclavian occlusion-remains asymptomatic. 07/09/2024 hypotensive, renal function worsening, complains of nausea, vomiting and diarrhea. KUB ordered .chest x-ray reporting cardiomegaly and mild pulmonary vascular congestion. Viral studies negative. Nephrology discussing renal replacement. 07/10/2024 Reglan added to med regimen yesterday along with diet decreased to clear liquids,nausea vomiting and diarrhea subsided. Denies abdominal pain. Received Lasix last night with minimal urine output, reported overnight. Renal function continues to worsen, bicarb 30, BUN 91, creatinine 4.78. Afebrile, urine extremely cloudy. UA negative nitrates, large leukocytes, high urine WBCs rare bacteria, ceftriaxone initiated. 07/11/2024 temporary dialysis catheter placed yesterday with initiation of hemodialysis. Tolerated well, reports fatigue. Scheduled for hemodialysis again today. Labs pending. 07/12. Patient seen and examined. Blood work this morning showed WBC 14.3, hemoglobin 12.9, platelet count 281, sodium 132, potassium 4.1, BUN 51, creatinine 3.53. Still states she feels tired and lethargic. 07/13. Patient seen and examined. Blood work done showed WBC 12.7, hemoglobin 11.2, sodium 132, potassium 4.4, BUN 83, creatinine 2.31. Patient had dark- colored stool overnight and this morning. Patient went to A-fib this morning as well, Eliquis has been discontinued. FOBT was positive we will get surgery evaluation 07/14. Patient seen and examined. Blood work done this morning showed WBC 13, hemoglobin 10.5, sodium 133, potassium 4.4, BUN 100, creatinine 2.83. Patient has been lethargic this morning, answering questions but very lethargic. Surgery discussed with patient and her planning to do endoscopy but patient's daughter declined. Dialysis on hold for today REVIEW OF SYSTEMS: CONSTITUTIONAL: No fever, no malaise,. CARDIOVASCULAR: No chest pain, no palpitations, no syncope. PULMONARY: No shortness of breath, no cough, GASTROINTESTINAL: No diarrhea, no nausea, no vomiting, no abdominal pain. NEUROLOGICAL: No headaches, no weakness, PHYSICAL EXAMINATION: GENERAL: The patient is lethargic, frail, ill looking HEENT: Pupils are round and equally reacting to light. EOMI. No scleral icterus. No conjunctival pallor. Normocephalic, atraumatic. No pharyngeal erythema. No thyromegaly. CARDIOVASCULAR: S1 and S2 present. No murmurs, rubs, or gallops. PULMONARY: Diminished breath sounds at bases bilaterally, no wheezing or crackles. ABDOMEN: Soft, nontender, nondistended, normoactive bowel sounds. No palpable organomegaly. MUSCULOSKELETAL: No joint swelling or deformity. EXTREMITIES: No cyanosis, clubbing, or pedal edema. NEUROLOGICAL: Gross neurological examination did not reveal any focal deficits. SKIN: No rashes. 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 Acute on chronic renal failure, stage IIIb, baseline 1.5. Acute secondary to ATN related to cardiorenal syndrome, hypotension, contrast. Temporary HD arielle ter placed 07/10/2024 with initiation of HD. Moderate mitral regurgitation Severe pulmonary hypertension COPD Hyperlipidemia History of TIA Possible previous carotid disease, patient does not recall Left breast cancer with lumpectomy and radiation Hypothyroidism Chronic back pain and bilateral shoulder pain Bilateral feet neuropathy. Nondiabetic Osteopenia Former nicotine dependence Moderate protein calorie malnutrition, BMI 19 Monitor vital signs Monitor CBC Monitor CMP Continue telemetry monitoring Encourage use of incentive spirometer Continue IV Rocephin Hold Eliquis FOBT positive Continue amiodarone and Toprol Continue Synthroid Continue Protonix 40-mg twice a day Nephrology following Cardiology following ID following General Surgery consulted, no GI coverage at this time, endoscopy was declined for today by patient daughter Labs and medication were reviewed.. Continue same treatment. Continue with symptomatic treatment. Resume home medication. Monitor labs and vitals. DVT and GI prophylaxis. Further recommendations as per clinical course of the patient Dictation was produced using [employer] dictation software. please excuse any grammatical, word or spelling errors. Objective - Vital Signs Vital signs: Vital Signs Temp 98.0 F 07/14/24 04:00 Pulse 102 H 07/14/24 04:00 Resp 16 07/14/24 04:00 BP 97/59 07/14/24 04:00 Pulse Ox 100 07/14/24 04:00 FiO2 Intake & Output 07/13/24 07/14/24 07/14/24 18:59 06:59 18:59 Output Total 200 475 Balance -200 -475 Weight 41 kg Output: Urine 200 475 Uretheral (Sharpe) 475 Other: Voiding Method Indwelling Catheter Indwelling Catheter # Bowel Movements 2 - Labs CBC & Chem 7: 07/14/24 07:04 07/14/24 07:04 Labs: Abnormal Lab Results - Last 24 Hours (Table) 07/13/24 07/13/24 07/13/24 Range/Units 20:04 20:23 20:23 WBC 12.4 H (3.8-10.6) k/uL RBC 3.62 L (3.80-5.40) m/uL Hgb 11.1 L (11.4-16.0) gm/dL Hct (34.0-46.0) % Neutrophils # 10.5 H (1.3-7.7) k/uL Lymphocytes # 0.7 L (1.0-4.8) k/uL Sodium 133 L (137-145) mmol/L BUN 96 H (7-17) mg/dL Creatinine 3.03 H (0.52-1.04) mg/dL Glucose 113 H (74-99) mg/dL POC Glucose (mg/dL) 125 H (70-110) mg/dL Total Protein (6.3-8.2) g/dL Albumin (3.5-5.0) g/dL 07/14/24 07/14/24 Range/Units 07:04 07:04 WBC 13.0 H (3.8-10.6) k/uL RBC 3.42 L (3.80-5.40) m/uL Hgb 10.5 L (11.4-16.0) gm/dL Hct 33.4 L (34.0-46.0) % Neutrophils # 11.3 H (1.3-7.7) k/uL Lymphocytes # 0.7 L (1.0-4.8) k/uL Sodium 133 L (137-145) mmol/L BUN 100 H (7-17) mg/dL Creatinine 2.83 H (0.52-1.04) mg/dL Glucose 100 H (74-99) mg/dL POC Glucose (mg/dL) (70-110) mg/dL Total Protein 5.3 L (6.3-8.2) g/dL Albumin 2.5 L (3.5-5.0) g/dL
--- NOTE | 2024-07-14 14:50 | P.PN ---
Subjective Progress Note Date: 07/14/24 SURGICAL PROGRESS NOTE CHIEF COMPLAINT: GI bleed HISTORY OF PRESENT ILLNESS: Patient initially scheduled for EGD today due to her having black stools. Daughter had decided that she did not want her mother to proceed with the EGD. EGD has been canceled. Patient's CODE STATUS is a DNR. Hemoglobin currently 10.5 PHYSICAL EXAM: VITAL SIGNS: Reviewed. GENERAL: Well-developed in no acute distress. ABDOMEN: Soft. Nondistended. Nontender. NEUROLOGIC: Confused ASSESSMENT: 1. Acute GI bleed 2. Acute renal failure 3. Underweight, BMI 17.5 PLAN: -Patient's daughter canceled EGD for today and colonoscopy for tomorrow -CODE STATUS has been changed to DNR -Surgical service will sign off. Please reconsult if needed Physician [employer] Roofer note has been reviewed by physician. Signing provider agrees with the documented findings, assessment, and plan of care. As above. Please see additional documentation below. Overall, patient's condition has declined per discussion with nursing. Family seeking potential hospice. Will sign off. Please reconsult if needed Objective - Vital Signs Vital signs: Vital Signs Temp 97.9 F 07/14/24 11:50 Pulse 111 H 07/14/24 11:50 Resp 18 07/14/24 11:50 BP 95/60 07/14/24 11:50 Pulse Ox 100 07/14/24 11:50 FiO2 Intake & Output 07/13/24 07/14/24 07/14/24 18:59 06:59 18:59 Output Total 200 475 0 Balance -200 -475 0 Weight 41 kg 41 kg Output: Urine 200 475 0 Uretheral (Sharpe) 475 Other: Voiding Method Indwelling Catheter Indwelling Catheter Indwelling Catheter # Bowel Movements 2 - Labs CBC & Chem 7: 07/15/24 05:44 07/15/24 05:44 Labs: Abnormal Lab Results - Last 24 Hours (Table) 07/10/24 07/13/24 07/13/24 Range/Units 12:08 20:04 20:23 WBC 12.4 H (3.8-10.6) k/uL RBC 3.62 L (3.80-5.40) m/uL Hgb 11.1 L (11.4-16.0) gm/dL Hct (34.0-46.0) % Neutrophils # 10.5 H (1.3-7.7) k/uL Lymphocytes # 0.7 L (1.0-4.8) k/uL Sodium (137-145) mmol/L BUN (7-17) mg/dL Creatinine (0.52-1.04) mg/dL Glucose (74-99) mg/dL POC Glucose (mg/dL) 125 H (70-110) mg/dL Total Protein (6.3-8.2) g/dL Albumin (3.5-5.0) g/dL Albumin (PEP) 2.55 L (3.80-4.90) g/dL Ftocr-1-Ctdabzyxo 0.44 H (0.10-0.40) g/dL 07/13/24 07/14/24 07/14/24 Range/Units 20:23 07:04 07:04 WBC 13.0 H (3.8-10.6) k/uL RBC 3.42 L (3.80-5.40) m/uL Hgb 10.5 L (11.4-16.0) gm/dL Hct 33.4 L (34.0-46.0) % Neutrophils # 11.3 H (1.3-7.7) k/uL Lymphocytes # 0.7 L (1.0-4.8) k/uL Sodium 133 L 133 L (137-145) mmol/L BUN 96 H 100 H (7-17) mg/dL Creatinine 3.03 H 2.83 H (0.52-1.04) mg/dL Glucose 113 H 100 H (74-99) mg/dL POC Glucose (mg/dL) (70-110) mg/dL Total Protein 5.3 L (6.3-8.2) g/dL Albumin 2.5 L (3.5-5.0) g/dL Albumin (PEP) (3.80-4.90) g/dL Gzagn-3-Pffswdxpe (0.10-0.40) g/dL
[2024-07-15 06:53] LABS: Basophils % (A) 0 %; Eosinophils % (A) 0 %; HCT 34.9 % (34.0-46.0); HGB 10.8 gm/dL (11.4-16.0); Hypochromasia Marked; Lymphocytes # (A) 0.5 k/uL (1.0-4.8); Lymphocytes % (A) 4 %; MCH 30.3 pg (25.0-35.0); MCHC 31.1 g/dL (31.0-37.0); MCV 97.4 fL (80.0-100.0); Monocytes # (A) 0.7 k/uL (0-1.0); Monocytes % (A) 5 %; Neutrophils # (A) 13.3 k/uL (1.3-7.7); Neutrophils % (A) 90 %; Platelet Count 236 k/uL (150-450); RBC 3.58 m/uL (3.80-5.40); RDW 13.5 % (11.5-15.5); WBC 14.7 k/uL (3.8-10.6)
[2024-07-15 07:07] LABS: African American GFR (CKD) 15 (>60 ml/min/1.73 sqM); Anion Gap 10 mmol/L; Calcium 9.1 mg/dL (8.4-10.2); Carbon Dioxide 21 mmol/L (22-30); Chloride 103 mmol/L (98-107); Glucose 84 mg/dL (74-99); Non-African American GFR(CKD) 13 (>60 ml/min/1.73 sqM); Potassium 4.5 mmol/L (3.5-5.1); Sodium 134 mmol/L (137-145)
[2024-07-15 07:10] LABS: Blood Urea Nitrogen 102 mg/dL (7-17)
--- NOTE | 2024-07-15 09:00 | P.PN ---
Subjective Progress Note Date: 07/14/24 Principal diagnosis: Reason for follow-up is E. coli UTI Patient is a 89-year-old female with a past medical history significant for COPD hypertension hyperlipidemia presenting to the hospital about a week ago for evaluation of increasing shortness of breath symptom, d uring this admission patient did have some urinary symptoms with repeat white concerning for UTI and also have worsening kidney function requiring dialysis. On today's evaluation that is 07/14/2024, patient has been afebrile, patient is breathing comfortably and is currently on 3 L nasal cannula oxygen, patient slightly more awake and alert today no chest pain no abdominal pain no vomiting or diarrhea reported. Patient white count is 13,000, creatinine is 2.83 Objective - Vital Signs Vital signs: Vital Signs Temp 97.9 F 07/14/24 11:50 Pulse 111 H 07/14/24 11:50 Resp 18 07/14/24 11:50 BP 95/60 07/14/24 11:50 Pulse Ox 100 07/14/24 11:50 FiO2 Intake & Output 07/13/24 07/14/24 07/14/24 18:59 06:59 18:59 Output Total 200 475 0 Balance -200 -475 0 Weight 41 kg Output: Urine 200 475 0 Uretheral (Sahrpe) 475 Other: Voiding Method Indwelling Catheter Indwelling Catheter Indwelling Catheter # Bowel Movements 2 - Exam GENERAL DESCRIPTION: An elderly female lying in bed in no distress RESPIRATORY SYSTEM: Unlabored breathing , decreased breath sounds at bases HEART: S1 S2 regular rate and rhythm , ABDOMEN: Soft , no tenderness EXTREMITIES: No edema feet - Labs CBC & Chem 7: 07/15/24 05:44 07/15/24 05:44 Labs: Abnormal Lab Results - Last 24 Hours (Table) 07/10/24 07/13/24 07/13/24 Range/Units 12:08 20:04 20:23 WBC 12.4 H (3.8-10.6) k/uL RBC 3.62 L (3.80-5.40) m/uL Hgb 11.1 L (11.4-16.0) gm/dL Hct (34.0-46.0) % Neutrophils # 10.5 H (1.3-7.7) k/uL Lymphocytes # 0.7 L (1.0-4.8) k/uL Sodium (137-145) mmol/L BUN (7-17) mg/dL Creatinine (0.52-1.04) mg/dL Glucose (74-99) mg/dL POC Glucose (mg/dL) 125 H (70-110) mg/dL Total Protein (6.3-8.2) g/dL Albumin (3.5-5.0) g/dL Albumin (PEP) 2.55 L (3.80-4.90) g/dL Cidoo-3-Ohliaekrb 0.44 H (0.10-0.40) g/dL 07/13/24 07/14/24 07/14/24 Range/Units 20:23 07:04 07:04 WBC 13.0 H (3.8-10.6) k/uL RBC 3.42 L (3.80-5.40) m/uL Hgb 10.5 L (11.4-16.0) gm/dL Hct 33.4 L (34.0-46.0) % Neutrophils # 11.3 H (1.3-7.7) k/uL Lymphocytes # 0.7 L (1.0-4.8) k/uL Sodium 133 L 133 L (137-145) mmol/L BUN 96 H 100 H (7-17) mg/dL Creatinine 3.03 H 2.83 H (0.52-1.04) mg/dL Glucose 113 H 100 H (74-99) mg/dL POC Glucose (mg/dL) (70-110) mg/dL Total Protein 5.3 L (6.3-8.2) g/dL Albumin 2.5 L (3.5-5.0) g/dL Albumin (PEP) (3.80-4.90) g/dL Qqkrz-6-Ophfsjkhd (0.10-0.40) g/dL Assessment and Plan (1) Leukocytosis Current Visit: Yes Status: Acute Code(s): D72.829 - ELEVATED WHITE BLOOD CELL COUNT, UNSPECIFIED SNOMED Code(s): 169727007 (2) UTI (urinary tract infection) Current Visit: Yes Status: Acute Code(s): N39.0 - URINARY TRACT INFECTION, SITE NOT SPECIFIED SNOMED Code(s): 99770033 Plan: 1patient did have difficulty urination and some suprapubic discomfort positive UA elevated white count with urine culture positive for E. coli that is sensitive to ceftriaxone concerning for a component of symptomatic UTI, ultrasound shows nephrolithiasis but no evidence of any hydronephrosis 2-patient is afebrile white count is trending up and need to be monitored closely for now continue with Rocephin 1 g daily and repeat his CBC with a.m. lab Dictation was produced using [employer] dictation software. please excuse any grammatical, word or spelling errors. Time with Patient: Less than 30
--- NOTE | 2024-07-15 10:00 | P.PN ---
Subjective Progress Note Date: 07/15/24 Principal diagnosis: Acute kidney injury requiring hemodialysis Patient was seen and examined today as a follow-up. Patient remains pretty lethargic, obtunded and really not responsive. Vascular surgery is following because patient we placed a had a temporary dialysis catheter in the right groin. Yesterday patient was supposed to get dialysis however she was hypotensive and was unable to get her dialysis. Nephrology was requesting a permacath placement for outpatient hemodialysis. Nursing is reporting that daughters likely do not want to proceed with permacatheter placement. Objective - Vital Signs Vital signs: Vital Signs Temp 97.7 F 07/14/24 19:45 Pulse 88 07/15/24 03:19 Resp 15 07/15/24 03:19 BP 94/56 07/15/24 03:19 Pulse Ox 99 07/15/24 03:19 FiO2 Intake & Output 07/14/24 07/15/24 07/15/24 18:59 06:59 18:59 Output Total 100 475 Balance -100 -475 Weight 41 kg Output: Urine 100 475 Other: Voiding Method Indwelling Catheter Indwelling Catheter - Exam General appearance: The patient is lethargic, arousable. HET: Head is normocephalic and atraumatic. Pupils are equal and reactive. Neck: Supple. Abdomen: Soft, nondistended. Extremities: Normal skin color and turgor. Right groin wound with temporary dialysis catheter with dressing clean dry and intact. No bleeding, surrounding ecchymosis or hematoma noted. Neurological: patient is lethargic, alert to self only. - Labs CBC & Chem 7: 07/15/24 05:44 07/15/24 05:44 Labs: Abnormal Lab Results - Last 24 Hours (Table) 07/10/24 07/15/24 07/15/24 Range/Units 12:08 05:44 05:44 WBC 14.7 H (3.8-10.6) k/uL RBC 3.58 L (3.80-5.40) m/uL Hgb 10.8 L (11.4-16.0) gm/dL Neutrophils # 13.3 H (1.3-7.7) k/uL Lymphocytes # 0.5 L (1.0-4.8) k/uL Sodium 134 L (137-145) mmol/L Carbon Dioxide 21 L (22-30) mmol/L BUN 102 H* (7-17) mg/dL Creatinine 3.04 H (0.52-1.04) mg/dL Albumin (PEP) 2.55 L (3.80-4.90) g/dL Docdj-7-Ztpxbxukf 0.44 H (0.10-0.40) g/dL Assessment and Plan Assessment: 1. Acute kidney injury requiring hemodialysis status post temporary HD catheter placement 2. 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 New onset atrial fibrillation on Eliquis 2.5 mg twice daily 4. Heart failure Plan: 1. Hemodialysis per recommendations from nephrology 2. CTA reviewed. No indication for any vascular surgical intervention at this time. Patient is asymptomatic. 3. Recommend outpatient follow-up with vascular surgery for subclavian occlusion, will obtain arterial ultrasound at that time. 4. No plans for permacath placement at this time. We will follow as needed. The impression and plan of care has been dictated as directed. Dr. Sharpe I performed a history and examination of this patient, discussed the same with the dictator. I agree with the dictator's note ,documented as a scribe. Any additional findings or plans will be noted.
--- NOTE | 2024-07-15 10:05 | P.PN ---
Subjective Patient is seen in follow-up for acute kidney injury on chronic kidney disease. Started on hemodialysis July 10, 2024. Urine output documented as 575 cc in the last 24 hours. Now on oral meds for A-fib. Daughter present at bedside. Patient quite lethargic. Not responding to verbal questions. Vital signs are stable. General: No acute distress. Lethargic. HEENT: Head exam is unremarkable. On nasal cannula. LUNGS: No audible rhonchi or wheezes. HEART: Rate and Rhythm are regular. ABDOMEN: Nontender. EXTREMITITES: No edema. Objective - Vital Signs Vital signs: Vital Signs Temp 97.6 F 07/15/24 08:50 Pulse 116 H 07/15/24 08:50 Resp 17 07/15/24 08:50 BP 115/69 07/15/24 08:50 Pulse Ox 99 07/15/24 08:50 FiO2 Intake & Output 07/14/24 07/15/24 07/15/24 18:59 06:59 18:59 Output Total 100 475 Balance -100 -475 Weight 41 kg Output: Urine 100 475 Other: Voiding Method Indwelling Catheter Indwelling Catheter Indwelling Catheter - Labs CBC & Chem 7: 07/15/24 05:44 07/15/24 05:44 Labs: Abnormal Lab Results - Last 24 Hours (Table) 07/10/24 07/15/24 07/15/24 Range/Units 12:08 05:44 05:44 WBC 14.7 H (3.8-10.6) k/uL RBC 3.58 L (3.80-5.40) m/uL Hgb 10.8 L (11.4-16.0) gm/dL Neutrophils # 13.3 H (1.3-7.7) k/uL Lymphocytes # 0.5 L (1.0-4.8) k/uL Sodium 134 L (137-145) mmol/L Carbon Dioxide 21 L (22-30) mmol/L BUN 102 H* (7-17) mg/dL Creatinine 3.04 H (0.52-1.04) mg/dL Albumin (PEP) 2.55 L (3.80-4.90) g/dL Ontnq-0-Ridjotpmy 0.44 H (0.10-0.40) g/dL Assessment and Plan Plan: Assessment: 1. Acute kidney injury secondary to ATN secondary to cardiorenal syndrome, hypotension and also component of contrast associated acute kidney injury. No hydronephrosis noted on left kidney. Right kidney was not visualized. Creatinine 1.3 dated July 06, 2024 and is up to 4.78 dated July 10, 2024. Started on hemodialysis July 10, 2024 via femoral catheter. Concern for uremia as BUN is 102 today. 2. Acute hypoxic respiratory failure. On 3 L nasal cannula. 3. Chronic kidney disease stage IIIb with baseline creatinine near 1.5 secondary to nephrosclerosis. 4. Acute on chronic diastolic CHF. 5. Volume overload. On IV Lasix and also getting ultrafiltration with dialysis. 6. Chronic kidney disease mineral bone disease maintained on PhosLo. Phosphorus level 8.1 dated July 09, 2024. On PhosLo. 7. A-fib with RVR maintained on amiodarone drip. 8. E. coli UTI on antibiotics. Plan: Hemodialysis today. No improvement in urine output despite IV Lasix. Avoid nephrotoxins. Continue to monitor renal function and urine output. Maintain Sharpe catheter. Strict I's and O's. Urine eosinophils negative. Serologies negative. Case discussed with daughter present at bedside at length. Refusing permacath placement at this time. Comfort measures being considered.
[2024-07-15] MEDS ORDERED: HALOPERIDOL LACTATE 5 MG/ML 1 ML VIAL IVP PRN (13:31)
--- NOTE | 2024-07-15 14:06 | P.PN ---
Subjective Progress Note Date: 07/15/24 This is an 89-year-old female with past medical history significant for COPD, chronic respiratory failure on home O2.5 L nasal cannula prn, dyslipidemia, hypertension, moderate mitral regurgitation, SVT, TIA , possible previous carotid disease-patient does not recall ,hypothyroidism, chronic kidney disease stage 4, scoliosis, chronic back pain multiple other medical issues, presented to the ER with significant shortness of breath. Patient reports she has been having progressive shortness of breath over the last 3 days, affecting her performing ADLs,, walking to the bathroom. Reports increased coughing up thick phlegm. Denies any fever chills or sweats. Denies any chest pain, palpitations. On admission hypertensive with systolic blood pressures in the high 170s, EKG reported atrial fibrillation, ventricular rate controlled, O2 sat of 82% on room air, placed on 3 L nasal cannula O2 sat increased to 90%, eventually placed on 15 L nonrebreather, currently requiring 10 L high flow nasal cannula. 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 Cardiomegaly with pulm onary vascular congestion and moderate bilateral pleural effusions with associated atelectasis. proBNP 9110. afebrile, WBC 11.8, hemoglobin 13.9, platelets 289. Bicarb 31, BUN 36, creatinine 1.31-baseline creat appears to be 1.3-1.5. Sodium 137, potassium 3.6, magnesium 1.9. Albumin 3.4. All studies negative. Diuresing with Lasix IV push initiated in the ER. Anticoagulated on heparin drip. Echo pending. 07/08/2024 anticoagulated on heparin drip, converted to sinus rhythm. Blood pressures soft. Diuresing on Lasix IV push. Worsened renal function, bicarb 34, BUN 59, creatinine 2.65. Currently requiring 6 L high flow nasal cannula to maintain O2 sats in the 90s. Echo reported normal LV function, biatrial enlargement. Vascular surgery consult in place regarding CT findings of left subclavian occlusion-remains asymptomatic. 07/09/2024 hypotensive, renal function worsening, complains of nausea, vomiting and diarrhea. KUB ordered .chest x-ray reporting cardiomegaly and mild pulmonary vascular congestion. Viral studies negative. Nephrology discussing renal replacement. 07/10/2024 Reglan added to med regimen yesterday along with diet decreased to clear liquids,nausea vomiting and diarrhea subsided. Denies abdominal pain. Received Lasix last night with minimal urine output, reported overnight. Renal function continues to worsen, bicarb 30, BUN 91, creatinine 4.78. Afebrile, urine extremely cloudy. UA negative nitrates, large leukocytes, high urine WBCs rare bacteria, ceftriaxone initiated. 07/11/2024 temporary dialysis catheter placed yesterday with initiation of hemodialysis. Tolerated well, reports fatigue. Scheduled for hemodialysis again today. Labs pending. 07/12. Patient seen and examined. Blood work this morning showed WBC 14.3, hemoglobin 12.9, platelet count 281, sodium 132, potassium 4.1, BUN 51, creatinine 3.53. Still states she feels tired and lethargic. 07/13. Patient seen and examined. Blood work done showed WBC 12.7, hemoglobin 11.2, sodium 132, potassium 4.4, BUN 83, creatinine 2.31. Patient had dark- colored stool overnight and this morning. Patient went to A-fib this morning as well, Eliquis has been discontinued. FOBT was positive we will get surgery evaluation 07/14. Patient seen and examined. Blood work done this morning showed WBC 13, hemoglobin 10.5, sodium 133, potassium 4.4, BUN 100, creatinine 2.83. Patient has been lethargic this morning, answering questions but very lethargic. Surgery discussed with patient and her planning to do endoscopy but patient's daughter declined. Dialysis on hold for today 07/15. Patient seen and examined. Blood work done this morning showed WBC 14.7, hemoglobin 10.8, sodium 134, potassium 4.5, BUN 102, creatinine 3.04. Patient continues to be confused. Had a long discussion with patient's daughters, they are agreeable to be seen by hospice and possible transition to comfort care REVIEW OF SYSTEMS: CONSTITUTIONAL: No fever, no malaise,. CARDIOVASCULAR: No chest pain, no palpitations, no syncope. PULMONARY: No shortness of breath, no cough, GASTROINTESTINAL: No diarrhea, no nausea, no vomiting, no abdominal pain. NEUROLOGICAL: No headaches, no weakness, PHYSICAL EXAMINATION: GENERAL: The patient is lethargic, frail, ill looking HEENT: Pupils are round and equally reacting to light. EOMI. No scleral icterus. No conjunctival pallor. Normocephalic, atraumatic. No pharyngeal erythema. No thyromegaly. CARDIOVASCULAR: S1 and S2 present. No murmurs, rubs, or gallops. PULMONARY: Diminished breath sounds at bases bilaterally, no wheezing or crackles. ABDOMEN: Soft, nontender, nondistended, normoactive bowel sounds. No palpable organomegaly. MUSCULOSKELETAL: No joint swelling or deformity. EXTREMITIES: No cyanosis, clubbing, or pedal edema. NEUROLOGICAL: Gross neurological examination did not reveal any focal deficits. SKIN: No rashes. 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 Acute on chronic renal failure, stage IIIb, baseline 1.5. Acute secondary to ATN related to cardiorenal syndrome, hypotension, contrast. Temporary HD catheter placed 07/10/2024 with initiation of HD. Moderate mitral regurgitation Severe pulmonary hypertension COPD Hyperlipidemia History of TIA Possible previous carotid disease, patient does not recall Left breast cancer with lumpectomy and radiation Hypothyroidism Chronic back pain and bilateral shoulder pain Bilateral feet neuropathy. Nondiabetic Osteopenia Former nicotine dependence Moderate protein calorie malnutrition, BMI 19 Monitor vital signs Monitor CBC Monitor CMP Continue telemetry monitoring Encourage use of incentive spirometer Continue IV Rocephin Hold Eliquis FOBT positive Continue amiodarone and Toprol Continue Synthroid Continue Protonix 40-mg twice a day Nephrology following Cardiology following ID following General Surgery consulted, no GI coverage at this time, endoscopy was declined Hospice consulted, patient family agreeable to transition to comfort care, will initiate comfort care measures Labs and medication were reviewed.. Continue same treatment. Continue with symptomatic treatment. Resume home medication. Monitor labs and vitals. DVT and GI prophylaxis. Further recommendations as per clinical course of the patient Dictation was produced using [employer] dictation software. please excuse any grammatical, word or spelling errors. Objective - Vital Signs Vital signs: Vital Signs Temp 97.6 F 07/15/24 08:50 Pulse 116 H 07/15/24 08:50 Resp 17 07/15/24 08:50 BP 115/69 07/15/24 08:50 Pulse Ox 99 07/15/24 08:50 FiO2 Intake & Output 07/14/24 07/15/24 07/15/24 18:59 06:59 18:59 Output Total 100 475 Balance -100 -475 Weight 41 kg Output: Urine 100 475 Other: Voiding Method Indwelling Catheter Indwelling Catheter Indwelling Catheter - Labs CBC & Chem 7: 07/15/24 05:44 07/15/24 05:44 Labs: Abnormal Lab Results - Last 24 Hours (Table) 07/10/24 07/15/24 07/15/24 Range/Units 12:08 05:44 05:44 WBC 14.7 H (3.8-10.6) k/uL RBC 3.58 L (3.80-5.40) m/uL Hgb 10.8 L (11.4-16.0) gm/dL Neutrophils # 13.3 H (1.3-7.7) k/uL Lymphocytes # 0.5 L (1.0-4.8) k/uL Sodium 134 L (137-145) mmol/L Carbon Dioxide 21 L (22-30) mmol/L BUN 102 H* (7-17) mg/dL Creatinine 3.04 H (0.52-1.04) mg/dL Albumin (PEP) 2.55 L (3.80-4.90) g/dL Crmyr-6-Clmsgjptf 0.44 H (0.10-0.40) g/dL
--- NOTE | 2024-07-15 15:23 | P.PN ---
Subjective Progress Note Date: 07/15/24 HISTORY OF PRESENT ILLNESS: This is an 89-year-old female patient of Dr. Upton with past medical history of hypertension, SVT, chronic kidney disease stage V, moderate mitral regurgitation, severe right ICA disease. We have been asked to evaluate the patient for heart failure. Patient gives history that for the past 3 to 4 days she was having trouble getting to the bathroom due to significant shortness of breath. She states he is had a little bit of edema in her lower extremities. She denies any weight gain. She does have chest pain with exertion. She states she is always full of phlegm. She denies any previous cardiac history. Patient does not have history of atrial fibrillation. Blood pressure 145/71, heart rate in the 60s, pulse ox 98% on high flow nasal cannula 10 L. Patient has been started on IV Lasix 40 mg every 12 hours. Patient is seen today in the emergency center waiting for a bed on the cardiac stepdown unit. -EKG: Atrial fibrillation with ventricular rate of 91. -Chest x-ray: Cardiomegaly, pulmonary vascular congestion and bilateral pleural effusions -CTA of the chest revealed no evidence of pulmonary embolism. 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 Cardiomegaly with pulmonary vascular congestion and moderate bilateral pleural effusions with associated atelectasis. -Laboratory studies: WBC 11.4, hemoglobin 14, D-dimer 2.3. Sodium 137, potassium 3.6, BUN 36 and creatinine 1.31, magnesium 1.9. Troponin negative x 1. proBNP 9110. Influenza A, influenza B, RSV, COVID-19 not detected. -Home cardiac medications: Amlodipine 5 mg daily, aspirin 81 mg daily, hydralazine 25 mg daily, hydrochlorothiazide 25 mg daily, lisinopril 5 mg daily, metoprolol succinate 25 mg daily, pravastatin 40 mg at bedtime, also on levothyroxine. -Echocardiogram performed 05/03/2023 in the office revealed EF 60%, grade 2 diastolic dysfunction, mild concentric LVH. Mild mitral regurgitation, trace tricuspid regurgitation. -Event monitor 30 days performed 02/2023 revealed no atrial fibrillation, NSVT 07/08/2024 Patient seen and examined in the emergency center. Patient has converted to sinus rhythm, heart rate in the 50s. Patient has been continued on heparin drip. Blood pressure is on the low side at 95/40, pulse ox 96% on 9 L nasal cannula. Patient is also maintained on IV Lasix 40 mg every 12 hours. Repeat blood work reveals BUN 59 creatinine 2.65 and potassium 3.6. Patient denies any new complaints. She is anxious to be discharged home but due to high oxygen need this is doubtful. Nursing to start weaning oxygen down. Echocardiogram is pending. 07/09/2024 Patient is seen and examined. Patient has has had low blood pressure readings and heart rate in the 70s. Nephrology has stopped Lasix and hydralazine and decreased dose of gabapentin. Sharpe catheter has been inserted. Patient is being considered for renal replacement therapy. Repeat blood work reveals BUN 73 and creatinine 3.83. Echocardiogram reveals normal LV systolic function, biatrial enlargement. Chest x-ray reveals cardiomegaly and mild pulmonary vascular congestion. 07/10/2024 Patient seen and examined. Patient denies having chest pain, shortness of breath. She has noted to have worsening of her renal function and nephrology is planning to start patient on dialysis. Patient remains in sinus rhythm. Blood pressure 114/55, heart rate 75, pulse ox 92% on 2 L nasal cannula. BUN 91 creatinine 4.78. Sodium 131, potassium 3.9. 07/11/2024 Patient seen and examined. This morning her blood pressure was 63/41 and on the other side 62/38. 500 cc bolus was ordered and repeat blood pressure on the right was 128/54 with plan to only use the right arm for blood pressure readings. Patient had a total of 200 cc of urine out overnight. She did start hemodialysis yesterday and a repeat hemodialysis is scheduled for today. She states she is feeling sleepy. No chest pain no palpitations. She is currently in sinus rhythm. Repeat blood work reveals WBC 14.3, hemoglobin 12.9. BUN 51 creatinine 3.53. Potassium 4.1. 07/12/2024 Patient had hemodialysis today. Post to dialysis she became nauseous. Hemoglobin yesterday 12.9, creatinine 3.5 yesterday. BP 158/64, heart rate 87, 07/13/2024 Hemoglobin 11.1 today. Yesterday it was 12.9. Patient had black tarry stools. Patient had a team called [facility] because of hypotension. She received 1 L of normal saline fluid however her heart rate has stayed high and blood pressure has not improved much. She is sustaining in heart rate of 130 bpm. 07/14/2024 Patient examined this morning at the bedside. Patient currently is lethargic. Per nursing, a team was called this morning due to hypotension and tachycardia. Blood pressure this morning 113/63. Patient's heart rate is currently in the 80s. Telemetry reveals atrial fibrillation. 07/15/2024 Patient seen and examined at bedside this a.m. Patient is very lethargic. She is not able to get hemodialysis because of her low blood pressure and on telemetry her heart rate is around 100 bpm, underlying rhythm is atrial fibrillation. PHYSICAL EXAM: VITAL SIGNS: Reviewed. GENERAL: Well-developed in no acute distress. NECK: Supple. No JVD or thyromegaly LUNGS: Respirations even and unlabored. Lungs essentially clear to auscultation bilaterally. HEART: Irregular rate and rhythm. S1 and S2 heard. EXTREMITIES: Normal range of motion. No clubbing or cyanosis. Peripheral puls es intact. No lower extremity edema ASSESSMENT: New onset A-fib with controlled rate, currently A-fib RVR Acute diastolic heart failure Acute kidney injury, patient started hemodialysis 07/10 Acute GI bleed Hypertension History of SVT Chronic kidney disease Moderate mitral regurgitation Severe right ICA disease PLAN: General Surgery following for endoscopy. However patient's daughter stating she does not want to go through with EGD. There has been discussion about the goals of care with family. I spoke to the patient's daughters at bedside today. I have explained them the cardiac pulm gnosis. They understand the prognosis and are inclining towards hospice care/comfort measures. Continue aspirin and oral amiodarone 400 mg twice a day Continue metoprolol XL 25 mg daily Continue telemetry monitoring At this time cardiology team will sign off. Please reconsult us in case of any question. Objective - Vital Signs Vital signs: Vital Signs Temp 97.6 F 07/15/24 08:50 Pulse 87 07/15/24 11:15 Resp 18 07/15/24 13:47 BP 95/60 07/15/24 11:15 Pulse Ox 100 07/15/24 11:15 FiO2 Intake & Output 07/14/24 07/15/24 07/15/24 18:59 06:59 18:59 Output Total 100 475 0 Balance -100 -475 0 Weight 41 kg Output: Urine 100 475 0 Other: Voiding Method Indwelling Catheter Indwelling Catheter Indwelling Catheter - Labs CBC & Chem 7: 07/15/24 05:44 07/15/24 05:44 Labs: Abnormal Lab Results - Last 24 Hours (Table) 07/15/24 07/15/24 Range/Units 05:44 05:44 WBC 14.7 H (3.8-10.6) k/uL RBC 3.58 L (3.80-5.40) m/uL Hgb 10.8 L (11.4-16.0) gm/dL Neutrophils # 13.3 H (1.3-7.7) k/uL Lymphocytes # 0.5 L (1.0-4.8) k/uL Sodium 134 L (137-145) mmol/L Carbon Dioxide 21 L (22-30) mmol/L BUN 102 H* (7-17) mg/dL Creatinine 3.04 H (0.52-1.04) mg/dL
[2024-07-15] MEDS: SCOPOLAMINE 1 MG/72 HR PATCH TRANSDERM SCH (15:33)
[2024-07-15 16:15] VITALS: BP 114/61
[2024-07-16] MEDS: MORPHINE SULFATE 2 MG/ML SYRINGE IVP PRN (04:27)
[2024-07-16] MEDS: LORazepam 2 MG/ML INJ IV PRN (05:24)
--- NOTE | 2024-07-16 16:26 | P.PN ---
Subjective Progress Note Date: 07/16/24 This is an 89-year-old female with past medical history significant for COPD, chronic respiratory failure on home O2.5 L nasal cannula prn, dyslipidemia, hypertension, moderate mitral regurgitation, SVT, TIA , possible previous carotid disease-patient does not recall ,hypothyroidism, chronic kidney disease stage 4, scoliosis, chronic back pain multiple other medical issues, presented to the ER with significant shortness of breath. Patient reports she has been having progressive shortness of breath over the last 3 days, affecting her performing ADLs,, walking to the bathroom. Reports increased coughing up thick phlegm. Denies any fever chills or sweats. Denies any chest pain, palpitations. On admission hypertensive with systolic blood pressures in the high 170s, EKG reported atrial fibrillation, ventricular rate controlled, O2 sat of 82% on room air, placed on 3 L nasal cannula O2 sat increased to 90%, eventually placed on 15 L nonrebreather, currently requiring 10 L high flow nasal cannula. 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 Cardiomegaly with pulm onary vascular congestion and moderate bilateral pleural effusions with associated atelectasis. proBNP 9110. afebrile, WBC 11.8, hemoglobin 13.9, platelets 289. Bicarb 31, BUN 36, creatinine 1.31-baseline creat appears to be 1.3-1.5. Sodium 137, potassium 3.6, magnesium 1.9. Albumin 3.4. All studies negative. Diuresing with Lasix IV push initiated in the ER. Anticoagulated on heparin drip. Echo pending. 07/08/2024 anticoagulated on heparin drip, converted to sinus rhythm. Blood pressures soft. Diuresing on Lasix IV push. Worsened renal function, bicarb 34, BUN 59, creatinine 2.65. Currently requiring 6 L high flow nasal cannula to maintain O2 sats in the 90s. Echo reported normal LV function, biatrial enlargement. Vascular surgery consult in place regarding CT findings of left subclavian occlusion-remains asymptomatic. 07/09/2024 hypotensive, renal function worsening, complains of nausea, vomiting and diarrhea. KUB ordered .chest x-ray reporting cardiomegaly and mild pulmonary vascular congestion. Viral studies negative. Nephrology discussing renal replacement. 07/10/2024 Reglan added to med regimen yesterday along with diet decreased to clear liquids,nausea vomiting and diarrhea subsided. Denies abdominal pain. Received Lasix last night with minimal urine output, reported overnight. Renal function continues to worsen, bicarb 30, BUN 91, creatinine 4.78. Afebrile, urine extremely cloudy. UA negative nitrates, large leukocytes, high urine WBCs rare bacteria, ceftriaxone initiated. 07/11/2024 temporary dialysis catheter placed yesterday with initiation of hemodialysis. Tolerated well, reports fatigue. Scheduled for hemodialysis again today. Labs pending. 07/12. Patient seen and examined. Blood work this morning showed WBC 14.3, hemoglobin 12.9, platelet count 281, sodium 132, potassium 4.1, BUN 51, creatinine 3.53. Still states she feels tired and lethargic. 07/13. Patient seen and examined. Blood work done showed WBC 12.7, hemoglobin 11.2, sodium 132, potassium 4.4, BUN 83, creatinine 2.31. Patient had dark- colored stool overnight and this morning. Patient went to A-fib this morning as well, Eliquis has been discontinued. FOBT was positive we will get surgery evaluation 07/14. Patient seen and examined. Blood work done this morning showed WBC 13, hemoglobin 10.5, sodium 133, potassium 4.4, BUN 100, creatinine 2.83. Patient has been lethargic this morning, answering questions but very lethargic. Surgery discussed with patient and her planning to do endoscopy but patient's daughter declined. Dialysis on hold for today 07/15. Patient seen and examined. Blood work done this morning showed WBC 14.7, hemoglobin 10.8, sodium 134, potassium 4.5, BUN 102, creatinine 3.04. Patient continues to be confused. Had a long discussion with patient's daughters, they are agreeable to be seen by hospice and possible transition to comfort care 07/16. Patient seen and examined. Currently on comfort care measures. Patient is not responsive, REVIEW OF SYSTEMS: Review of system cannot be obtained as patient is obtunded PHYSICAL EXAMINATION: GENERAL: The patient is lethargic, frail, ill looking HEENT: Pupils are round and equally reacting to light. EOMI. No scleral icterus. No conjunctival pallor. Normocephalic, atraumatic. No pharyngeal erythema. No thyromegaly. CARDIOVASCULAR: S1 and S2 present. No murmurs, rubs, or gallops. PULMONARY: Diminished breath sounds at bases bilaterally, no wheezing or crack les. ABDOMEN: Soft, nontender, nondistended, normoactive bowel sounds. No palpable organomegaly. MUSCULOSKELETAL: No joint swelling or deformity. EXTREMITIES: No cyanosis, clubbing, or pedal edema. NEUROLOGICAL: Lethargic, hard to arouse SKIN: No rashes. 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 Acute on chronic renal failure, stage IIIb, baseline 1.5. Acute secondary to ATN related to cardiorenal syndrome, hypotension, contrast. Temporary HD catheter placed 07/10/2024 with initiation of HD. Moderate mitral regurgitation Severe pulmonary hypertension COPD Hyperlipidemia History of TIA Possible previous carotid disease, patient does not recall Left breast cancer with lumpectomy and radiation Hypothyroidism Chronic back pain and bilateral shoulder pain Bilateral feet neuropathy. Nondiabetic Osteopenia Former nicotine dependence Moderate protein calorie malnutrition, BMI 19 Hospice consulted, patient family agreeable to transition to comfort care, scottie nue comfort care measures Labs and medication were reviewed.. Continue same treatment. Continue with symptomatic treatment. Resume home medication. Monitor labs and vitals. DVT and GI prophylaxis. Further recommendations as per clinical course of the patient Dictation was produced using [employer] dictation software. please excuse any grammatical, word or spelling errors. Objective - Vital Signs Vital signs: Vital Signs Temp 97.6 F 07/15/24 08:50 Pulse 101 H 07/16/24 14:00 Resp 10 L 07/16/24 14:00 BP 114/61 07/15/24 16:00 Pulse Ox 94 L 07/16/24 11:34 FiO2 Intake & Output 07/15/24 07/16/24 07/16/24 18:59 06:59 18:59 Output Total 20 275 200 Balance -20 -275 -200 Weight 29 kg Output: Urine 20 275 200 Other: Voiding Method Indwelling Catheter Indwelling Catheter Indwelling Catheter # Bowel Movements 1 - Labs CBC & Chem 7: 07/15/24 05:44 07/15/24 05:44
[2024-07-16 19:53] VITALS: PULSE 89; RESP 18; TEMP 97.7
--- NOTE | 2024-07-17 10:57 | P.DS ---
Providers Date of admission: 07/06/24 13:39 Expected date of discharge: 07/17/24 Attending physician: Richi Perez Consults: 07/08/24 09:00 Consult Physician Routine Consulting Provider: Prasanth Galan Consult Reason/Comments: acute renal failure,CHF, Do you want consulting provider notified?: Yes 07/10/24 11:10 Consult Physician Routine Consulting Provider: Hiwot Sharpe Consult Reason/Comments: Temporary dialysis catheter placement Do you want consulting provider notified?: Yes 07/12/24 13:05 Consult Physician Routine Consulting Provider: Isaias Yu Consult Reason/Comments: Complicated UTI Do you want consulting provider notified?: Yes Primary care physician: Richi Perez Hospital Course: Discharge diagnoses; Acute CHF exacerbation, diastolic dysfunction New onset paroxysmal atrial fibrillation, rate controlled Acute on Chronic hypoxic respiratory failure, on home oxygen 2.5 L, secondary to the above Blood in stools, FOBT positive Acute UTI Leukocytosis Hypertension Elevated D-dimer, CTA reported negative for PE,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 Acute on chronic renal failure, stage IIIb, baseline 1.5. Acute secondary to ATN related to cardiorenal syndrome, hypotension, contrast. Temporary HD catheter placed 07/10/2024 with initiation of HD. Moderate mitral regurgitation Severe pulmonary hypertension COPD Hyperlipidemia History of TIA Possible previous carotid disease, patient does not recall Left breast cancer with lumpectomy and radiation Hypothyroidism Chronic back pain and bilateral shoulder pain Bilateral feet neuropathy. Nondiabetic Osteopenia Former nicotine dependence Moderate protein calorie malnutrition, BMI 19 Hospital course; This is an 89-year-old female with past medical history significant for COPD, chronic respiratory failure on home O2.5 L nasal cannula prn, dyslipidemia, hypertension, moderate mitral regurgitation, SVT, TIA , possible previous carotid disease-patient does not recall ,hypothyroidism, chronic kidney disease stage 4, scoliosis, chronic back pain multiple other medical issues, presented to the ER with significant shortness of breath. Patient reports she has been having progressive shortness of breath over the last 3 days, affecting her performing ADLs,, walking to the bathroom. Reports increased coughing up thick phlegm. Denies any fever chills or sweats. Denies any chest pain, palpitations. On admission hypertensive with systolic blood pressures in the high 170s, EKG reported atrial fibrillation, ventricular rate controlled, O2 sat of 82% on room air, placed on 3 L nasal cannula O2 sat increased to 90%, eventually placed on 15 L nonrebreather, currently requiring 10 L high flow nasal cannula. 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 Cardiomegaly with pulmonary vascular congestion and moderate bilateral pleural effusions with associated atelectasis. proBNP 9110. afebrile, WBC 11.8, hemoglobin 13.9, platelets 289. Bicarb 31, BUN 36, creatinine 1.31-baseline creat appears to be 1.3-1.5. Sodium 137, potassium 3.6, magnesium 1.9. Albumin 3.4. All studies negative. Diuresing with Lasix IV push initiated in the ER. Anticoagulated on heparin drip. Echo pending. 07/08/2024 anticoagulated on heparin drip, converted to sinus rhythm. Blood p ressures soft. Diuresing on Lasix IV push. Worsened renal function, bicarb 34, BUN 59, creatinine 2.65. Currently requiring 6 L high flow nasal cannula to maintain O2 sats in the 90s. Echo reported normal LV function, biatrial enlargement. Vascular surgery consult in place regarding CT findings of left subclavian occlusion-remains asymptomatic. 07/09/2024 hypotensive, renal function worsening, complains of nausea, vomiting and diarrhea. KUB ordered .chest x-ray reporting cardiomegaly and mild pulmonary vascular congestion. Viral studies negative. Nephrology discussing renal replacement. 07/10/2024 Reglan added to med regimen yesterday along with diet decreased to clear liquids,nausea vomiting and diarrhea subsided. Denies abdominal pain. Received Lasix last night with minimal urine output, reported overnight. Renal function continues to worsen, bicarb 30, BUN 91, creatinine 4.78. Afebrile, urine extremely cloudy. UA negative nitrates, large leukocytes, high urine WBCs rare bacteria, ceftriaxone initiated. 07/11/2024 temporary dialysis catheter placed yesterday with initiation of hemodialysis. Tolerated well, reports fatigue. Scheduled for hemodialysis again today. Labs pending. 07/12. Patient seen and examined. Blood work this morning showed WBC 14.3, hemoglobin 12.9, platelet count 281, sodium 132, potassium 4.1, BUN 51, creatinine 3.53. Still states she feels tired and lethargic. 07/13. Patient seen and examined. Blood work done showed WBC 12.7, hemoglobin 11.2, sodium 132, potassium 4.4, BUN 83, creatinine 2.31. Patient had dark- colored stool overnight and this morning. Patient went to A-fib this morning as well, Eliquis has been discontinued. FOBT was positive we will get surgery evaluation 07/14. Patient seen and examined. Blood work done this morning showed WBC 13, hemoglobin 10.5, sodium 133, potassium 4.4, BUN 100, creatinine 2.83. Patient has been lethargic this morning, answering questions but very lethargic. Surgery discussed with patient and her planning to do endoscopy but patient's daughter declined. Dialysis on hold for today 07/15. Patient seen and examined. Blood work done this morning showed WBC 14.7, hemoglobin 10.8, sodium 134, potassium 4.5, BUN 102, creatinine 3.04. Patient continues to be confused. Had a long discussion with patient's daughters, they are agreeable to be seen by hospice and possible transition to comfort care 07/16. Patient seen and examined. Currently on comfort care measures. Patient is not responsive. Patient was pronounced on 07/16/2024 at 2345. Dictation was produced using [employer] dictation software. please excuse any grammatical, word or spelling errors. Patient Condition at Discharge: Poor Plan - Discharge Summary Discharge Rx Participant: Yes New Discharge Prescriptions: No Action traMADol HCL [Ultram] 25 mg PO BID Aspirin EC [Ecotrin Low Dose] 81 mg PO DAILY Calcium Acetate [Phoslo] 667 mg PO DAILY Donepezil [Aricept] 5 mg PO HS Gabapentin [Neurontin] 400 mg PO BID Pravastatin Sodium [Pravachol] 40 mg PO HS hydroCHLOROthiazide 25 mg PO DAILY lisinopriL [Zestril] 5 mg PO DAILY Metoprolol Succinate [Toprol XL] 25 mg PO DAILY amLODIPine [Norvasc] 5 mg PO DAILY Cholecalciferol (Vitamin D3) [Vitamin D3 (50 Mcg = 2000 Iu)] 50 mcg PO DAILY hydrALAZINE HCL [Apresoline] 25 mg PO DAILY Levothyroxine Sodium [Levoxyl] 75 mcg PO DAILY Multivit-Min/Folic Acid/Biotin [Hair, Skin and Nails Softgel] 133.3 mcg PO DAILY Discharge Medication List Aspirin EC [Ecotrin Low Dose] 81 mg PO DAILY 10/04/18 [History] traMADol HCL [Ultram] 25 mg PO BID 10/04/18 [History] Metoprolol Succinate [Toprol XL] 25 mg PO DAILY 01/07/21 [History] hydroCHLOROthiazide 25 mg PO DAILY 01/07/21 [History] lisinopriL [Zestril] 5 mg PO DAILY 01/07/21 [History] Calcium Acetate [Phoslo] 667 mg PO DAILY 05/26/24 [History] Cholecalciferol (Vitamin D3) [Vitamin D3 (50 Mcg = 2000 Iu)] 50 mcg PO DAILY 05/26/24 [History] Donepezil [Aricept] 5 mg PO HS 05/26/24 [History] Gabapentin [Neurontin] 400 mg PO BID 05/26/24 [History] Levothyroxine Sodium [Levoxyl] 75 mcg PO DAILY 05/26/24 [History] Multivit-Min/Folic Acid/Biotin [Hair, Skin and Nails Softgel] 133.3 mcg PO DAILY 05/26/24 [History] Pravastatin Sodium [Pravachol] 40 mg PO HS 05/26/24 [History] amLODIPine [Norvasc] 5 mg PO DAILY 05/26/24 [History] hydrALAZINE HCL [Apresoline] 25 mg PO DAILY 05/26/24 [History] Follow up Appointment(s)/Referral(s): Richi Perez DO [Primary Care Provider] - 1-2 days Ryder Morris DO [STAFF PHYSICIAN] - 2 Weeks Discharge Disposition: - Preliminary Cause of Preliminary Cause of : CHF
--- NOTE | 2024-07-17 15:52 | P.PN ---
Subjective Progress Note Date: 07/15/24 Principal diagnosis: Reason for follow-up is E. coli UTI Patient is a 89-year-old female with a past medical history significant for COPD hypertension hyperlipidemia presenting to the hospital about a week ago for evaluation of increasing shortness of breath symptom, d uring this admission patient did have some urinary symptoms with repeat white concerning for UTI and also have worsening kidney function requiring dialysis. On today's evaluation that is 07/15/2024, Patient is afebrile this morning patient is currently sleepy has received medication to calm her down as the patient was agitated this morning as reported by the daughter at the bedside no vomiting or diarrhea has been reported patient is currently on 3 L current oxygen. Patient white count is up to 14.7, creatinine 3.04 Objective - Vital Signs Vital signs: Vital Signs Temp 97.6 F 07/15/24 08:50 Pulse 87 07/15/24 11:15 Resp 18 07/15/24 13:47 BP 95/60 07/15/24 11:15 Pulse Ox 100 07/15/24 11:15 FiO2 Intake & Output 07/14/24 07/15/24 07/15/24 18:59 06:59 18:59 Output Total 100 475 0 Balance -100 -475 0 Weight 41 kg Output: Urine 100 475 0 Other: Voiding Method Indwelling Catheter Indwelling Catheter Indwelling Catheter - Labs CBC & Chem 7: 07/15/24 05:44 07/15/24 05:44 Labs: Abnormal Lab Results - Last 24 Hours (Table) 07/15/24 07/15/24 Range/Units 05:44 05:44 WBC 14.7 H (3.8-10.6) k/uL RBC 3.58 L (3.80-5.40) m/uL Hgb 10.8 L (11.4-16.0) gm/dL Neutrophils # 13.3 H (1.3-7.7) k/uL Lymphocytes # 0.5 L (1.0-4.8) k/uL Sodium 134 L (137-145) mmol/L Carbon Dioxide 21 L (22-30) mmol/L BUN 102 H* (7-17) mg/dL Creatinine 3.04 H (0.52-1.04) mg/dL Assessment and Plan (1) Leukocytosis Current Visit: Yes Status: Acute Code(s): D72.829 - ELEVATED WHITE BLOOD CELL COUNT, UNSPECIFIED SNOMED Code(s): 987429447 (2) UTI (urinary tract infection) Current Visit: Yes Status: Acute Code(s): N39.0 - URINARY TRACT INFECTION, SITE NOT SPECIFIED SNOMED Code(s): 95468306 Plan: 1patient did have difficulty urination and some suprapubic discomfort positive UA elevated white count with urine culture positive for E. coli that is sensitive to ceftriaxone concerning for a component of symptomatic UTI, ultrasound shows nephrolithiasis but no evidence of any hydronephrosis 2-patient is afebrile white count is trending up could be related to the dialysis catheter family is considering hospice which may be appropriate hence we will hold on adding any further workup antibiotics can be safely discontinued Dictation was produced using [employer] dictation software. please excuse any grammatical, word or spelling errors.
== END 2024-07-17 01:57 | disposition expired | DRG 291 ==
LOC: EC 10:03 → 3SCARD 13:39
PROVIDERS: ADMIT Family Medicine; ATTEND Family Medicine
PROC: 06HY33Z Insertion of Infusion Device into Lower Vein, Percutaneous Approach (ICD-10-PCS; principal; 2024-07-10)
PROC: 5A1D70Z Performance of Urinary Filtration, Intermittent, Less than 6 Hours Per Day (ICD-10-PCS; 2024-07-10)
DX: I13.2 Hypertensive heart and chronic kidney disease with heart failure and with stage 5 chronic kidney disease, or end stage renal disease (principal); I50.33 Acute on chronic diastolic (congestive) heart failure; J96.21 Acute and chronic respiratory failure with hypoxia; N17.0 Acute kidney failure with tubular necrosis; G45.8 Other transient cerebral ischemic attacks and related syndromes; E44.0 Moderate protein-calorie malnutrition; Z68.1 Body mass index [BMI] 19.9 or less, adult; N39.0 Urinary tract infection, site not specified; K92.1 Melena; N18.5 Chronic kidney disease, stage 5; J98.11 Atelectasis; Z51.5 Encounter for palliative care; I27.20 Pulmonary hypertension, unspecified; I48.0 Paroxysmal atrial fibrillation; I95.9 Hypotension, unspecified; Z66 Do not resuscitate; J44.9 Chronic obstructive pulmonary disease, unspecified; E03.9 Hypothyroidism, unspecified; I34.0 Nonrheumatic mitral (valve) insufficiency; B96.20 Unspecified Escherichia coli [E. coli] as the cause of diseases classified elsewhere; N20.0 Calculus of kidney; E83.9 Disorder of mineral metabolism, unspecified; E78.5 Hyperlipidemia, unspecified; G89.29 Other chronic pain; M41.9 Scoliosis, unspecified; M25.511 Pain in right shoulder; M25.512 Pain in left shoulder; G62.9 Polyneuropathy, unspecified; N14.11 Contrast-induced nephropathy; T50.8X5A Adverse effect of diagnostic agents, initial encounter; M85.80 Other specified disorders of bone density and structure, unspecified site; Z99.81 Dependence on supplemental oxygen; Z79.82 Long term (current) use of aspirin; Z79.890 Hormone replacement therapy; Z79.899 Other long term (current) drug therapy; Z85.3 Personal history of malignant neoplasm of breast; Z86.73 Personal history of transient ischemic attack (TIA), and cerebral infarction without residual deficits; Z87.891 Personal history of nicotine dependence; Z92.3 Personal history of irradiation; Z71.3 Dietary counseling and surveillance
CPT/HCPCS: 36415; 51798; 71045; 71046; 71275; 74018; 76770; 80048; 80053; 80074; 81001; 82272; 83605; 83735; 83880; 84100; 84165; 84484; 85025; 85027; 85379; 85610; 85730; 86038; 86160; 86162; 86225; 86255; 86334; 86706; 87077; 87086; 87186; 87205; 87636; 90935; 93005; 93306; 94760; 96365; 96366; 96375; 96376; 99285